=== PATIENT | male | born 1960 | race Caucasian/White ===

== ENCOUNTER 2023-06-19 09:37 | Inpatient (IN) | payer BC, SELFPAY ==
[2023-06-17 09:25] VITALS: BMI 29.8
[2023-06-17 10:08] LABS: % Basophils 0.7 % (0-2); % Immature Granulocytes 0.2 % (0-0.5); % Lymphocytes 20.4 % (20.5-51.1); % Monocytes 8.1 % (1.7-9.3); % Neutrophils 64.6 % (42.2-75.2); Absolute Basophils 0.1 10^3/uL (0-0.2); Absolute Eosinophils 0.6 10^3/uL (0-0.7); Absolute Lymphocytes 2.1 10^3/uL (1.2-3.4); Absolute Monocytes 0.8 10^3/uL (0.1-0.6); Absolute Neutrophils 6.5 10^3/uL (1.4-6.5); Hematocrit 38.6 % (39.0-52.0); Mean Corp Hgb Conc. 33.7 g/dL (33.0-37.0); Mean Corpuscular Volume 89.1 fL (80.0-94.0); Mean Platelet Volume 10.3 fL (7.4-10.4); Nucleated Red Blood Cells % 0 % (-); Platelet Count 263 10^3/uL (130-400); Red Blood Cell Count 4.33 10^6/uL (4.70-6.10); Red Cell Dist. Width 13.3 % (11.5-14.5)
[2023-06-17 10:18] LABS: INR 0.99; PT 13.3 Sec (11.4-14.6)
[2023-06-17 10:19] LABS: APTT 32.9 Sec (23.4-35.0)
[2023-06-17 10:20] LABS: Glycohemoglobin (HgbA1c) 6.5 % (4.0-5.6)
[2023-06-17 10:21] LABS: Blood Urea Nitrogen 17 mg/dl (9-20); Calcium 9.4 mg/dl (8.4-10.2); Carbon Dioxide 24 mmol/L (22-30); Chloride 104 mmol/L (98-107); Estimated Creatinine Clearance 53 ml/min; Glucose 120 mg/dl (70-99); Sodium 136 mmol/L (135-145); eGFR 51.99
[2023-06-17 10:27] LABS: Prealbumin (Transthyretin) 25.4 mg/dl (17.6-36.0)
[2023-06-19] VITALS (10 sets, daily range): BP systolic 112–165; BP diastolic 71–93; BMI 29.8
--- NOTE | 2023-06-19 10:00 | W.SUR.PREOP ---
Pre-Operative Surgical Note
-
I have examined this patient prior to the performance of the scheduled procedure.
The patient's condition is unchanged from the time of the current History and
Physical and the patient is able to undergo the scheduled procedure.
[2023-06-19 10:21] LABS: Glucose - Point of Care 92 mg/dl (70-99)
[2023-06-19] MEDS: BACTROBAN NASAL 1 GRAM NASAL (10:28)
[2023-06-19] MEDS: PERIDEX 0.12% ORAL RINSE 15 ML PO (10:28)
[2023-06-19] MEDS: NSS 500 IV (10:28)
[2023-06-19 14:12] LABS: ACT-LR - POC 247 Seconds (116-155)
[2023-06-19 14:24] LABS: Glucose - Point of Care 111 mg/dl (70-99)
[2023-06-19 15:28] LABS: ACT-LR - POC 153 Seconds (116-155)
--- NOTE | 2023-06-19 16:10 | W.SUR.POST ---
Surgical Immediate Post Op
Note
Pre Op Diagnosis: PAD
Post Op Diagnosis: PAD
Procedure Performed: Right FEA with bovine pericardial patch angioplasty, right femoral to above knee popliteal artery bypass with 8mm ringed Propaten graft, RLE angiogram, R external iliac artery stent (8mm gore VBX)
Primary Surgeon: Willie
Assist: Blair GODOY
Anesthesia: general
Estimated Blood Loss: 200cc, (1unit PRBC given)
Fluids: see anesthesia flow sheet
Drains/Shunts: none
Specimens/Cultures: R femoral plaque
Doppler/Duplex/Angio (Y/N): Y
Complications: none
Operative Findings: Palpable DP pulse upon completion
--- NOTE | 2023-06-19 16:31 | CON.INTV ---
Consultation
Consultation Request
Date/Time Consultation Requested: 06-19-23
Date/Time Consultation Performed: 06-19-23
Requesting Provider: Dr Tapia
Performing Provider: Dr Rodgers
Reason for Consultation: s/p FEA
Medical History
-
Chief Complaint: s/p SFA
History of Present Illness:
Mr Tutu Parks is a 62/M with debilitating WINSTON claudication.
Known to Dr Tapia, attempted intervention on 05-07-23 but unable to traverse occlusion at L SFA. Reevaluated at office, rec
S/p Right FEA, right femoral to above knee popliteal artery bypass, R external iliac artery stent 06-19
Seen at ICU, in no acute distress, mild postop RLE pain
Past Medical History
Past Medical History: Other (see A&P for PMH/PSH)
Social History
Tobacco: Former Smoker
Alcohol: None
Personal:
Living: With Family
Family History
Family History: Reviewed & Not Pertinent
Allergies / Home Medications
Allergies
Allergy/AdvReac Type Severity Reaction Status Date / Time
No Known Allergies Allergy Verified 06/12/23 12:49
Home Medications
Medication Instructions Recorded Confirmed Last Taken Type
aspirin 81 mg capsule 81 mg PO DAILY 04/25/23 06/19/23 06/19/23 07:00 History
cilostazol 50 mg tablet 50 mg PO BID 04/25/23 06/19/23 06/18/23 19:00 History
clopidogrel 75 mg tablet 75 mg PO DAILY 04/25/23 06/19/23 06/19/23 07:00 History
ezetimibe 10 mg tablet 10 mg PO DAILY 04/25/23 06/19/23 06/18/23 19:00 History
levothyroxine 25 mcg tablet 25 mcg PO DAILY 04/25/23 06/19/23 06/19/23 07:00 History
losartan 50 mg tablet 100 mg PO QPM 04/25/23 06/19/2306/18/24 19:00 History
metformin 500 mg tablet 500 mg PO QPM 04/25/23 06/19/23 06/17/23 19:00 History
rosuvastatin 40 mg tablet 40 mg PO QPM 04/25/23 06/19/23 06/18/23 19:00 History
isosorbide dinitrate 30 mg tablet 30 mg PO HS 05/07/23 06/19/23 06/18/23 19:00 History
metoprolol succinate 100 mg 100 mg PO HS 05/07/23 06/19/23 06/18/23 19:00 History
tablet,extended release 24 hr
pantoprazole 40 mg tablet,delayed 40 mg PO DAILY 05/07/23 06/19/23 06/18/23 07:00 History
release
amlodipine 10 mg tablet 10 mg PO QPM 06/12/23 06/19/23 06/18/23 19:00 History
coQ10 (ubiquinol) 100 mg capsule 100 mg PO DAILY 06/19/23 06/19/23 06/18/23 07:00 History
(Qunol Shaw CoQ10)
taurine 1,000 mg capsule 1,000 mg PO DAILY 06/19/23 06/19/23 06/18/23 07:00 History
Review of Systems
-
History Source: Patient
All other systems: Negative unless noted
Musculoskeletal: Other (RLE incisional pain)
Vitals / Labs / Diagnostic Testing
Vital Signs
Temp Pulse Resp BP Pulse Ox
98 F 77 10 165/93 97
06/19/23 09:48 06/19/23 09:48 06/19/23 09:48 06/19/23 09:48 06/19/23 09:48
Microbiology
06/17/23 09:44 Nose MRSA Screen - Final
No Methicillin Resistant Staphylococcus aureus isolated.
Diagnostic Testing:
Physical Exam
-
HEENT: Normocephalic and Moist Mucous Membranes
Cardiovascular: Regular Rhythm, Murmur (n) and Peripheral Edema
Respiratory: Clear and Non-Labored Respirations
GI: Soft, Non Distended and Non Tender
Neurology: Awake, AO x 3 and No Motor Deficits
Skin: Dry
General: Respiratory Distress (n)
Assessment
-
Assessment:
Mr Tutu Parks is a 62/M with debilitating WINSTON claudication. Known to Dr Tapia, attempted intervention on 05-07-23 but unable to traverse occlusion at L SFA. Reevaluated at office, rec FEA
Impression:
PAD, claudication L>R
S/p Right FEA, right femoral to above knee popliteal artery bypass, R external iliac artery stent
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
PAD: s/p aortogram, LLE runoff; R femoral angiogram 05-07-23: L DRAGNA stenosis/plaque; milder L EIA stenosis; L SFA proximal severe stenosis, mid occlusion with reconstitution distal SFA/AK pop; unable to traverse occlusion L SFA
DM
Hypothyroidism
HLD
GERD
Infrarenal Ao aneurysm 4.5 cm
Former smoker
Plan:
S/p Right FEA, right femoral to above knee popliteal artery bypass, R external iliac artery stent
EBL: 200 mL, 1U PRBC intraop
Postoperative surgical intensive care unit monitoring
Supplemental oxygen as needed
Incentive spirometry
Aspiration precautions
Neuro and vascular checks per protocol
Vascular surgery following-correspondence and operative notes reviewed
DVT prophylaxis
Early nutrition
Early mobilization
Critical care time: 35 min
Diagnostic tests:
CXR 06-17-22: PA/lat, no infiltrates
[2023-06-19 16:35] LABS: Glucose - Point of Care 134 mg/dl (70-99)
[2023-06-19 16:49] LABS: Hematocrit 32.4 % (39.0-52.0); Hemoglobin 11.5 g/dL (13.0-18.0); Mean Corp Hgb Conc. 35.5 g/dL (33.0-37.0); Mean Corpuscular Hgb 30.8 pg (27.0-31.0); Mean Corpuscular Volume 86.9 fL (80.0-94.0); Mean Platelet Volume 10.1 fL (7.4-10.4); Platelet Count 205 10^3/uL (130-400); Red Blood Cell Count 3.73 10^6/uL (4.70-6.10); Red Cell Dist. Width 13.6 % (11.5-14.5); White Blood Cell Count 13.6 10^3/uL (4.8-10.8)
[2023-06-19 17:00] LABS: INR 1.23; PT 15.6 Sec (11.4-14.6)
--- NOTE | 2023-06-19 17:02 | OR.RPT ---
Operative Report
Operative Report
PROCEDURE DATE: 06/19/2023
Preoperative diagnosis: Debilitating right lower extremity claudication.
Postoperative diagnosis: Same
Procedure:
1. Right ilio femoral endarterectomy (common femoral, origin of profunda, distal external iliac artery) with bovine pericardial patch angioplasty.
2. Right femoral to above-knee popliteal artery bypass with 8 mm ringed Donie Propaten graft.
3. Aortogram and pelvic angiogram. Right external iliac artery angioplasty/covered stent placement with Donie 8mm x 29mm VBX covered stent.
4. Supervision and interpretation.
Surgeon: Willie
Director Of Recruitment: GHISLAINE Pinto required for all aspects of procedure including traction/countertraction, assistance with the following suture line, assistance with closure.
Complications: None
Anesthesia: General
Indications for procedure:
Debilitating claudication. Flush SFA occlusion right lower extremity. Reconstituted above-knee popliteal artery. Complicating factors include presence of an abdominal aortic aneurysm but did not quite meet size criteria for repair. In addition
inflow disease from the iliacs (extensive discussion regarding management of iliac disease in the setting of an aneurysm, and what that would mean for potential aneurysm repair in the future). Discussed all these factors extensively with the
patient. Discussed procedure at length with the patient. Risk/benefits/alternatives all fully discussed. He understood all wish to proceed.
Description of procedure:
Patient was identified brought to the operating room placed on the table in supine position. After the adequate administration of anesthesia and perioperative antibiotics he was prepped and draped in the standard surgical fashion. A standard
preoperative timeout was undertaken and everybody was in agreement the plan.
Longitudinal incision was made in the right groin that was carried through skin subcutaneous tissue. Any lymphatic type structures or vessels were ligated between silk ties and then divided. I dissected down to the level of the inguinal ligament.
I could palpate the common femoral artery as it emerged from underneath inguinal ligament. I then dissected the common femoral artery on its anterior surface to the bifurcation. Of note the tissues were somewhat inflamed, making dissection
slightly more challenging as it dissected slightly like scarred tissue. I circumferentially carefully dissected the SFA just distal to a large collateral branch and passed a vessel loop around it here. More proximally at the profunda origin I
carefully dissected the profunda. There was post stenotic dilatation of the profunda as had been noted on CT scan. The wall was slightly thinned, so I carefully dissected it to the branch point. The main profunda and branch were controlled with
Vesseloops after careful circumferential dissection. The artery was noted to be fully soft here at this juncture. Now I continued dissection more proximally in the common femoral artery, and then underneath the inguinal ligament to the distal
external iliac artery. Any circumflex iliac branches were controlled except the medial 1 I had to ligate between silk ties and divided in order to facilitate more proximal exposure. The circumflex iliac vein was clipped and divided, although this
did not have the size of the normal circumflex iliac vein and I was slightly unsure whether this was the main vein. In addition, there was a percutaneous suture noted at the distal external iliac artery and the tissues here were somewhat scarred as
well, and this explained why the scarring was noted in the groin. I dissected proximal to the circumflex lateral iliac artery and circumferentially dissected here and passed a vessel loop around the distal external iliac artery here. It was
pulsatile flow here, and the artery was soft but there was some posterior plaque still.
At this point I had to gain control of the femoral vessels and branches, I turned my attention to exposing the outflow vessel. A longitudinal incision was made in the medial distal thigh that was carried through skin subcutaneous tissue. Staying
superior to the sartorius muscle, I used electrocautery to dissect through the fascial layer, and then in the loose areolar fatty tissue I was able to identify the above-knee popliteal artery and carefully dissected away from surrounding structures
take great care to avoid any injury to structures. There were a couple small crossing vein branches which had to clip were divided. In addition the artery was almost encased in inflammatory rind that was relatively soft. I gained circumferential
control proximally distally. Now I used a Danette tunneler to create a subsartorial tunnel between the 2 arterial exposure sites. Through this tunnel I then passed an 8 mm Donie ringed Propaten graft.
The patient was now given an appropriate dose of heparin. I then clamped the SFA and profunda branches that I had isolated. Any other Vesseloops on side branches of the common femoral or external iliac artery were double looped and tightened. I
then placed a Derra clamp on the distal external iliac artery. I then made an arteriotomy with an 11 blade on the proximal SFA extending retrograde with a Darling scissors onto the common femoral artery proximally. I noted mixed plaque with intimal
thickening type plaque as well as bulky coral reef like plaque. I carried this to the very proximal common femoral artery and then up to the external iliac artery. There was some degree of plaque going all the way up to the clamp and the external
iliac artery. Therefore, I did carefully/meticulously gain more proximal control. But the tissues here were all scarred making dissection more proximally somewhat challenging. However I was able to slide my clamp up a little bit. I then used a
[place] to create an endarterectomy plane. I then endarterectomized the plaque out of the common femoral artery, and just the origin of the profunda femoris artery. Beyond the origin the profunda was widely patent and the intima is nicely adherent.
I then cut the intima flush in the proximal superficial femoral artery (chronically occluded). I then inspected carefully my proximal endpoint at the clamp. I was able to tease back plaque until I was able to get nice reasonable intima that was
somewhat healthy and the endpoint of the endarterectomy. At this point, I then removed any fine debris with fine forceps through the endarterectomy bed. I then flushed heparinized saline, and then used a bovine pericardial patch to sew a patch
angioplasty with a running 5-0 Prolene suture. Prior to completing and tying to my suture I backbled the branches, and then I completed and tied down my suture line. Next I temporarily released my clamps. I then achieved hemostasis at the suture
line. Next I reclamped the branches.
Now I made a patchotomy with an 11 blade in the distal aspect of the bovine pericardial patch. This was extended with the Darling scissors. I then beveled the graft that I had tunneled, and sewed an end to side anastomosis from the graft onto the
patch using Donie CV 6 suture. Next I completed and tied on the suture line and then clamped the graft. I then released flow in the ione system. Next, I packed the site and turned my attention to the distal site. I double looped and tightened
my Vesseloops on the proximal popliteal artery, and placed a clamp on the distal popliteal artery. I then made an arteriotomy with 11 blade extended using a Darling scissor. I then trimmed, deringed, and beveled the distal aspect of the graft and
sewed an end to side anastomosis between the graft and the popliteal artery above the knee with a Donie CV 6 suture. Prior to completing and tying to my suture line I backbled and forward with the ione artery I then flushed out the graft and then
completed and tied to my suture line. Next I released flow. There is a good pulse in the artery distal to the anastomosis. There was also a good Doppler signal that was essentially graft dependent.
I was unable to palpate a pulse on the foot at this point. However, I was planning on performing arteriography given my concern based on CT scan for a more proximal distal external iliac artery stenosis (more proximal to the endarterectomy site).
Therefore, at this point I punctured the bovine pericardial patch more proximal to the anastomosis to the graft that I performed. This was done with a micropuncture kit. Through the micropuncture sheath I obtained a aortogram/pelvic angiogram and
confirmed severe external iliac artery stenosis just beyond the bifurcation of the iliac vessels. At this point I then gained wire access with a 0.035 inch wire into the aorta. I then exchanged for a 5 [place] sheath and then upsized to a 7 [place]
sheath. I had exchanged for a [employer] wire at this point. Now I used a Donie 8mm x 29mm VBX covered stent and ballooned it accurately into place having marked the iliac bifurcation on the screen so as to avoid any inadvertent coverage of the internal
iliac artery. I was very satisfied with this positioning. Completion angiogram demonstrated excellent positioning. There is now much stronger pulse in the common femoral artery. At this point I was satisfied. I then withdrew my catheters and
wires. I clamped the common femoral artery proximally and distally and remove the sheath. I then placed a 6-0 Prolene [id number]-vy-uietd type suture at the sheath entry site. I then released my clamps. Hemostasis was noted there. At this point I
had excellent pulsation of the common femoral artery and in the bypass graft and the popliteal artery above the knee. In addition now I had an easily palpable 2+ DP pulse. At this point is very satisfied.
I now meticulously achieved hemostasis. This involved interrupted [id number]-[id number] type 6-0 Prolene sutures at any bleeding points on the suture lines. And in addition, I gave protamine to reverse the heparin. Finally I was able to achieve full
hemostasis. I then irrigated the incision sites vigorously. I then confirmed hemostasis. I then closed in layers using layers of Vicryl suture followed by 4-0 Monocryl subcuticular stitch in both surgical sites. Dermabond was applied and
dressings were applied. The patient tolerated the procedure well.
[2023-06-19 17:16] LABS: Blood Urea Nitrogen 17 mg/dl (9-20); Calcium 7.9 mg/dl (8.4-10.2); Carbon Dioxide 18 mmol/L (22-30); Chloride 109 mmol/L (98-107); Estimated Creatinine Clearance 57 ml/min; Glucose 158 mg/dl (70-99); Potassium 4.2 mmol/L (3.5-5.1); Sodium 137 mmol/L (135-145); eGFR 56.48
[2023-06-19] MEDS: NSS 1000 IV (17:24)
--- NOTE | 2023-06-19 18:45 | PTCARENOTE ---
arrived in ICU from PACU via bed. settled in room, art line zero and isael, correllates with cuff BP. Notes pain manageable, maybe 2/10. family bedside. see admission assessment and documentation. skin warm dry. Ice pack to R knee, aquacell
dressings intact. instructed on ICU routine, art line, and plan of care. call verduzco in reach. taking water for now, doesn't want clear liquid dinner tray at this time. erazo draining.
--- NOTE | 2023-06-19 19:03 | SUR.PHASEI ---
vss, palpable pulse dp right foot, feet warm to touch, aquacell dressings dry x2, pinpoint areas of echymosis around right femoral dressing. Ice pack to right knee area, per Dr Tapia. Dr Tapia updated on labs and patient transferred to ICCU, hand off
at bedside.. notified and brought to room
[2023-06-19] MEDS: CRESTOR 40 MG PO (19:13)
[2023-06-19] MEDS: ROXICODONE 5 MG PO (19:13)
--- NOTE | 2023-06-19 20:07 | PTCARENOTE ---
Received patient in bed AAOx4 and able to make his needs known. Pt's joking with staff. Dual RN Rt FEA site assessed. Right groin and right lateral knee aquacell dressings are cdi. No hematoma or drainage noted. Right DP pulse is palpable and rt PT
pulse is present with doppler. Doppler pulse to Lt DP/PT present. Skin is warm and dry. Rt foot is pink and warm. The patient c/o 4/10 rt knee pain. Pain management plan and plan of care for the shift reviewed with the patient. PRN Roxicodone
administered. Pt received on 4L O2 but weaned of to room air. SpO2 at 95%. Clear breath sounds. Hypoactive BS. Thermostat erazo is draining yellow urine. Right radial A-line zeroed and line flushed. Waveform is normal. Radial [place] and cuff pressure
correlates. All needs are met at this time. Call verduzco is within reach. The patient's spouse is at the bedside.
[2023-06-19 23:22] LABS: Glucose - Point of Care 162 mg/dl (70-99)
[2023-06-20] VITALS (14 sets, daily range): BP systolic 99–162; BP diastolic 61–88; PULSE 107; O2SAT 98; BMI 30.1
[2023-06-20] MEDS: HEPARIN 5000 UNITS SC ×4 (00:05→23:18)
[2023-06-20] MEDS: ROXICODONE 5 MG PO ×5 (00:12→21:51)
--- NOTE | 2023-06-20 00:13 | PTCARENOTE ---
patient reassessed. Remains AAOx4 and able to make his needs known. PRN administered for right leg/rt knee pain. Aquacel dressings remain cdi. Neurovascular checks as documented. No further changes fro the previous assessment.
[2023-06-20 03:53] LABS: Hematocrit 29.7 % (39.0-52.0); Hemoglobin 10.6 g/dL (13.0-18.0); Mean Corp Hgb Conc. 35.7 g/dL (33.0-37.0); Mean Corpuscular Volume 86.8 fL (80.0-94.0); Mean Platelet Volume 10.4 fL (7.4-10.4); Platelet Count 198 10^3/uL (130-400); Red Blood Cell Count 3.42 10^6/uL (4.70-6.10); Red Cell Dist. Width 13.8 % (11.5-14.5); White Blood Cell Count 13.9 10^3/uL (4.8-10.8)
[2023-06-20 03:58] LABS: APTT 30.7 Sec (23.4-35.0); INR 1.16; PT 14.8 Sec (11.4-14.6)
[2023-06-20 04:02] LABS: Blood Urea Nitrogen 19 mg/dl (9-20); Carbon Dioxide 17 mmol/L (22-30); Chloride 108 mmol/L (98-107); Estimated Creatinine Clearance 66 ml/min; Glucose 144 mg/dl (70-99); Potassium 4.1 mmol/L (3.5-5.1); Sodium 136 mmol/L (135-145); eGFR > 60.00
--- NOTE | 2023-06-20 04:14 | PTCARENOTE ---
Patient reassessed. Remains AAOx4. no changes from the previous assessment. neurovascular assessment as documented. Patient cleansed with CHG wipes and linens changed. The patient repositions himself. All needs are met at this time. Safety measures
continued.
[2023-06-20 04:51] LABS: Hepatitis C Antibody Negative (Negative)
[2023-06-20] MEDS: NSS 1000 IV (04:51)
[2023-06-20] MEDS: SYNTHROID 25 MCG PO (06:11)
[2023-06-20] MEDS: PLAVIX 75 MG PO (07:32)
[2023-06-20] MEDS: ZETIA 10 MG PO (07:32)
[2023-06-20] MEDS: ASPIR LOW (ENTERIC COATED) 81 MG PO (07:32)
[2023-06-20] MEDS: PROTONIX 40 MG PO (07:32)
[2023-06-20 07:52] LABS: Glucose - Point of Care 136 mg/dl (70-99)
[2023-06-20 08:21] LABS: Glucose - Point of Care 137 mg/dl (70-99)
--- NOTE | 2023-06-20 08:24 | W.PN.VS ---
Addendum entered and electronically signed by Jovon Erazo III, MD 06/20/23 15:00:
This patient was seen and examined with WALT Angela and WALT Dumont. I agree with the history and physical exam as well as the assessment and plan.
Doing well postop day 1 lower extremity bypass.
Signed:
Jovon Erazo III, MD
[facility] Vascular Surgery
[phone] (cell)
Original Note:
Today's Communication / Plan
-
See plan below.
Assessment/Plan
-
Assessment: 62 year old male POD #1� Right ilio femoral endarterectomy,�right femoral to above-knee popliteal artery bypass with 8 mm ringed [place] Propaten graft, aortogram and pelvic angiogram, right external iliac artery angioplasty/covered stent
placement.
Plan:
Discontinue arterial line
Discontinue erazo catheter
OOB to chair with progression to ambulation as tolerated
Continue DAPT
PT eval and treat
Subjective Data
-
Date of Service: June 20, 2023
Patient seen and examined, offers no complaints. Reports mild discomfort that is well managed with current pain regimen. Denies nausea, vomiting, fever, and chills. Tolerating PO diet. Reports eagerness for discharge when medically stable.
Objective Data
-
Vital Signs
Temp Pulse Resp BP Pulse Ox
97.6 F 91 14 158/88 95
06/20/23 04:06 06/20/23 06:15 06/20/23 06:15 06/19/23 22:08 06/20/23 06:15
Intake and Output
06/19/23 06/20/23 06/21/23
06:59 06:59 06:59
Intake Total 1690 / 1690
Output Total 1405 / 1405
Balance 285 / 285
Intake:
Oral fluids 580 / 580
IV fluids (Total) 1110 / 1110
Nss 1,000 ml @ 80 mls/hr IV . 960 / 960
[id number] [facility] Rx#:[id number]
normosol 150 / 150
Output:
Urine, Erazo 1405 / 1405
Lab Results
06/20/23 03:40
06/20/23 03:40
Calcium 8.0 mg/dl (8.4-10.2) L 06/20/23 03:40
Physical Exam
-
AAOx3, NAD, resting comfortably in bed
No tachycardia
No dyspnea on room air
ABD soft, non- tender, non-distend
Right groin and right medial thigh aquacel dressing CDI, no evidence of hematoma, surrounding area soft
Right foot warm with +2 palpable DP
--- NOTE | 2023-06-20 08:38 | PTCARENOTE ---
Received patient in bed AAOx4 and able to make his needs known. Pt's joking with staff. Dual RN Rt FEA site assessed. Right groin and right lateral knee aquacell dressings are cdi. No hematoma or drainage noted. Right DP pulse is palpable. Doppler
pulse to Lt DP/PT present. Skin is warm and dry. Rt foot is pink and warm. The patient c/o 4/10 rt knee pain. Pain management plan and plan of care for the shift reviewed with the patient. PRN Roxicodone administered. SpO2 at 92%. Clear breath
sounds. Thermostat erazo is draining yellow urine. Right radial A-line zeroed and line flushed. Radial [place] and cuff pressure correlates. All needs are met at this time. Call verduzco is within reach.
--- NOTE | 2023-06-20 08:55 | W.PN.INTV ---
Today's Communication / Plan
Recommendations
DAPT
PT
Dispo
Assessment
-
Assessment:
Mr Tutu Parks is a 62/M with debilitating WINSTON claudication. Known to Dr Tapia, attempted intervention on 05-07-23 but unable to traverse occlusion at L SFA. Reevaluated at office, rec FEA
Impression:
PAD, claudication L>R
S/p Right FEA, right femoral to above knee popliteal artery bypass, R external iliac artery stent
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
PAD: s/p aortogram, LLE runoff; R femoral angiogram 05-07-23: L DRAGAN stenosis/plaque; milder L EIA stenosis; L SFA proximal severe stenosis, mid occlusion with reconstitution distal SFA/AK pop; unable to traverse occlusion L SFA
DM
Hypothyroidism
HLD
GERD
Infrarenal Ao aneurysm 4.5 cm
Former smoker
Plan:
S/p Right FEA, right femoral to above knee popliteal artery bypass, R external iliac artery stent
EBL: 200 mL, 1U PRBC intraop
Postoperative surgical intensive care unit monitoring completed
D/c A-line
Supplemental oxygen as needed, currently on RA, POx 95%
Incentive spirometry
Aspiration precautions
Neuro and vascular checks per protocol
DAPT
Vascular surgery following-correspondence and operative notes reviewed
DVT prophylaxis
Early nutrition
Early mobilization, PT
Disposition per vasc surgery, likely for d/c today
Diagnostic tests:
CXR 06-17-22: PA/lat, no infiltrates
Subjective Dataa
Subjective Data
Date of Service:
Date of Service: June 20, 2023
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
Subjective:
No major events reported overnight
Hemodynamically stable
Denies major complaints
Review of Systems
General: Fever (n), Sweats (n), Chills (n) and Satisfactory Appetite
HEENT: Epistaxis (n) and Dysphagia (n)
Cardiopulmonary: Dyspnea (n), Cough (n), Wheezing (n) and Chest Pain (n)
GI: Abdominal Pain (n), Nausea (n) and Vomiting (n)
Neuro: Weakness (n)
Objective Data
Data Reviewed
Vital Signs / I&O / Oxygen:
Vital Signs
Temp Pulse Resp BP Pulse Ox
98.1 F 95 15 139/69 92
06/20/23 08:00 06/20/23 08:30 06/20/23 08:30 06/20/23 06:22 06/20/23 08:30
Intake and Output
06/19/23 06/20/23 06/21/23
06:59 06:59 06:59
Intake Total 1690 / 1770 160 / 160
Output Total 1405 / 1405
Balance 285 / 365 160 / 160
SaO2 92
Nasal Cannula flow liters per 2
minute
Physical Exam
General: Comfortable
HEENT: Normocephalic and Moist Mucous Membranes
Cardiovascular: Regular Rhythm, Murmur (n) and Peripheral Edema (n)
Respiratory: Clear, Non-Labored Respirations and Stridor (n)
GI: Soft, Non Distended and Non Tender
Neurology: Awake, AO x 3 and No Motor Deficits
Skin: Dry
Labs/Micro/Reports
Lab Data
06/20/23 03:40
06/20/23 03:40
Laboratory Results
06/19/23 06/20/23
16:43 03:40
PT 15.6 H 14.8 H
INR 1.23 1.16
APTT 32.0 30.7
Microbiology
06/17/23 09:44 Nose MRSA Screen - Final
No Methicillin Resistant Staphylococcus aureus isolated.
--- NOTE | 2023-06-20 10:33 | PTCARENOTE ---
Addendum entered by Francheska Cornell RN 06/20/23 10:34:
A-jun and erazo removed without issue as ordered.
Original Note:
OOB to chair with PT. See note.
--- NOTE | 2023-06-20 11:50 | CM ---
Addendum entered by Isael Clifford 06/20/23 14:59:
Pt's came and she stated that pt has a walker at home. Per , she bought a walker for her mother 2 months ago and that walker is available now.
PT has been notified.
Addendum entered by Isael Clifford 06/20/23 13:22:
PT and OT evaluation noted - home PT/OT recommended. Pt agrees and he preferred [facility]. A referral to [facility] made.
PT has been notified that a script for a Rolling walker is in pt's chart. PT will issue a walker
Please fax discharge instructions to [facility] at [phone].
D/C plan: home with [facility] and family support. Family to transport at discharge.
Original Note:
CM following re: discharge planning.
Discussed in Rounds, reviewed pt's chart, met with pt.
Pt is a 62 year old male, admitted with primary dx of POD #1� s/p Right ilio femoral endarterectomy.
Pt reports he lives with spouse 2SH, 7 steps to enter, has 2 supportive children. 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 No DME, VN or SNF history.
PCP: Luisa Viramontes
Pharmacy: [facility]
D/C plan: home with anticipated no needs. Spouse to transport at discharge.
CM will follow with discharge plan updates as hospitalization progresses
[2023-06-20 12:39] LABS: Glucose - Point of Care 138 mg/dl (70-99)
--- NOTE | 2023-06-20 12:41 | W.PV.INTER ---
VPI Note
Pre Admission Note
Functional Status: Full
Ambulation: Ambulate Independently
Pre Op Medications
Pre Op ASA: Yes
Pre Op Statin: Yes
Pre Op REED Inhibitor/ARB: Yes
Pre Op P2y12 Antagonist: Clopidogrel
Pre Op Beta Blockers: Chronic > 30 Days
Pre Op Chronic Anticoagulant: None
Pre Op Cilostazol: Yes
Post Op Medications
Post Op ASA: Yes
Post Op Statin: Yes
Post Op REED Inhibitor/ARB: Yes
Post Op P2y12 Antagonist: Clopidogrel
Post Op Beta Blockers: Chronic > 30 Days
Post Op Chronic Anticoagulant: None
Post Op Cilostazol: Yes
--- NOTE | 2023-06-20 16:04 | VNURNOTE ---
Home Health Liaison met with patient and Josie at 1500 to discuss [facility] nurse/therapy, visits, schedule and homebound status. Patient is agreeable and understands that visits at home will be 2-3 x per week to assess and teach medical
management.
[facility] brochure provided with contact information. Patient is aware that [facility] will contact them for start of care in 1-2 days after discharge from .
[facility] referral completed in [facility].
[2023-06-20] MEDS: CRESTOR 40 MG PO (17:28)
[2023-06-20] MEDS: COZAAR 100 MG PO (17:28)
[2023-06-20] MEDS: NORVASC 10 MG PO (17:28)
[2023-06-20 17:42] LABS: Glucose - Point of Care 143 mg/dl (70-99)
[2023-06-20] MEDS: COLACE 100 MG PO (21:51)
[2023-06-20] MEDS: TOPROL XL 100 MG PO (21:51)
[2023-06-20] MEDS: SORBITRATE 30 MG PO (21:51)
[2023-06-21] VITALS (10 sets, daily range): BP systolic 101–120; BP diastolic 59–73; BMI 30.2
--- NOTE | 2023-06-21 04:04 | W.PN.UPDATE ---
Addendum entered and electronically signed by WALT Cervantes 06/21/23 04:10:
WRONG ENTRY
Addendum entered and electronically signed by WALT Cervantes 06/21/23 04:09:

Procedure = never done.

Original Note:
Update Note
Progress Note Update
Left Wrist Arrow 20 (07/20)�
Diagnosis:��Sepsis
IV Line Comments: Uneventful Procedure�
Bhupendra's test completed pre-procedure: Yes�
A-Line Comments: Sterile technique as per standard protocol, Ultrasound guided insertion�
Functioning A-line in situ: Yes�
A-line Insertion Start Time:��0330
A-line in at:�0335�
[2023-06-21 04:40] LABS: Hematocrit 28.5 % (39.0-52.0); Hemoglobin 9.8 g/dL (13.0-18.0); Mean Corp Hgb Conc. 34.4 g/dL (33.0-37.0); Mean Corpuscular Hgb 30.5 pg (27.0-31.0); Mean Corpuscular Volume 88.8 fL (80.0-94.0); Mean Platelet Volume 10.9 fL (7.4-10.4); Platelet Count 188 10^3/uL (130-400); Red Blood Cell Count 3.21 10^6/uL (4.70-6.10); Red Cell Dist. Width 13.8 % (11.5-14.5)
[2023-06-21 05:07] LABS: ALT (SGPT) 16 U/L (0-50); AST (SGOT) 20 U/L (17-59); Alkaline Phosphatase 54 U/L (38-126); Blood Urea Nitrogen 22 mg/dl (9-20); Calcium 8.4 mg/dl (8.4-10.2); Carbon Dioxide 21 mmol/L (22-30); Chloride 104 mmol/L (98-107); Estimated Creatinine Clearance 53 ml/min; Glucose 132 mg/dl (70-99); Potassium 3.9 mmol/L (3.5-5.1); Sodium 136 mmol/L (135-145); Total Bilirubin 0.5 mg/dl (0.2-1.3); Total Protein 5.4 g/dl (6.3-8.2); eGFR 51.99
--- NOTE | 2023-06-21 05:20 | PTCARENOTE ---
06/20/23- received pt from dayshift RN, assessments completed, vascular check are Q4hr. Right foot warm and dry, pulses b/l doppler and weak on palpation. pt offers mild complaints of pain 10/26 which is resolved with prn pain medication. pt oob ad
alexander to bathroom, only requires assistance to hook himself back up to monitor
06/21/23- pt oob walking halls using walker, i went with him for assistance if needed, no c/o shortness of breath or difficulty breathing with ambulation. pain continues to be controlled with prn medication. dressings clean dry and intact. labs
drawn and sent no new orders.
no changes in assessment since beginning of shift,
call verduzco and personal belongings within reach at all times
[2023-06-21] MEDS: SYNTHROID 25 MCG PO (06:22)
--- NOTE | 2023-06-21 06:59 | W.[place]-PDMP ---
[place]-PDMP
-
Checked the [place]- Prescription Drug Monitoring Program website, no red flags identified; safe to proceed with prescription.
--- NOTE | 2023-06-21 07:30 | W.PN.VS ---
Today's Communication / Plan
-
Discussed with Dr Muniz
Assessment/Plan
-
Assessment: 62 year old male POD #2� Right ilio femoral endarterectomy,�right femoral to above-knee popliteal artery bypass with 8 mm ringed [place] Propaten graft, aortogram and pelvic angiogram, right external iliac artery angioplasty/covered stent
placement.
Plan:
Ambulate
pain control
DC later today
Subjective Data
-
Date of Service: June 21, 2023
Pt seen at bedside this am. Pt offers no complaints at this time. No events overnight.
Objective Data
-
Vital Signs
Temp Pulse Resp BP Pulse Ox
98.5 F 94 16 120/60 93
06/21/23 07:28 06/21/23 06:15 06/21/23 06:15 06/21/23 06:00 06/21/23 06:15
Intake and Output
06/20/23 06/21/23 06/22/23
06:59 06:59 06:59
Intake Total 1690 / 1770 680 / 680
Output Total 1405 / 1405 1075 / 1075
Balance 285 / 365 -395 / -395
Intake:
Oral fluids 580 / 580 520 / 520
IV fluids (Total) 1110 / 1190 160 / 160
Nss 1,000 ml @ 80 mls/hr IV . 960 / 1040 160 / 160
[id number] [id number] Rx#:[id number]
normosol 150 / 150
Output:
Urine, Jackson 1405 / 1405 375 / 375
Urine, Voided 700 / 700
Lab Results
06/21/23 04:13
06/21/23 04:13
Calcium 8.4 mg/dl (8.4-10.2) 06/21/23 04:13
Total Bilirubin 0.5 mg/dl (0.2-1.3) 06/21/23 04:13
AST 20 U/L (17-59) 06/21/23 04:13
ALT 16 U/L (0-50) 06/21/23 04:13
Alkaline Phosphatase 54 U/L (38-126) 06/21/23 04:13
Total Protein 5.4 g/dl (6.3-8.2) L 06/21/23 04:13
Albumin 3.0 g/dl (3.5-5.0) L 06/21/23 04:13
Physical Exam
-
AAOx3, NAD, resting comfortably in bed
No tachycardia
No dyspnea on room air
ABD soft, non- tender, non-distend
Right groin and right medial thigh aquacel dressing CDI, no evidence of hematoma, surrounding area soft
Right foot warm with +2 palpable DP
Labs stable, creatinine at baseline
--- NOTE | 2023-06-21 07:34 | W.DS.TRANS ---
Addendum entered and electronically signed by Jeannette Mar MD 06/21/23 09:28:
Patient without complaints and excited to go home. Pain minimal.
NAD
+2DP pulse
Incisions c/d/i
Ok to d/c today
Original Note:
DC Summary - [facility]
-
Discharge Instructions:
Discharge Diagnosis/Procedures Right FEA with bovine pericardial patch
angioplasty, right femoral to above knee
popliteal artery bypass with 8mm ringed Propaten
graft, RLE angiogram, R external iliac artery
stent
Diet As tolerated
Activity No strenuous activity
Driving Restrictions Not until seen by your Dr
Bathing Restrictions OK to Shower
Instructions:
Stand-Alone Forms: DC Instr - Vascular OR
Changes to Home Medications: Yes
Discharge Medications:
DC Medications w/original date entered in [employer]
aspirin 81 mg capsule 81 mg PO DAILY Blood Clot Prevention/Tx 04/25/23
cilostazol 50 mg tablet 50 mg PO BID Blood Clot Prevention/Tx 04/25/23
clopidogrel 75 mg tablet 75 mg PO DAILY Blood Clot Prevention/Tx 04/25/23
ezetimibe 10 mg tablet 10 mg PO DAILY High Cholesterol 04/25/23
levothyroxine 25 mcg tablet 25 mcg PO DAILY Thyroid 04/25/23
losartan 50 mg tablet 100 mg PO QPM Blood Pressure 04/25/23
metformin 500 mg tablet 500 mg PO QPM Diabetes 04/25/23
rosuvastatin 40 mg tablet 40 mg PO QPM High Cholesterol 04/25/23
isosorbide dinitrate 30 mg tablet 30 mg PO HS Blood Pressure 05/07/23
metoprolol succinate 100 mg tablet,extended release 24 hr 100 mg PO HS Heart Disease/Condition 05/07/23
pantoprazole 40 mg tablet,delayed release 40 mg PO DAILY Gastrointestinal Issue 05/07/23
amlodipine 10 mg tablet 10 mg PO QPM Blood Pressure 06/12/23
coQ10 (ubiquinol) 100 mg capsule (Qunol Shaw CoQ10) 100 mg PO DAILY Supplement 06/19/23
taurine 1,000 mg capsule 1,000 mg PO DAILY Supplement 06/19/23
docusate sodium 100 mg capsule 100 mg PO BID #20 caps 06/21/23
oxycodone 5 mg tablet 5 mg PO Q4HPRN PRN moderate pain #7 tabs 06/21/23
Home Medication Changes
ADDED:
Colace and oxycodone
Pending Results: No
[2023-06-21 07:51] LABS: Glucose - Point of Care 130 mg/dl (70-99)
[2023-06-21] MEDS: PROTONIX 40 MG PO (07:51)
[2023-06-21] MEDS: ASPIR LOW (ENTERIC COATED) 81 MG PO (07:51)
[2023-06-21] MEDS: PLAVIX 75 MG PO (07:51)
[2023-06-21] MEDS: ZETIA 10 MG PO (07:51)
[2023-06-21] MEDS: HEPARIN 5000 UNITS SC (07:51)
[2023-06-21] MEDS: COLACE 100 MG PO (07:51)
[2023-06-21] MEDS: ROXICODONE 5 MG PO (07:53)
--- NOTE | 2023-06-21 08:55 | W.PN.INTV ---
Today's Communication / Plan
Recommendations
D/c
Assessment
-
Assessment:
Mr Tutu Parks is a 62/M with debilitating WINSTON claudication. Known to Dr Tapia, attempted intervention on 05-07-23 but unable to traverse occlusion at L SFA. Reevaluated at office, rec FEA
Impression:
PAD, claudication L>R
S/p Right FEA, right femoral to above knee popliteal artery bypass, R external iliac artery stent
Conditions TALENT CONSULTANT:
PAD: s/p aortogram, LLE runoff; R femoral angiogram 05-07-23: L DRAGAN stenosis/plaque; milder L EIA stenosis; L SFA proximal severe stenosis, mid occlusion with reconstitution distal SFA/AK pop; unable to traverse occlusion L SFA
DM
Hypothyroidism
HLD
GERD
Infrarenal Ao aneurysm 4.5 cm
Former smoker
Plan:
S/p Right FEA, right femoral to above knee popliteal artery bypass, R external iliac artery stent
EBL: 200 mL, 1U PRBC intraop
Postoperative surgical intensive care unit monitoring completed
D/c A-line
Supplemental oxygen as needed, currently on RA, POx 95%
Incentive spirometry
Aspiration precautions
Neuro and vascular checks per protocol
DAPT
Vascular surgery following-correspondence and operative notes reviewed
DVT prophylaxis
Early nutrition
Early mobilization, PT
Disposition per vasc surgery
Diagnostic tests:
CXR 06-17-22: PA/lat, no infiltrates
Subjective Dataa
Subjective Data
Date of Service:
Date of Service: June 21, 2023
Chief Complaint: Psychiatric Assistant Follow Up
Subjective:
No major events reported overnight
Doing well postoperatively
Denies major complaints
Review of Systems
General: Fever (n), Sweats, Chills and Satisfactory Appetite
Cardiopulmonary: Dyspnea (n), Cough and Edema
GI: Abdominal Pain, Nausea (n) and Vomiting (n)
Neuro: Weakness (n)
Objective Data
Data Reviewed
Vital Signs / I&O / Oxygen:
Vital Signs
Temp Pulse Resp BP Pulse Ox
98.5 F 94 16 120/60 93
06/21/23 07:28 06/21/23 06:15 06/21/23 06:15 06/21/23 06:00 06/21/23 06:15
Intake and Output
06/20/23 06/21/23 06/22/23
06:59 06:59 06:59
Intake Total 1690 / 1770 680 / 680
Output Total 1405 / 1405 1075 / 1075
Balance 285 / 365 -395 / -395
SaO2 93
Nasal Cannula flow liters per 2
minute
Physical Exam
General: Comfortable
HEENT: Normocephalic and Moist Mucous Membranes
Cardiovascular: Regular Rhythm, Murmur (n) and Peripheral Edema (n)
Respiratory: Clear, Non-Labored Respirations and Stridor (n)
GI: Soft, Non Distended and Non Tender
Neurology: Awake, AO x 3 and No Motor Deficits
Skin: Dry
Labs/Micro/Reports
Lab Data
06/21/23 04:13
06/21/23 04:13
Laboratory Results
06/21/23
04:04
pH Cancelled
pCO2 Cancelled
pO2 Cancelled
HCO3 Cancelled
O2 Delivery Level Cancelled
Microbiology
06/17/23 09:44 Nose MRSA Screen - Final
No Methicillin Resistant Staphylococcus aureus isolated.
--- NOTE | 2023-06-21 10:16 | PTCARENOTE ---
Rec'd pt at 0700. Pt AAOx3, follows commands, SAXENA. Ambulatory in room. Monitor SR. Lungs CTA. +BS, abd soft/nt. Ate 100% breakfast. Right groin dressing C/D/I, right inner knee dressing intact, small amt old drainage noted. Dressings removed by vasc
. Discharge instructions reviewed with pt and . Pt dc'd home at approx 1015.
--- NOTE | 2023-06-23 07:40 | W.DCSUMMARY ---
Discharge Summary
Discharge Data
Date of Admission: 06/19/23
Date of Discharge: 06/21/23
-
Pending Results: No
Hospital Course
Attending: Dr. Kostas Tapia
Consultants: Pulmonary medicine
Allergies: NKDA
Procedure with date: PROCEDURE DATE: 06/19/2023, Right ilio femoral endarterectomy (common femoral, origin of profunda, distal external iliac artery) with bovine pericardial patch angioplasty. Right femoral to above-knee popliteal artery bypass with 8
mm ringed [place] Propaten graft. Aortogram and pelvic angiogram. Right external iliac artery angioplasty/covered stent placement with [place] 8mm x 29mm VBX covered stent.
History of present illness: The patient is an 62 -year-old male with multiple medical conditions including: peripheral artery disease and prediabetic. Patient presented on 06/19/23 for scheduled procedure with Dr. Kostas Tapia. Patient presented at
baseline health with no reports of recent illness or trauma.
Hospital Course: Briefly, the patient underwent scheduled procedure without complications, and recovered in PACU. Following recovery phase one and two patient was transferred to intensive care unit per protocol for continued hemodynamic monitoring.
Catalyst Concentration Operator consulted to aid in medical management from a critical care perspective. POD #1 224 Right groin surgical dressing clean, dry, and intact. No evidence of hematoma. Arterial line and IV fluids discontinued. Patient able to ambulate
without difficulty or incident. PT consulted. POD #2 2 patient with no complaints, continues to tolerate diet. Stable for discharge home
Prescriptions and follow up appointment are included in the DC summary data management manager note. All instructions were given to the patient in both written and verbal form and the patient expressed understanding.
Discharge Plan
-
Patient Disposition: Home (Routine Discharge)
Discharge Diagnosis/Procedures: Right FEA with bovine pericardial patch angioplasty, right femoral to above knee popliteal artery bypass with 8mm ringed Propaten graft, RLE angiogram, R external iliac artery stent
Condition: Good
Diet: As tolerated
Activity: No strenuous activity
Driving Restrictions: Not until seen by your Dr
Bathing Restrictions: Aquacel dressings are waterproof
Wound Care: You may peel off your dressings on 06/23, you may shower like normal, no tub soaks until after follow up. There is glue covering your surgical sites that will start to peel away, this is normal. Your surgical sites are closed with
dissolvable suture under your skin so there is nothing to remove.
Stand Alone Forms: DC Instr - Vascular OR
Referrals:
Jeannette Patrick PA-C [Specified Professional Personl] - 07/03/23 10:30 am (Vascular follow up)
Luisa Viramontes DO [Family Provider] -
Prescriptions:
New
docusate sodium 100 mg Capsule
100 mg PO BID Qty: 20 0RF
oxycodone 5 mg Tablet
5 mg PO Q4HPRN PRN (Reason: moderate pain) Qty: 7 0RF
Continued
losartan 50 mg Tablet
100 mg PO QPM
cilostazol 50 mg Tablet
50 mg PO BID
Patient Comments:
pt states he takes 100mg QD. Patient instructed to clarify 100mg QD or 50mg BID with Dr Tapia. Patient verbalized understaing.
Rx Instructions:
take 30 minutes before or 2 hours after breakfast and dinner
clopidogrel 75 mg Tablet
75 mg PO DAILY
ezetimibe 10 mg Tablet
10 mg PO DAILY
rosuvastatin 40 mg Tablet
40 mg PO QPM
aspirin 81 mg Capsule
81 mg PO DAILY
levothyroxine 25 mcg Tablet
25 mcg PO DAILY
isosorbide dinitrate 30 mg Tablet
30 mg PO HS
pantoprazole 40 mg Tablet,Delayed Release (/Ec)
40 mg PO DAILY
metoprolol succinate 100 mg Tablet Extended Release 24 Hr
100 mg PO HS
amlodipine 10 mg Tablet
10 mg PO QPM
taurine 1,000 mg Capsule
1,000 mg PO DAILY
coQ10 (ubiquinol) [Qunol Shaw CoQ10] 100 mg Capsule
100 mg PO DAILY
Held
metformin 500 mg Tablet
500 mg PO QPM
Hold Instructions: Resume on 05/09/23. Do not take Metformin for 48 hours.
Rx Instructions:
take with a meal
Discharge Orders:
Discharge Patient (As Directed); Ordered 06/21/23
Ordered By: Jeannette Mar
Discharge Date and Time
Discharge Date/Time: 06/21/23 10:24
== END 2023-06-21 10:24 | disposition home or self-care (01) | DRG 272 ==
LOC: ICU 09:37
PROVIDERS: Nurse Practitioner; Nurse Practitioner Acute Care; Nurse Practitioner Primary Care; ADMITTING PHYSICIAN Surgery Vascular Surgery; CONSULT PHYSICIAN Internal Medicine Pulmonary Disease; FAMILY PHYSICIAN Family Medicine
PROC: 04CK3ZZ Extirpation of Matter from Right Femoral Artery, Percutaneous Approach (ICD-10-PCS; 2023-06-19)
PROC: 04CE3ZZ Extirpation of Matter from Right Internal Iliac Artery, Percutaneous Approach (ICD-10-PCS; 2023-06-19)
PROC: 047H34Z Dilation of Right External Iliac Artery with Drug-eluting Intraluminal Device, Percutaneous Approach (ICD-10-PCS; 2023-06-19)
PROC: 041K4JL Bypass Right Femoral Artery to Popliteal Artery with Synthetic Substitute, Percutaneous Endoscopic Approach (ICD-10-PCS; 2023-06-19)
DX: I70.211 Atherosclerosis of native arteries of extremities with intermittent claudication, right leg (principal); I71.43 Infrarenal abdominal aortic aneurysm, without rupture; E03.9 Hypothyroidism, unspecified; E78.5 Hyperlipidemia, unspecified; K21.9 Gastro-esophageal reflux disease without esophagitis; Z87.891 Personal history of nicotine dependence
CPT/HCPCS: 88305; 88311; 35656; 35681; 36415; 71046; 80048; 80053; 82962; 83036; 84134; 85025; 85027; 85610; 85730; 86803; 86850; 86900; 86901; 86920; 87070; 93005; 97116; 97163; 99406; C1768; C1769; C1874; C1894; P9016; Q9967

== ENCOUNTER → 2023-07-25 10:05 | Outpatient (REF) | payer BC, SELFPAY | LOC: RAD 10:05 | PROVIDERS: ATTENDING PHYSICIAN Physician Assistant; FAMILY PHYSICIAN Family Medicine | DX: I73.9 Peripheral vascular disease, unspecified (principal); I71.43 Infrarenal abdominal aortic aneurysm, without rupture | CPT/HCPCS: 93922; 93925; 93978 ==

== ENCOUNTER 2023-09-03 08:08 | Inpatient (IN) | payer BC, SELFPAY ==
[2023-08-29 09:24] VITALS: BMI 29.6
[2023-08-29 10:13] LABS: APTT 30.2 Sec (23.4-35.0)
[2023-08-29 10:23] LABS: % Basophils 0.6 % (0-2); % Eosinophils 8.2 % (0-6); % Immature Granulocytes 0.4 % (0-0.5); % Lymphocytes 16.1 % (20.5-51.1); % Monocytes 8.8 % (1.7-9.3); % Neutrophils 65.9 % (42.2-75.2); Absolute Basophils 0.1 10^3/uL (0-0.2); Absolute Immature Granulocytes 0.1 10^3/uL (0-0.05); Absolute Lymphocytes 1.9 10^3/uL (1.2-3.4); Absolute Neutrophils 7.8 10^3/uL (1.4-6.5); Hemoglobin 11.5 g/dL (13.0-18.0); Mean Corp Hgb Conc. 31.9 g/dL (33.0-37.0); Mean Corpuscular Hgb 28.8 pg (27.0-31.0); Mean Corpuscular Volume 90.2 fL (80.0-94.0); Mean Platelet Volume 10.8 fL (7.4-10.4); Nucleated Red Blood Cells % 0 % (-); Platelet Count 304 10^3/uL (130-400); Red Blood Cell Count 3.99 10^6/uL (4.70-6.10); Red Cell Dist. Width 14.6 % (11.5-14.5); White Blood Cell Count 11.8 10^3/uL (4.8-10.8)
[2023-08-29 12:09] LABS: Blood Urea Nitrogen 19 mg/dl (9-20); Carbon Dioxide 22 mmol/L (22-30); Chloride 101 mmol/L (98-107); Estimated Creatinine Clearance 47 ml/min; Glucose 119 mg/dl (70-99); Potassium 4.5 mmol/L (3.5-5.1); Sodium 138 mmol/L (135-145); eGFR 51.99
[2023-09-03] VITALS (18 sets, daily range): BP systolic 101–165; BP diastolic 67–94; BMI 29.8; BMI 29.5
[2023-09-03] MEDS: PERIDEX 0.12% ORAL RINSE 15 ML PO (08:46)
[2023-09-03] MEDS: BACTROBAN NASAL 1 GRAM NASAL (08:47)
[2023-09-03] MEDS: NSS 500 IV (08:47)
--- NOTE | 2023-09-03 12:53 | CON.INTV ---
Consultation
Consultation Request
Date/Time Consultation Requested: 09-03-23
Date/Time Consultation Performed: 09-03-23
Requesting Provider: Dr Tapia
Performing Provider: Dr Rodgers
Reason for Consultation: LLE bypass
Medical History
-
Chief Complaint: s/p LLE bypass surgery
History of Present Illness:
Mr Tutu Parks is a 62/M with PAD. Known to Dr Tapia, s/p Right FEA, right femoral to above knee popliteal artery bypass, R external iliac artery stent 06-19-23 with issues.
Follows with Dr Tapia, returns for scheduled LLE bypass
Received L femoral to above-knee popliteal artery bypass, L external iliac artery stenting 09-02 with no issue
Seen at ICU, mild incisional pain but otherwise doing well
Past Medical History
Past Medical History: HTN, NIDDM (pre-DM) and Other (PAD)
Past Surgical History: Other (R fem endarterectomy and fem-pop bypass Jun 2023)
Social History
Tobacco: Former Smoker
Alcohol: None
Drug: None
Personal:
Living: With Family
Family History
Family History: Reviewed & Not Pertinent, CAD (F, M) and Diabetes (M)
Allergies / Home Medications
Allergies
Allergy/AdvReac Type Severity Reaction Status Date / Time
No Known Allergies Allergy Verified 09/03/23 08:26
Home Medications
�Medication �Instructions �Recorded �Confirmed �Last Taken �Type
aspirin 81 mg capsule 81 mg PO DAILY Blood Clot 04/25/23 09/03/23 09/03/23 06:00 History
Prevention/Tx
clopidogrel 75 mg tablet 75 mg PO DAILY Blood Clot 04/25/23 09/03/23 09/03/23 06:00 History
Prevention/Tx
ezetimibe 10 mg tablet 10 mg PO DAILY High Cholesterol 04/25/23 09/03/23 09/02/23 06:00 History
levothyroxine 25 mcg tablet 25 mcg PO DAILY Thyroid 04/25/23 09/03/23 09/02/23 06:00 History
losartan 50 mg tablet 100 mg PO QPM Blood Pressure 04/25/23 09/03/23 09/02/23 22:00 History
metformin 500 mg tablet 500 mg PO QPM Diabetes 04/25/23 09/03/23 09/01/23 08:00 History
rosuvastatin 40 mg tablet 40 mg PO QPM High Cholesterol 04/25/23 09/03/23 09/02/23 22:00 History
isosorbide dinitrate 30 mg tablet 30 mg PO HS Blood Pressure 05/07/23 09/03/23 09/02/23 22:00 History
metoprolol succinate 100 mg 100 mg PO HS Heart 05/07/23 09/03/23 09/01/23 17:00 History
tablet,extended release 24 hr Disease/Condition
pantoprazole 40 mg tablet,delayed 40 mg PO DAILY Gastrointestinal 05/07/23 09/03/23 09/02/23 08:00 History
release Issue
amlodipine 10 mg tablet 10 mg PO QPM Blood Pressure 06/12/23 09/03/23 09/02/23 22:00 History
coQ10 (ubiquinol) 100 mg capsule 100 mg PO DAILY Supplement 06/19/23 09/03/23 09/02/23 06:00 History
(Qunol Sahw CoQ10)
taurine 1,000 mg capsule 1,000 mg PO DAILY Supplement 06/19/23 09/03/23 09/02/23 06:00 History
oxycodone 5 mg tablet 5 mg PO Q4HPRN PRN moderate pain 06/21/23 09/03/23 08/18/23 06:00 Rx
#7 tabs
guar gum 1 tbsp PO DAILY 08/27/23 09/03/23 09/01/23 06:00 History
spironolactone 25 mg tablet 25 mg PO QPM 08/27/23 09/03/23 09/02/23 06:00 History
Review of Systems
-
History Source: Patient
All other systems: Negative unless noted
Cardiac: Other (mild incisional pain)
Vitals / Labs / Diagnostic Testing
Vital Signs
Temp Pulse Resp BP Pulse Ox
98.1 F 71 20 165/94 97
09/03/23 08:53 09/03/23 08:53 09/03/23 08:53 09/03/23 08:53 09/03/23 08:53
Diagnostic Testing:
Physical Exam
-
HEENT: Normocephalic and Moist Mucous Membranes
Cardiovascular: Regular Rhythm, Murmur (n) and Peripheral Edema
Respiratory: Clear and Non-Labored Respirations
GI: Soft, Non Distended and Non Tender
Neurology: Awake, AO x 3 and No Motor Deficits
Skin: Warm
General: Respiratory Distress (n)
Assessment
-
Assessment:
Mr Tutu Parks is a 62/M with PAD. Known to Dr Tapia, s/p Right FEA, right femoral to above knee popliteal artery bypass, R external iliac artery stent 06-19-23 with issues[address] with Dr Tapia, returns for scheduled LLE bypass
Impression:
S/p L femoral to above-knee popliteal artery bypass, L external iliac artery stenting 09-02
Conditions WELLNESS NURSE:
PAD: s/p aortogram, LLE runoff; R femoral angiogram 05-07-23: L DRAGAN stenosis/plaque; milder L EIA stenosis; L SFA proximal severe stenosis, mid occlusion with reconstitution distal SFA/AK pop; unable to traverse occlusion L SFA
s/p Right FEA, right femoral to above knee popliteal artery bypass, R external iliac artery stent 06-19-23
DM
Hypothyroidism
HLD
GERD
Infrarenal Ao aneurysm 4.5 cm
Former smoker
Plan:
Postoperative surgical intensive care unit monitoring
Supplemental oxygen as needed
Incentive spirometry
Aspiration precautions
Neuro and vascular checks per protocol
Vascular surgery following-correspondence and operative notes reviewed
Continue ASA, plavix
TRT
Continue A-HTN regimen
DVT prophylaxis
Early nutrition
Early mobilization
Critical care time: 35 min
[2023-09-03 13:36] LABS: Glucose - Point of Care 175 mg/dl (70-99)
[2023-09-03 13:44] LABS: Hematocrit 29.5 % (39.0-52.0); Mean Corp Hgb Conc. 33.9 g/dL (33.0-37.0); Mean Corpuscular Hgb 29.7 pg (27.0-31.0); Mean Corpuscular Volume 87.5 fL (80.0-94.0); Mean Platelet Volume 10.5 fL (7.4-10.4); Platelet Count 205 10^3/uL (130-400); Red Blood Cell Count 3.37 10^6/uL (4.70-6.10); Red Cell Dist. Width 14.1 % (11.5-14.5); White Blood Cell Count 11.4 10^3/uL (4.8-10.8)
[2023-09-03 14:02] LABS: APTT 32.6 Sec (23.4-35.0); PT 15.2 Sec (11.4-14.6)
[2023-09-03] MEDS: NSS 1000 IV (14:25)
--- NOTE | 2023-09-03 14:36 | W.SUR.POST ---
Surgical Immediate Post Op
Note
Pre Op Diagnosis: Peripheral arterial disease
Post Op Diagnosis: Peripheral arterial disease
Procedure Performed: Left femoral to above-knee popliteal artery bypass, and aortogram and pelvic angiogram, left external iliac artery angioplasty and stent placement
Primary Surgeon: Kostas Tapia MD
Assist: Ida Valdes STRATEGIC ACCOUNT EXECUTIVE-C
Anesthesia: GETA
Estimated Blood Loss: 600 mL
Fluids: See anesthesia flowsheet
Drains/Shunts: N/A
Specimens/Cultures: N/A
Doppler/Duplex/Angio (Y/N): Yes
Complications: None
Operative Findings: Bilateral palpable DP pulse upon completion
[2023-09-03 14:49] LABS: Blood Urea Nitrogen 17 mg/dl (9-20); Carbon Dioxide 18 mmol/L (22-30); Chloride 105 mmol/L (98-107); Estimated Creatinine Clearance 47 ml/min; Glucose 158 mg/dl (70-99); Potassium 4.8 mmol/L (3.5-5.1); Sodium 132 mmol/L (135-145); eGFR 51.99
--- NOTE | 2023-09-03 14:52 | PTCARENOTE ---
Pt admitted to ICU bed 3369 from PACU. Pt AAOx3. Reports 4/10 pain to left thigh. Groin and left thigh dressings C/D/I. Palpable DP and Doppler PT pulses.
[2023-09-03] MEDS: TYLENOL 650 MG PO ×2 (15:43→20:01)
[2023-09-03 16:29] LABS: Glucose - Point of Care 156 mg/dl (70-99)
--- NOTE | 2023-09-03 16:40 | OR.RPT ---
Operative Report
Operative Report
PROCEDURE DATE: 09/03/2023
Preoperative diagnosis: Debilitating left lower extremity claudication
Postoperative diagnosis: Same
Procedure:
1. Left femoral to above-knee popliteal artery bypass with 8 mm ringed [place] Propaten graft.
2. Aortogram and pelvic angiogram.
3. Left common iliac artery stent placement with [place] 8 mm x 59 mm VBX covered stent.
4. Left external iliac artery stent placement with [place] 7 mm x 39 mm VBX covered stent.
5. Supervision and interpretation.
Surgeon: Willie
Last Picker: Ida Valdes NP, required for all aspects of procedure including traction/countertraction, assistance with following of suture line, assistance with closure.
Complications: None
Anesthesia: General
Fluoroscopy: 4.2 minutes, 97 mGy, DAP 24.63.
Indications for procedure:
Severe debilitating left lower extremity claudication. Status post right lower extremity revascularization. Risk/benefits/alternatives of revascularization all extensively discussed. Patient understood all wish to proceed.
Description of procedure:
Patient was identified brought to the operating room placed on the table in supine position. After the adequate administration of anesthesia he was prepped and draped in the standard surgical fashion. A standard preoperative timeout was undertaken
and everybody was in agreement the plan. A longitudinal incision was made in the left groin that was carried through skin subcutaneous tissue. Any lymphatic type structures were ligated between silk ties and divided. I dissected down to the level
of the inguinal ligament and the common femoral artery was isolated as it emerged from underneath the inguinal ligament. There was a high bifurcation as noted on prior imaging. Therefore the superficial femoral artery was carefully
circumferentially dissected a couple centimeters beyond its origin. Vessel loop was passed around it which was double looped but not yet tightened. Next I dissected the origin of the profunda femoris artery. Is noted to be soft its origin. I
carefully dissected it for a centimeter or 2 and then passed a vessel loop around it after careful circumferential dissection. Now I dissected underneath the inguinal ligament. The distal external iliac artery was isolated just proximal to the
lateral circumflex iliac artery. It was circumferentially dissected here and it was noted to be relatively soft and a vessel loop passed around it. The circumflex iliac artery was also circumferentially dissected and a vessel loop passed around
it. At this point I turned my attention distally. I then made a longitudinal incision in the medial distal thigh that was carried through skin subcutaneous tissue and then through the fascial layer. The sartorius muscle was reflected posteriorly.
In the loose areolar fatty tissue identified the popliteal artery. I carefully dissected away from surrounding structures and great care to avoid any injury to structures. Vessel loop was passed around it proximally and distally. Next I used a
Danette tunneler to create a subcutaneous/subsartorial tunnel between the 2 incision sites. I then passed a [place] Propaten 8 mm ringed graft through the tunnel. I now gave the patient appropriate dose of heparin. Once the heparin had circulated I
tightened my double looped Vesseloops on the profunda/SFA and other branches. A Derra clamp was placed on the distal external iliac artery. I then made an arteriotomy with an 11 blade on the distal common femoral artery and extended onto the SFA
using a Darling scissor. Based on prior imaging there was no significant profundus stenosis, and therefore did not feel profundoplasty was necessary.
At this point, I beveled the proximal aspect of the graft and sewed an end to side anastomosis to the common femoral (holding onto the SFA) with a running [place] CV 6 suture. Prior to completing and tying down my suture line I backbled the branches,
flushed heparinized saline. I then clamped the graft and released my flow in the quileute artery. There were a couple suture line bleeders that were repaired with interrupted [id number] [place] CV 6 suture. At this point I was not satisfied and I
packed the groin incision and turned my attention to the thigh incision. I removed any redundancy in the graft. I double up and tight my Vesseloops in the popliteal artery proximally and distally. I then made an arteriotomy with 11 blade extended
using a Darling scissor and the popliteal artery. Is noted to be a patent artery with no significant stenosis or significant plaque (mild plaque was noted). I now beveled the graft and sewed an end to side anastomosis using a [place] CV 6 suture.
Prior to completing and tying to my suture line I backbled the quileute artery and then flushed out the graft. I then instilled heparinized saline. I completed and tied to my suture line. Now I released flow in the quileute arteries and then in the
graft. There is good pulsatile flow. There is a couple small bleeders on the suture line that were repaired with [place] CV 6 [id number] interrupted suture. Next I packed this incision site as well. I then elected to perform an arteriogram.
(I planned on potential iliac inflow stenting. I now punctured the baptiste of the graft at the proximal anastomosis using a micropuncture kit. I then advanced a 0.035 inch wire. I then used the dilator from a 5 Syrian sheath to dilate the tract and
then used a 7 [place] sheath which I advanced over the wire. I performed angiogram both retrograde and then with a ordaz's the catheter in the aorta (had some difficulty getting aortic wire access due to the heavy plaque in different parts of the
iliac artery. Angiogram confirmed significant stenosis/plaque stenosis in the proximal common iliac artery. In addition there was another coral reef plaque projection in the more distal common iliac artery. The internal iliac artery was
chronically occluded. Then in the external iliac artery mid segment there was a moderate to severe stenosis. Therefore at this point I exchanged for a stable 0.035 inch wire. I now exchanged for an 8 [place] sheath. I then used a [place] VBX 8 mm x
59 mm covered stent which I deployed to the origin of the common iliac artery. Very satisfied with this position and angiographic appearance upon completion. I then placed a 7 mm x 39 mm [place] VBX stent into the external iliac artery stenosis.
Completion angiogram now demonstrated excellent result with complete resolution of the stenoses at these areas. Runoff angiography demonstrated widely patent proximal anastomosis of the bypass graft. Bypass graft filled into the distal anastomosis
freely. There is no distal anastomotic stenosis. Little bit of vasospasm in the outflow artery but otherwise appeared widely patent. There was a small point of extravasation along the suture line. This correlated to an area of bleeding on the
suture line that had noted. At this point I was satisfied with my angiography. I then remove my wires. I did briefly clamped the artery again proximally distally in the groin and then placed 2 [id number] 6-0 Prolene suture to repair the
sheath entry site. I then released my clamps. Hemostasis was noted there. I then turned my attention to the distal anastomosis and the small bleeding site on the suture line was repaired with [place] CV 6 [id number] interrupted sutures. At
this point I was satisfied. There was diffuse needle hole bleeding from the suture lines at different areas. Therefore topical hemostatic agents were utilized. I gave protamine to reverse the heparin. I meticulously achieve full hemostasis. I
then confirmed full hemostasis. I then irrigated all incision sites and closed in layers using 2-0 Vicryl followed by 3-0 Vicryl followed by 4 Monocryl subcuticular stitch. Dermabond was applied to both sites. Patient tolerated procedure well.
Upon completion he had a palpable left 2+ DP pulse.
[2023-09-03] MEDS: NOVOLOG FLEXPEN-LOW RESISTANCE 1 UNITS SC (17:00)
[2023-09-03] MEDS: CRESTOR 40 MG PO (17:59)
[2023-09-03] MEDS: NORVASC 10 MG PO (17:59)
[2023-09-03] MEDS: COZAAR 100 MG PO (17:59)
[2023-09-03 22:08] LABS: Glucose - Point of Care 190 mg/dl (70-99)
[2023-09-04] VITALS (14 sets, daily range): BP systolic 111–139; BP diastolic 64–104; BMI 29.7
--- NOTE | 2023-09-04 00:17 | PTCARENOTE ---
Patient reassessed, asleep, pulses unchanged
--- NOTE | 2023-09-04 00:29 | PTCARENOTE ---
Patient received in bed, AAOX3, pleasant, complaining of 4/10 left leg pain, medicated with prn tylenol. NSR on monitor, afebrile, blood pressure as documented. Lungs clear, pulse ox 96% on 2L. Abdomen soft with positive bowel sounds. Thermister
erazo draining yellow urine. #16 g in left arm with IVF infusing as ordered, right radial Kincaid transduced and zeroed. Bilateral DPs palpable, Bilateral PTs present by doppler, +1 edema to right leg. Aquacell dressings clean dry and intact.
Call verduzco within reach
[2023-09-04] MEDS: IMDUR (EXTENDED RELEASE) PO (01:22)
[2023-09-04] MEDS: NSS 1000 IV (01:27)
[2023-09-04] MEDS: ROXICODONE 5 MG PO ×5 (01:29→23:29)
--- NOTE | 2023-09-04 05:00 | PTCARENOTE ---
Patient reassessed, pain relieved by roxicodone, pulses unchanged, labs sent
[2023-09-04 05:12] LABS: Hematocrit 28.1 % (39.0-52.0); Hemoglobin 9.3 g/dL (13.0-18.0); Mean Corp Hgb Conc. 33.1 g/dL (33.0-37.0); Mean Corpuscular Hgb 29.5 pg (27.0-31.0); Mean Corpuscular Volume 89.2 fL (80.0-94.0); Mean Platelet Volume 11.2 fL (7.4-10.4); Platelet Count 193 10^3/uL (130-400); Red Blood Cell Count 3.15 10^6/uL (4.70-6.10); Red Cell Dist. Width 14.2 % (11.5-14.5); White Blood Cell Count 15.4 10^3/uL (4.8-10.8)
[2023-09-04 05:29] LABS: INR 1.11; PT 14.4 Sec (11.4-14.6)
[2023-09-04 05:30] LABS: APTT 30.4 Sec (23.4-35.0)
[2023-09-04 05:35] LABS: Blood Urea Nitrogen 19 mg/dl (9-20); Calcium 8.1 mg/dl (8.4-10.2); Carbon Dioxide 18 mmol/L (22-30); Chloride 107 mmol/L (98-107); Estimated Creatinine Clearance 50 ml/min; Glucose 126 mg/dl (70-99); Potassium 4.3 mmol/L (3.5-5.1); Sodium 135 mmol/L (135-145); eGFR 56.48
[2023-09-04] MEDS: SYNTHROID 25 MCG PO (06:14)
[2023-09-04] MEDS: NOVOLOG FLEXPEN-LOW RESISTANCE SC ×2 (07:36→16:32)
[2023-09-04 07:39] LABS: Glucose - Point of Care 116 mg/dl (70-99)
[2023-09-04] MEDS: PLAVIX 75 MG PO (07:48)
[2023-09-04] MEDS: PROTONIX 40 MG PO (07:49)
[2023-09-04] MEDS: HEPARIN 5000 UNITS SC ×2 (07:49→19:24)
[2023-09-04] MEDS: ASPIR LOW (ENTERIC COATED) 81 MG PO (07:49)
[2023-09-04] MEDS: ZETIA 10 MG PO (07:49)
--- NOTE | 2023-09-04 08:00 | W.PN.INTV ---
Today's Communication / Plan
Recommendations
IS
Asp precs
ASA/plavix
Telem
Reconsult prn
Assessment
-
Assessment:
Mr Tutu Parks is a 62/M with PAD. Known to Dr Tapia, s/p Right FEA, right femoral to above knee popliteal artery bypass, R external iliac artery stent 06-19-23 with issues. Follow[address] with Dr Tapia, returns for scheduled LLE bypass
Impression:
S/p L femoral to above-knee popliteal artery bypass, L external iliac artery stenting 09-02
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
PAD: s/p aortogram, LLE runoff; R femoral angiogram 05-07-23: L DRAGAN stenosis/plaque; milder L EIA stenosis; L SFA proximal severe stenosis, mid occlusion with reconstitution distal SFA/AK pop; unable to traverse occlusion L SFA
s/p Right FEA, right femoral to above knee popliteal artery bypass, R external iliac artery stent 06-19-23
DM
Hypothyroidism
HLD
GERD
Infrarenal Ao aneurysm 4.5 cm
Former smoker
Plan:
Postoperative surgical intensive care unit monitoring completed
Resp babcock stable on RA
Incentive spirometry
Aspiration precautions
Neuro and vascular checks per protocol
Vascular surgery following-correspondence and operative notes reviewed
Continue ASA, plavix
TRT
Continue A-HTN regimen
DVT prophylaxis
Early nutrition
Early mobilization
Downgraded to telemetry
Reconsult as needed
Subjective Dataa
Subjective Data
Date of Service:
Date of Service: September 04, 2023
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
Subjective:
No major events reported overnight
Denies major complaints
Respiratory babcock stable on room air
Review of Systems
General: Fever (n), Sweats (n) and Satisfactory Appetite
HEENT: Epistaxis (n)
Cardiopulmonary: Dyspnea (n), Cough (n) and Edema (n)
GI: Abdominal Pain (n), Nausea (n) and Vomiting (n)
Neuro: Weakness
Objective Data
Data Reviewed
Vital Signs / I&O / Oxygen:
Vital Signs
Temp Pulse Resp BP Pulse Ox
97.3 F 71 13 132/72 97
09/04/23 07:45 09/04/23 05:00 09/04/23 05:00 09/03/23 17:00 09/03/23 20:00
Intake and Output
09/03/23 09/04/23 09/05/23
06:59 06:59 06:59
Intake Total 1660 / 1660
Output Total 1450 / 1450
Balance 210 / 210
SaO2 97
Nasal Cannula flow liters per 2
minute
Physical Exam
General: Comfortable
HEENT: Normocephalic and Moist Mucous Membranes
Cardiovascular: Regular Rhythm, Murmur (n) and Peripheral Edema (n)
Respiratory: Clear, Non-Labored Respirations and Stridor (n)
GI: Soft, Non Distended and Non Tender
Neurology: Awake, AO x 3 and No Motor Deficits
Skin: Warm
Labs/Micro/Reports
Lab Data
09/04/23 04:45
09/04/23 04:45
Laboratory Results
09/03/23 09/04/23
13:37 04:45
PT 15.2 H 14.4
INR 1.20 1.11
APTT 32.6 30.4
--- NOTE | 2023-09-04 08:02 | W.PN.VS ---
Addendum entered and electronically signed by Kostas Tapia MD 09/04/23 09:19:
Seen and examined with ADJUNCT ENGLISH INSTRUCTOR. Agree with findings as noted below. Patient with some soreness at incision sites but otherwise no significant complaints. Left lower extremity groin and thigh dressings clean dry and intact. No hematomas noted. Thigh
and calf are both soft. Easily palpable left DP and PT pulses 2+. Right-sided DP and PT also palpable. Feet are both warm and pink and well-perfused. Labs reviewed. Plan/as discussed and noted below.
Original Note:
Today's Communication / Plan
-
Patient seen and evaluated at bedside with Dr. Kostas Tapia, below plan reviewed with attending
Assessment/Plan
-
Assessment: 62 year old male POD #1 Left femoral to above-knee popliteal artery bypass with 8 mm ringed [place] Propaten graft, Aortogram and pelvic angiogram, Left common iliac artery stent placement with [place] 8 mm x 59 mm VBX covered stent, Left
external iliac artery stent placement with [place] 7 mm x 39 mm VBX covered stent.
Plan:
Discontinue arterial line
Discontinue erazo catheter
Discontinue IV fluids
OOB to chair
PT consult
Can downgrade to tele
Continue incentive spirometry
Subjective Data
-
Date of Service: September 04, 2023
Patient seen and examined at bedside reports adequate post operative pain management. Denies nausea, vomiting, fever, and chills.
Objective Data
-
Vital Signs
Temp Pulse Resp BP Pulse Ox
97.3 F 71 13 132/72 97
09/04/23 07:45 09/04/23 05:00 09/04/23 05:00 09/03/23 17:00 09/03/23 20:00
Intake and Output
09/03/23 09/04/23 09/05/23
06:59 06:59 06:59
Intake Total 1660 / 1660
Output Total 1450 / 1450
Balance 210 / 210
Intake:
Oral fluids 360 / 360
IV fluids (Total) 1300 / 1300
NSS@ 80 ML/HR 320 / 320
Normosol 100 / 100
Nss 1,000 ml @ 80 mls/hr IV . 880 / 880
[id number] [facility] Rx#:[id number]
Output:
Urine, Erazo 1450 / 1450
Lab Results
09/04/23 04:45
09/04/23 04:45
Calcium 8.1 mg/dl (8.4-10.2) L 09/04/23 04:45
Physical Exam
-
AAOx3, NAD, resting comfortably in bed
No tachycardia
No dyspnea
ABD soft, non-tender, non-distended
Left lower extremity with scant edema, all compartments soft, no evidence of hematoma
BL feet warm, BL DP pulse palpable
Erazo draining clear yellow urine
--- NOTE | 2023-09-04 10:54 | W.PN.UPDATE ---
Update Note
Progress Note Update
Notified by RN that patient had 9 beat run of nonsustained V. tach while resting in bed, will cancel transfer out of ICU and consult cardiology. Plan reviewed with attending.
[2023-09-04 11:32] LABS: Magnesium 2.3 mg/dl (1.6-2.3)
[2023-09-04 12:03] LABS: Glucose - Point of Care 206 mg/dl (70-99)
[2023-09-04] MEDS: NOVOLOG FLEXPEN-LOW RESISTANCE 2 UNITS SC (12:04)
--- NOTE | 2023-09-04 12:38 | CM ---
Addendum entered by Cherry Herron 09/05/23 07:50:
[facility] liaison sent tt requesting patient be assessed for home health care per consult.
Original Note:
Patient seen at bedside in ICU. Patient was for transfer to [facility] but transfer put on hold pending Cardiology assessment per nursing. Patient stated that he lives with his in a 2 story home. Patient states that he was able to stay on the
first floor after prior hospitalization. Patient had [facility] at that time and was given a walker. Patient stated that if needed he would be open to having [facility] and that his PCP is Dr. Viramontes and he uses the [facility] in [place]. Patient indicated that he did
not anticipate any further needs at this time. CM will continue to follow for discharge planning needs.
Plan; home with [facility] vs home with no needs
--- NOTE | 2023-09-04 13:30 | PTCARENOTE ---
Patient received in AM with assessment as noted. A-line d/c'd at 0800 with direct pressure held to right radial site for 5 minutes and a dressing applied to the site with no bleeding since. At 1030 I was preparing to get the patient OOB to chair
when he had a 9 second run of V-tach. He was completely asymptomatic through out. Denied any feelings of palpitations, pain or lightheadedness. B/P stable. EKG done. Mag added to AM labs (Mag 2.3, K 4.3). 's staff notified and came by to see
the patient. Transfer to Telemetry cancelled. No subsequent V-tach noted. Continues in NSR with some PVC's. B/P's stable. Lungs CTA. sao2 95% on room air. Appetite good. No bowel movement today. Manuel d/c'd at 0900. into visit and updated to
patient condition. Patient currently in bed with his at bedside. Telephone and call verduzco in reach.
--- NOTE | 2023-09-04 13:43 | CON.CAR ---
Addendum entered and electronically signed by Dale Rosales MD 09/04/23 14:37:
I saw and examined the patient.
The JET INSPECTOR's note was reviewed and I agree with the note.
62 year old male with history of CAD, CTORCA, diagonal 75-80% stenosis, PCI LAD, PAD, EF 55% with inferolateral scar by mri, nsvt who is s/p left femoral to above-knee popliteal artery bypass with 8 mm ringed [place] Propaten graft, left common iliac
artery stent and left external iliac artery stent placement by Dr Tapia. nilda had 9 seconds of asymptomatic NSVT at approximately 160bpm.. Of note he did not receive his beta adele last night. This may increase liklihood of NSVT with prior
history of this rhyhtm.
- resume metoprolol
- monitor on telemetry
- echo to reassess LVF
- reassessment in AM
Original Note:
Consultation
Consultation Request
Date/Time Consultation Requested: 09/04/23 1051
Date/Time Consultation Performed: 09/04/23 1330
Requesting Provider: Ida GODOY
Performing Provider: Aliya GODOY for Dr. Rosales
Reason for Consultation: NSVT
Medical History
-
Chief Complaint: PAD s/p vascular surgery
History of Present Illness:
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
lesion, 75%-80% diag lesion, mild to moderate LAD disease- s/p complex revascularization with NITESH to mid LAD and diagonal systems), Card MRI with EF 55% and evidence of large inferolateral transmural scar and partial subendocardial scar anteriorly,
PAD, AAA (44 mm), NSVT who is here for management of his PAD and is now s/p surgery as noted below. We are consulted since NSVT was noted on the monitor. He was not symptomatic. It is 9 seconds of monomorphic VT at 160 BPM around 10:30 AM. It does
appear that he did not have his BB last night.
Past Medical History
Past Medical History: Arrhythmias, CAD, HTN, Hypercholesterolemia and Other (PAD)
Social History
Tobacco: Former Smoker
Alcohol: Other (3-4 drinks at a time, but not every day)
Personal:
Living: With Family
Family History
Family History: Reviewed & Not Pertinent
Allergies / Home Medications
Allergy/AdvReac Type Severity Reaction Status Date / Time
No Known Allergies Allergy Verified 09/03/23 08:26
�Medication �Instructions �Recorded �Confirmed �Type
aspirin 81 mg capsule 81 mg PO DAILY Blood Clot 04/25/23 09/03/23 History
Prevention/Tx
clopidogrel 75 mg tablet 75 mg PO DAILY Blood Clot 04/25/23 09/03/23 History
Prevention/Tx
ezetimibe 10 mg tablet 10 mg PO DAILY High Cholesterol 04/25/23 09/03/23 History
levothyroxine 25 mcg tablet 25 mcg PO DAILY Thyroid 04/25/23 09/03/23 History
losartan 50 mg tablet 100 mg PO QPM Blood Pressure 04/25/23 09/03/23 History
metformin 500 mg tablet 500 mg PO QPM Diabetes 04/25/23 09/03/23 History
rosuvastatin 40 mg tablet 40 mg PO QPM High Cholesterol 04/25/23 09/03/23 History
metoprolol succinate 100 mg 100 mg PO HS Heart 05/07/23 09/03/23 History
tablet,extended release 24 hr Disease/Condition
pantoprazole 40 mg tablet,delayed 40 mg PO DAILY Gastrointestinal 05/07/23 09/03/23 History
release Issue
amlodipine 10 mg tablet 10 mg PO QPM Blood Pressure 06/12/23 09/03/23 History
coQ10 (ubiquinol) 100 mg capsule 100 mg PO DAILY Supplement 06/19/23 09/03/23 History
(Qunol Shaw CoQ10)
taurine 1,000 mg capsule 1,000 mg PO DAILY Supplement 06/19/23 09/03/23 History
oxycodone 5 mg tablet 5 mg PO Q4HPRN PRN moderate pain 06/21/23 09/03/23 Rx
#7 tabs
guar gum 1 tbsp PO DAILY 08/27/23 09/03/23 History
spironolactone 25 mg tablet 25 mg PO QPM Blood Pressure 08/27/23 09/03/23 History
isosorbide mononitrate 30 mg 30 mg PO HS Blood Pressure 09/03/23 09/03/23 History
tablet,extended release 24 hr
Review of Systems
-
History Source: Patient
All other systems: Negative unless noted (denies any CP, SOB, or palpitations. Having some post-op pain to LE.)
Physical Exam
Vital Signs
Temp Pulse Resp BP Pulse Ox
98.9 F 97 16 126/70 96
09/04/23 12:03 09/04/23 13:00 09/04/23 13:00 09/04/23 13:00 09/04/23 08:00
Lab Results
09/04/23 04:45
09/04/23 04:45
Physical Exam
General: Well Developed, Well Nourished and No Apparent Distress
HEENT: Normocephalic and Anicteric
Respiratory: Clear and Non Labored Respirations
Cardiac: Regular Rhythm
Breast: Deferred by me
GI: Soft, Non Distended and Normal Bowel Sounds
Musculoskeletal: No Edema
Skin: Warm and Dry
Neuro: AO x 3
Psych: Calm
Impression / Plan
-
PAD, severe:
-s/p left femoral to above-knee popliteal artery bypass with 8 mm ringed [place] Propaten graft, left common iliac artery stent and left external iliac artery stent placement:
-on ASA, Plavix, statin
-post-op management per vascular
NSVT:
-9 seconds at 160 BPM
-asymptomatic
-OP notes suggest history of NSVT, on BB- but it does appear BB not given last night- reason unclear in my discussion with nursing/vascular. BP/HR fine, so will resume now. Follow tele. Update echo. As detailed above, patient with scarring on card
MRI.
-mag and K+ are fine
CAD (severe disease) with hx stenting, chronic RCA occlusion:
-stable without CP
-continue ASA, plavix, statin, BB, imdur
HTN:
-stable on meds
-monitor post-op
Data Reviewed
-
EKG: Tracing Personally Visualized and interpreted (NSR with t wave abnormalities similar to previous)
Medical Tests (Nuc Med, Echo etc): Report Reviewed by me (cath report as noted above, MRI report as noted above)
Labs: Labs Reviewed by me
Old Records: Reviewed (summarized as above from Dr. Irvin's OP note)
[2023-09-04] MEDS: TOPROL XL 100 MG PO (14:08)
--- NOTE | 2023-09-04 15:30 | W.[place]-PDMP ---
[place]-PDMP
-
Checked the [place]- Prescription Drug Monitoring Program website, no red flags identified; safe to proceed with prescription.
[2023-09-04 16:42] LABS: Glucose - Point of Care 136 mg/dl (70-99)
[2023-09-04] MEDS: COZAAR 100 MG PO (18:11)
[2023-09-04] MEDS: GLUCOPHAGE 500 MG PO (18:11)
[2023-09-04] MEDS: CRESTOR 40 MG PO (18:11)
[2023-09-04] MEDS: NORVASC 10 MG PO (18:13)
[2023-09-04] MEDS: ALDACTONE 25 MG PO (18:14)
--- NOTE | 2023-09-04 20:00 | PTCARENOTE ---
Patient received in bed, AAOx3, offers no complaints. NSR on monitor, afebrile, blood pressure as documented. Palpable DPs, PT positive doppler. Lungs clear, pulse ox 92% on room air. Abdomen round with positive bowel sounds. Voiding yellow
urine. Left groin and left medial aquacell dressings intact. #20 g in RAC and #18 g in left forearm flushed and patent. CAll verduzco within reach.
[2023-09-04] MEDS: IMDUR (EXTENDED RELEASE) 30 MG PO (22:07)
[2023-09-04 23:37] LABS: Glucose - Point of Care 132 mg/dl (70-99)
[2023-09-05] VITALS (19 sets, daily range): BP systolic 110–140; BP diastolic 64–104; PULSE 82; BMI 29.4
--- NOTE | 2023-09-05 04:04 | PTCARENOTE ---
Patient resting comfortably, no changes in assessment
[2023-09-05 04:33] LABS: Hematocrit 27.3 % (39.0-52.0); Hemoglobin 9.1 g/dL (13.0-18.0); Mean Corp Hgb Conc. 33.3 g/dL (33.0-37.0); Mean Corpuscular Hgb 30.2 pg (27.0-31.0); Mean Corpuscular Volume 90.7 fL (80.0-94.0); Platelet Count 212 10^3/uL (130-400); Red Blood Cell Count 3.01 10^6/uL (4.70-6.10); Red Cell Dist. Width 14.2 % (11.5-14.5)
[2023-09-05 05:27] LABS: Blood Urea Nitrogen 21 mg/dl (9-20); Calcium 8.5 mg/dl (8.4-10.2); Carbon Dioxide 22 mmol/L (22-30); Chloride 107 mmol/L (98-107); Estimated Creatinine Clearance 42 ml/min; Glucose 110 mg/dl (70-99); Potassium 4.4 mmol/L (3.5-5.1); Sodium 134 mmol/L (135-145); eGFR 44.74
[2023-09-05] MEDS: SYNTHROID 25 MCG PO (06:55)
[2023-09-05] MEDS: NOVOLOG FLEXPEN-LOW RESISTANCE SC ×3 (07:28→16:41)
[2023-09-05 07:35] LABS: Glucose - Point of Care 136 mg/dl (70-99)
[2023-09-05] MEDS: HEPARIN 5000 UNITS SC ×2 (07:42→21:06)
[2023-09-05] MEDS: PROTONIX 40 MG PO (07:42)
[2023-09-05] MEDS: ASPIR LOW (ENTERIC COATED) 81 MG PO (07:42)
[2023-09-05] MEDS: PLAVIX 75 MG PO (07:42)
[2023-09-05] MEDS: ZETIA 10 MG PO (07:42)
--- NOTE | 2023-09-05 07:42 | W.PN.VS ---
Today's Communication / Plan
-
See plan below for today 09/05/2023.
Assessment/Plan
-
Assessment: 62 year old male POD #2 Left femoral to above-knee popliteal artery bypass with 8 mm ringed [place] Propaten graft, Aortogram and pelvic angiogram, Left common iliac artery stent placement with [place] 8 mm x 59 mm VBX covered stent, Left
external iliac artery stent placement with [place] 7 mm x 39 mm VBX covered stent.
Plan:
-Appreciate cardiology evaluation and assistance. Cont B-adele. No further VT.
-Okay for transfer out of ICU to telemetry bed from my standpoint, will await cardiology input. Echocardiogram per cardiology as well.
-PT/OT. Once stable medically and otherwise, likely okay for discharge tomorrow or the day after.
-
Total Time Spent with Patient (in minutes): 10
Subjective Data
-
Date of Service: September 05, 2023
No significant changes this morning. No chest pain or pressure. Soreness at the incision sites.
Objective Data
-
Vital Signs
Temp Pulse Resp BP Pulse Ox
99.3 F 93 15 126/65 92
09/05/23 07:23 09/05/23 07:01 09/05/23 07:01 09/05/23 07:01 09/04/23 20:00
Intake and Output
09/04/23 09/05/23 09/06/23
06:59 06:59 06:59
Intake Total 1740 / 1820 940 / 940
Output Total 1450 / 1450 1200 / 1200
Balance 290 / 370 -260 / -260
Intake:
Oral fluids 360 / 360 780 / 780
IV fluids (Total) 1380 / 1460 160 / 160
NSS@ 80 ML/HR 320 / 320
Normosol 100 / 100
Nss 1,000 ml @ 80 mls/hr IV . 960 / 1040 160 / 160
[id number] Rx#:[id number]
Output:
Urine, Jackson 1450 / 1450 400 / 400
Urine, Voided 800 / 800
Lab Results
09/05/23 04:20
09/05/23 04:20
Calcium 8.5 mg/dl (8.4-10.2) 09/05/23 04:20
Magnesium 2.3 mg/dl (1.6-2.3) 09/04/23 04:45
Physical Exam
-
Afebrile.
Blood pressure 126/65, heart rate 93.
Awake and alert.
Left groin and thigh incisions clean dry and intact. No hematomas noted. Thigh and calf are soft. Feet are both warm with left-sided palpable 2+ DP and PT. Right side palpable 2+ DP as well.
[2023-09-05] MEDS: TYLENOL 650 MG PO ×2 (07:46→13:24)
--- NOTE | 2023-09-05 08:01 | W.PN.INTV ---
Documented by User: Alex Santoro MD, Resident 09/05/23 09:10
Today's Communication / Plan
Recommendations
Echo 09/04/2023, normal
Okay to continue beta-adele per cardiology, no further VT.
Leukocytosis likely reactive. Monitor.
Mild hyponatremia, follow.
Hemodynamically stable
PT/OT
Downgraded to telemetry, pulmonary will sign off.
Reconsult as needed
Assessment
-
Assessment:
Mr Tutu Parks is a 62/M with PAD. Known to Dr Tapia, s/p Right FEA, right femoral to above knee popliteal artery bypass, R external iliac artery stent 06-19-[address] with issues[address] with Dr Tapia, returns for scheduled LLE bypass
Impression:
S/p L femoral to above-knee popliteal artery bypass, L external iliac artery stenting 09-02
Conditions BOOKKEEPING ASSISTANT:
PAD: s/p aortogram, LLE runoff; R femoral angiogram 05-07-23: L DRAGAN stenosis/plaque; milder L EIA stenosis; L SFA proximal severe stenosis, mid occlusion with reconstitution distal SFA/AK pop; unable to traverse occlusion L SFA
s/p Right FEA, right femoral to above knee popliteal artery bypass, R external iliac artery stent 06-19-23
DM
Hypothyroidism
HLD
GERD
Infrarenal Ao aneurysm 4.5 cm
Former smoker
Plan:
Postoperative surgical intensive care unit monitoring completed
Echo 09/04/2023, normal
Okay to continue beta-adele per cardiology, no further VT.
Leukocytosis likely reactive. Monitor.
Mild hyponatremia, follow.
Resp babcock stable on RA
Incentive spirometry
Aspiration precautions
Neuro and vascular checks per protocol
Vascular surgery following-correspondence and operative notes reviewed
Continue ASA, plavix
TRT
Continue A-HTN regimen
DVT prophylaxis
Early nutrition
Early mobilization
Downgraded to telemetry
Reconsult as needed
Subjective Dataa
Subjective Data
Date of Service:
Date of Service: September 05, 2023
Chief Complaint: Break Out Man Follow Up
Subjective:
No major events reported overnight
Denies major complaints
From pulmonary point of view, stable on room air
Review of Systems
General: Fever (n), Sweats (n) and Satisfactory Appetite
HEENT: Epistaxis (n)
Cardiopulmonary: Dyspnea (n), Cough (n) and Edema (n)
GI: Abdominal Pain (n), Nausea (n) and Vomiting (n)
Neuro: Weakness
Objective Data
Data Reviewed
Vital Signs / I&O / Oxygen:
Vital Signs
Temp Pulse Resp BP Pulse Ox
99.3 F 93 15 126/65 92
09/05/23 07:23 09/05/23 07:01 09/05/23 07:01 09/05/23 07:01 09/04/23 20:00
Intake and Output
09/04/23 09/05/23 09/06/23
06:59 06:59 06:59
Intake Total 1740 / 1820 940 / 940
Output Total 1450 / 1450 1200 / 1200
Balance 290 / 370 -260 / -260
SaO2 92
Nasal Cannula flow liters per 2
minute
Physical Exam
General: Comfortable
HEENT: Normocephalic and Moist Mucous Membranes
Cardiovascular: Regular Rhythm, Murmur (n) and Peripheral Edema (n)
Respiratory: Clear, Non-Labored Respirations and Stridor (n)
GI: Soft, Non Distended and Non Tender
Neurology: Awake, Alert, Oriented, AO x 3, No Motor Deficits and Other
Skin: Warm
Labs/Micro/Reports
Lab Data
09/05/23 04:20
09/05/23 04:20

Documented by User: Todd Rodgers MD 09/05/23 11:04
Assessment
-
Assessment:
Mr Tutu Parks is a 62/M with PAD. Known to Dr Tapia, s/p Right FEA, right femoral to above knee popliteal artery bypass, R external iliac artery stent 06-19-[address] with issues[address] Follow[address] with Dr Tapia, returns for scheduled LLE bypass
Impression:
S/p L femoral to above-knee popliteal artery bypass, L external iliac artery stenting 09-02
Conditions BOOKKEEPING ASSISTANT:
PAD: s/p aortogram, LLE runoff; R femoral angiogram 05-07-23: L DRAGAN stenosis/plaque; milder L EIA stenosis; L SFA proximal severe stenosis, mid occlusion with reconstitution distal SFA/AK pop; unable to traverse occlusion L SFA
s/p Right FEA, right femoral to above knee popliteal artery bypass, R external iliac artery stent 06-19-23
DM
Hypothyroidism
HLD
GERD
Infrarenal Ao aneurysm 4.5 cm
Former smoker
Plan:
Postoperative surgical intensive care unit monitoring completed
Echo 09/04/2023, normal
Okay to continue beta-adele per cardiology, no further VT.
Cards following
Leukocytosis likely reactive. Monitor.
Mild hyponatremia, follow.
Resp babcock stable on RA
Incentive spirometry
Aspiration precautions
Neuro and vascular checks per protocol
Vascular surgery following-correspondence and operative notes reviewed
Continue ASA, plavix
TRT
Continue A-HTN regimen
DVT prophylaxis
Early nutrition
Early mobilization
Downgraded to telemetry
Reconsult as needed
ATTENDING PHYSICIAN ATTESTATION:
(Follow-up Visit:)
I personally saw and evaluated the patient along with the FM Resident Dr Santoro.
Discussed with Resident and discussed in rounds with MDT.
I agree with Resident�s findings and plan as documented in the resident�s note, which was edited by myself.
Subjective Dataa
Subjective Data
Subjective:
No major events reported overnight
Denies major complaints
From pulmonary point of view, stable on room air
Seen by Vas sx today
Review of Systems
HEENT: Dysphagia (n)
Cardiopulmonary: Wheezing (n)
--- NOTE | 2023-09-05 11:40 | VNURNOTE ---
Home Health Liaison met with patient at 1045 to discuss [facility] nurse/therapy, visits, schedule and homebound status. Patient is agreeable and understands that visits at home will be 2-3 x per week to assess and teach medical management.
[facility] brochure provided with contact information. Patient is aware that [facility] will contact him for start of care in 1-2 days after discharge from .
[facility] referral completed in Care Port.
[2023-09-05 12:00] LABS: Glucose - Point of Care 142 mg/dl (70-99)
--- NOTE | 2023-09-05 13:20 | W.PN.CD ---
Today's Communication / Plan
-
Increase BB
Continue tele
Impression / Plan
-
NSVT
- LVEF 50-55%
- No syncope
- Had an orthostatic dizzy spell in the past
- Let's increase BB
- If syncope or presyncope develops he may benefit from EPS
PAD, severe
- Doing well postop
CAD (severe disease) with hx stenting, chronic RCA occlusion, stable, no angina
HTN, stable
Physical Exam
Vital Signs/Labs
Vital Signs
Temp Pulse Resp BP Pulse Ox
98.4 F 82 13 128/78 95
09/05/23 12:00 09/05/23 12:00 09/05/23 12:00 09/05/23 12:00 09/05/23 12:00
09/04/23 09/05/23 09/06/23
06:59 06:59 06:59
Actual Weight 85.9 kg 85.2 kg
09/05/23 04:20
09/05/23 04:20
PT 14.4 Sec (11.4-14.6) 09/04/23 04:45
INR 1.11 09/04/23 04:45
APTT 30.4 Sec (23.4-35.0) 09/04/23 04:45
Magnesium 2.3 mg/dl (1.6-2.3) 09/04/23 04:45
Physical Exam
Constitutional: No acute distress
Cardiovascular: Rhythm & rate is regular and Pedal edema is absent
Respiratory: Respiratory effort normal and Lungs clear to auscul.
GI: Soft and Distention absent
Neuro/Psych: AO x 3
Data Reviewed
-
Date of Service: September 05, 2023
--- NOTE | 2023-09-05 14:22 | CM ---
CM following re: discharge planning.
Discussed in Rounds, reviewed pt's chart, met with pt and pt's spouse at bedside.
PT and OT evaluations are noted - home PT recommended. Pt stated he had [facility] in the past and he preferred [facility].
A referral to [facility] made yesterday and [facility] liaison following.
Please fax discharge instructions to [facility] at [phone].
D/C plan: home with [facility] and family support. Spouse to transport at discharge.
CM will follow with discharge plan updates as needed.
[2023-09-05 16:37] LABS: Glucose - Point of Care 135 mg/dl (70-99)
[2023-09-05] MEDS: TOPROL XL 150 MG PO (17:43)
[2023-09-05] MEDS: GLUCOPHAGE 500 MG PO (17:43)
[2023-09-05] MEDS: ALDACTONE 25 MG PO (17:44)
[2023-09-05] MEDS: COZAAR 100 MG PO (17:44)
[2023-09-05] MEDS: NORVASC 10 MG PO (17:44)
[2023-09-05] MEDS: CRESTOR 40 MG PO (17:44)
--- NOTE | 2023-09-05 18:18 | PTCARENOTE ---
Patient received in AM with assessment as noted. Continues awake, alert and oriented. OOB to chair through the shift and ambulated in the room and hallway using a walker. Weakly palpable bilateral PT and DP pulses. Left leg dressings dry and intact.
Left leg pain controlled with PRN Tylenol and ice bag applications. NSR with PVC's on monitor. Afebrile. B/P's stable. Appetite good. Voiding ad alexander. For transfer to 2109 and report to be called to floor. For transfer via W/C with chart, meds and
belongings.
[2023-09-05] MEDS: IMDUR (EXTENDED RELEASE) 30 MG PO (21:07)
[2023-09-06] MEDS: TYLENOL 650 MG PO ×2 (02:47→08:11)
[2023-09-06 03:05] VITALS: BP 115/64
[2023-09-06] MEDS: SYNTHROID 25 MCG PO (06:10)
[2023-09-06 07:05] LABS: Hematocrit 28.6 % (39.0-52.0); Hemoglobin 9.7 g/dL (13.0-18.0); Mean Corp Hgb Conc. 33.9 g/dL (33.0-37.0); Mean Corpuscular Hgb 30.2 pg (27.0-31.0); Mean Corpuscular Volume 89.1 fL (80.0-94.0); Mean Platelet Volume 11.4 fL (7.4-10.4); Platelet Count 239 10^3/uL (130-400); Red Blood Cell Count 3.21 10^6/uL (4.70-6.10); Red Cell Dist. Width 14.3 % (11.5-14.5); White Blood Cell Count 11.2 10^3/uL (4.8-10.8)
[2023-09-06 07:15] VITALS: BP 109/56
[2023-09-06 07:31] LABS: Blood Urea Nitrogen 20 mg/dl (9-20); Carbon Dioxide 20 mmol/L (22-30); Chloride 106 mmol/L (98-107); Estimated Creatinine Clearance 42 ml/min; Glucose 106 mg/dl (70-99); Potassium 4.1 mmol/L (3.5-5.1); Sodium 134 mmol/L (135-145); eGFR 44.74
--- NOTE | 2023-09-06 07:38 | W.PN.VS ---
Today's Communication / Plan
-
DC home
Assessment/Plan
-
Assessment: 62 year old male POD #3 Left femoral to above-knee popliteal artery bypass with 8 mm ringed [place] Propaten graft, Aortogram and pelvic angiogram, Left common iliac artery stent placement with [place] 8 mm x 59 mm VBX covered stent, Left
external iliac artery stent placement with [place] 7 mm x 39 mm VBX covered stent.
Plan:
DC Home today
Subjective Data
-
Date of Service: September 06, 2023
Patient seen and examined at bedside. Resting comfortably. Palpable pulse and dorsalis pedis of the left lower extremity. Well-healed incisions.
Objective Data
-
Vital Signs
Temp Pulse Resp BP Pulse Ox
99.0 F 85 16 115/64 94
09/06/23 03:05 09/06/23 03:05 09/06/23 03:05 09/06/23 03:05 09/06/23 03:05
Intake and Output
09/05/23 09/06/23 09/07/23
06:59 06:59 06:59
Intake Total 940 / 940 960 / 960
Output Total 1200 / 1200 1000 / 1000
Balance -260 / -260 -40 / -40
Intake:
Oral fluids 780 / 780 960 / 960
IV fluids (Total) 160 / 160
Nss 1,000 ml @ 80 mls/hr IV . 160 / 160
[id number] JAYRO Rx#:[id number]
Output:
Urine, [place] 400 / 400
Urine, Voided 800 / 800 1000 / 1000
Other:
Number of approximated MODERATE 2
amounts of urine
Lab Results
09/06/23 06:01
09/06/23 06:01
Calcium 9.0 mg/dl (8.4-10.2) 09/06/23 06:01
Magnesium 2.3 mg/dl (1.6-2.3) 09/04/23 04:45
Physical Exam
-
Gen: NAD, AOx3
Chest: CTA B/L
Cards: RRR
Abd: soft, nt, nd
Ext: LLE incision C/D/I; palpable DP
[2023-09-06] MEDS: PROTONIX 40 MG PO (08:06)
[2023-09-06] MEDS: PLAVIX 75 MG PO (08:07)
[2023-09-06] MEDS: ASPIR LOW (ENTERIC COATED) 81 MG PO (08:07)
[2023-09-06] MEDS: ZETIA 10 MG PO (08:07)
[2023-09-06] MEDS: HEPARIN 5000 UNITS SC (08:08)
[2023-09-06 08:10] LABS: Glucose - Point of Care 231 mg/dl (70-99)
[2023-09-06] MEDS: NOVOLOG FLEXPEN-LOW RESISTANCE 2 UNITS SC (08:10)
--- NOTE | 2023-09-06 10:57 | CM ---
CM following re: d/c planning.
D/c plan is for pt to return home with , with [facility] services.
providing transport home today.
Goal: home with [facility].
--- NOTE | 2023-09-08 09:44 | W.PN.UPDATE ---
Update Note
Progress Note Update
Spoke with patient by phone this am. Pt doing well, states his home health aid will be checking his incisions today. I informed him I sent his Toprol XL 150mg daily script to his pharmacy. He stated he would be picking that up today as he was due
for a refill from his lower dose. He has been taking the tab and a half as prescribed when he left the hospital this weekend.
--- NOTE | 2023-09-10 16:33 | W.PV.INTER ---
VPI Note
Pre Admission Note
Functional Status: Full
Ambulation: Ambulate Independently
Pre Op Medications
Pre Op ASA: Yes
Pre Op Statin: Yes
Pre Op REED Inhibitor/ARB: Yes
Pre Op P2y12 Antagonist: Clopidogrel
Pre Op Beta Blockers: Chronic > 30 Days
Pre Op Chronic Anticoagulant: None
Pre Op Cilostazol: No
Post Op Medications
Post Op ASA: Yes
Post Op Statin: Yes
Post Op REED Inhibitor/ARB: Yes
Post Op P2y12 Antagonist: Clopidogrel
Post Op Beta Blockers: Chronic > 30 Days
Post Op Chronic Anticoagulant: None
Post Op Cilostazol: No
--- NOTE | 2023-09-17 12:04 | W.DCSUMMARY ---
Discharge Summary
Discharge Data
Date of Admission: 09/03/23
Date of Discharge: 09/06/23
-
Pending Results: No
Hospital Course
Attending: Willie
Consultants: Pulmonary medicine, cardiology
Allergies: NKDA,
Procedure with date: 09/03/2023: Left femoral tube above-knee popliteal artery bypass with ringed propatent graft, left common iliac artery stent placement with [place] VBX covered stent, left external iliac artery stent placement with [place] VBX covered
stent
History of present illness: The patient is an 62-year-old male with multiple medical conditions including: hypertension, hypothyroid, diabetes, GERD, PAD, right femoral endarterectomy and right femoral to popliteal artery bypass. Patient presented
on 09/03/2023 for scheduled procedure with Dr. Tapia. Patient presented at baseline health with no reports of recent illness or trauma.
Hospital Course: Briefly, the patient underwent scheduled bypass with stenting without complications, and recovered in PACU. Following recovery phase one and two patient was transferred to intensive care unit per protocol for continued hemodynamic
monitoring. [employer] consulted to aid in medical management from a critical care perspective. POD #1 (09/04/2023) Patient doing well overall and tolerating PO diet. Surgical incisions clean, dry, and intact with suture line well approximated and
soft. No evidence of hematoma. Arterial line and IV fluids discontinued. Later this day we were notified patient had a 9 beat run of nonsustained V. tach. Cardiology was consulted at this time. Echo normal. POD #2 (09/05/2023) no further V. tach.
Patient doing well. PT OT. Likely discharge tomorrow. Cardiology plans to increase beta-adele. POD #3 (09/06/2023) Patient able to ambulate without difficulty or incident. Patient stable for discharge to home. Increase beta-adele dosage
electronically sent to patient's pharmacy.
Prescriptions and follow up appointment are included in the DC summary fly finisher note. All instructions were given to the patient in both written and verbal form and the patient expressed understanding.
Discharge Plan
-
Patient Disposition: Home with Home Care
Discharge Diagnosis/Procedures: Peripheral arterial disease, Left femoral to above-knee popliteal artery bypass with left common and external iliac artery stent placement
Condition: Good
Diet: As tolerated and Diabetic, Carb Controlled
Activity: As tolerated and No strenuous activity
Driving Restrictions: Not until seen by your Dr
Bathing Restrictions: OK to Shower
Stand Alone Forms: DC Instr - Vascular OR
Referrals:
Luisa Viramontes DO [Family Provider] -
Ophelia Fuller CRNP [Specified Professional Personl] - 09/17/23 9:00 am
Prescriptions:
New
oxycodone 5 mg Tablet
5 mg PO Q4HPRN PRN (Reason: moderate pain) Qty: 12 0RF
metoprolol succinate [Toprol XL] 100 mg tablet extended release 24 hr
150 mg PO DAILY Qty: 60 0RF
Continued
losartan 50 mg Tablet
100 mg PO QPM
metformin 500 mg Tablet
500 mg PO QPM
Hold Instructions: Resume on 05/09/23. Do not take Metformin for 48 hours.
Rx Instructions:
take with a meal
clopidogrel 75 mg Tablet
75 mg PO DAILY
ezetimibe 10 mg Tablet
10 mg PO DAILY
rosuvastatin 40 mg Tablet
40 mg PO QPM
aspirin 81 mg Capsule
81 mg PO DAILY
levothyroxine 25 mcg Tablet
25 mcg PO DAILY
pantoprazole 40 mg Tablet,Delayed Release (Dr/Ec)
40 mg PO DAILY
amlodipine 10 mg Tablet
10 mg PO QPM
taurine 1,000 mg Capsule
1,000 mg PO DAILY
coQ10 (ubiquinol) [Qunol [place] CoQ10] 100 mg Capsule
100 mg PO DAILY
spironolactone 25 mg Tablet
25 mg PO QPM
guar gum Packet
1 tbsp PO DAILY
isosorbide mononitrate 30 mg Tablet Extended Release 24 Hr
30 mg PO HS
Discontinued
metoprolol succinate 100 mg Tablet Extended Release 24 Hr
100 mg PO HS
oxycodone 5 mg Tablet
5 mg PO Q4HPRN PRN (Reason: moderate pain) Qty: 7 0RF
Patient Comments:
filled 06/21/23 #7 for 2 days
Discharge Orders:
Discharge Patient (As Directed); Ordered 09/06/23
Ordered By: Marcus Anderson
Discharge Date and Time
Discharge Date/Time: 09/06/23 09:25
Print Language: UPPER SORBIAN
== END 2023-09-06 09:25 | disposition home health service (06) | DRG 253 ==
LOC: 2 SOUTH 08:08
PROVIDERS: Nurse Practitioner; Nurse Practitioner Acute Care; ADMITTING PHYSICIAN Surgery Vascular Surgery; CONSULT PHYSICIAN Internal Medicine Cardiovascular Disease; FAMILY PHYSICIAN Family Medicine; OTHER PHYSICIAN Internal Medicine Pulmonary Disease
PROC: 047J34Z Dilation of Left External Iliac Artery with Drug-eluting Intraluminal Device, Percutaneous Approach (ICD-10-PCS; 2023-09-03)
PROC: 30233N1 Transfusion of Nonautologous Red Blood Cells into Peripheral Vein, Percutaneous Approach (ICD-10-PCS; 2023-09-03)
PROC: B4101ZZ Fluoroscopy of Abdominal Aorta using Low Osmolar Contrast (ICD-10-PCS; 2023-09-03)
PROC: 041L0JL Bypass Left Femoral Artery to Popliteal Artery with Synthetic Substitute, Open Approach (ICD-10-PCS; 2023-09-03)
PROC: B41C1ZZ Fluoroscopy of Pelvic Arteries using Low Osmolar Contrast (ICD-10-PCS; 2023-09-03)
PROC: 047D34Z Dilation of Left Common Iliac Artery with Drug-eluting Intraluminal Device, Percutaneous Approach (ICD-10-PCS; 2023-09-03)
DX: E11.51 Type 2 diabetes mellitus with diabetic peripheral angiopathy without gangrene (principal); I47.20 Ventricular tachycardia, unspecified; I10 Essential (primary) hypertension; I70.222 Atherosclerosis of native arteries of extremities with rest pain, left leg; I71.43 Infrarenal abdominal aortic aneurysm, without rupture; F10.10 Alcohol abuse, uncomplicated; E03.9 Hypothyroidism, unspecified; K21.9 Gastro-esophageal reflux disease without esophagitis; J45.909 Unspecified asthma, uncomplicated; E78.01 Familial hypercholesterolemia; I25.10 Atherosclerotic heart disease of native coronary artery without angina pectoris; E78.00 Pure hypercholesterolemia, unspecified; Z79.02 Long term (current) use of antithrombotics/antiplatelets; Z79.84 Long term (current) use of oral hypoglycemic drugs; Z79.890 Hormone replacement therapy; Z95.5 Presence of coronary angioplasty implant and graft; Z87.19 Personal history of other diseases of the digestive system; Z87.891 Personal history of nicotine dependence
CPT/HCPCS: 35656; 35681; 36415; 37221; 37223; 75625; 80048; 82962; 83735; 85025; 85027; 85610; 85730; 86850; 86900; 86901; 86920; 87070; 93005; 93306; 97163; 97530; C1725; C1769; C1874; C1894; P9016; Q9967

== ENCOUNTER → 2023-10-20 08:53 | Outpatient (REF) | payer BC, SELFPAY | LOC: RAD 08:53 | PROVIDERS: ATTENDING PHYSICIAN Registered Nurse; FAMILY PHYSICIAN Family Medicine | DX: I73.9 Peripheral vascular disease, unspecified (principal) | CPT/HCPCS: 93922; 93925; 93978 ==

== ENCOUNTER 2023-11-08 21:56 | Inpatient (IN) | payer BC, SELFPAY ==
[2023-11-08] VITALS (13 sets, daily range): BP systolic 118–151; BP diastolic 68–85; BMI 28.6
--- NOTE | 2023-11-08 19:53 | ED.GENMED ---
History of Present Illness
General
Chief Complaint: Dizziness
Source: patient and spouse
Exam Limitations: none
Time Seen by Provider: 11/08/23 19:35
History of Present Illness
History of Present Illness:
62-year-old male with weeks of lightheadedness disequilibrium and off balance. returned from a trip tonight and felt it was worse. No headache. Some blurry vision has been going on for months. No chest pain shortness of breath or syncope.
Worse with standing.
Past History
Past History
ED Past Medical History: CAD, HTN, Hypercholesterolemia, NIDDM, Hypothyroidism, Other (AAA) and Other (Peripheral arterial disease)
ED Past Surgical History: Cardiac and Other (Multiple vascular surgeries)
Review of Systems
Review of Systems
All Other Systems: Not applicable
Constitutional: Denies fever
Respiratory: Denies trouble breathing
Cardiac: Denies chest pain, palpitations or syncope
Phy Exam
Physical Exam
Physical Exam:
GENERAL: Alert and oriented in no apparent distress
EYE: Orbits normal.
NECK: Supple
CARDIAC: Borderline tachycardia. No murmur
LUNGS: Clear breath sounds,normal
ABDOMEN: Soft, without focal tenderness or distention
NEUROLOGICAL: Alert and oriented , cranial nerves II through XII intact. [id number] normal. Light touch intact. Good lower extremity strength.
SKIN: Warm and dry, no rash or lesion, no discoloration, skin intact.
MUSCULOSKELETAL: Mild pitting edema bilaterally. Warm and dry.
PSYCH: Normal and appropriate interaction.
Course
Orders/Labs/Results
Orders:
Orders
11/08/23 19:35
ECG [Electrocardiogram (*1)] Urgent
Reason for Study: Vertigo / Dizzy
Cardiology Consult: Tutu Vazquez
11/08/23 19:36
EKG- Treatment ONCE
11/08/23 19:38
CT Head W/o Iv Contrast Urgent
Comment:
Reason For Exam: . Lightheaded off balance
Cardiac Monitoring- Treatment ONCE
IV Insert/Care/Rem.- Treatment PRN
Pulse Ox/cont/shift [RESP] Stat
Quantity: 1
11/08/23 19:54
Basic Metabolic Panel Urgent
Complete Blood Count/With Diff Urgent
TSH Urgent
Comment: ADD ON
11/08/23 19:58
Add On- LAB Urgent
Tests Added?: tsh reflex t4
11/08/23 20:21
* Blood Bank Products Urgent
Blood Bank Products: *Packed RBC Leuko(PRBC's)
Quantity: 2
Transfuse Today: Yes
Reason: Bleeding
IV Insert/Care/Rem.- Treatment PRN
11/08/23 20:22
Pantoprazole [Protonix IV] 40 mg IV NOW STA
11/08/23 20:30
Type+Screen Urgent
11/08/23 21:47
Admit/Transfer Patient As Directed
Co-Sign Provider:
Level of Care: Inpatient admission
Assign to:: IMU- Intermediate Care
Physician / Group: htay
Diagnosis: Acute UGIB Symptomatic severe anemia due to associated ACBLA
Reason for Hospitalization: Acute UGIB
Symptomatic severe anemia due to associated ACBLA (
Expected length of stay greater than two midnights?: Yes
ELOS- Estimated Length of Stay in days: 3
I certify the patient meets the requirements for IP care: Yes
11/08/23 21:49
Code Status As Directed
Resuscitation Status: Full Code
11/08/23 22:00
Flush (0.9% Sodium Chloride) [Flush (Nss)] See Dose Instructions IV PER PROTOCOL
Abnormal Lab Results
11/08/23 11/08/23
19:54 20:30
RBC 2.01 L 10^6/uL
(4.70-6.10)
Hgb 5.5 L* g/dL
(13.0-18.0)
Hct 16.5 L* %
(39.0-52.0)
RDW 16.7 H %
(11.5-14.5)
Plt Count 425 H 10^3/uL
(130-400)
Absolute Monos (auto) 0.8 H 10^3/uL
(0.1-0.6)
Carbon Dioxide 19 L mmol/L
(22-30)
BUN 31 H mg/dl
(9-20)
Creatinine 1.8 H mg/dL
(0.7-1.3)
Glucose 134 H mg/dl
(70-99)
Crossmatch IS Only See Detail
11/08/23 19:54
11/08/23 19:54
Vital Signs
Initial and Last Documented VS:
Initial Vital Signs
Temp Pulse Resp BP Pulse Ox
98.5 F 110 20 151/80 97
11/08/23 19:29 11/08/23 19:29 11/08/23 19:29 11/08/23 19:29 11/08/23 19:29
Last Documented Vital Signs
Temp Pulse Resp BP Pulse Ox
98.5 F 94 18 136/68 97
11/08/23 19:29 11/08/23 21:45 11/08/23 21:45 11/08/23 20:02 11/08/23 21:45
MDM/Problems Addressed
Differential Diagnosis Includes:
Central neurologic concern versus orthostatic. Workup in progress
*Radiology
Radiology exam reviewed: radiology read reviewed (No acute findings. Small possible old bilateral basal ganglia lacunar infarcts)
*Pulse Oximetry
Patient hypoxic: no
*EKG
Interpreted by ED Provider?: Yes
Interpretation: abnormal
Comparison EKG: changes noted
Heart Rate: 102
Rate: tachycardiac
Rhythm: sinus and PVC's
[place]: normal axis
Interval: normal interval
Ischemia: T-wave inversion (Lateral)
*Critical Care Note
Total Time (30-74mins, 75-104mins- exclusive of procedures): 35
Data Reviewed
Review of Other/Old Records Reveals: Labs, Records, Operative Reports and Testing
Update Note
Update Note:
Patient with a hemoglobin of 5.5. Stool tested and positive. Dark in nature. Patient then added he has had dark stool for 3 to 4 days. Risk-benefit of blood explained. Consent signed. 2 units of blood ordered. Protonix ordered.
ED Attending Note
-
Portions of this chart may have been created with voice recognition software.� Occasional wrong word or��sound alike� substitutions may have occurred due to the inherent limitations of voice recognition software.
Discharge Plan
Departure
Patient Disposition: Admit
Date of Disposition: 11/08/23
Time of Disposition: 21:19
Presentation/result/management discussed w/ accepting MD/DO: Hospitalist
Discharge Problem:
Symptomatic upper GI bleed
Interventions
Interventions:
*Risk Screen - Suicide Last Done: 11/08/23 19:29
*General Assessment Last Done: 11/08/23 19:29
*Neglect/Abuse Screening Last Done: 11/08/23 19:29
ED- Fall Risk Assessment Last Done: 11/08/23 20:10
*ED COVID-19 Vaccine History Last Done: 11/08/23 19:29
ED- Neurological Assessment Last Done: 11/08/23 20:10
ED- Cardiac Assessment Last Done: 11/08/23 20:10
[2023-11-08 20:03] LABS: % Basophils 0.4 % (0-2); % Eosinophils 2.8 % (0-6); % Immature Granulocytes 0.4 % (0-0.5); % Lymphocytes 22.2 % (20.5-51.1); % Monocytes 8.9 % (1.7-9.3); % Neutrophils 65.3 % (42.2-75.2); Absolute Eosinophils 0.3 10^3/uL (0-0.7); Absolute Lymphocytes 2.1 10^3/uL (1.2-3.4); Absolute Monocytes 0.8 10^3/uL (0.1-0.6); Absolute Neutrophils 6.1 10^3/uL (1.4-6.5); Mean Corp Hgb Conc. 33.3 g/dL (33.0-37.0); Mean Corpuscular Hgb 27.4 pg (27.0-31.0); Mean Corpuscular Volume 82.1 fL (80.0-94.0); Mean Platelet Volume 9.9 fL (7.4-10.4); Nucleated Red Blood Cells % 0 % (-); Platelet Count 425 10^3/uL (130-400); Red Blood Cell Count 2.01 10^6/uL (4.70-6.10); Red Cell Dist. Width 16.7 % (11.5-14.5); White Blood Cell Count 9.3 10^3/uL (4.8-10.8)
[2023-11-08 20:05] LABS: Hematocrit 16.5 % (39.0-52.0); Hemoglobin 5.5 g/dL (13.0-18.0)
[2023-11-08 20:14] LABS: Blood Urea Nitrogen 31 mg/dl (9-20); Calcium 9.3 mg/dl (8.4-10.2); Carbon Dioxide 19 mmol/L (22-30); Chloride 103 mmol/L (98-107); Estimated Creatinine Clearance 39 ml/min; Glucose 134 mg/dl (70-99); Potassium 3.9 mmol/L (3.5-5.1); Sodium 135 mmol/L (135-145); eGFR 41.77
[2023-11-08] MEDS: PROTONIX IV 40 MG IV (20:32)
--- NOTE | 2023-11-08 21:39 | HPS.HSE ---
Family Physician
-
Family Physician:
Chief Complaint
-
lightheadedness, felt dizzy and balance dysfunction
History of Present Illness
62M HX PAD, s/p multiple Lt Misa vascular bypass graft. on ASA seen at ER :
Evaluation for 2 weeks of lightheadedness, felt dizzy and balance dysfunction and felt worse with standing tonight
- reports dark stool BMs for last 3 to 4 days. on ASA and Plavix
- Reports blurry vision has been going on for months
- No chest pain shortness of breath or syncope.
last dose of Plavix : 930 AM sat 11/08/23
Medical History
Past Medical History
Past Medical History: Reports CAD ( hx stenting chronic RCA occlusion), HTN, Hypercholesterolemia, Hyperthyroidism, Renal Failure (CKD3a/b with ACDz ) and Other (severe PAD s/p HX s/p multple Lt Misa vascular bypass fraft - Doing well)
Past Surgical History: Reports Other (Left femoral to above-knee popliteal artery bypass with 8 mm ringed Herscher Propaten graft Left common iliac artery stent placement with Herscher 8 mm x 59 mm VBX covered stent, Left external iliac artery stent
placement with Herscher 7 mm x 39 mm VBX covered stent.)
Additional Past Surgical History:
Left femoral to above-knee popliteal artery bypass with 8 mm ringed Herscher Propaten graft
Left common iliac artery stent placement with Herscher 8 mm x 59 mm VBX covered stent,
Left external iliac artery stent placement with Herscher 7 mm x 39 mm VBX covered stent.
Social History
Tobacco: Non-smoker
Alcohol: None
Drug: None
Family History
Family History: Not pertinent
Allergies / Home Medications
Allergies reflects when Allergies were last updated in [facility].
Home Medications with original date entered in [facility]
Allergy/Medication List:
Allergies
Allergy/AdvReac Type Severity Reaction Status Date / Time
No Known Allergies Allergy Verified 11/08/23 19:29
Home Medications
aspirin 81 mg capsule 81 mg PO DAILY Blood Clot Prevention/Tx 04/25/23
clopidogrel 75 mg tablet 75 mg PO DAILY Blood Clot Prevention/Tx 04/25/23
ezetimibe 10 mg tablet 10 mg PO DAILY High Cholesterol 04/25/23
levothyroxine 25 mcg tablet 25 mcg PO DAILY Thyroid 04/25/23
losartan 50 mg tablet 100 mg PO QPM Blood Pressure 04/25/23
metformin 500 mg tablet 500 mg PO QPM Diabetes 04/25/23
rosuvastatin 40 mg tablet 40 mg PO QPM High Cholesterol 04/25/23
pantoprazole 40 mg tablet,delayed release 40 mg PO DAILY Gastrointestinal Issue 05/07/23
amlodipine 10 mg tablet 10 mg PO QPM Blood Pressure 06/12/23
coQ10 (ubiquinol) 100 mg capsule (Qunol Shaw CoQ10) 100 mg PO DAILY Supplement 06/19/23
taurine 1,000 mg capsule 1,000 mg PO DAILY Supplement 06/19/23
guar gum 1 tbsp PO DAILY 08/27/23
spironolactone 25 mg tablet 25 mg PO QPM Blood Pressure 08/27/23
isosorbide mononitrate 30 mg tablet,extended release 24 hr 30 mg PO HS Blood Pressure 09/03/23
oxycodone 5 mg tablet 5 mg PO Q4HPRN PRN moderate pain #12 tabs 09/04/23
metoprolol succinate 100 mg tablet,extended release 24 hr (Toprol XL) 150 mg (1.5 x 100 mg) PO DAILY #60 tabs 09/08/23
Review of Systems
-
Constitutional: Reports No Symptoms
EENT: Reports No Symptoms
Respiratory: Reports No Symptoms
Cardiac: Reports No Symptoms
Abdomen/GI: Reports Black Stools (dark sools x 3 - 4ays )
: Reports No Symptoms
Musculoskeletal: Reports No Symptoms
Skin: Reports No Symptoms
Neurological: Reports Dizzy
Endocrine: Reports No Symptoms
Hematologic/Lymphatic: Reports No Symptoms
Psych: Reports No Symptoms
Physical Exam
Vital Signs
Vital Signs
Temp Pulse Resp BP Pulse Ox
98.5 F 107 20 136/68 99
11/08/23 19:29 11/08/23 20:02 11/08/23 20:02 11/08/23 20:02 11/08/23 20:02
Physical Exam
General: Well Developed, Well Nourished and No Apparent Distress
HEENT: NormoCephalic, Moist mucous membranes and Atraumatic
Respiratory: Clear
Cardiac: S1/S2 and Regular Rhythm; No Murmur or Rub
GI: Soft, Non Tender, Non Distended and Normal Bowel Sounds; No Organomegaly
Rectal: Brown (dark ), Hem Positive, Deferred by Provider and Other (DAVONTE per ER attd; dark borown HoB POS stool )
Musculoskeletal: No Clubbing, No Cyanosis and No Edema
Skin: No Rash
Neuro: Nonfocal/grossly intact
Laboratory Results
-
11/08/23 19:54
11/08/23 19:54
Data Reviewed
-
Lab Data: Discussed with Physician
Old Records: Reviewed
Impression/Plan
-
Reviewed VS: Mildly tachycardic low 100s BP 118/74- 135/68
Data
Hgb 5.5 - baseline range 9s
MCV 81
Plt 425 suspect reactive
CO2 19
BUN 31
Cr 1.8 - baseline range 1.4 - 1.7
eGFR 41- baseline mid 40s c/w CKD3a/b
BG 134
nl TSH
EKG report
SINUS TACHYCARDIA WITH OCCASIONAL PREMATURE VENTRICULAR COMPLEXES
INFERIOR INFARCT (CITED ON OR BEFORE 05-MAY-2023)
ST and T WAVE ABNORMALITY, CONSIDER LATERAL ISCHEMIA
ABNORMAL ECG
WHEN COMPARED WITH ECG OF 04-SEP-2023 10:47,
PREMATURE VENTRICULAR COMPLEXES ARE NOW PRESENT
ST NO LONGER ELEVATED IN ANTERIOR LEADS
HCT: pending
NO PRIOR hospitalist admission:
ASSESSMENT & PLAN
Pending Rx reconciliation
Acute UGIB
Symptomatic severe anemia due to associated ACBLA ( hgb 5.5 )
Underlying ACdz due to CKD
last dose of Plavix : 930 AM 11/08/23
- denied any abdominal pain
- held BLOCK STACKER ASA
- held BLOCK STACKER Plavix
- T C and Blood consented at ER
- agree with PRBC Tx
- f/u H & H
- NPO and IVF
- PPI gtt
- GI consult
Borderline ENEIDA due to acute blood loss
Underlying CKD 3b ( patient did not aware when drafter geological informed him and )
- Trend Cr with Blood Tx
At risk for hypotension due to acute UGIB
Essential HTN
- held metoprolol , Aldactone and losartan for short term
- Observe BP
T2DM
- held Metformin
- add ISS low
CAD (severe disease) with HX stenting
chronic RCA occlusion
- stable, no angina
- cont IMN
- To resume ASA and Plavix and BB when clear by GI
NSVT HX
LVEF 50-55%
PAD, severe
HX s/p multiple Lt Misa vascular bypass fraft
- Held DAPL for now
Hypothyroid
-stable
- cont LT4
DVT Px: SCD
Code: Full
IMU
--- NOTE | 2023-11-08 23:00 | PTCARENOTE ---
Received patient from ED at approximately 22:40. Admitted for UGIB with hemoglobin of 5.5. Pt. is awake, alert, and oriented. Afebrile. Heart rhythm sinus. Blood pressure normotensive. 1 of 2 units PRBC currently running. Pt. is on room air. Lungs
sound clear. NPO. Currently no signs/complaints of GI symptoms. Voiding in urinal without issue. Skin is intact. Discussed plan of care with patient and his spouse. Vital signs stable at this time.
[2023-11-08] MEDS: NSS 1000 IV (23:10)
[2023-11-08] MEDS: PROTONIX 100 IV (23:37)
[2023-11-08 23:59] LABS: Glucose - Point of Care 116 mg/dl (70-99)
[2023-11-09] VITALS (26 sets, daily range): BP systolic 128–158; BP diastolic 69–86; BMI 27.4
[2023-11-09 03:51] LABS: Mean Corp Hgb Conc. 33.8 g/dL (33.0-37.0); Mean Corpuscular Hgb 27.2 pg (27.0-31.0); Mean Corpuscular Volume 80.5 fL (80.0-94.0); Mean Platelet Volume 9.9 fL (7.4-10.4); Platelet Count 347 10^3/uL (130-400); Red Blood Cell Count 2.46 10^6/uL (4.70-6.10); Red Cell Dist. Width 15.9 % (11.5-14.5); White Blood Cell Count 9.2 10^3/uL (4.8-10.8)
[2023-11-09 04:05] LABS: Hematocrit 19.8 % (39.0-52.0); Hemoglobin 6.7 g/dL (13.0-18.0)
[2023-11-09 04:09] LABS: Blood Urea Nitrogen 28 mg/dl (9-20); Calcium 8.4 mg/dl (8.4-10.2); Carbon Dioxide 20 mmol/L (22-30); Chloride 107 mmol/L (98-107); Estimated Creatinine Clearance 44 ml/min; Glucose 111 mg/dl (70-99); Potassium 3.9 mmol/L (3.5-5.1); Sodium 137 mmol/L (135-145); eGFR 48.11
[2023-11-09] MEDS: SYNTHROID 25 MCG PO (04:52)
[2023-11-09 06:05] LABS: Glucose - Point of Care 140 mg/dl (70-99)
[2023-11-09] MEDS: PROTONIX 100 IV ×2 (06:20→17:05)
[2023-11-09 09:19] LABS: Glycohemoglobin (HgbA1c) 5.8 % (4.0-5.6)
--- NOTE | 2023-11-09 09:20 | CON.GI ---
Consultation
-
Date/Time Consultation Requested: 11/09/23 7:15a
Date/Time Consultation Performed: 11/09/23 9:21a
Requesting Provider: Alonzo Soriano
Performing Provider: Curtis Krishnan
Reason for Consultation: GIB
Medical History
Chief Complaint / HPI
Chief Complaint: GIB
History of Present Illness:
Patient is a 62-year-old male who presents with 1 week of dark stools. He also reported some lightheadedness. Hemoglobin was 5.5 in the ER. Hemoglobin from recently in August was 9.7. He denies any nausea vomiting abdominal pain. He had
colonoscopy maybe a couple of years ago at [facility] that found polyps reportedly. He denies NSAIDs. He drinks 2 beers per day. He has never had a prior endoscopy. He denies heartburn, dysphagia, early satiety. He is on Plavix for coronary
artery disease and peripheral arterial disease. His last dose was yesterday.
Past Medical History
Past Medical History: CAD (stent), HTN and Other (PAD s/p LLE bypass graft)
Past Surgical History: Other (LLE bypass grafts)
Social History
Alcohol: Occasional (2 beers/day)
Family History
Family History: Reviewed & Not Pertinent
Allergies / Home Medications
Allergy/AdvReac Type Severity Reaction Status Date / Time
No Known Allergies Allergy Verified 11/08/23 19:29
�Medication �Instructions �Recorded
aspirin 81 mg capsule 81 mg PO DAILY Blood Clot 04/25/23
Prevention/Tx
clopidogrel 75 mg tablet 75 mg PO DAILY Blood Clot 04/25/23
Prevention/Tx
ezetimibe 10 mg tablet 10 mg PO DAILY High Cholesterol 04/25/23
levothyroxine 25 mcg tablet 25 mcg PO DAILY Thyroid 04/25/23
losartan 50 mg tablet 100 mg PO QPM Blood Pressure 04/25/23
metformin 500 mg tablet 500 mg PO QPM Diabetes 04/25/23
rosuvastatin 40 mg tablet 40 mg PO QPM High Cholesterol 04/25/23
pantoprazole 40 mg tablet,delayed 40 mg PO DAILY Gastrointestinal 05/07/23
release Issue
amlodipine 10 mg tablet 10 mg PO QPM Blood Pressure 06/12/23
coQ10 (ubiquinol) 100 mg capsule 100 mg PO DAILY Supplement 06/19/23
(Qunol Shaw CoQ10)
taurine 1,000 mg capsule 1,000 mg PO DAILY Supplement 06/19/23
guar gum 1 tbsp PO DAILY 08/27/23
spironolactone 25 mg tablet 25 mg PO QPM Blood Pressure 08/27/23
isosorbide mononitrate 30 mg 30 mg PO HS Blood Pressure 09/03/23
tablet,extended release 24 hr
oxycodone 5 mg tablet 5 mg PO Q4HPRN PRN moderate pain 09/04/23
#12 tabs
metoprolol succinate 100 mg 150 mg (1.5 x 100 mg) PO DAILY #60 09/08/23
tablet,extended release 24 hr tabs
(Toprol XL)
Review of Systems
-
All other systems: A 12 pt ROS was Negative except as stated above in HPI
Vital Signs
Temp Pulse Resp BP Pulse Ox
98.5 F 84 18 128/79 97
11/09/23 07:33 11/09/23 08:27 11/09/23 08:27 11/09/23 08:27 11/09/23 08:27
Physical Exam
Exam
General: No Apparent Distress
HEENT: Normocephalic and Atraumatic
Respiratory: Non Labored Respirations
GI: Soft, Non Tender and Non Distended
Results
WBC 9.2 10^3/uL (4.8-10.8) 11/09/23 03:16
Hgb Cancelled 11/09/23 03:30
Hct Cancelled 11/09/23 03:30
MCV 80.5 fL (80.0-94.0) 11/09/23 03:16
Plt Count 347 10^3/uL (130-400) 11/09/23 03:16
Absolute Neuts (auto) 6.1 10^3/uL (1.4-6.5) 11/08/23 19:54
Sodium 137 mmol/L (135-145) 11/09/23 03:16
Potassium 3.9 mmol/L (3.5-5.1) 11/09/23 03:16
Chloride 107 mmol/L (98-107) 11/09/23 03:16
Carbon Dioxide 20 mmol/L (22-30) L 11/09/23 03:16
BUN 28 mg/dl (9-20) H 11/09/23 03:16
Creatinine 1.6 mg/dL (0.7-1.3) H 11/09/23 03:16
Calcium 8.4 mg/dl (8.4-10.2) 11/09/23 03:16
Diagnostic Image Results:
Prior GI Procedures:
EGD:
Colonoscopy:
Assessment / Plan
-
Summary: 62yo male presents with 1 week dark stools, Hgb 5.5. On plavix for CAD/LLE bypass graft hx last dose 11/07. Prior colonoscopy about 2 yrs ago at [facility]. No prior EGD. Denies NSAIDs
Impression:
Melena
CAD
LLE PAD s/p bypass grafts
Recommendations:
Protonix gtt
Transfuse further PRBC to bring Hgb to safer range for EGD, likely tomorrow
Hold plavix
Possible PUD, ectasia, vs LGIB
Request records for colonoscopy at [facility]
-
-
Thank you for consultation and allowing me to participate in the patient's care. Please call the adjunct physical education instructor GI physician during the after hours with any questions or concerns.
[2023-11-09 10:39] LABS: Hematocrit 25.1 % (39.0-52.0); Mean Corp Hgb Conc. 33.9 g/dL (33.0-37.0); Mean Corpuscular Hgb 27.3 pg (27.0-31.0); Mean Corpuscular Volume 80.7 fL (80.0-94.0); Mean Platelet Volume 9.8 fL (7.4-10.4); Platelet Count 380 10^3/uL (130-400); Red Blood Cell Count 3.11 10^6/uL (4.70-6.10); Red Cell Dist. Width 16.8 % (11.5-14.5); White Blood Cell Count 8.6 10^3/uL (4.8-10.8)
[2023-11-09 10:44] LABS: Hemoglobin 8.5 g/dL (13.0-18.0)
[2023-11-09 12:19] LABS: Glucose - Point of Care 129 mg/dl (70-99)
--- NOTE | 2023-11-09 12:33 | PTCARENOTE ---
Updates with GI team this am. Follow up med rec, repeat labs, and assessment trends. Updated assessment, vital signs ongoing and as documented. Repeat lab trends as ordered thru stay. Updates with Hospitalist team. Follow up plan of cares and
orders. Update with patient and at bedside. All questions answered, follow up teaching thru shift. Hourly rounds and frequent patient safety checks ongoing.
--- NOTE | 2023-11-09 13:00 | W.PN.HOSP.TC ---
Today's Communication/Plan
-
Monitor vital signs and see plan
Continue with PPI drip
Monitor hemoglobin
PRBC
Spoke with GI, okay with baby aspirin
Continue to hold Plavix
Hold BP meds at this time
Assessment / Plan
Assessment / Plan
General: Well Developed, Well Nourished and No Apparent Distress
HEENT: NormoCephalic, Moist mucous membranes and Atraumatic
Respiratory: Clear
Cardiac: S1/S2 and Regular Rhythm; No Murmur or Rub
GI: Soft, Non Tender, Non Distended and Normal Bowel Sounds
Musculoskeletal: No Clubbing, No Cyanosis and No Edema
Skin: No Rash
Neuro: Nonfocal/grossly intact
Melena suspect 2/2 acute GI bleed
Denies NSAID use
Symptomatic severe anemia due to GI bleed
Underlying ACdz due to CKD
last dose of Plavix : 930 AM 11/08/23
- denied any abdominal pain
-Spoke with Dr. Krishnan from gastroenterology, given recent stents, will continue baby aspirin
- held AIRCRAFT ENGINE MECHANIC OVERHAUL Plavix
3 units PRBC so far; monitor H/H
clears now; EGD per GI
- PPI gtt
- GI following
Renal insufficiency
Underlying CKD 3b
Continue to trend creatinine
Essential HTN
- held metoprolol , Aldactone and losartan for short term
- Observe BP
T2DM
- held Metformin
- add ISS low
A1c 5.8
CAD (severe disease) with HX stenting
chronic RCA occlusion
- stable, no angina
cw aspirin
- To resume Plavix when clear by GI
NSVT HX
LVEF 50-55%
PAD, severe
HX s/p multiple Lt Misa vascular bypass fraft
Hold Plavix for now, continue aspirin
Follows with Dr. Tapia outpatient
Hypothyroid
Continue Synthroid
DVT Px: SCD
Code: Full
I spent a total of 52 minutes with the patient or on the floor. More than 50% of this time involved counseling and coordination of care.
Anticipated Discharge: > 48 hours
Subjective/Interval History
-
Date of Service: November 09, 2023
denies pain
Objective Data
-
Labs:
Laboratory Results
11/09/23 11/09/23 11/09/23
03:16 03:30 10:28
WBC 9.2 8.6
Hgb 6.7 L* D Cancelled 8.5 L D
Hct 19.8 L* Cancelled 25.1 L
Plt Count 347 380
Sodium 137
Potassium 3.9
Chloride 107
Carbon Dioxide 20 L
BUN 28 H
Creatinine 1.6 H
Glucose 111 H
Calcium 8.4
11/09/23
16:00
WBC
Hgb Pending
Hct Pending
Plt Count
Sodium
Potassium
Chloride
Carbon Dioxide
BUN
Creatinine
Glucose
Calcium
Vital Signs:
Vital Signs
Temp Pulse Resp BP Pulse Ox
98.8 F 79 20 128/77 98
11/09/23 11:07 11/09/23 11:07 11/09/23 11:07 11/09/23 11:07 11/09/23 11:07
I&O
11/08/23 11/09/23 11/10/23
06:59 06:59 06:59
Intake Total 1310 / 1310 140 / 140
Output Total 700 / 700 1100 / 1100
Balance 610 / 610 -960 / -960
[2023-11-09] MEDS: ASPIR LOW (ENTERIC COATED) 81 MG PO (14:56)
[2023-11-09] MEDS: NSS 1000 IV (14:56)
[2023-11-09 16:32] LABS: Hematocrit 24.5 % (39.0-52.0); Hemoglobin 8.3 g/dL (13.0-18.0)
[2023-11-09 16:34] LABS: Glucose - Point of Care 119 mg/dl (70-99)
--- NOTE | 2023-11-09 20:00 | PTCARENOTE ---
Patient received in bed, AAOX3, offers no complaints. NSR with PVCs on monitor, blood pressure as documented. Weak but palpable pulses. Lungs clear, pulse ox 95% on room air> Abdomen soft, round with hypoactive bowel sounds. Voiding clear yellow
urine. #20 g in RAC with IVF and Protonix gtt infusing as ordered. #20 g in left arm flushed and patent. Call [facility] within reach, plan of care discussed
[2023-11-09 21:17] LABS: Glucose - Point of Care 126 mg/dl (70-99)
[2023-11-09 23:00] LABS: Hematocrit 22.9 % (39.0-52.0); Hemoglobin 7.9 g/dL (13.0-18.0)
[2023-11-10] VITALS (14 sets, daily range): BP systolic 96–160; BP diastolic 58–101
[2023-11-10] MEDS: PROTONIX 100 IV ×2 (02:19→16:00)
[2023-11-10 04:31] LABS: % Basophils 0.6 % (0-2); % Eosinophils 6.8 % (0-6); % Immature Granulocytes 0.5 % (0-0.5); % Lymphocytes 20.1 % (20.5-51.1); % Monocytes 11.1 % (1.7-9.3); % Neutrophils 60.9 % (42.2-75.2); Absolute Basophils 0.1 10^3/uL (0-0.2); Absolute Eosinophils 0.6 10^3/uL (0-0.7); Absolute Lymphocytes 1.6 10^3/uL (1.2-3.4); Absolute Monocytes 0.9 10^3/uL (0.1-0.6); Hematocrit 24.1 % (39.0-52.0); Hemoglobin 7.8 g/dL (13.0-18.0); Mean Corp Hgb Conc. 32.4 g/dL (33.0-37.0); Mean Corpuscular Hgb 27.3 pg (27.0-31.0); Mean Corpuscular Volume 84.3 fL (80.0-94.0); Mean Platelet Volume 9.8 fL (7.4-10.4); Nucleated Red Blood Cells % 0 % (-); Platelet Count 340 10^3/uL (130-400); Red Blood Cell Count 2.86 10^6/uL (4.70-6.10); Red Cell Dist. Width 16.7 % (11.5-14.5); White Blood Cell Count 8.1 10^3/uL (4.8-10.8)
[2023-11-10 04:51] LABS: Blood Urea Nitrogen 18 mg/dl (9-20); Carbon Dioxide 20 mmol/L (22-30); Chloride 110 mmol/L (98-107); Estimated Creatinine Clearance 50 ml/min; Glucose 100 mg/dl (70-99); Potassium 3.9 mmol/L (3.5-5.1); Sodium 138 mmol/L (135-145); eGFR 56.48
[2023-11-10] MEDS: SYNTHROID 25 MCG PO (06:01)
[2023-11-10] MEDS: NSS 1000 IV (06:03)
[2023-11-10 07:47] LABS: Glucose - Point of Care 129 mg/dl (70-99)
[2023-11-10] MEDS: ASPIR LOW (ENTERIC COATED) 81 MG PO (08:15)
--- NOTE | 2023-11-10 10:02 | W.PN.HOSP.TC ---
Today's Communication/Plan
-
Tx to tele
Assessment / Plan
Assessment / Plan
Melena suspect 2/2 acute GI bleed
Denies NSAID use
Symptomatic severe anemia due to GI bleed
Underlying ACdz due to CKD
last dose of Plavix : 930 AM 11/08/23
- denied any abdominal pain
- continue baby aspirin
- held OUTBOUND SALES PROFESSIONAL Plavix
3 units PRBC so far; monitor H/H ;aim to keep >7.0
clears now; EGD per GI
- PPI gtt
- GI following
- Check iron studies
Renal insufficiency
Underlying CKD 3b
Continue to trend creatinine-stable
Essential HTN
- held metoprolol , Aldactone and losartan for short term
- Observe BP
- Restart as needed
T2DM
- held Metformin
- cw ISS low
A1c 5.8
CAD (severe disease) with HX stenting
chronic RCA occlusion
- stable, no angina
- cw aspirin
- To resume Plavix when clear by GI
NSVT HX
LVEF 50-55%
PAD, severe
HX s/p multiple Lt Misa vascular bypass fraft
Hold Plavix for now, continue aspirin
Follows with Dr. Tapia outpatient
Hypothyroid
Continue Synthroid
DVT Px: SCD
Code: Full
Tx to tele
Anticipated Discharge: 24 - 48 hours
Subjective/Interval History
-
Date of Service: November 10, 2023
Feels a bit dizzy otherwise voices no specific complaints.
No chest pain, palpitations or shortness of breath.
Denies any nausea vomiting or abdominal pain.
Objective Data
-
Labs:
Laboratory Results
11/09/23 11/10/23 11/10/23
22:55 00:00 04:17
WBC 8.1
Hgb 7.9 L Cancelled 7.8 L
Hct 22.9 L Cancelled 24.1 L
Plt Count 340
Sodium 138
Potassium 3.9
Chloride 110 H
Carbon Dioxide 20 L
BUN 18
Creatinine 1.4 H
Glucose 100 H
Calcium 9.0
Vital Signs:
Vital Signs
Temp Pulse Resp BP Pulse Ox
98.7 F 84 18 120/62 97
11/10/23 07:00 11/10/23 04:30 11/10/23 04:30 11/10/23 04:00 11/10/23 08:38
I&O
11/09/23 11/10/23 11/11/23
06:59 06:59 06:59
Intake Total 1310 / 1310 1989 / 2059 140 / 140
Output Total 700 / 700 3825 / 3825 300 / 300
Balance 610 / 610 -1835 / -1765 -160 / -160
Review of Systems
-
Constitutional: Denies Fever
Respiratory: Denies Cough
Neuro: Denies Headache
Physical Exam
-
General: No Apparent Distress
HEENT: Moist Mucous Membranes
Respiratory: Clear to Auscultation
Cardiac: Regular Rhythm and S1/S2
GI: Soft, Nontender, Nondistended and Normal Bowel Sounds
Neuro: AO x 3
[2023-11-10 11:59] LABS: Glucose - Point of Care 129 mg/dl (70-99)
--- NOTE | 2023-11-10 12:13 | CM ---
CM following re: discharge planning.
Reviewed pt's chart, met with pt.
Pt is a 62 year old male, admitted with primary dx of Acute UGIB.
Pt reports he lives with spouse 2SH, 2 steps to enter, has 2 supportive grown children. Pt described himself as independent in all areas [employer], works, drives. No DME or VN history. Pt reports he had [facility] in the past. Pt expressed his desire to return
back home at discharge with family.
PCP: Luisa Viramontes
Pharmacy: [facility]
D/C plan: home with anticipated no needs. Spouse to transport at discharge.
CM will follow with discharge plan updates as hospitalization progresses
--- NOTE | 2023-11-10 12:23 | PTCARENOTE ---
Report called to [facility], pt taken to GI lab now for endo, transfer to tele after.
--- NOTE | 2023-11-10 13:06 | W.PN.UPDATE ---
Update Note
Progress Note Update
EGD done
Mild nodularity duodenal bulb- bx'd
Otherwise normal exam
REC:
Colonoscopy tomorrow
His last colonoscopy was 2020
[2023-11-10 13:22] LABS: Glucose - Point of Care 120 mg/dl (70-99)
[2023-11-10 14:13] LABS: Iron 47 ug/dl (49-181)
[2023-11-10 14:23] LABS: Percent Saturation 11 % (20-50); Total Iron Binding Capacity 402 ug/dl (261-462)
[2023-11-10 14:41] LABS: Ferritin 18.4 ng/ml (17.9-464.0)
[2023-11-10 15:54] LABS: Glucose - Point of Care 110 mg/dl (70-99)
[2023-11-10] MEDS: NULYTELY SOLUTION 4 LITERS PO (16:46)
[2023-11-10 21:53] LABS: Glucose - Point of Care 125 mg/dl (70-99)
[2023-11-11] MEDS: PROTONIX 100 IV (00:49)
[2023-11-11] MEDS: SYNTHROID 25 MCG PO (05:48)
[2023-11-11 05:53] LABS: Glucose - Point of Care 104 mg/dl (70-99)
[2023-11-11 06:00] VITALS: BMI 27.3
[2023-11-11 07:05] VITALS: BP 151/93
[2023-11-11] MEDS: ASPIR LOW (ENTERIC COATED) 81 MG PO (10:02)
[2023-11-11 11:15] VITALS: BP 164/91
[2023-11-11 11:56] LABS: Glucose - Point of Care 108 mg/dl (70-99)
[2023-11-11] MEDS: PROTONIX IV (13:33)
--- NOTE | 2023-11-11 15:03 | CM ---
Addendum entered by Renetta Holley 11/11/23 15:57:
Home no needs.
Original Note:
Chart reviewed and plan is to home when stable.
Plan; Home no needs when stable.
[2023-11-11 15:05] VITALS: BP 162/99
--- NOTE | 2023-11-11 15:45 | W.PN.HOSP.TC ---
Addendum entered and electronically signed by Immanuel Daugherty MD 11/14/23 15:50:
GI bleed associated with Plavix
ENEIDA on CKD3 sec to bleeding noted.Cr improved from 1.8 to 1.4
Original Note:
Today's Communication/Plan
-
DC
Assessment / Plan
Assessment / Plan
Melena suspect 2/2 acute GI bleed
Denies NSAID use
Symptomatic severe anemia due to GI bleed
Underlying ACdz due to CKD
last dose of Plavix : 930 AM 11/08/23
3 units PRBC so far; monitor H/H-stable ;aim to keep >7.0
Status post EGD and colonoscopy which showed no obvious evidence of bleeding. GI planning on [facility] as an outpatient for small intestinal bleeding causes.
Iron def noted on labs - will send him out on oral FeSO4
Underlying CKD 3b
Continue to trend creatinine-stable
Essential HTN
- cw home meds
T2DM
- cw Metformin
A1c 5.8
CAD (severe disease) with HX stenting
chronic RCA occlusion
- stable, no angina
- cw aspirin
- resume Plavix
NSVT HX
LVEF 50-55%
PAD, severe
HX s/p multiple Lt Misa vascular bypass fraft
cw Plavix , continue aspirin
Follows with Dr. Tapia outpatient
Hypothyroid
Continue Synthroid
DVT Px: SCD
Code: Full
Total time of dc 32 min
Anticipated Discharge: Today
Subjective/Interval History
-
Date of Service: November 11, 2023
Back from colonoscopy which showed no obvious bleeding.
Tolerating his diet. No nausea vomiting.
Denies shortness of breath, dizziness or chest pain.
Objective Data
-
Vital Signs:
Vital Signs
Temp Pulse Resp BP Pulse Ox
98.1 F 97 19 162/99 98
11/11/23 15:05 11/11/23 15:05 11/11/23 15:05 11/11/23 15:05 11/11/23 15:05
I&O
11/10/23 11/11/23 11/12/23
06:59 06:59 06:59
Intake Total 1989 678 / 678
Output Total 3825 / 3825 600 / 600
Balance -1835 / -1765 78 / 78
Review of Systems
-
Abdomen/GI: Denies Abdominal Pain, Nausea or Vomiting
Physical Exam
-
General: No Apparent Distress
HEENT: Moist Mucous Membranes
Respiratory: Non Labored Respirations; Negative Accessory Resp Muscle Use
Cardiac: Regular Rhythm and S1/S2
GI: Soft and Nontender
Neuro: AO x 3
Data Reviewed
-
Labs: Labs Reviewed by me
--- NOTE | 2023-11-11 15:52 | W.DS.TRANS ---
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
-
Discharge Instructions:
Discharge Diagnosis/Procedures GI bleed with neg colo/EGD ;S/P blood
transfusion
Diet 2 Gram Sodium,Diabetic, Carb Controlled
Activity As tolerated
Driving Restrictions As prior to admission
Blood Work cbc in one week -arrange it through your PCP
Instructions:
Stand-Alone Forms:
Changes to Home Medications: Yes
Discharge Medications:
DC Medications w/original date entered in [facility]
aspirin 81 mg capsule 81 mg PO DAILY Blood Clot Prevention/Tx 04/25/23
clopidogrel 75 mg tablet 75 mg PO DAILY Blood Clot Prevention/Tx 04/25/23
ezetimibe 10 mg tablet 10 mg PO DAILY High Cholesterol 04/25/23
levothyroxine 25 mcg tablet 25 mcg PO DAILY Thyroid 04/25/23
losartan 50 mg tablet 100 mg PO QPM Blood Pressure 04/25/23
metformin 500 mg tablet 500 mg PO QPM Diabetes 04/25/23
rosuvastatin 40 mg tablet 40 mg PO QPM High Cholesterol 04/25/23
pantoprazole 40 mg tablet,delayed release 40 mg PO DAILY Gastrointestinal Issue 05/07/23
amlodipine 10 mg tablet 5 mg PO QPM Blood Pressure 06/12/23
coQ10 (ubiquinol) 100 mg capsule (Qunol Shaw CoQ10) 100 mg PO DAILY Supplement 06/19/23
taurine 1,000 mg capsule 1,000 mg PO DAILY Supplement 06/19/23
guar gum 1 tbsp PO DAILY 08/27/23
spironolactone 25 mg tablet 25 mg PO QPM Blood Pressure 08/27/23
isosorbide mononitrate 30 mg tablet,extended release 24 hr 30 mg PO HS Blood Pressure 09/03/23
oxycodone 5 mg tablet 5 mg PO Q4HPRN PRN moderate pain #12 tabs 09/04/23
metoprolol succinate 100 mg tablet,extended release 24 hr (Toprol XL) 150 mg (1.5 x 100 mg) PO DAILY #60 tabs 09/08/23
ferrous sulfate 325 mg (65 mg iron) tablet 325 mg PO DAILY #30 tabs 11/11/23
Home Medication Changes
New medication-ferrous sulfate
Pending Results: No
--- NOTE | 2023-11-12 10:57 | PN.CDI ---
CDI
- -
CDI:
Physician Documentation Request
Admit Date: 11/08/23 21:56
Dear Doctor Dat,
Please review the following and provide your response in the progress notes.
Clinical Indicators:
The diagnosis of ENEIDA was documented on 11/07 H&P but is not consistently noted in subsequent documentation.
- 11/07 H&P 'Borderline ENEIDA due to acute blood loss'
- Labs as follows:
Laboratory Tests
11/08/23 11/09/23 11/10/23
19:54 03:16 04:17
Creatinine 1.8 H 1.6 H 1.4 H
Please clarify the following:
____ - ENEIDA was present on admission and is now resolved.
____ - ENEIDA was ruled out
____ - Other
Use of terms such as suspected, likely, concern for, or probable (associated with a specific diagnosis that is being evaluated, monitored, or treated as if it exists) are acceptable and can be coded in the inpatient setting, when documented at the
time of discharge.
Thank you,
Vance Valenzuela RN
CDI Specialist
Please use your independent medical judgment in providing your response.
--- NOTE | 2023-11-12 11:02 | PN.CDI ---
CDI
- -
CDI:
Physician Documentation Request
Admit Date: 11/08/23 21:56
Dear Doctor Dat,
Please review the following and provide your response in the progress notes.
Clinical Indicators:
- 11/10 PN 'Melena suspect 2/2 acute GI bleed'
- 'last dose of Plavix : 930 AM 11/08/23 '
- 3 units PRBC given
Laboratory Tests
11/08/23 11/09/23 11/10/23
19:54 16:21 04:17
Hgb 5.5 L* 8.3 L 7.8 L
Please clarify the relationship between these conditions:
Yes, _GI bleed__ is related to/associated with/exacerbated by _plavix__.
No, _GI bleed__ is not related to/associated with/due to _plavix__ but it is due to . (Please specify)
Unable to determine
Use of terms such as suspected, likely, concern for, or probable (associated with a specific diagnosis that is being evaluated, monitored, or treated as if it exists) are acceptable and can be coded in the inpatient setting, when documented at the
time of discharge.
Thank you,
Vance Valenzuela RN
CDI Specialist
Please use your independent medical judgment in providing your response.
== END 2023-11-11 16:44 | disposition home or self-care (01) | DRG 378 ==
LOC: 4 WEST ACU 21:56
PROVIDERS: Internal Medicine; Internal Medicine Gastroenterology; ADMITTING PHYSICIAN Internal Medicine; ATTENDING PHYSICIAN Internal Medicine; CONSULT PHYSICIAN Specialist; EMERGENCY PHYSICIAN Emergency Medicine; FAMILY PHYSICIAN Family Medicine
PROC: 30233N1 Transfusion of Nonautologous Red Blood Cells into Peripheral Vein, Percutaneous Approach (ICD-10-PCS; 2023-11-08)
PROC: 0DB98ZX Excision of Duodenum, Via Natural or Artificial Opening Endoscopic, Diagnostic (ICD-10-PCS; 2023-11-10)
PROC: 0DJD8ZZ Inspection of Lower Intestinal Tract, Via Natural or Artificial Opening Endoscopic (ICD-10-PCS; 2023-11-11)
DX: K92.1 Melena (principal); D62 Acute posthemorrhagic anemia; N17.9 Acute kidney failure, unspecified; D68.32 Hemorrhagic disorder due to extrinsic circulating anticoagulants; E03.9 Hypothyroidism, unspecified; K64.9 Unspecified hemorrhoids; E11.22 Type 2 diabetes mellitus with diabetic chronic kidney disease; I12.9 Hypertensive chronic kidney disease with stage 1 through stage 4 chronic kidney disease, or unspecified chronic kidney disease; T45.525A Adverse effect of antithrombotic drugs, initial encounter; N18.32 Chronic kidney disease, stage 3b; D63.1 Anemia in chronic kidney disease
CPT/HCPCS: 88305; 36430; 70450; 80048; 82728; 82962; 83036; 83540; 83550; 84443; 85014; 85018; 85025; 85027; 86850; 86900; 86901; 86920; 93005; 96374; 99291; P9016

== ENCOUNTER 2023-11-26 11:19 | Observation (INO) | payer BC, SELFPAY ==
[2023-11-26] VITALS (11 sets, daily range): BP systolic 101–130; BP diastolic 64–76; BMI 27.6; BMI 27.8
[2023-11-26 08:20] LABS: % Basophils 0.4 % (0-2); % Eosinophils 2.7 % (0-6); % Immature Granulocytes 0.6 % (0-0.5); % Lymphocytes 9.9 % (20.5-51.1); % Monocytes 10.1 % (1.7-9.3); % Neutrophils 76.3 % (42.2-75.2); Absolute Basophils 0.1 10^3/uL (0-0.2); Absolute Eosinophils 0.4 10^3/uL (0-0.7); Absolute Immature Granulocytes 0.1 10^3/uL (0-0.05); Absolute Lymphocytes 1.4 10^3/uL (1.2-3.4); Absolute Monocytes 1.4 10^3/uL (0.1-0.6); Absolute Neutrophils 10.9 10^3/uL (1.4-6.5); Hematocrit 26.3 % (39.0-52.0); Hemoglobin 8.6 g/dL (13.0-18.0); Mean Corp Hgb Conc. 32.7 g/dL (33.0-37.0); Mean Corpuscular Hgb 26.3 pg (27.0-31.0); Mean Corpuscular Volume 80.4 fL (80.0-94.0); Mean Platelet Volume 9.9 fL (7.4-10.4); Nucleated Red Blood Cells % 0 % (-); Platelet Count 622 10^3/uL (130-400); Red Blood Cell Count 3.27 10^6/uL (4.70-6.10); Red Cell Dist. Width 16.9 % (11.5-14.5); White Blood Cell Count 14.2 10^3/uL (4.8-10.8)
--- NOTE | 2023-11-26 08:22 | ED.GENMED ---
History of Present Illness
<Bakari Cesar Jr., PA-C - Last Filed: 11/26/23 11:04>
General
Chief Complaint: Weakness
Source: patient and spouse
Exam Limitations: none
Time Seen by Provider: 11/26/23 08:03
Nursing documentation reviewed up to this point in time: agreed with
History of Present Illness
History of Present Illness:
62-year-old male with past medical history of AAA CAD hypertension hyperlipidemia, previous GI bleed with recent hospitalization 2 weeks ago. Patient at previous visit on arrival had a hemoglobin of 5.5 and had significant blood in his stool though
after further assessment via GI they were unable to locate any specific bleeding site on colonoscopy or endoscopy. Patient claims that at discharge he felt better but still had some generalized weakness fatigue has noticed some darkening of the
stool over the last few days and worsening fatigue. Has had some difficulty ambulating at home secondary to diffuse weakness and fatigue. Denies specific chest pain vomiting fevers or recent illness otherwise.
Past History
<Bakari Cesar Jr., PA-C - Last Filed: 11/26/23 11:04>
Past History
ED Past Medical History: CAD, HTN, Hypercholesterolemia, NIDDM, Hypothyroidism, Other (AAA) and Other (Peripheral arterial disease)
ED Past Surgical History: Cardiac and Other (Multiple vascular surgeries)
Review of Systems
<Bakari Cesar Jr., PA-C - Last Filed: 11/26/23 11:04>
Review of Systems
Allergies reviewed?: Yes
All Other Systems: ROS reviewed and negative except as documented in HPI and ROS
Phy Exam
<Bakari Cesar Jr., PA-C - Last Filed: 11/26/23 11:04>
Physical Exam
Physical Exam:
GENERAL: Alert , in no apparent distress
EYE: pupils equal and reactive
NECK: Supple, no significant adenopathy.
ENT: o/p clr, mmm.
CARDIAC: Regular rate and rhythm .
LUNGS: Clear breath sounds bilaterally, no acute respiratory distress, no wheezes/rales/rhonchi
ABDOMEN: Rectal examination revealing dark brown stool vaguely guaiac positive, abdomen is soft, without focal tenderness, no r/g, no cvat
NEUROLOGICAL: Alert and oriented, no focal neuro deficits
SKIN: Warm and dry, skin intact.
MUSCULOSKELETAL: No edema, well perfused.
PSYCH: Normal and appropriate interaction.
Course
<Bakari Cesar Jr., PA-C - Last Filed: 11/26/23 11:04>
Orders/Labs/Results
Orders:
Orders
11/26/23 08:11
Type+Screen Urgent
Complete Blood Count/With Diff Urgent
Comprehensive Metabolic Panel Urgent
Ferritin Urgent
Comment: ADD ON
Folate Urgent
Comment: ADD ON
Iron Urgent
Comment: ADD ON
PT/INR [Prothrombin Time] Urgent
PTT Urgent
TSH Reflex To Free T4 Urgent
Comment: ADD ON
Vitamin B12 Urgent
Comment: ADD ON
11/26/23 08:20
EKG [Electrocardiogram (*1)] Urgent
Reason for Study: Fatigue / Weakness
EKG- Treatment ONCE
Urinalysis Reflex To Culture Urgent
11/26/23 08:39
Pantoprazole [Protonix IV] 80 mg IV NOW STA
11/26/23 09:05
Add On- LAB Urgent
Tests Added?: tsh free t4
11/26/23 10:13
Procalcitonin Urgent
PCT Algorithmm Indication: Respiratory
11/26/23 10:18
Pt Eval And Treat Urgent
Activity Level: Ambulate
11/26/23 10:19
GASTROINTESTINAL CONSULT Routine
Consulting Provider: Dee Morley
Was physician already notified: Yes
11/26/23 10:34
Add On- LAB Routine
Tests Added?: iron level, ferritin, B12, folate level
11/26/23 10:53
Admit/Transfer Patient As Directed
Co-Sign Provider:
Level of Care: Observation services
Assign to:: Telemetry
Physician / Group: Jeffrey/hospitalist
Diagnosis: weakness/dizziness
Reason for Telemetry: Arrhythmia
Date to Stop Telemetry: 11/29/23
Time to Stop Telemetry: 11:00
Reason for Hospitalization: weakness/dizziness
11/26/23 10:54
Code Status As Directed
Resuscitation Status: Full Code
11/26/23 10:56
Add On- LAB Routine
Tests Added?: TSH reflex FT4
11/29/23 11:00
DC Protocol for Telemetry ONCE
Abnormal Lab Results
11/26/23
08:11
WBC 14.2 H 10^3/uL
(4.8-10.8)
RBC 3.27 L 10^6/uL
(4.70-6.10)
Hgb 8.6 L g/dL
(13.0-18.0)
Hct 26.3 L %
(39.0-52.0)
MCH 26.3 L pg
(27.0-31.0)
MCHC 32.7 L g/dL
(33.0-37.0)
RDW 16.9 H %
(11.5-14.5)
Plt Count 622 H 10^3/uL
(130-400)
Abs Immat Gran (auto) 0.1 H 10^3/uL
(0-0.05)
Absolute Neuts (auto) 10.9 H 10^3/uL
(1.4-6.5)
Absolute Monos (auto) 1.4 H 10^3/uL
(0.1-0.6)
Immature Gran % 0.6 H %
(0-0.5)
Neutrophils % 76.3 H %
(42.2-75.2)
Lymphocytes % 9.9 L %
(20.5-51.1)
Monocytes % 10.1 H %
(1.7-9.3)
PT 15.5 H Sec
(11.4-14.6)
APTT 35.7 H Sec
(23.4-35.0)
Creatinine 1.5 H mg/dL
(0.7-1.3)
Glucose 131 H mg/dl
(70-99)
Iron 23 L ug/dl
(49-181)
Alkaline Phosphatase 143 H U/L
(38-126)
11/26/23 08:11
11/26/23 08:11
Vital Signs
Initial and Last Documented VS:
Initial Vital Signs
Temp Pulse Resp BP Pulse Ox
98.7 F 84 18 109/75 96
11/26/23 07:49 11/26/23 07:49 11/26/23 07:49 11/26/23 07:49 11/26/23 07:49
Last Documented Vital Signs
Temp Pulse Resp BP Pulse Ox
98.7 F 75 20 112/73 96
11/26/23 07:49 11/26/23 10:00 11/26/23 10:00 11/26/23 10:00 11/26/23 08:16
<Tutu Armstrong MD - Last Filed: 11/26/23 08:39>
Orders/Labs/Results
Orders:
Orders
11/26/23 08:11
Type+Screen Urgent
Complete Blood Count/With Diff Urgent
Comprehensive Metabolic Panel Urgent
Ferritin Urgent
Comment: ADD ON
Folate Urgent
Comment: ADD ON
Iron Urgent
Comment: ADD ON
PT/INR [Prothrombin Time] Urgent
PTT Urgent
TSH Reflex To Free T4 Urgent
Comment: ADD ON
Vitamin B12 Urgent
Comment: ADD ON
11/26/23 08:20
EKG [Electrocardiogram (*1)] Urgent
Reason for Study: Fatigue / Weakness
EKG- Treatment ONCE
Urinalysis Reflex To Culture Urgent
11/26/23 08:39
Pantoprazole [Protonix IV] 80 mg IV NOW STA
11/26/23 09:05
Add On- LAB Urgent
Tests Added?: tsh free t4
11/26/23 10:13
Procalcitonin Urgent
PCT Algorithmm Indication: Respiratory
11/26/23 10:18
Pt Eval And Treat Urgent
Activity Level: Ambulate
11/26/23 10:19
GASTROINTESTINAL CONSULT Routine
Consulting Provider: Dee Morley
Was physician already notified: Yes
11/26/23 10:34
Add On- LAB Routine
Tests Added?: iron level, ferritin, B12, folate level
11/26/23 10:53
Admit/Transfer Patient As Directed
Co-Sign Provider:
Level of Care: Observation services
Assign to:: Telemetry
Physician / Group: Jeffrey/hospitalist
Diagnosis: weakness/dizziness
Reason for Telemetry: Arrhythmia
Date to Stop Telemetry: 11/29/23
Time to Stop Telemetry: 11:00
Reason for Hospitalization: weakness/dizziness
11/26/23 10:54
Code Status As Directed
Resuscitation Status: Full Code
11/26/23 10:56
Add On- LAB Routine
Tests Added?: TSH reflex FT4
11/29/23 11:00
DC Protocol for Telemetry ONCE
Abnormal Lab Results
11/26/23
08:11
WBC 14.2 H 10^3/uL
(4.8-10.8)
RBC 3.27 L 10^6/uL
(4.70-6.10)
Hgb 8.6 L g/dL
(13.0-18.0)
Hct 26.3 L %
(39.0-52.0)
MCH 26.3 L pg
(27.0-31.0)
MCHC 32.7 L g/dL
(33.0-37.0)
RDW 16.9 H %
(11.5-14.5)
Plt Count 622 H 10^3/uL
(130-400)
Abs Immat Gran (auto) 0.1 H 10^3/uL
(0-0.05)
Absolute Neuts (auto) 10.9 H 10^3/uL
(1.4-6.5)
Absolute Monos (auto) 1.4 H 10^3/uL
(0.1-0.6)
Immature Gran % 0.6 H %
(0-0.5)
Neutrophils % 76.3 H %
(42.2-75.2)
Lymphocytes % 9.9 L %
(20.5-51.1)
Monocytes % 10.1 H %
(1.7-9.3)
PT 15.5 H Sec
(11.4-14.6)
APTT 35.7 H Sec
(23.4-35.0)
Creatinine 1.5 H mg/dL
(0.7-1.3)
Glucose 131 H mg/dl
(70-99)
Iron 23 L ug/dl
(49-181)
Alkaline Phosphatase 143 H U/L
(38-126)
11/26/23 08:11
11/26/23 08:11
Vital Signs
Initial and Last Documented VS:
Initial Vital Signs
Temp Pulse Resp BP Pulse Ox
98.7 F 84 18 109/75 96
11/26/23 07:49 11/26/23 07:49 11/26/23 07:49 11/26/23 07:49 11/26/23 07:49
Last Documented Vital Signs
Temp Pulse Resp BP Pulse Ox
98.7 F 75 20 112/73 96
11/26/23 07:49 11/26/23 10:00 11/26/23 10:00 11/26/23 10:00 11/26/23 08:16
<Bakari Cesar Jr., PA-C - Last Filed: 11/26/23 11:04>
MDM/Problems Addressed
MDM/Problems Addressed:
62-year-old male presenting to the emergency department today with concerns of worsening generalized weakness fatigue over the past 2 weeks since being discharged for GI bleed where at the time. Denies any specific symptoms other than darkening
stool denies abdominal pain. Here vital signs are normal. Patient's rectal examination revealing guaiac positive dark brown stool labs showing hemoglobin 8.6 elevated white blood cell as well as platelet count potentially hemoconcentrated
concerning the significant increase from previous. Patient with no abdominal pain so CT scan was not ordered. Concerning the patient's description of symptoms with worsening generalized weakness fatigue blood in the stool and hemoconcentrated
stool would like to bring in for monitoring and repeated labs.
<Bakari Cesar Jr., PA-C - Last Filed: 11/26/23 11:04>
*Critical Care Note
Total Time (30-74mins, 75-104mins- exclusive of procedures): Not Applicable
ED Attending Note
<Bakari Cesar Jr., PA-C - Last Filed: 11/26/23 11:04>
-
Portions of this chart may have been created with voice recognition software.� Occasional wrong word or��sound alike� substitutions may have occurred due to the inherent limitations of voice recognition software.
<Tutu Armstrong MD - Last Filed: 11/26/23 08:39>
ED Attending Note
I performed the substantive portion of visit, reviewed & personally made and approve the management plan that is documented in note by myself or MAURICE.: Yes
ED Attending Note:
HPI: 62-year-old male recent admission for upper GI bleeding without clear source currently awaiting results of pill endoscopy. Returns with dark stools and severe fatigue.
A/P: Per PA heme trace positive. Vitals are stable. Reviewed lab work and CBC appears hemoconcentrated with near doubling of WBC to 14.2, slight increase in hemoglobin to 8.6 from 7.8, doubling of platelet count to 622. Could be hemoconcentration
in the setting of acute blood loss or dehydration. Lower suspicion for infection no clear infectious symptoms, no fever. Provide some fluids. Plan to admit for trending of CBC and monitoring for additional bleeding. Will treat with PPI.
Discharge Plan
Departure
Patient Disposition: Admit
Date of Disposition: 11/26/23
Time of Disposition: 11:03
Admit to: Med/Surg
Admit to doctor: Jeffrey
Presentation/result/management discussed w/ accepting MD/DO: Hospitalist
Patient with high blood pressure during this ER visit?: No
Condition: Good
Covid-19: Not Applicable
Discharge Problem:
GI bleed
Prescriptions:
No Action
losartan 50 mg Tablet
50 mg PO DAILY
ezetimibe 10 mg Tablet
10 mg PO DAILY
rosuvastatin 40 mg Tablet
40 mg PO QPM
aspirin 81 mg Capsule
81 mg PO DAILY
levothyroxine 25 mcg Tablet
25 mcg PO DAILY
pantoprazole 40 mg Tablet,Delayed Release (Dr/Ec)
40 mg PO DAILY
Patient Comments:
coQ10 (ubiquinol) [Qunol Shaw CoQ10] 100 mg Capsule
100 mg PO DAILY
taurine 500 mg Capsule
500 mg PO DAILY
metoprolol succinate [Toprol XL] 100 mg tablet extended release 24 hr
100 mg PO QPM
ferrous sulfate 325 mg (65 mg iron) tablet
325 mg PO QPM
Referrals:
Luisa Viramontes DO [Family Provider] -
Interventions
Interventions:
*Risk Screen - Suicide Last Done: 11/26/23 07:49
*General Assessment Last Done: 11/26/23 07:49
*Neglect/Abuse Screening Last Done: 11/26/23 07:49
ED- Cardiac Assessment Last Done: 11/26/23 08:16
ED- Neurological Assessment Last Done: 11/26/23 08:16
ED- Pulmonary Assessment Last Done: 11/26/23 08:16
Discharge Date and Time
Print Language: SAMI
[2023-11-26 08:31] LABS: INR 1.23; PT 15.5 Sec (11.4-14.6)
[2023-11-26 08:32] LABS: APTT 35.7 Sec (23.4-35.0)
[2023-11-26 08:45] LABS: ALT (SGPT) 28 U/L (0-50); AST (SGOT) 36 U/L (17-59); Albumin 3.6 g/dl (3.5-5.0); Alkaline Phosphatase 143 U/L (38-126); Blood Urea Nitrogen 16 mg/dl (9-20); Calcium 9.4 mg/dl (8.4-10.2); Carbon Dioxide 22 mmol/L (22-30); Chloride 104 mmol/L (98-107); Estimated Creatinine Clearance 47 ml/min; Glucose 131 mg/dl (70-99); Potassium 4.5 mmol/L (3.5-5.1); Sodium 137 mmol/L (135-145); Total Bilirubin 0.4 mg/dl (0.2-1.3); Total Protein 6.4 g/dl (6.3-8.2); eGFR 51.99
[2023-11-26] MEDS: PROTONIX IV 80 MG IV (08:48)
--- NOTE | 2023-11-26 10:29 | HPS.HSE ---
Family Physician
-
Family Physician: Luisa Viramontes
Chief Complaint
-
weakness, dizziness
History of Present Illness
HPI: 62-year-old male with past medical history of AAA, CAD, hypertension, hyperlipidemia, recent GI bleed 2 weeks APPLIANCE TESTER with unrevealing EGD/C scope at that time and was discharged with PO iron; p/w weakness, fatigue and dizziness since recent
discharge 2 weeks prior.
He also c/o dark stool which has been stable since his recent discharge.
Medical History
Past Medical History
Past Medical History: Reports CAD ( hx stenting chronic RCA occlusion), HTN, Hypercholesterolemia, Hyperthyroidism, Renal Failure (CKD3a/b with ACD) and Other (severe PAD s/p HX s/p multple Lt Misa vascular bypass fraft - Doing well)
Past Surgical History: Reports Other (Left femoral to above-knee popliteal artery bypass with [address] [place] [address] Propaten graft Left common iliac artery stent placement with [place] 8 mm x 59 mm VBX covered stent, Left external iliac artery stent
placement with [place] 7 mm x 39 mm VBX covered stent.)
Additional Past Surgical History:
Left femoral to above-knee popliteal artery bypass with [address] [place] [address] Propaten graft
Left common iliac artery stent placement with [place] 8 mm x 59 mm VBX covered stent,
Left external iliac artery stent placement with [place] 7 mm x 39 mm VBX covered stent.
Social History
Tobacco: Former Smoker (quit 1 year ago )
Alcohol: Occasional
Drug: None
Living: With Family
Family History
Family History: Not pertinent
Allergies / Home Medications
Allergies reflects when Allergies were last updated in [facility].
Home Medications with original date entered in [facility]
Allergy/Medication List:
Allergies
Allergy/AdvReac Type Severity Reaction Status Date / Time
No Known Allergies Allergy Verified 11/26/23 07:48
Home Medications
aspirin 81 mg capsule 81 mg PO DAILY Blood Clot Prevention/Tx 04/25/23
ezetimibe 10 mg tablet 10 mg PO DAILY High Cholesterol 04/25/23
levothyroxine 25 mcg tablet 25 mcg PO DAILY Thyroid 04/25/23
losartan 50 mg tablet 50 mg PO DAILY Blood Pressure 04/25/23
rosuvastatin 40 mg tablet 40 mg PO QPM High Cholesterol 04/25/23
pantoprazole 40 mg tablet,delayed release 40 mg PO DAILY Gastrointestinal Issue 05/07/23
coQ10 (ubiquinol) 100 mg capsule (Qunol Shaw CoQ10) 100 mg PO DAILY Supplement 06/19/23
ferrous sulfate 325 mg (65 mg iron) tablet 325 mg PO QPM Supplement 11/26/23
metoprolol succinate 100 mg tablet,extended release 24 hr (Toprol XL) 100 mg PO QPM Blood Pressure 11/26/23
taurine 500 mg capsule 500 mg PO DAILY Supplement 11/26/23
Review of Systems
-
Constitutional: Reports See HPI and Fatigue
Physical Exam
Vital Signs
Vital Signs
Temp Pulse Resp BP Pulse Ox
37.1 C 75 20 112/73 96
11/26/23 07:49 11/26/23 10:00 11/26/23 10:00 11/26/23 10:00 11/26/23 08:16
Physical Exam
General: Well Developed, Well Nourished, No Apparent Distress, Comfortable and Conversant
HEENT: NormoCephalic, Moist mucous membranes and Atraumatic
Respiratory: Clear and Non Labored Respirations; No Accessory Resp Muscle Use
Cardiac: S1/S2 and Regular Rhythm; No Murmur or Rub
GI: Soft, Non Tender, Non Distended and Normal Bowel Sounds; No Organomegaly
Rectal: Deferred by Provider
Musculoskeletal: No Clubbing, No Cyanosis and No Edema
Skin: No Rash
Neuro: Awake, Alert and Nonfocal/grossly intact
Psych: Calm and Intact Judgment/Insight
Laboratory Results
-
11/26/23 08:11
11/26/23 08:11
Laboratory Results
PT 15.5 Sec (11.4-14.6) H 11/26/23 08:11
INR 1.23 11/26/23 08:11
APTT 35.7 Sec (23.4-35.0) H 11/26/23 08:11
Total Bilirubin 0.4 mg/dl (0.2-1.3) 11/26/23 08:11
AST 36 U/L (17-59) 11/26/23 08:11
ALT 28 U/L (0-50) 11/26/23 08:11
Alkaline Phosphatase 143 U/L (38-126) H 11/26/23 08:11
Data Reviewed
-
Lab Data: Labs Reviewed by me
Old Records: Reviewed
Impression/Plan
-
HPI: 62-year-old male with past medical history of AAA, CAD, hypertension, hyperlipidemia, recent GI bleed 2 weeks APPLIANCE TESTER with unrevealing EGD/C scope at that time and was discharged with PO iron; p/w weakness, fatigue and dizziness since recent
discharge 2 weeks prior.
He also c/o dark stool which has been stable since his recent discharge.
He denies to other symptoms.
A/P:
# Generalized weakness likely due to ILYA/Symptomatic anemia
# Recent GIB
# ACD
Check iron panel, B12, folate level
Check TSH reflex FT4
Cont APPLIANCE TESTER PO iron for now
Hgb this admission at 8.6 which is better than on the day of discharge from last hospitalization at 7.8
Plavix was previously stopped
Recent EGD and colonoscopy did not show obvious evidence of bleeding.
Pt pending capsule endoscopy result
GI CS for GIB
# Dizziness, multifactorial due to blurred vision, orthostatic hypotension and generalized weakness
Start compression therapy for orthostatic hypotension
PT OT eval
recc outpt ophthalmology eval for blurred vision
# CKD 3b
SCr on admission at 1.5, at baseline
# Essential HTN
cw home meds with hold parameter
# NIDDM
Metformin recently discontinued
cover with ISS
# CAD with h/o stenting
# chronic RCA occlusion
stable
c/w aspirin
# PAD s/p LLE vascular bypass graft
Cont ASA
Follows with Dr. Tapia outpatient
# Hypothyroid
Continue Synthroid
Check TSH reflex FT4
DVT Px: SCD
Code: Full
[2023-11-26 10:57] LABS: Iron 23 ug/dl (49-181)
[2023-11-26 10:59] LABS: Procalcitonin 0.66 ng/ml (0.0-0.25)
--- NOTE | 2023-11-26 11:12 | CON.GI ---
Addendum entered and electronically signed by Dee Morley DO 11/26/23 17:18:
Patient seen and examined independently of medicine resident. I agree with her note with my additions below
Tutu is a 62yoM previous smoker with significant vascular disease including coronary, peripheral status post PCI in the past and recent/August 2023 left femoral above-knee popliteal artery bypass with left common iliac stent placement placed on
Plavix and aspirin, CKD 3 who comes back to the emergency room with fatigue, dizziness and blurry vision. and patient state the symptoms started after his surgery in mid August. Also complicated by having a GI bleed with melena requiring
transfusion with no clear etiology on endoscopy or colonoscopy. Since then Plavix has been stopped. He comes back in with similar symptoms of fatigue dizziness and blurriness but no overt GI bleeding. His stools are formed and dark from oral iron
with some mild constipation. He denies any GI symptoms with no dysphagia, nausea, vomiting, GERD, abdominal pain, diarrhea. He did complete the outpatient capsule and sent it off for review.
On rectal exam he has scant amount of stool that was iron colored as well as a soft but thrombosed external hemorrhoid.
-- His hemoglobin is 8.6 and on discharge from recent admission he was 7.8, ferritin normal at 44 on oral iron. Platelets 622, white count 14. Elevated procalcitonin. INR 1.2. Creatinine at baseline at 1.5, BUN 16, alkaline phosphatase mildly
elevated at 143
-- He also has significant nocturia at night and mildly elevated alkaline phosphatase, check GGT
# Leukocytosis workup per primary team
# Iron deficiency anemia with recent melena -no overt bleeding stools are formed iron colored with a better hemoglobin than on discharge couple of weeks ago
-- Will check on his capsule endoscopy outpatient. It was just sent.
# Fatigue, dizziness with some changes in vision -reviewed CT scan, discussed with primary team possibility of imaging his brain, have carotids been done? Other causes of the symptoms other than GI bleeding because he is not overtly bleeding.
Patient's blood pressure medicines have been decreased.
--Patient states that started after his last surgery
-- No indication for GI workup inpatient with no GI symptoms and no overt bleeding. GI will sign off.
Original Note:
Consultation
-
Date/Time Consultation Performed: 11/26/23
Reason for Consultation: symptomatic anemia, recent GI bleed
Medical History
Chief Complaint / HPI
History of Present Illness:
62 year old male with past medical history of AAA, CAD, PAD s/p lower extremity vascular bypass grafts (R 06/19/23, L 09/03/23), symptomatic anemia, hypertension, hyperlipidemia, recent hospitalization for GI bleed, who presents to the ED today for
worsening fatigue. GI is consulted to evaluate given his recent GI bleed being concerning for the source of symptomatic anemia. Since the beginning of September, he has been experiencing fatigue, unsteadiness, and blurry vision. He also reports that since
his last surgery in August, his voice has been 'weak' and feels progressively weaker throughout the day. He was recently hospitalized 11/08/23-11/11/23 for symptomatic anemia and GI bleed; EGD and colonoscopy were unremarkable, and he was discharged
with PO iron which he has been taking nightly. He was seen in the GI outpatient office 11/18/23 for capsule endoscopy to evaluate melena, however the results are still pending. He reports slight improvement in symptoms after his most recent hospital
discharge, but over the past 1 week fatigue, feeling unsteady, and blurry vision have been gradually worsening. His last bowel movement was yesterday, and in the past week his bowel movements have been dark green, soft and well-formed, and difficult
to pass. He reports feeling of incomplete evacuation with bowel movements. He denies black or bloody stools in the past week. He reports his appetite has been 'okay' and he is 'afraid to eat' since his GI bleed. He notes about 20 lbs weight loss
since September (190 -> 169 lbs). He denies abdominal pain, cramping, nausea, vomiting, diarrhea, constipation, bloating, pain/difficulty/coughing with swallowing. He reports feeling 'cool' at home, waking multiple times per night to urinate, and soreness
in his hips with ambulation. He denies fevers, chest pain, shortness of breath.
Past Medical History
Past Medical History: Arrhythmias (NSVT), CAD (s/p LAD PCI; chronic RCA occlusion), HTN, Hypercholesterolemia, Hypothyroidism, NIDDM, Renal Failure and Other (PAD, AAA)
Past Surgical History: Cardiac (PCI LAD) and Other (lower extremity vascular bypass grafts)
Social History
Tobacco: Former Smoker (quit 1 year ago; previously smoked half PPD)
Alcohol: Former (last alcoholic drink was 3 weeks ago; prior to that he drank about 3 beers per day (1 case of 30 per week))
Drug: Former User (marijuana and amphetamine use in his 20s. Denies history of IV drug use.)
Personal:
Living: With Family
Employment: Employed
Family History
Family History: Reviewed & Not Pertinent
Allergies / Home Medications
Allergy/AdvReac Type Severity Reaction Status Date / Time
No Known Allergies Allergy Verified 11/26/23 07:48
�Medication �Instructions �Recorded
aspirin 81 mg capsule 81 mg PO DAILY Blood Clot 04/25/23
Prevention/Tx
ezetimibe 10 mg tablet 10 mg PO DAILY High Cholesterol 04/25/23
levothyroxine 25 mcg tablet 25 mcg PO DAILY Thyroid 04/25/23
losartan 50 mg tablet 50 mg PO DAILY Blood Pressure 04/25/23
rosuvastatin 40 mg tablet 40 mg PO QPM High Cholesterol 04/25/23
pantoprazole 40 mg tablet,delayed 40 mg PO DAILY Gastrointestinal 05/07/23
release Issue
coQ10 (ubiquinol) 100 mg capsule 100 mg PO DAILY Supplement 06/19/23
(Qunol Shaw CoQ10)
ferrous sulfate 325 mg (65 mg 325 mg PO QPM Supplement 11/26/23
iron) tablet
metoprolol succinate 100 mg 100 mg PO QPM Blood Pressure 11/26/23
tablet,extended release 24 hr
(Toprol XL)
taurine 500 mg capsule 500 mg PO DAILY Supplement 11/26/23
Review of Systems
-
All other systems: A 12 pt ROS was Negative except as stated above in HPI
Vital Signs
Temp Pulse Resp BP Pulse Ox
98.7 F 75 20 112/73 96
11/26/23 07:49 11/26/23 10:00 11/26/23 10:00 11/26/23 10:00 11/26/23 08:16
Physical Exam
Exam
General: Sitting comfortably in bed, no acute distress. Well-appearing. Conversing easily, slightly hoarse voice.
Heart: Regular rate and rhythm.
Lungs: Nonlabored breathing. Clear and equal to auscultation bilaterally.
GI: Normal bowel sounds present. Abdomen soft, nontender, nondistended. No rebound, rigidity, guarding.
Extremities: Lower extremities with well-healing surgical scars, appear well-perfused, no edema.
Rectal exam:
External hemorrhoid present with no active bleeding, likely previously thrombosed. No anal fissures. No masses palpated on internal digital exam. Solid stool present in rectum, stool color is green-brown. No red or black fecal matter identified.
Results
WBC 14.2 10^3/uL (4.8-10.8) H 11/26/23 08:11
Hgb 8.6 g/dL (13.0-18.0) L 11/26/23 08:11
Hct 26.3 % (39.0-52.0) L 11/26/23 08:11
MCV 80.4 fL (80.0-94.0) 11/26/23 08:11
Plt Count 622 10^3/uL (130-400) H 11/26/23 08:11
Absolute Neuts (auto) 10.9 10^3/uL (1.4-6.5) H 11/26/23 08:11
PT 15.5 Sec (11.4-14.6) H 11/26/23 08:11
INR 1.23 11/26/23 08:11
APTT 35.7 Sec (23.4-35.0) H 11/26/23 08:11
Sodium 137 mmol/L (135-145) 11/26/23 08:11
Potassium 4.5 mmol/L (3.5-5.1) 11/26/23 08:11
Chloride 104 mmol/L (98-107) 11/26/23 08:11
Carbon Dioxide 22 mmol/L (22-30) 11/26/23 08:11
BUN 16 mg/dl (9-20) 11/26/23 08:11
Creatinine 1.5 mg/dL (0.7-1.3) H 11/26/23 08:11
Calcium 9.4 mg/dl (8.4-10.2) 11/26/23 08:11
Total Bilirubin 0.4 mg/dl (0.2-1.3) 11/26/23 08:11
AST 36 U/L (17-59) 11/26/23 08:11
ALT 28 U/L (0-50) 11/26/23 08:11
Alkaline Phosphatase 143 U/L (38-126) H 11/26/23 08:11
Diagnostic Image Results:
Prior GI Procedures:
EGD:
11/10/23 ([facility])- normal esophagus and stomach, nodular mucosa in duodenal bulb biopsied (pathology report below)
Small bowel, duodenal bulb �nodularity�, biopsy:
- Small bowel mucosa with Lorraine gland hyperplasia and focal gastric foveolar
metaplasia.
- Villous architecture is preserved and NO increase in intraepithelial lymphocytes is noted.
Colonoscopy:
11/11/23 ([facility])- internal hemorrhoids, otherwise normal with no source of bleeding identified
04/2021 ([facility])- mild diverticula, internal hemorrhoids, polyp (pathology: serrated adenoma, no high grade dysplasia)
Assessment / Plan
-
62 year old male with past medical history of AAA, CAD, PAD s/p lower extremity vascular bypass grafts (R 06/19/23, L 09/03/23), hypertension, hyperlipidemia, recent hospitalization for GI bleed, who presents to the ED today for worsening fatigue.
Impression:
The etiology of patient's current symptoms (worsening fatigue, blurry vision, dizziness) is unknown. It may be related to symptomatic acute/chronic anemia, though his symptoms and hgb do not correlate clearly; his symptoms have worsened over the
past week, while his hgb and ferritin are improved since his last hospitalization in October. He is no longer having melena, which is reassuring from a GI perspective. In combination with recent EGD/colonoscopy which did not identify any active GI
bleed, the absence of melena provides low suspicion for ongoing GI blood loss. As such, there is no indication to repeat EGD or colonoscopy. His symptoms overall are concerning, and should be further evaluated for other etiologies.
Plan:
- Continue PO Iron nightly. Can consider taking in combination with vitamin C, which may increase absorption. With oral iron supplementation, dark brown/acuña stools are normal. However, if stools become black or red, please reconsult GI.
- Awaiting results of capsule study. Plan to follow up outpatient to review results when available.
- No indication to repeat EGD or colonoscopy now. Continue with screening colonoscopies as outpatient.
- GI will sign off and remain available for consult if needed. His symptoms overall are concerning, and should be further evaluated for other etiologies.
-
-
Thank you for consultation and allowing me to participate in the patient's care. Please call the disaster response director GI physician during the after hours with any questions or concerns.
[2023-11-26 11:41] LABS: TSH Reflex To Free T4 1.88 uIU/ml (0.47-4.68)
[2023-11-26 11:45] LABS: Ferritin 44.5 ng/ml (17.9-464.0)
[2023-11-26 12:17] LABS: Folate 8.1 ng/ml (2.76-20); Vitamin B12 376 pg/ml (239-931)
[2023-11-26 13:34] LABS: Urine Albumin Trace (Neg - Trace); Urine Bilirubin Negative (Negative); Urine Character Clear (Clear); Urine Color Yellow; Urine Glucose Negative (Negative); Urine Ketone Negative (Negative); Urine Leukocyte Negative (Negative); Urine Nitrite Negative (Negative); Urine Occult Blood Negative (Negative); Urine Specific Gravity 1.015 (<1.030); Urine Urobilinogen Negative (Neg - 1+)
--- NOTE | 2023-11-26 14:17 | CM ---
CM following re: discharge planning.
Reviewed pt's chart, met with pt.
Pt is a 62 year old male, admitted with OBS status and primary dx of weakness, dizziness. OBS status explained to the pt and his spouse, they expressed understanding, signed OBS letter placed in CM Binder, pt has a copy.
Pt reports he lives with spouse 2SH, 2 steps to enter, has 2 supportive grown children. 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 No DME or VN history. Pt reports he had [facility] in the past. Pt expressed his desire to return
back home at discharge with family.
CM consulted to assist with AD. AD explained to the pt, a copy of AD and a copy of POA provided to the pt.
PCP: Luisa Viramontes
Pharmacy: [facility]
D/C plan: home with anticipated no needs. Spouse to transport at discharge.
CM will follow with discharge plan updates as hospitalization progresses
--- NOTE | 2023-11-26 14:30 | PTCARENOTE ---
11/25- Patient transferred and oriented to unit without issue. AAOX3, fatigued but able to ambulate steadily with 1-person assist with walker from doorway to bed without issue. Skin CDI. Telemetry #25- currently NSR. Patient denies any current
complaints or requests.
--- NOTE | 2023-11-26 14:44 | W.PN.UPDATE ---
Update Note
Progress Note Update
Patient seen and examined independently of medicine resident. I agree with her note with my additions below
Tutu is a 62yoM previous smoker with significant vascular disease including coronary, peripheral status post PCI in the past and recent/August 2023 left femoral above-knee popliteal artery bypass with left common iliac stent placement placed on
Plavix and aspirin, CKD 3 who comes back to the emergency room with fatigue, dizziness and blurry vision. and patient state the symptoms started after his surgery in mid August. Also complicated by having a GI bleed with melena requiring
transfusion with no clear etiology on endoscopy or colonoscopy. Since then Plavix has been stopped. He comes back in with similar symptoms of fatigue dizziness and blurriness but no overt GI bleeding. His stools are formed and dark from oral iron
with some mild constipation. He denies any GI symptoms with no dysphagia, nausea, vomiting, GERD, abdominal pain, diarrhea. He did complete the outpatient capsule and sent it off for review.
On rectal exam he has scant amount of stool that was iron colored as well as a soft but thrombosed external hemorrhoid.
-- His hemoglobin is 8.6 and on discharge from recent admission he was 7.8, ferritin normal at 44 on oral iron. Platelets 622, white count 14. Elevated procalcitonin. INR 1.2. Creatinine at baseline at 1.5, BUN 16, alkaline phosphatase mildly
elevated at 143
-- He also has significant nocturia at night and mildly elevated alkaline phosphatase, check GGT
# Leukocytosis workup per primary team
# Iron deficiency anemia with recent melena -no overt bleeding stools are formed iron colored with a better hemoglobin than on discharge couple of weeks ago
-- Will check on his capsule endoscopy outpatient. It was just sent.
# Fatigue, dizziness with some changes in vision -reviewed CT scan, discussed with primary team possibility of imaging his brain, have carotids been done? Other causes of the symptoms other than GI bleeding because he is not overtly bleeding.
Patient's blood pressure medicines have been decreased.
--Patient states that started after his last surgery
-- No indication for GI workup inpatient with no GI symptoms and no overt bleeding. GI will sign off.
[2023-11-26] MEDS: FEOSOL 325 MG PO (17:40)
[2023-11-26] MEDS: CRESTOR 40 MG PO (17:40)
[2023-11-26] MEDS: TOPROL XL 100 MG PO (17:40)
[2023-11-26] MEDS: TYLENOL 650 MG PO (19:27)
[2023-11-26 19:59] LABS: % Basophils 0.5 % (0-2); % Eosinophils 2.1 % (0-6); % Immature Granulocytes 0.5 % (0-0.5); % Lymphocytes 11.1 % (20.5-51.1); % Monocytes 10.2 % (1.7-9.3); % Neutrophils 75.6 % (42.2-75.2); Absolute Basophils 0.1 10^3/uL (0-0.2); Absolute Eosinophils 0.3 10^3/uL (0-0.7); Absolute Immature Granulocytes 0.1 10^3/uL (0-0.05); Absolute Lymphocytes 1.4 10^3/uL (1.2-3.4); Absolute Monocytes 1.3 10^3/uL (0.1-0.6); Absolute Neutrophils 9.7 10^3/uL (1.4-6.5); Hematocrit 25.3 % (39.0-52.0); Hemoglobin 8.2 g/dL (13.0-18.0); Mean Corp Hgb Conc. 32.4 g/dL (33.0-37.0); Mean Corpuscular Hgb 25.7 pg (27.0-31.0); Mean Corpuscular Volume 79.3 fL (80.0-94.0); Mean Platelet Volume 9.7 fL (7.4-10.4); Nucleated Red Blood Cells % 0 % (-); Platelet Count 596 10^3/uL (130-400); Red Blood Cell Count 3.19 10^6/uL (4.70-6.10); White Blood Cell Count 12.8 10^3/uL (4.8-10.8)
[2023-11-26 20:13] LABS: Lactic Acid 1.6 mmol/L (0.7-2.0)
[2023-11-26 20:16] LABS: Blood Urea Nitrogen 16 mg/dl (9-20); Calcium 9.2 mg/dl (8.4-10.2); Carbon Dioxide 23 mmol/L (22-30); Chloride 102 mmol/L (98-107); Estimated Creatinine Clearance 47 ml/min; Glucose 152 mg/dl (70-99); Potassium 4.5 mmol/L (3.5-5.1); Sodium 134 mmol/L (135-145); eGFR 51.99
[2023-11-27] VITALS (10 sets, daily range): BP systolic 102–130; BP diastolic 60–76; PULSE 82–94
[2023-11-27] MEDS: SYNTHROID 25 MCG PO (05:47)
[2023-11-27 08:11] LABS: Hematocrit 26.4 % (39.0-52.0); Hemoglobin 8.6 g/dL (13.0-18.0); Mean Corp Hgb Conc. 32.6 g/dL (33.0-37.0); Mean Corpuscular Hgb 26.2 pg (27.0-31.0); Mean Corpuscular Volume 80.5 fL (80.0-94.0); Mean Platelet Volume 10.2 fL (7.4-10.4); Platelet Count 561 10^3/uL (130-400); Red Blood Cell Count 3.28 10^6/uL (4.70-6.10); Red Cell Dist. Width 17.1 % (11.5-14.5); White Blood Cell Count 12.6 10^3/uL (4.8-10.8)
[2023-11-27 08:25] LABS: Blood Urea Nitrogen 17 mg/dl (9-20); Calcium 9.1 mg/dl (8.4-10.2); Carbon Dioxide 21 mmol/L (22-30); Chloride 103 mmol/L (98-107); Estimated Creatinine Clearance 44 ml/min; Glucose 113 mg/dl (70-99); Magnesium 2.2 mg/dl (1.6-2.3); Potassium 4.4 mmol/L (3.5-5.1); Sodium 135 mmol/L (135-145); eGFR 48.11
[2023-11-27] MEDS: ASPIR LOW (ENTERIC COATED) 81 MG PO (08:31)
[2023-11-27] MEDS: ZETIA 10 MG PO (08:31)
[2023-11-27] MEDS: COZAAR 25 MG PO (08:31)
[2023-11-27] MEDS: PROTONIX 40 MG PO (08:31)
--- NOTE | 2023-11-27 09:12 | W.PN.HOSP.TC ---
Today's Communication/Plan
-
see A/P
Assessment / Plan
Assessment / Plan
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
discharge 2 weeks prior.
He also c/o dark stool which has been stable since his recent discharge.
He denies to other symptoms.
A/P:
# Generalized weakness likely due to ILYA/Symptomatic anemia
# Recent GIB
# ACD
Hgb today at 8.6 which is better than the day of recent discharge at 7.8
Plavix was previously stopped
Recent EGD and colonoscopy did not show obvious evidence of bleeding.
s/p outpt capsule endoscopy, pending result
Appreciate GI input
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
B12 also low normal at 300, start supplement
TSH at 1.88
# Dizziness, multifactorial due to blurred vision, orthostatic hypotension and generalized weakness
MRI unrevealing, ruled out acute abnormality
Started compression therapy for orthostatic hypotension
PT OT eval
recc outpt ophthalmology eval for blurred vision
# Possible CAP?
Noted Procal at 0.66 (but this could be due to CKD)
CXR Unremarkable
Follow blood culture
Check COVID
Would err on the side of caution and start empiric Antibiotics Ceftriaxone/doxycycline for total 5 days , OK with this
# CKD 3b
SCr on admission at 1.5, today at 1.6, at baseline
# Essential HTN
cw home meds with hold parameter
# NIDDM, now prediabetes
Metformin recently discontinued
cover with ISS
A1C 5.8% from 10/2023
# CAD with h/o stenting
# chronic RCA occlusion
stable
c/w aspirin
# PAD s/p LLE vascular bypass graft
Cont ASA
Follows with Dr. Tapia outpatient
# Hypothyroid
Continue Synthroid
TSH at 1.88
DVT Px: SCD
Code: Full
DW at bedside
Anticipated Discharge: 24 - 48 hours
Subjective/Interval History
-
Date of Service: November 27, 2023
Objective Data
-
Labs:
Laboratory Results
11/27/23
07:32
WBC 12.6 H
Hgb 8.6 L
Hct 26.4 L
Plt Count 561 H
Sodium 135
Potassium 4.4
Chloride 103
Carbon Dioxide 21 L
BUN 17
Creatinine 1.6 H
Glucose 113 H
Calcium 9.1
Vital Signs:
Vital Signs
Temp Pulse Resp BP Pulse Ox
37.2 C 85 16 110/67 97
11/27/23 07:30 11/27/23 08:31 11/27/23 07:30 11/27/23 08:31 11/27/23 07:30
I&O
11/26/23 11/27/23 11/28/23
06:59 06:59 06:59
Intake Total 960 / 960
Balance 960 / 960
Review of Systems
-
Respiratory: Reports Trouble Breathing (REYNA)
Abdomen/GI: Denies Abdominal Pain, Nausea or Vomiting
Neuro: Reports Dizzy
Physical Exam
-
General: Well Developed, Well Nourished, No Apparent Distress, Comfortable and Conversant
HEENT: Normocephalic and Moist Mucous Membranes
Respiratory: Clear to Auscultation and Non Labored Respirations; Negative Accessory Resp Muscle Use
Cardiac: Regular Rhythm and S1/S2
GI: Soft and Nontender
Neuro: Awake and AO x 3
Psych: Calm and Intact Judgement/Insight
Data Reviewed
-
MRI: Report Reviewed by me, Discussed with Patient and Discussed with Family
Labs: Labs Reviewed by me
--- NOTE | 2023-11-27 10:04 | W.PN.GI.CBS2 ---
Addendum entered and electronically signed by Dee Morley DO 11/27/23 12:52:
Patient seen and examined independently of resident. I agree with her note with my additions below
Tutu denies any rectal bleeding and has not had any bowel movements. He has no abdominal pain. He is still dizzy with some blurry vision. He has no appetite and admits to being depressed with all of the medical issues going on. I did offer
him to start a small dose of mirtazapine at night to help with sleep and appetite but he would like to hold off.
I reviewed his capsule endoscopy which shows a questionable inflammatory duodenal polyp. The picture to me looks like a questionable ampulla versus polyp. There is a small erosion but no bleeding. Potentially a previous cause of bleeding,
possible.
Will undergo EGD tomorrow
I discussed with hospitalist that I do not think his dizziness and blurry vision are related to his iron deficiency anemia.
I reviewed his brain MRI which was unrevealing. I suggested carotid ultrasound
NPO after midnight
Original Note:
Today's Communication / Plan
-
Reviewed capsule results: inflammatory duodenal polyp. Plan for EGD, possibly inpatient vs outpatient
Assessment / Plan
-
62 year old male with past medical history of AAA, CAD, PAD s/p lower extremity vascular bypass grafts (R 06/19/23, L 09/03/23), hypertension, hyperlipidemia, recent hospitalization for GI bleed, who presents to the ED yesterday for worsening fatigue
over the past week. Fatigue, dizziness, and blurry vision have been ongoing problems since . He was admitted to the hospital in October for GI bleed with melena requiring transfusion, but no clear etiology on endoscopy or colonoscopy. He was
started on PO iron and is no longer on plavix. He had an outpatient capsule, which reported an inflammatory duodenal polyp. He has no overt GI bleeding at this time, and no GI symptoms. No nausea, vomiting, dysphasia, GERD, abdominal pain, diarrhea.
- Outpatient capsule showed inflammatory duodenal polyp. Reviewed report with patient and , and gave printed copy. Recommend repeating an EGD, which we could do inpatient tomorrow or as a scheduled outpatient. Patient is hesitant to have more
inpatient testing given his desire to go home. Discussed that while we do not suspect this polyp is causing significant enough blood loss to solely account for his symptomatic anemia, we do recommend EGD to further evaluate and possibly biopsy. He
and his are very understanding of this, and the patient will give the timing some more thought. Dr. Morley will be by today to discuss further as well.
- Hgb stable, 8.6 today. No overt bleeding, no melena. Inpatient vs outpatient EGD, pending clinical course and patient preference.
- Fatigue/dizziness/blurry vision being worked up for non-GI eitiologies per primary team.
- Possible CAP treatment per primary team. Blood cultures pending.
Subjective
Subjective
Date of Service: November 27, 2023
Reports feeling unchanged from yesterday. Continues to complain of fatigue, dizziness, blurry vision, decreased appetite. He tolerates PO diet with no nausea or vomiting. No abdominal pain, bloating, dysphagia, diarrhea, constipation. Last bowel
movement was Friday, and denies bloody or black stools.
Objective
Data Reviewed
Laboratory Data:
Laboratory Results
11/27/23 07:32
11/27/23 07:32
Laboratory Results
PT 15.5 Sec (11.4-14.6) H 11/26/23 08:11
INR 1.23 11/26/23 08:11
APTT 35.7 Sec (23.4-35.0) H 11/26/23 08:11
Magnesium 2.2 mg/dl (1.6-2.3) 11/27/23 07:32
Total Bilirubin 0.4 mg/dl (0.2-1.3) 11/26/23 08:11
AST 36 U/L (17-59) 11/26/23 08:11
ALT 28 U/L (0-50) 11/26/23 08:11
Alkaline Phosphatase 143 U/L (38-126) H 11/26/23 08:11
Vital Signs and I&O:
Vital Signs
Temp Pulse Resp BP Pulse Ox
98.9 F 85 16 110/67 97
11/27/23 07:30 11/27/23 08:31 11/27/23 07:30 11/27/23 08:31 11/27/23 07:30
I&O
11/26/23 11/27/23 11/28/23
06:59 06:59 06:59
Intake Total 960 / 960
Balance 960 / 960
Physical Exam
Physical Exam
General: Resting comfortably in bed, no acute distress.
Heart: Regular rate and rhythm.
Lungs: Nonlabored breathing. Clear and equal to auscultation bilaterally.
GI: Normal bowel sounds present. Abdomen soft, nontender, nondistended. No rebound, rigidity, guarding.
[2023-11-27 10:06] LABS: COVID-19 Antigen Negative (Negative)
[2023-11-27] MEDS: VITAMIN B-12 1000 MCG PO (12:23)
[2023-11-27] MEDS: ROCEPHIN 1000 MG IV (12:23)
[2023-11-27] MEDS: VIBRAMYCIN 100 MG PO ×2 (12:23→20:22)
[2023-11-27] MEDS: STERILE WATER FOR INJECTION 10 ML IV (12:24)
[2023-11-27] MEDS: NSS (PRESERVATIVE FREE) 8 ML IV ×2 (14:15→20:22)
[2023-11-27] MEDS: PEPCID 20 MG IV ×2 (14:15→20:22)
[2023-11-27] MEDS: DELTASONE 40 MG PO (14:15)
[2023-11-27] MEDS: TOPROL XL 100 MG PO (17:01)
[2023-11-27] MEDS: FEOSOL 325 MG PO (17:01)
[2023-11-27] MEDS: CRESTOR 40 MG PO (17:01)
[2023-11-27] MEDS: SENOKOT-S 1 TABLET PO (17:02)
[2023-11-28 03:00] VITALS: BP 123/69
[2023-11-28] MEDS: SYNTHROID 25 MCG PO (05:33)
[2023-11-28 07:00] VITALS: BP 128/70
[2023-11-28 07:01] LABS: Hematocrit 25.5 % (39.0-52.0); Hemoglobin 8.4 g/dL (13.0-18.0); Mean Corp Hgb Conc. 32.9 g/dL (33.0-37.0); Mean Corpuscular Hgb 26.4 pg (27.0-31.0); Mean Corpuscular Volume 80.2 fL (80.0-94.0); Platelet Count 575 10^3/uL (130-400); Red Blood Cell Count 3.18 10^6/uL (4.70-6.10); Red Cell Dist. Width 16.7 % (11.5-14.5); White Blood Cell Count 9.5 10^3/uL (4.8-10.8)
[2023-11-28 08:13] LABS: Blood Urea Nitrogen 22 mg/dl (9-20); Calcium 9.3 mg/dl (8.4-10.2); Carbon Dioxide 21 mmol/L (22-30); Chloride 104 mmol/L (98-107); Estimated Creatinine Clearance 44 ml/min; Glucose 182 mg/dl (70-99); Magnesium 2.4 mg/dl (1.6-2.3); Potassium 4.8 mmol/L (3.5-5.1); Sodium 135 mmol/L (135-145); eGFR 48.11
--- NOTE | 2023-11-28 08:46 | W.PN.UPDATE ---
Update Note
Progress Note Update
Seen and examined with GHISLAINE Valdes. Full consultation to follow. 62-year-old male well-known to me status post bilateral lower extremity revascularizations with bypasses. Has known AAA that I have been following as well. Now admitted with GI bleed.
Is being worked up for that. Notes dizziness/blurriness in his eyes bilaterally. Not unilateral. No double vision. Seems to be more occurring when he gets up from sitting. Denies any episodes of amaurosis, unilateral numbness or weakness,
speech dysarthria. Asked to evaluate regarding carotid stenosis.
On exam he is awake and alert. Head is normocephalic and atraumatic. Eyes are anicteric. Neck is soft no jugular venous distention. Breathing is unlabored. Abdomen is soft, nondistended, nontender. Lower extremity with 1+/2+ femoral pulses
palpable bilaterally. 1+/2+ DP pulses palpable bilaterally. Feet are warm. Neurologically no focal deficits.
Carotid duplex reviewed. Severe left carotid stenosis with peak systolic velocity in the 800 cm/s range and end-diastolic velocity in the 300 cm/s range!
Plan/this is an asymptomatic left carotid artery stenosis. However the velocities are severe. Likely would favor revascularization. However, does not need to be done emergently given he is asymptomatic. Therefore will obtain CT angiogram of the
head and neck so we can better identify the anatomy, and then likely plan outpatient revascularization once his other medical issues have stabilized as well.
--- NOTE | 2023-11-28 09:00 | PTCARENOTE ---
12- All AM meds to be held for EGD as per GI. Will administer as ordered upon return from EGD procedure.
--- NOTE | 2023-11-28 09:00 | CON.VAS ---
Consultation
Consultation Request
Date/Time Consultation Performed: 11/28/2023 0840
Requesting Provider: Hospitalist
Performing Provider: Ida Valdes, GHISLAINE-C for Kostas Tapia MD
Reason for Consultation: Carotid stenosis
Medical History
-
Chief Complaint: Weakness, dizziness
History of Present Illness:
This is a 62-year-old male significant past medical history for CAD, AAA, hypothyroidism, hypertension, hypercholesterolemia, chronic kidney disease, peripheral arterial disease, and currently with GI bleed who was admitted for dizziness and
weakness. Vascular surgery has been consulted as they obtained carotid duplex which indicated carotid stenosis. Patient is known well to our service for continued monitoring of AAA and surgical interventions for peripheral arterial disease, past
surgical history listed below. Currently patient offers no complaints. He does endorse dizziness/blurriness in bilateral eyes. Denies double vision, vision loss, unilateral vision changes, dysarthria/aphasia, unilateral weakness, and or
unilateral paresthesia. Denies amaurosis.
Past vascular surgical history:
05/07/2023- Aortogram and pelvic angiogram. Left lower extremity arteriogram with third order vessel catheterization of left superficial femoral artery via right common femoral artery puncture. Attempted traversal of occluded superficial femoral
artery left lower extremity. Right femoral angiogram. Dr. Kostas Tapia
06/19/2023- Right ilio femoral endarterectomy (common femoral, origin of profunda, distal external iliac artery) with bovine pericardial patch angioplasty. Right femoral to above-knee popliteal artery bypass with 8 mm ringed [place] Propaten graft.
Aortogram and pelvic angiogram. Right external iliac artery angioplasty/covered stent placement with [place] 8mm x 29mm VBX covered stent. Dr. Kostas Tapia
09/03/2023- Left femoral to above-knee popliteal artery bypass with 8 mm ringed [place] Propaten graft. Aortogram and pelvic angiogram. Left common iliac artery stent placement with [place] 8 mm x 59 mm VBX covered stent. Left external iliac artery stent
placement with [place] 7 mm x [address] Kostas Tapia
Past Medical History
Past Medical History: CAD (stenting chronic RCA occlusion), HTN, Hypercholesterolemia, Hyperthyroidism, Renal Failure (CKD3a/b with ACD) and Other (severe PAD )
Past Surgical History: Other (See HPI for vascular surgical history)
Social History
Tobacco: Former Smoker
Alcohol: Occasional
Drug: None
Living: With Family
Allergies / Home Medications
Allergy/AdvReac Type Severity Reaction Status Date / Time
No Known Allergies Allergy Verified 11/26/23 07:48
�Medication �Instructions �Recorded �Confirmed �Type
aspirin 81 mg capsule 81 mg PO DAILY Blood Clot 04/25/23 11/26/23 History
Prevention/Tx
ezetimibe 10 mg tablet 10 mg PO DAILY High Cholesterol 04/25/23 11/26/23 History
levothyroxine 25 mcg tablet 25 mcg PO DAILY Thyroid 04/25/23 11/26/23 History
losartan 50 mg tablet 50 mg PO DAILY Blood Pressure 04/25/23 11/26/23 History
rosuvastatin 40 mg tablet 40 mg PO QPM High Cholesterol 04/25/23 11/26/23 History
pantoprazole 40 mg tablet,delayed 40 mg PO DAILY Gastrointestinal 05/07/23 11/26/23 History
release Issue
coQ10 (ubiquinol) 100 mg capsule 100 mg PO DAILY Supplement 06/19/23 11/26/23 History
(Qunol Shaw CoQ10)
ferrous sulfate 325 mg (65 mg 325 mg PO QPM Supplement 11/26/23 11/26/23 History
iron) tablet
metoprolol succinate 100 mg 100 mg PO QPM Blood Pressure 11/26/23 11/26/23 History
tablet,extended release 24 hr
(Toprol XL)
taurine 500 mg capsule 500 mg PO DAILY Supplement 11/26/23 11/26/23 History
Review of Systems
-
History Source: Patient
Constitutional: Reports Fatigue
EENT: Reports No Symptoms
Respiratory: Reports No Symptoms
Cardiac: Reports No Symptoms
Abdomen/GI: Reports No Symptoms
: Reports No Symptoms
Musculoskeletal: Reports No Symptoms
Skin: Reports No Symptoms
Neurological: Reports Weakness (Generalized malaise)
Physical Exam
Vital Signs
Temp Pulse Resp BP Pulse Ox
97.6 F 60 16 128/70 99
11/28/23 07:00 11/28/23 07:00 11/28/23 07:00 11/28/23 07:00 11/28/23 07:00
Lab Results
11/28/23 06:30
11/28/23 06:30
Physical Exam
General: No Apparent Distress and Comfortable
HEENT: Normocephalic, Anicteric and Atraumatic
Respiratory: Non Labored Respirations
Cardiac: Negative JVD
GI: Soft, Non Tender and Non Distended
Musculoskeletal: No Edema
Skin: Warm, Dry and Other (Feet warm)
Neuro: AO x 3
Pulses: Bilateral Femoral: +1 and Bilateral Dorsalis Pedis: +1
Assessment / Plan
-
Assessment: 62-year-old male admitted for continued workup of GI bleed with reports of dizziness and malaise, carotid duplex demonstrating severe left carotid stenosis suspected to be asymptomatic
Plan:
Asymptomatic left carotid artery stenosis. However the velocities are severe. Likely would favor revascularization. However, does not need to be done emergently given he is asymptomatic. Therefore will obtain CT angiogram of the head and neck
so we can better identify the anatomy, and then likely plan outpatient revascularization once his other medical issues have stabilized as well.
I performed this shared service with the attending. I evaluated the patient [id number] and have entered clinical documentation as shown in the encounter note. I performed the following component(s): history and physical exam. Note that medical
decision making is not final until attested by vascular attending.
Data Reviewed
-
Ultrasound: Report Reviewed by me, Discussed with Physician and Discussed with Patient
--- NOTE | 2023-11-28 10:08 | W.PN.HOSP.TC ---
Addendum entered and electronically signed by Eileen Murphy MD 11/29/23 12:10:
total DC time 40 min
Original Note:
Today's Communication/Plan
-
see A/P
Assessment / Plan
Assessment / Plan
HPI: 62-year-old male with past medical history of AAA, CAD, hypertension, hyperlipidemia, recent GI bleed 2 weeks [employer] with unrevealing EGD/C scope at that time and was discharged with PO iron; p/w weakness, fatigue and dizziness since recent
discharge 2 weeks prior.
He also c/o dark stool which has been stable since his recent discharge.
He denies to other symptoms.
A/P:
# Generalized weakness likely due to ILYA/Symptomatic anemia
# Recent GIB
# ACD
Hgb today at 8.6 which is better than the day of recent discharge at 7.8
Plavix was previously stopped
Recent EGD and colonoscopy did not show obvious evidence of bleeding.
s/p outpt capsule endoscopy, pending result
Pt underwent repeat EGD this admission 11/27, which was unrevealing (same finding as last EGD on 11/09, no bleeding source).
Appreciate GI input
Of note, iron panel confirmed ILYA, cont [employer] PO iron
B12 also low normal at 300, started supplement
TSH at 1.88
# Dizziness, multifactorial due to blurred vision, orthostatic hypotension, generalized weakness, and now likely severe L carotid stenosis
MRI unrevealing, ruled out acute abnormality
Carotid US noted severe L carotid stenosis, greater than 70% stenosis, likely near occlusion.
CT angiogram reviewed. Left carotid bifurcation with moderate to significant plaque. About a centimeter to distal to the origin there is mixed heavy plaque with significant stenosis, but does not appear to be string-like.
Vascular will plan outpt endarterectomy versus stenting
As for his orthostatic hypotension, cont compression therapy
PT OT recc outpt therapy
recc outpt ophthalmology eval for blurred vision
# Possible CAP?
Noted Procal at 0.66 (but this could be due to CKD)
CXR Unremarkable
blood culture negative
COVID negative
Pt was started with empiric Ceftriaxone and developed rash, holding ceftriaxone and started Pepcid/prednisone for allergy reaction
Can cont doxycycline for total 5 days
# CKD 3b
SCr on admission at 1.5, today at 1.6, at baseline
# Essential HTN
cw home meds with hold parameter
# NIDDM, now prediabetes
Metformin recently discontinued
cover with ISS
A1C 5.8% from 10/2023
# CAD with h/o stenting
# chronic RCA occlusion
stable
c/w aspirin
# PAD s/p LLE vascular bypass graft
Cont ASA
Follows with Dr. Tapia outpatient
# Hypothyroid
Continue Synthroid
TSH at 1.88
DVT Px: SCD
Code: Full
DW RN
DW Vascular
DW at bedside
Anticipated Discharge: Today
Subjective/Interval History
-
Date of Service: November 28, 2023
Objective Data
-
Labs:
Laboratory Results
11/28/23
06:30
WBC 9.5
Hgb 8.4 L
Hct 25.5 L
Plt Count 575 H
Sodium 135
Potassium 4.8
Chloride 104
Carbon Dioxide 21 L
BUN 22 H
Creatinine 1.6 H
Glucose 182 H
Calcium 9.3
Vital Signs:
Vital Signs
Temp Pulse Resp BP Pulse Ox
36.4 C 60 16 128/70 99
11/28/23 07:00 11/28/23 07:00 11/28/23 07:00 11/28/23 07:00 11/28/23 07:00
I&O
11/27/23 11/28/23 11/29/23
06:59 06:59 06:59
Intake Total 960 / 960 660 / 660
Balance 960 / 960 660 / 660
Review of Systems
-
Respiratory: Reports Trouble Breathing (REYNA)
Abdomen/GI: Denies Abdominal Pain, Nausea or Vomiting
Neuro: Reports Dizzy
Physical Exam
-
General: Well Developed, Well Nourished, No Apparent Distress, Comfortable and Conversant
HEENT: Normocephalic and Moist Mucous Membranes
Respiratory: Clear to Auscultation and Non Labored Respirations; Negative Accessory Resp Muscle Use
Cardiac: Regular Rhythm and S1/S2
GI: Soft and Nontender
Neuro: Awake and AO x 3
Psych: Calm and Intact Judgement/Insight
Data Reviewed
-
Ultrasound: Report Reviewed by me, Discussed with Patient and Discussed with Family
MRI: Report Reviewed by me, Discussed with Patient and Discussed with Family
Labs: Labs Reviewed by me
[2023-11-28 10:26] VITALS: BP 101/64; BP_SYST 22
[2023-11-28 10:41] VITALS: BP 112/74; BP_SYST 20
--- NOTE | 2023-11-28 10:52 | W.PN.UPDATE ---
Update Note
Progress Note Update
EGD shows essentially the same thing as last egd on 11/09. No bleeding source.
will sign off call with questions
--- NOTE | 2023-11-28 11:41 | W.PN.UPDATE ---
Update Note
Progress Note Update
CT angiogram reviewed. Left carotid bifurcation with moderate to significant plaque. About a centimeter to distal to the origin there is mixed heavy plaque with significant stenosis, but does not appear to be string-like. Therefore given
asymptomatic status and other medical issues currently being worked up, would favor outpatient follow-up and evaluation with me for possible surgical discussion/endarterectomy versus stenting. No indication currently for immediate
revascularization. Okay for discharge whenever otherwise medically stable and I will see him in close follow-up in the office.
[2023-11-28 11:43] VITALS: BP 134/73
--- NOTE | 2023-11-28 13:53 | CM ---
Chart reviewed and plan is to home with outpatient therapy.
Plan; Home with outpatient therapy.
[2023-11-28] MEDS: VITAMIN B-12 1000 MCG PO (14:03)
[2023-11-28] MEDS: PROTONIX 40 MG PO (14:03)
[2023-11-28] MEDS: COZAAR 25 MG PO (14:03)
[2023-11-28] MEDS: ASPIR LOW (ENTERIC COATED) 81 MG PO (14:03)
[2023-11-28] MEDS: ZETIA 10 MG PO (14:04)
[2023-11-28] MEDS: DELTASONE 40 MG PO (14:04)
[2023-11-28] MEDS: VIBRAMYCIN 100 MG PO (14:04)
[2023-11-28] MEDS: PEPCID 20 MG IV (14:05)
[2023-11-28] MEDS: NSS (PRESERVATIVE FREE) 8 ML IV (14:05)
--- NOTE | 2023-11-28 14:38 | W.DCSUMMARY ---
Discharge Summary
Discharge Data
Date of Admission: 11/26/23
Date of Discharge: 11/28/23
-
Pending Results: No
Hospital Course
Principal Diagnosis:
Generalized weakness likely due to iron deficiency anemia (ILYA)/ symptomatic anemia with recent gastrointestinal (GI) bleed.
Dizziness, multifactorial due to blurred vision, orthostatic hypotension, generalized weakness, and now likely severe Left carotid stenosis
New diagnosis of severe Left carotid stenosis
Chronic Diagnoses:�
Chronic kidney disease stage IIIb, serum creatinine at 1.5 which is at baseline
Essential hypertension
Mey-[id number] diabetes
Coronary artery disease status post stent
Peripheral artery disease status post bypass graft
Hypothyroidism on Synthroid
Consultations:�
Gastroenterology
Vascular surgery
Procedures:�
Upper endoscopy 11/28/2023, showed no change from recent EGD
Clinical course:�
This is a 62-year-old male with past medical history as stated above, who presented with generalized weakness and dizziness.
Of note, he was discharged 2 weeks prior to this admission due to symptomatic anemia/iron deficiency anemia from likely GI bleed (although he is EGD and colonoscopy recently were unrevealing).
Problem 1:
Generalized weakness likely due to ILYA/Symptomatic anemia.
His hemoglobin this admission was around 8 which is better than the day of his recent discharge at 7.8.
He underwent repeat EGD again this admission on 11/28/2023, which showed no change from recent EGD, no bleeding source noted. Biopsies were taken which he can follow-up the results outpatient with the GI doctor.
He can continue with his prior to admission iron supplement.
He was also started with B12 supplement for low normal B12 level at 300.
Problem 2:
Dizziness, multifactorial due to blurred vision, orthostatic hypotension, generalized weakness, and now likely severe L carotid stenosis.
His MRI was unrevealing hence ruled out acute stroke or acute abnormality.
His Carotid US noted severe L carotid stenosis, greater than 70% stenosis, likely near occlusion.
He underwent CT angiogram for this, which confirmed the Left carotid moderate to significant plaque.
The patient was seen by vascular for this and will follow-up with vascular outpatient for endarterectomy versus stenting eval.
He was also noted to have orthostatic hypotension, and he has been informed to continue compression therapy going forward.
He has been informed to follow-up with ophthalmology for his blurred vision.
He can also follow-up with neurology outpatient for dizziness workup.
He was cleared to return home with outpatient therapy per PT OT eval.
Problem 3:
His procalcitonin was noted to be at 0.66, but this could be related to his CKD stage III.
His chest x-ray was unremarkable, and blood culture was negative. His COVID was also negative.
He was started with empiric Ceftriaxone and developed rash, hence further ceftriaxone was discontinued.
He can continue with doxycycline for total 5 days.
As for the rest of his medical problems, they were stable during his hospital stay.
Discharge Plan
-
Patient Disposition: Home with Home Care
Discharge Diagnosis/Procedures: Generalized weakness likely due to iron deficiency/symptomatic anemia; Dizziness- multifactorial due to blurred vision, orthostatic hypotension, generalized weakness, and now likely severe Left carotid stenosis
Condition: Fair
Diet: As tolerated, Low Fat, Low Cholesterol and 2 Gram Sodium
Activity: As tolerated
Driving Restrictions: Not until seen by your Dr
Activity Restrictions/Additional Instructions:
Follow up with Neuro and ophthalmology for your dizziness
Referrals:
Juve Josue MD [Active] - (Call office to arrange EGD and outpatient follow up.)
Luisa Viramontes DO [Family Provider] - in less than 1 week
Kostas Tapia MD [Active] - 12/16/23 1:30 pm
Additional Discharge Medication Instructions: You can continue doxycycline for 4 more days for possible pneumonia (avoid dairy product such as milk/cheese and sun exposure while on doxycycline)
Prescriptions:
New
doxycycline hyclate 100 mg Capsule
100 mg PO Q12 4 Days Qty: 8 0RF
cyanocobalamin (vitamin B-12) 1,000 mcg Tablet
1,000 mcg PO DAILY Qty: 30 0RF
Continued
losartan 50 mg Tablet
50 mg PO DAILY
ezetimibe 10 mg Tablet
10 mg PO DAILY
rosuvastatin 40 mg Tablet
40 mg PO QPM
aspirin 81 mg Capsule
81 mg PO DAILY
levothyroxine 25 mcg Tablet
25 mcg PO DAILY
pantoprazole 40 mg Tablet,Delayed Release (Dr/Ec)
40 mg PO DAILY
Patient Comments:
coQ10 (ubiquinol) [Qunol Shaw CoQ10] 100 mg Capsule
100 mg PO DAILY
taurine 500 mg Capsule
500 mg PO DAILY
metoprolol succinate [Toprol XL] 100 mg tablet extended release 24 hr
100 mg PO QPM
ferrous sulfate 325 mg (65 mg iron) tablet
325 mg PO QPM
Discharge Orders:
Discharge Patient (As Directed); Ordered 11/28/23
Ordered By: Eileen Murphy
Discharge Date and Time
Discharge Date/Time: 11/28/23 14:48
Print Language: GREEK
== END 2023-11-28 14:48 | disposition home or self-care (01) ==
LOC: 4 WEST ACU 11:19
PROVIDERS: Emergency Medicine; Nurse Practitioner Gerontology; Physician Assistant; ADMITTING PHYSICIAN Internal Medicine; CONSULT PHYSICIAN Internal Medicine; CONSULT PHYSICIAN Surgery Vascular Surgery; EMERGENCY PHYSICIAN Emergency Medicine; FAMILY PHYSICIAN Family Medicine
DX: R53.1 Weakness (principal); D50.0 Iron deficiency anemia secondary to blood loss (chronic); K92.2 Gastrointestinal hemorrhage, unspecified; R53.83 Other fatigue; R26.2 Difficulty in walking, not elsewhere classified; I65.22 Occlusion and stenosis of left carotid artery; I73.9 Peripheral vascular disease, unspecified; R19.5 Other fecal abnormalities; H53.8 Other visual disturbances; I25.10 Atherosclerotic heart disease of native coronary artery without angina pectoris; E78.5 Hyperlipidemia, unspecified; E78.00 Pure hypercholesterolemia, unspecified; E03.9 Hypothyroidism, unspecified; R42 Dizziness and giddiness; N18.32 Chronic kidney disease, stage 3b; K31.89 Other diseases of stomach and duodenum; I71.40 Abdominal aortic aneurysm, without rupture, unspecified; E11.51 Type 2 diabetes mellitus with diabetic peripheral angiopathy without gangrene; E11.22 Type 2 diabetes mellitus with diabetic chronic kidney disease; I12.9 Hypertensive chronic kidney disease with stage 1 through stage 4 chronic kidney disease, or unspecified chronic kidney disease; I95.1 Orthostatic hypotension; D72.829 Elevated white blood cell count, unspecified; Z79.82 Long term (current) use of aspirin; Z79.890 Hormone replacement therapy; Z86.79 Personal history of other diseases of the circulatory system; Z87.19 Personal history of other diseases of the digestive system; Z95.5 Presence of coronary angioplasty implant and graft; Z87.891 Personal history of nicotine dependence; Z11.52 Encounter for screening for COVID-19
CPT/HCPCS: 43239; 88305; 70496; 70498; 70551; 71045; 80048; 80053; 81003; 82607; 82728; 82746; 83540; 83605; 83735; 84145; 84443; 85025; 85027; 85610; 85730; 86850; 86900; 86901; 87040; 87811; 93005; 93880; 96374; 97163; 97166; 99285; G0378; Q9967

== ENCOUNTER 2023-12-08 15:47 | Inpatient (IN) | payer BC, SELFPAY ==
[2023-12-08] VITALS (9 sets, daily range): BP systolic 97–125; BP diastolic 53–73; BMI 26.0
--- NOTE | 2023-12-08 11:28 | ED.GENMED ---
History of Present Illness
<Orestes Pena MD, Resident - Last Filed: 12/08/23 14:03>
General
Chief Complaint: Dizziness
Time Seen by Provider: 12/08/23 10:44
History of Present Illness
History of Present Illness:
62-year-old male with known diagnosis of 70% left carotid artery stenosis presented to the ED with acute on chronic vision changes and ataxia. The patient reports that his symptoms have worsened within the past 2 to 3 days. He was seen by
administrative job titles last week for his blurry vision and was informed that it is due to his left carotid artery stenosis. The patient had extensive workup during his previous visit at on 11/26/[address] angiogram, MRI of the brain, endoscopy
for a GI bleed. During his prior visit his hemoglobin was 5, and he received 3 blood transfusion, after which his hemoglobin increased to 8 and he was discharged in stable condition. He was followed by vascular surgeon, Dr. Tapia and and is
medically managed with 81 mg aspirin and 40 rosuvastatin. Patient takes the medication daily and has not missed any doses. Patient also complains of mild neck pain, but no headaches. He does reports of unsteadiness in his feet, tremor. He denies
seizure, chest pain, shortness of breath,lower extremity pain or swelling. Today patient's blood pressure 97/62 and his oxygen saturations 100% on room air. Last MRI did not show any acute changes.
Past History
<Orestes Pena MD, Resident - Last Filed: 12/08/23 14:03>
Past History
ED Past Medical History: CAD, HTN, Hypercholesterolemia, NIDDM, Hypothyroidism, Other (AAA) and Other (Peripheral arterial disease)
ED Past Surgical History: Cardiac and Other (Multiple vascular surgeries)
Review of Systems
<Orestes Pena MD, Resident - Last Filed: 12/08/23 14:03>
Review of Systems
Musculoskeletal: Reports neck pain
Neurological: Reports dizzy, weakness and other (Unsteadiness on feet)
Phy Exam
<Orestes Pena MD, Resident - Last Filed: 12/08/23 14:03>
General Physical Exam
General Presentation: well appearing and no apparent distress
Eye Exam
Eye Exam: PERRL and EOMI
Cardiovascular Exam
Cardiovascular Exam: regular rate/rhythm and systolic murmur
Pulmonary Exam
Pulmonary Exam: lungs clear and no respiratory distress
Gastrointestinal Exam
Gastrointestinal Exam: normal bowel sounds, soft, non distended, guarding and tender (right upper and lower quadrant )
Neurological Exam
Neurological Exam: alert, oriented x3, no motor deficits and no sensory deficits
Course
<Orestes Pena MD, Resident - Last Filed: 12/08/23 14:03>
Orders/Labs/Results
Orders:
Orders
12/08/23 11:20
Electrocardiogram (*1) Urgent
Reason for Study: Fatigue / Weakness
EKG- Treatment ONCE
12/08/23 11:25
Complete Blood Count/With Diff Urgent
Comprehensive Metabolic Panel Urgent
12/08/23 13:09
US Carotid [US Cerebrovascular] Urgent
Comment:
Reason For Exam: symptomatic carotid stenosis
Abnormal Lab Results
12/08/23
11:25
WBC 11.2 H 10^3/uL
(4.8-10.8)
RBC 3.10 L 10^6/uL
(4.70-6.10)
Hgb 7.7 L g/dL
(13.0-18.0)
Hct 23.8 L %
(39.0-52.0)
MCV 76.8 L fL
(80.0-94.0)
MCH 24.8 L pg
(27.0-31.0)
MCHC 32.4 L g/dL
(33.0-37.0)
RDW 17.9 H %
(11.5-14.5)
Plt Count 530 H 10^3/uL
(130-400)
Abs Immat Gran (auto) 0.1 H 10^3/uL
(0-0.05)
Absolute Neuts (auto) 8.6 H 10^3/uL
(1.4-6.5)
Absolute Monos (auto) 0.9 H 10^3/uL
(0.1-0.6)
Neutrophils % 77.1 H %
(42.2-75.2)
Lymphocytes % 12.4 L %
(20.5-51.1)
Creatinine 1.5 H mg/dL
(0.7-1.3)
Glucose 118 H mg/dl
(70-99)
Alkaline Phosphatase 149 H U/L
(38-126)
Total Protein 6.0 L g/dl
(6.3-8.2)
Albumin 3.3 L g/dl
(3.5-5.0)
12/08/23 11:25
12/08/23 11:25
Vital Signs
Initial and Last Documented VS:
Initial Vital Signs
Temp Pulse Resp BP Pulse Ox
98.9 F 75 18 97/62 100
12/08/23 10:38 12/08/23 10:38 12/08/23 10:38 12/08/23 10:38 12/08/23 10:38
Last Documented Vital Signs
Temp Pulse Resp BP Pulse Ox
98.9 F 69 22 100/62 97
12/08/23 10:38 12/08/23 12:00 12/08/23 12:00 12/08/23 12:00 12/08/23 12:00
<Jenanine Quigley MD - Last Filed: 12/08/23 14:12>
Orders/Labs/Results
Orders:
Orders
12/08/23 11:20
Electrocardiogram (*1) Urgent
Reason for Study: Fatigue / Weakness
EKG- Treatment ONCE
12/08/23 11:25
Complete Blood Count/With Diff Urgent
Comprehensive Metabolic Panel Urgent
12/08/23 13:09
US Carotid [US Cerebrovascular] Urgent
Comment:
Reason For Exam: symptomatic carotid stenosis
Abnormal Lab Results
12/08/23
11:25
WBC 11.2 H 10^3/uL
(4.8-10.8)
RBC 3.10 L 10^6/uL
(4.70-6.10)
Hgb 7.7 L g/dL
(13.0-18.0)
Hct 23.8 L %
(39.0-52.0)
MCV 76.8 L fL
(80.0-94.0)
MCH 24.8 L pg
(27.0-31.0)
MCHC 32.4 L g/dL
(33.0-37.0)
RDW 17.9 H %
(11.5-14.5)
Plt Count 530 H 10^3/uL
(130-400)
Abs Immat Gran (auto) 0.1 H 10^3/uL
(0-0.05)
Absolute Neuts (auto) 8.6 H 10^3/uL
(1.4-6.5)
Absolute Monos (auto) 0.9 H 10^3/uL
(0.1-0.6)
Neutrophils % 77.1 H %
(42.2-75.2)
Lymphocytes % 12.4 L %
(20.5-51.1)
Creatinine 1.5 H mg/dL
(0.7-1.3)
Glucose 118 H mg/dl
(70-99)
Alkaline Phosphatase 149 H U/L
(38-126)
Total Protein 6.0 L g/dl
(6.3-8.2)
Albumin 3.3 L g/dl
(3.5-5.0)
12/08/23 11:25
12/08/23 11:25
Vital Signs
Initial and Last Documented VS:
Initial Vital Signs
Temp Pulse Resp BP Pulse Ox
98.9 F 75 18 97/62 100
12/08/23 10:38 12/08/23 10:38 12/08/23 10:38 12/08/23 10:38 12/08/23 10:38
Last Documented Vital Signs
Temp Pulse Resp BP Pulse Ox
98.9 F 69 22 100/62 97
12/08/23 10:38 12/08/23 12:00 12/08/23 12:00 12/08/23 12:00 12/08/23 12:00
<Orestes Pena MD, Resident - Last Filed: 12/08/23 14:03>
*Critical Care Note
Total Time (30-74mins, 75-104mins- exclusive of procedures): Not Applicable
<Orestes Pena MD, Resident - Last Filed: 12/08/23 14:03>
Update Note
Update Note:
62-year-old male presented with a known diagnosis of 70 % left carotid artery stenosis managed medically with ASA and statin, presented to the ED with acute on chronic vision changes and ataxia. The patient reports that his symptoms have worsened
over the last 2 to 3 days. He was seen by administrative job titles last week for his blurry vision and was informed that it is due to his left carotid artery stenosis. The patient had extensive workup during his previous admission at on 11/26/2023,
including a CT angiogram, brain MRI, endoscopy(for GI bleed). The brain MRI revealed no acute changes. He is currently taking aspirin and rosuvastatin daily and has not missed any doses. He is also on PO ferrous sulfate for a GI bleed that occurred
during his last visit. Patient's vitals are stable . On physical examination he had a decreased peripheral vision on the left, ataxia, no sensory or motor weakness or deficits, normal reflexes. Given the patient's worsening symptoms, the plan is
to admit for further evaluation and management. TT hospitalist, neurologist, nurse practitioner in vascular surgery.
ED Attending Note
<Orestes Pena MD, Resident - Last Filed: 12/08/23 14:03>
-
Portions of this chart may have been created with voice recognition software.� Occasional wrong word or��sound alike� substitutions may have occurred due to the inherent limitations of voice recognition software.
<Jeannine Quigley MD - Last Filed: 12/08/23 14:12>
ED Attending Note
Patient seen and examined by attending physician: Yes
I performed a history and physical exam of patient and discussed management with resident, I reviewed resident's note and agree with documented findings and plan of care.: Yes
ED Attending Note:
Patient evaluated by me. Patient complaining of acute on chronic visual changes and dizziness. On exam, patient is ataxic. He appears nontoxic. Heart sounds regular.
Discharge Plan
Departure
Patient Disposition: Admit
Date of Disposition: 12/08/23
Time of Disposition: 14:02
Presentation/result/management discussed w/ accepting MD/DO: Hospitalist
Patient with high blood pressure during this ER visit?: No
Discharge Problem:
Left carotid stenosis
Prescriptions:
No Action
losartan 50 mg Tablet
25 mg PO DAILY
ezetimibe 10 mg Tablet
10 mg PO DAILY
rosuvastatin 40 mg Tablet
40 mg PO QPM
aspirin 81 mg Capsule
81 mg PO DAILY
levothyroxine 25 mcg Tablet
25 mcg PO DAILY
pantoprazole 40 mg Tablet,Delayed Release (Dr/Ec)
40 mg PO DAILY
Patient Comments:
coQ10 (ubiquinol) [Qunol Shaw CoQ10] 100 mg Capsule
100 mg PO DAILY
taurine 500 mg Capsule
500 mg PO DAILY
metoprolol succinate [Toprol XL] 100 mg tablet extended release 24 hr
100 mg PO QPM
ferrous sulfate 325 mg (65 mg iron) tablet
325 mg PO QPM
cyanocobalamin (vitamin B-12) 1,000 mcg Tablet
1,000 mcg PO DAILY Qty: 30 0RF
Referrals:
Luisa Viramontes DO [Family Provider] -
Interventions
Interventions:
*Risk Screen - Suicide Last Done: 12/08/23 10:38
*General Assessment Last Done: 12/08/23 10:38
*Neglect/Abuse Screening Last Done: 12/08/23 10:38
ED- Fall Risk Assessment Last Done: 12/08/23 11:27
*ED COVID-19 Vaccine History Last Done: 12/08/23 10:56
ED- Neurological Assessment Last Done: 12/08/23 11:27
ED- Cardiac Assessment Last Done: 12/08/23 11:27
Discharge Date and Time
Print Language: CHINESE
[2023-12-08 11:31] LABS: % Basophils 0.4 % (0-2); % Immature Granulocytes 0.4 % (0-0.5); % Lymphocytes 12.4 % (20.5-51.1); % Monocytes 7.7 % (1.7-9.3); % Neutrophils 77.1 % (42.2-75.2); Absolute Eosinophils 0.2 10^3/uL (0-0.7); Absolute Immature Granulocytes 0.1 10^3/uL (0-0.05); Absolute Lymphocytes 1.4 10^3/uL (1.2-3.4); Absolute Monocytes 0.9 10^3/uL (0.1-0.6); Absolute Neutrophils 8.6 10^3/uL (1.4-6.5); Hematocrit 23.8 % (39.0-52.0); Hemoglobin 7.7 g/dL (13.0-18.0); Mean Corp Hgb Conc. 32.4 g/dL (33.0-37.0); Mean Corpuscular Hgb 24.8 pg (27.0-31.0); Mean Corpuscular Volume 76.8 fL (80.0-94.0); Nucleated Red Blood Cells % 0 % (-); Platelet Count 530 10^3/uL (130-400); Red Cell Dist. Width 17.9 % (11.5-14.5); White Blood Cell Count 11.2 10^3/uL (4.8-10.8)
[2023-12-08 12:01] LABS: ALT (SGPT) 28 U/L (0-50); AST (SGOT) 35 U/L (17-59); Albumin 3.3 g/dl (3.5-5.0); Alkaline Phosphatase 149 U/L (38-126); Blood Urea Nitrogen 18 mg/dl (9-20); Calcium 9.1 mg/dl (8.4-10.2); Carbon Dioxide 23 mmol/L (22-30); Chloride 103 mmol/L (98-107); Glucose 118 mg/dl (70-99); Potassium 4.8 mmol/L (3.5-5.1); Sodium 136 mmol/L (135-145); Total Bilirubin 0.4 mg/dl (0.2-1.3); eGFR 51.99
--- NOTE | 2023-12-08 13:52 | CON.VAS ---
Consultation
Consultation Request
Performing Provider: Willie
Reason for Consultation: Visual changes, carotid stenosis
Medical History
-
Chief Complaint: Visual changes
History of Present Illness:
Seen and evaluated in the emergency room. He is well-known to me status post bilateral lower extremity bypasses and iliac stenting. I follow him also for an abdominal aortic aneurysm. Recently seen in the hospital when he complained of
orthostatic type symptoms with dizziness and bilateral blurred vision when he would get up. Incidentally found to have left high-grade carotid stenosis. We had done CT angiogram to assess it and I had planned on seeing him in short order follow-up
in the office for this likely asymptomatic carotid stenosis. However, he now presents back to the hospital with specific left eye blurred vision. He is able to clarify that his blurriness is only in the left eye. He has no visual loss in the left
eye. No amaurosis type symptoms. Denies any episodes of unilateral numbness or weakness, speech dysarthria. He had seen diesel fleet mechanic as an outpatient who did a retinal exam and suspected that findings and symptoms are carotid atheroembolic
related.
On exam/she is awake and alert. Head is normocephalic and atraumatic. Eyes are anicteric. Neck is soft without jugular venous distention. Breathing is unlabored. Neurologically no focal deficits. Feet are warm with palpable DP pulses
bilaterally.
I again reviewed prior carotid duplex as well as current carotid duplex which we recommended to confirm patency of the carotid. I also reviewed CT angiogram he had completed prior.
Past vascular surgical history:
05/07/2023- Aortogram and pelvic angiogram. Left lower extremity arteriogram with third order vessel catheterization of left superficial femoral artery via right common femoral artery puncture. Attempted traversal of occluded superficial femoral
artery left lower extremity. Right femoral angiogram. Dr. Kostas Tapia
06/19/2023- Right ilio femoral endarterectomy (common femoral, origin of profunda, distal external iliac artery) with bovine pericardial patch angioplasty. Right femoral to above-knee popliteal artery bypass with 8 mm ringed Buffalo Propaten graft.
Aortogram and pelvic angiogram. Right external iliac artery angioplasty/covered stent placement with [place] 8mm x 29mm VBX covered stent. Dr. Kostas Tapia
09/03/2023- Left femoral to above-knee popliteal artery bypass with 8 mm ringed [place] Propaten graft. Aortogram and pelvic angiogram. Left common iliac artery stent placement with [place] 8 mm x 59 mm VBX covered stent. Left external iliac artery stent
placement with [place] 7 mm x [address] Kostas Tapia
Past Medical History
Past Medical History: CAD (stenting chronic RCA occlusion), HTN, Hypercholesterolemia, Hyperthyroidism, Renal Failure (CKD 3) and Other (Severe PAD)
Past Surgical History: Other (See HPI for vascular history)
Social History
Tobacco: Former Smoker
Alcohol: Occasional
Drug: None
Living: With Family
Allergies / Home Medications
Allergy/AdvReac Type Severity Reaction Status Date / Time
No Known Allergies Allergy Verified 12/08/23 10:38
�Medication �Instructions �Recorded �Confirmed �Type
aspirin 81 mg capsule 81 mg PO DAILY Blood Clot 04/25/23 12/08/23 History
Prevention/Tx
ezetimibe 10 mg tablet 10 mg PO DAILY High Cholesterol 04/25/23 12/08/23 History
levothyroxine 25 mcg tablet 25 mcg PO DAILY Thyroid 04/25/23 12/08/23 History
losartan 50 mg tablet 25 mg PO DAILY Blood Pressure 04/25/23 12/08/23 History
rosuvastatin 40 mg tablet 40 mg PO QPM High Cholesterol 04/25/23 12/08/23 History
pantoprazole 40 mg tablet,delayed 40 mg PO DAILY Gastrointestinal 05/07/23 12/08/23 History
release Issue
coQ10 (ubiquinol) 100 mg capsule 100 mg PO DAILY Supplement 06/19/23 12/08/23 History
(Qunol Shaw CoQ10)
ferrous sulfate 325 mg (65 mg 325 mg PO QPM Supplement 11/26/23 12/08/23 History
iron) tablet
metoprolol succinate 100 mg 100 mg PO QPM Blood Pressure 11/26/23 12/08/23 History
tablet,extended release 24 hr
(Toprol XL)
taurine 500 mg capsule 500 mg PO DAILY Supplement 11/26/23 12/08/23 History
cyanocobalamin (vitamin B-12) 1,000 mcg PO DAILY #30 tabs 11/28/23 12/08/23 Rx
1,000 mcg tablet
Review of Systems
-
History Source: Patient
All other systems: Negative unless noted
Constitutional: Reports No Symptoms
EENT: Reports No Symptoms
Respiratory: Reports No Symptoms
Cardiac: Reports No Symptoms
Vascular: Denies Leg Pain / Claudication
Abdomen/GI: Reports No Symptoms
Musculoskeletal: Reports No Symptoms
Skin: Reports No Symptoms
Neurological: Reports Dizzy
Physical Exam
Vital Signs
Temp Pulse Resp BP Pulse Ox
98.9 F 69 22 100/62 97
12/08/23 10:38 12/08/23 12:00 12/08/23 12:00 12/08/23 12:00 12/08/23 12:00
Lab Results
12/08/23 11:25
12/08/23 11:25
Physical Exam
General: No Apparent Distress
HEENT: Normocephalic and Atraumatic
Respiratory: Non Labored Respirations
Cardiac: Negative JVD
GI: Soft
Musculoskeletal: No Clubbing and No Cyanosis
Skin: Warm
Psych: Calm
Pulses: Bilateral Dorsalis Pedis: +1
Assessment / Plan
-
Plan/ Likely symptomatic left carotid artery stenosis. Discussed with patient recommendation for revascularization based on this. Discussed modalities of revascularization including carotid endarterectomy and HERMAN/TCAR at length. Discussed my
recommendation for left carotid endarterectomy. Discussed procedure at length. Discussed technical aspects of procedure. Discussed expected/anticipated outcomes and recovery. Discussed risks including but not limited to bleeding, infection,
cardiac complications/IN, cranial nerve injury, stroke (in the symptomatic setting approximately 2 to 3%). Patient understands all wishes to proceed with LEFT carotid endarterectomy. I discussed with hospitalist Dr. Daugherty as well. Patient needs
to be overall optimized prior. History of recent GI bleeds and hemoglobin 7.7. Blood transfusion initiated. Recommend GI evaluation as I will have to give heparin transiently in the operating room during the procedure. In addition consideration
for cardiology evaluation given extensive atherosclerotic history, and he has seen group counselor Dr. Vazquez as an outpatient. May be best to have them evaluated again as an inpatient for cardiac risk assessment. Likely will plan surgery 12/10/2023 or
12/11/2023 (this upcoming Friday or ).
--- NOTE | 2023-12-08 15:12 | W.PN.UPDATE ---
Update Note
Progress Note Update
Seen and evaluated in the emergency room. He is well-known to me status post bilateral lower extremity bypasses and iliac stenting. I follow him also for an abdominal aortic aneurysm. Recently seen in the hospital when he complained of
orthostatic type symptoms with dizziness and bilateral blurred vision when he would get up. Incidentally found to have left high-grade carotid stenosis. We had done CT angiogram to assess it and I had planned on seeing him in short order follow-up
in the office for this likely asymptomatic carotid stenosis. However, he now presents back to the hospital with specific left eye blurred vision. He is able to clarify that his blurriness is only in the left eye. He has no visual loss in the left
eye. No amaurosis type symptoms. Denies any episodes of unilateral numbness or weakness, speech dysarthria. He had seen mid level practitioner as an outpatient who did a retinal exam and suspected that findings and symptoms are carotid atheroembolic
related.
On exam/she is awake and alert. Head is normocephalic and atraumatic. Eyes are anicteric. Neck is soft without jugular venous distention. Breathing is unlabored. Neurologically no focal deficits. Feet are warm with palpable DP pulses
bilaterally.
I again reviewed prior carotid duplex as well as current carotid duplex which we recommended to confirm patency of the carotid. I also reviewed CT angiogram he had completed prior.
Plan/ Likely symptomatic left carotid artery stenosis. Discussed with patient recommendation for revascularization based on this. Discussed modalities of revascularization including carotid endarterectomy and HERMAN/TCAR at length. Discussed my
recommendation for left carotid endarterectomy. Discussed procedure at length. Discussed technical aspects of procedure. Discussed expected/anticipated outcomes and recovery. Discussed risks including but not limited to bleeding, infection,
cardiac complications/MA, cranial nerve injury, stroke (in the symptomatic setting approximately 2 to 3%). Patient understands all wishes to proceed with LEFT carotid endarterectomy. I discussed with hospitalist Dr. Daugherty as well. Patient needs
to be overall optimized prior. History of recent GI bleeds and hemoglobin 7.7. Blood transfusion initiated. Recommend GI evaluation as I will have to give heparin transiently in the operating room during the procedure. In addition consideration
for cardiology evaluation given extensive atherosclerotic history, and he has seen nurses' registry director Dr. Vazquez as an outpatient. May be best to have them evaluated again as an inpatient for cardiac risk assessment. Likely will plan surgery 12/10/2023 or
12/11/2023 (this upcoming Friday or ).
--- NOTE | 2023-12-08 15:35 | CON.CAR ---
Addendum entered and electronically signed by Martín Guthrie MD 12/08/23 16:51:
I saw and examined the patient.
The HEAD TRACK COACH's note was reviewed and I agree with the note.
Comment: 62 year old male with MVCAD, severe PAD, former smoker, CKD, HTN, HLD, NSVT, abdominal aortic aneurysm, hypothyroidism, and anemia who presented to the ER with dizziness. He has no new symptoms of ischemia, HF, or arrhythmia. He tells me
he can easily walk a flight of stairs. NSQIP risk calculator is below. He is likely elevated risk for surgery, however, given no new CV symptoms he needs no further testing or meds prior to surgery.
Original Note:
Consultation
Consultation Request
Date/Time Consultation Requested: 12/08/2023 15:00
Date/Time Consultation Performed: 12/08/2023 15:30
Medical History
-
Chief Complaint: Acute on chronic visual changes
History of Present Illness:
Tutu Parks is a 62 year old male with MVCAD, severe PAD, former smoker, CKD, HTN, HLD, NSVT, abdominal aortic aneurysm, hypothyroidism, and anemia who presented to the ER with dizziness. This started several weeks ago. He is now dizzy. He was
evaluated by Vascular Surgery and the plan is CEA. Cardiology has been ask to comment on risk. He is not having any angina. He has known coronary occlusions.
Past Medical History
Past Medical History: Arrhythmias (NSVT), CAD (MVCAD), HTN, Hypercholesterolemia, Hypothyroidism, Renal Failure (CKDSt3) and Other (Anemia)
Past Surgical History: Orthopedic
Social History
Tobacco: Former Smoker
Alcohol: Occasional
Personal:
Living: With Family
Family History
Family History: Reviewed & Not Pertinent
Allergies / Home Medications
Allergy/AdvReac Type Severity Reaction Status Date / Time
No Known Allergies Allergy Verified 12/08/23 10:38
�Medication �Instructions �Recorded �Confirmed �Type
aspirin 81 mg capsule 81 mg PO DAILY Blood Clot 04/25/23 12/08/23 History
Prevention/Tx
ezetimibe 10 mg tablet 10 mg PO DAILY High Cholesterol 04/25/23 12/08/23 History
levothyroxine 25 mcg tablet 25 mcg PO DAILY Thyroid 04/25/23 12/08/23 History
losartan 50 mg tablet 25 mg PO DAILY Blood Pressure 04/25/23 12/08/23 History
rosuvastatin 40 mg tablet 40 mg PO QPM High Cholesterol 04/25/23 12/08/23 History
pantoprazole 40 mg tablet,delayed 40 mg PO DAILY Gastrointestinal 05/07/23 12/08/23 History
release Issue
coQ10 (ubiquinol) 100 mg capsule 100 mg PO DAILY Supplement 06/19/23 12/08/23 History
(Qunol Shaw CoQ10)
ferrous sulfate 325 mg (65 mg 325 mg PO QPM Supplement 11/26/23 12/08/23 History
iron) tablet
metoprolol succinate 100 mg 100 mg PO QPM Blood Pressure 11/26/23 12/08/23 History
tablet,extended release 24 hr
(Toprol XL)
taurine 500 mg capsule 500 mg PO DAILY Supplement 11/26/23 12/08/23 History
cyanocobalamin (vitamin B-12) 1,000 mcg PO DAILY #30 tabs 11/28/23 12/08/23 Rx
1,000 mcg tablet
Review of Systems
-
History Source: Patient
All other systems: Negative unless noted
Constitutional: Fatigue
EENT: Other (blurry vision)
Respiratory: No Symptoms
Cardiac: No Symptoms
Abdomen/GI: No Symptoms
: No Symptoms
Musculoskeletal: No Symptoms
Neurological: Dizzy
Endocrine: No Symptoms
Hematologic/Lymphatic: No Symptoms
Physical Exam
Vital Signs
Temp Pulse Resp BP Pulse Ox
98.9 F 69 22 100/62 97
12/08/23 10:38 12/08/23 12:00 12/08/23 12:00 12/08/23 12:00 12/08/23 12:00
Lab Results
12/08/23 11:25
12/08/23 11:25
Physical Exam
General: Well Developed, Well Nourished, No Apparent Distress and Comfortable
HEENT: Normocephalic, Anicteric and Moist Mucous Membranes
Respiratory: Clear and Non Labored Respirations
Cardiac: S1/S2 and Regular Rhythm
Breast: Deferred by me
GI: Soft, Non Tender, Non Distended and Normal Bowel Sounds
Rectal: Deferred by Provider
Genito-urinary: No Costovertebral Tender
Musculoskeletal: No Clubbing, No Cyanosis and No Edema
Skin: Warm and Dry
Neuro: AO x 3
Hematologic/Lymphatic: No Lymphadenopathy
Psych: Calm
Impression / Plan
-
BACKGROUND: 62M with MVCAD, PAD, HTN, HLD, CKD, and prediabetes with known carotid disease presented with dizziness.
Plane Tender: Dr. Vazquez
Cardiac risk assessment - Left CEA
-Denies angina
-EKG stable
CAD
-[facility] 10/16/2022: NITESH to LAD x 3 & D1; mCirc & ostial-mid RCA 100% occluded
-Stable without chest pain
Anemia, acute on chronic - consider GI consult
CKD Stage III
PAD, severe
Pre-diabetes, Hgba1c 5.8%
NSVT, MRI with large inferolateral transmural scar and partial subendocardial scar anteriorly, continue beta adele
HLD, LDL well below goal on rosuvastatin & ezetimibe
Former smoker, quit last year, continued cessation recommended
Data Reviewed
-
EKG: Report Reviewed by me (Sinus rhythm, T wave abnormality, rate 66)
Medical Tests (Nuc Med, Echo etc): Report Reviewed by me
Labs: Labs Reviewed by me
Old Records: Reviewed
--- NOTE | 2023-12-08 16:58 | CON.GI ---
Addendum entered and electronically signed by Curtis Krishnan MD 12/08/23 18:52:
I saw and examined the patient.
The DIRECTOR OF PATIENT CARE or PA's note was reviewed and I agree with the note.
Comment: 62yo male admitted for dizziness. He has extensive hx vascular dz, CAD, LE vascular bypass this year, and planned to have CEA. GI is consulted since he has anemia and hx GI bleeding. Hgb 7.7. He had EGD, colonoscopy and capsule
endoscopy in October and November this year for evaluation which did not find a bleeding source. EGD- duodenal nodule bx benign, Colon hemorrhoids, capsule- inflammatory polyp in duodenum that led to repeat EGD in November similar findings to first. Pt c/o
RLQ/groin tenderness
REC:
OK for antiplatelet and anticoagulation for planned CEA
He has undergone mojica-GI evaluation for his anemia without high risk lesions found
Consider Heme evaluation
Consider eval R groin ?pseudoaneurysm with hx arterial puncture, though many months ago
Original Note:
Consultation
-
Date/Time Consultation Requested: 12/08/23 1637
Date/Time Consultation Performed: 12/08/23 1640
Requesting Provider: Dr. Byrnes
Performing Provider: Dr. Krishnan/WALT Ruiz
Reason for Consultation: anemia, hx of GI bleed, need for vascular surgery
Medical History
Chief Complaint / HPI
Chief Complaint: dizziness
History of Present Illness:
62 year old male with past medical history of AAA, CAD, PAD s/p lower extremity vascular bypass grafts (R 06/19/23, L 09/03/23), symptomatic anemia, hypertension, hyperlipidemia, recent hospitalization for GI bleed, who presents to the ED today for
continued dizziness. The patient is to have CEA. GI is consulted to evaluate given his recent GI bleed and evaluation if since patient will require heparin during surgery for left CEA. Since the beginning of September, he has been experiencing fatigue,
unsteadiness, and blurry vision. He was recently hospitalized 11/08/23-11/11/23 for symptomatic anemia and GI bleed; EGD and colonoscopy were unremarkable, and he was discharged with PO iron which he has been taking nightly. He was seen in the GI
outpatient office 11/18/23 for capsule endoscopy to evaluate melena, this showed normal stomach, inflammatory polyp in the duodenum with some erosion, colon visualized and this was normal. The patient had EGD performed on 11/28/23 that showed normal
esophagus, stomach normal, patchy nodular mucosa in the first portion of the duodenum (same as prior endoscopy and seen on capsule) this was bx which showed polypoid duodenal mucosa with mild hyperplastic change and foveolar metaplasia suggestive of
peptic duodenitis. The patient continued on oral iron and pantoprazole 40 mg daily. He did state that for the past 2 days he had had a right pelvic discomfort that would come and go. Nothing would make better or worse. No change in BM. Denies any F,
C, N, V, melena, hematochezia, dysphagia or odynophagia. Tolerating diet without any issues. Main concern is dizziness. Patient presents with WBC 11.2, Hgb 7.7 (down from 8.4), PLT 530, MCV 76.8, MCH 24.8, BUN 18, Creat 1.5, T Bili 0.4, AST 35, ALT
28, Alk Phos 149
Past Medical History
Past Medical History: Arrhythmias (NSVT), CAD (s/p LAD PCI; chronic RCA occlusion), HTN, Hypercholesterolemia, Hypothyroidism, NIDDM, Renal Failure and Other (PAD, AAA)
Past Surgical History: Cardiac (PCI LAD) and Other (lower extremity vascular bypass grafts)
Social History
Tobacco: Former Smoker (quit 1 year ago; previously smoked half PPD)
Alcohol: Former (last alcoholic drink was 3 weeks ago; prior to that he drank about 3 beers per day (1 case of 30 per week))
Drug: Former User (marijuana and amphetamine use in his 20s. Denies history of IV drug use.)
Personal:
Living: With Family
Employment: Employed
Family History
Family History: Reviewed & Not Pertinent
Allergies / Home Medications
Allergy/AdvReac Type Severity Reaction Status Date / Time
No Known Allergies Allergy Verified 12/08/23 10:38
�Medication �Instructions �Recorded
aspirin 81 mg capsule 81 mg PO DAILY Blood Clot 04/25/23
Prevention/Tx
ezetimibe 10 mg tablet 10 mg PO DAILY High Cholesterol 04/25/23
levothyroxine 25 mcg tablet 25 mcg PO DAILY Thyroid 04/25/23
losartan 50 mg tablet 25 mg PO DAILY Blood Pressure 04/25/23
rosuvastatin 40 mg tablet 40 mg PO QPM High Cholesterol 04/25/23
pantoprazole 40 mg tablet,delayed 40 mg PO DAILY Gastrointestinal 05/07/23
release Issue
coQ10 (ubiquinol) 100 mg capsule 100 mg PO DAILY Supplement 06/19/23
(Qunol Shaw CoQ10)
ferrous sulfate 325 mg (65 mg 325 mg PO QPM Supplement 11/26/23
iron) tablet
metoprolol succinate 100 mg 100 mg PO QPM Blood Pressure 11/26/23
tablet,extended release 24 hr
(Toprol XL)
taurine 500 mg capsule 500 mg PO DAILY Supplement 11/26/23
cyanocobalamin (vitamin B-12) 1,000 mcg PO DAILY #30 tabs 11/28/23
1,000 mcg tablet
Review of Systems
-
All other systems: A 12 pt ROS was Negative except as stated above in HPI
Vital Signs
Temp Pulse Resp BP Pulse Ox
98.9 F 78 17 122/70 93
12/08/23 10:38 12/08/23 16:30 12/08/23 16:30 12/08/23 16:00 12/08/23 16:00
Physical Exam
Exam
General: No Apparent Distress
HEENT: Anicteric
Respiratory: Clear
Cardiac: Regular Rhythm
GI: Soft, Non Tender, Non Distended, Normal Bowel Sounds and Other (no signs of ecchymosis or rashes in right groin or pelvis)
Rectal: Hem Negative (green solid stool)
Skin: Warm and Dry
Neuro: AO x 3
Psych: Calm
Results
WBC 11.2 10^3/uL (4.8-10.8) H 12/08/23 11:25
Hgb 7.7 g/dL (13.0-18.0) L 12/08/23 11:25
Hct 23.8 % (39.0-52.0) L 12/08/23 11:25
MCV 76.8 fL (80.0-94.0) L 12/08/23 11:25
Plt Count 530 10^3/uL (130-400) H 12/08/23 11:25
Absolute Neuts (auto) 8.6 10^3/uL (1.4-6.5) H 12/08/23 11:25
Sodium 136 mmol/L (135-145) 12/08/23 11:25
Potassium 4.8 mmol/L (3.5-5.1) 12/08/23 11:25
Chloride 103 mmol/L (98-107) 12/08/23 11:25
Carbon Dioxide 23 mmol/L (22-30) 12/08/23 11:25
BUN 18 mg/dl (9-20) 12/08/23 11:25
Creatinine 1.5 mg/dL (0.7-1.3) H 12/08/23 11:25
Calcium 9.1 mg/dl (8.4-10.2) 12/08/23 11:25
Total Bilirubin 0.4 mg/dl (0.2-1.3) 12/08/23 11:25
AST 35 U/L (17-59) 12/08/23 11:25
ALT 28 U/L (0-50) 12/08/23 11:25
Alkaline Phosphatase 149 U/L (38-126) H 12/08/23 11:25
Diagnostic Image Results:
US Cerebrovascular 12/08/23:
IMPRESSION:
Right carotid: Calcified and noncalcified plaque within the bulb and proximal ICA. Any stenosis is less than 50% based upon velocity criteria.
Left carotid: Redemonstration of extensive calcified and noncalcified plaque within the bulb and proximal ICA with severely elevated systolic and diastolic velocities measuring 838 and 362 cm/s, respectively. Elevated ICA/CCA ratio of 12.83.
Findings again consistent with a greater than 70% stenosis.
Antegrade flow within both vertebral arteries.
HAM SAWYER: Wendy Haynes RVT
Prior GI Procedures:
[facility]
- Normal esophagus.
- Normal stomach.
- Erythematous duodenopathy (unchanged from previous
endoscopy). Biopsied.
11/10/23 ([facility])- normal esophagus and stomach, nodular mucosa in duodenal bulb biopsied (pathology report below)
Small bowel, duodenal bulb �nodularity�, biopsy:
- Small bowel mucosa with Lorraine gland hyperplasia and focal gastric foveolar
metaplasia.
- Villous architecture is preserved and NO increase in intraepithelial lymphocytes is noted.
Colonoscopy:
11/11/23 ([facility])- internal hemorrhoids, otherwise normal with no source of bleeding identified
04/2021 ([facility] mild diverticula, internal hemorrhoids, polyp (pathology: serrated adenoma, no high grade dysplasia)
Assessment / Plan
-
62 year old male with past medical history of AAA, CAD, PAD s/p lower extremity vascular bypass grafts (R 06/19/23, L 09/03/23), symptomatic anemia, hypertension, hyperlipidemia, recent hospitalization for GI bleed, who presents to the ED today for
continued dizziness. The patient is to have CEA. GI is consulted to evaluate given his recent GI bleed and evaluation if since patient will require heparin during surgery for left CEA. Since the beginning of September, he has been experiencing fatigue,
unsteadiness, and blurry vision. He was recently hospitalized 11/08/23-11/11/23 for symptomatic anemia and GI bleed; EGD and colonoscopy were unremarkable, and he was discharged with PO iron which he has been taking nightly. He was seen in the GI
outpatient office 11/18/23 for capsule endoscopy to evaluate melena, this showed normal stomach, inflammatory polyp in the duodenum with some erosion, colon visualized and this was normal. The patient had EGD performed on 11/28/23 that showed normal
esophagus, stomach normal, patchy nodular mucosa in the first portion of the duodenum (same as prior endoscopy and seen on capsule) this was bx which showed polypoid duodenal mucosa with mild hyperplastic change and foveolar metaplasia suggestive of
peptic duodenitis. The patient continued on oral iron and pantoprazole 40 mg daily. He did state that for the past 2 days he had had a right pelvic discomfort that would come and go. Nothing would make better or worse. No change in BM. Denies any F,
C, N, V, melena, hematochezia, dysphagia or odynophagia. Tolerating diet without any issues. Main concern is dizziness. Patient presents with WBC 11.2, Hgb 7.7 (down from 8.4), PLT 530, MCV 76.8, MCH 24.8, BUN 18, Creat 1.5, T Bili 0.4, AST 35, ALT
28, Alk Phos 149.
Rectal exam performed by myself with solid green stool that was negative for occult blood.
Impression:
Iron deficiency anemia-> stool negative for occult blood at this time, with negative EGD x 2/VCE/Colonoscopy
Mild leukocytosis
Dizziness
Elevated alk Phos (mild)
Mild RLQ/Pelvic tenderness
Abdominal aortic aneurysm
Plan:
-Continue Pantoprazole 40 mg daily
-Continue iron
-To consider imaging in the right abdomen/pelvis region? patient with 2 day hx of dull discomfort. ? Non contrast CT vs US, will discussed with Dr. Krishnan. Patient also with hx of prior intervention in right groin Jun 2023. Right ilio femoral
endarterectomy,�right femoral to above-knee popliteal artery bypass with 8 mm ringed [place] Propaten graft, aortogram and pelvic angiogram, right external iliac artery angioplasty/covered stent placement.
-To consider Hematology consultation
-Ok per GI to start/use anticoagulation needed for procedures.
Data Reviewed
-
Old Records: Reviewed
-
-
Thank you for consultation and allowing me to participate in the patient's care. Please call the production inspector GI physician during the after hours with any questions or concerns.
--- NOTE | 2023-12-08 16:59 | W.PN.UPDATE ---
Update Note
Progress Note Update
seen and examined by me independently in collaboration with family practice resident.
Past medical history/social history/medications/allergies reviewed
Lab data and imaging data reviewed.
Patient presents with the left eye blurry vision which has been a recent onset. He saw his data coder operator who told him it may be manifestation of his carotid dz. he also dizziness which is sometimes noted with standing, and sometimes not.
Nonfocal neurologically. Hemodynamically stable.
Carotid imaging noted. Consulted vascular who plans to take him to the OR on this admission for correction. Consulted neurology and cardiology presurgery.
Patient with GI bleeds and has severe anemia requiring transfusion. His hemoglobin is 7.7. He has dark stools because of taking iron pills. He is hemodynamically stable. He complains of weight loss and right-sided abdominal discomfort and he
has a palpable and liver. Will transfuse 1 unit. Surgery. Because of need of surgery on IV heparin will consult GI with the history of GI bleed.
Obtain ultrasound of the liver first, depending will obtain a CT of the abdomen pelvis with IV contrast. Patient is chronic kidney disease and may need JASON prophylaxis.
[2023-12-08] MEDS: FEOSOL 325 MG PO (17:12)
[2023-12-08] MEDS: CRESTOR 40 MG PO (17:13)
[2023-12-08] MEDS: TOPROL XL 100 MG PO (17:13)
[2023-12-08 17:27] LABS: Hematocrit 24.2 % (39.0-52.0); Hemoglobin 7.8 g/dL (13.0-18.0)
--- NOTE | 2023-12-08 17:52 | PTCARENOTE ---
Patient received to floor awake alert oriented , accompanied by . Ambulates with steady gait, denies dizzyness. C/o mild ache only with palp in right lower abd quad. Reports having a bm daily, is on iron. Hemetest -x1. Telemonitor intact,
denies chest pain, no shortness of breath.
--- NOTE | 2023-12-08 18:29 | HPS.HSE ---
Addendum entered and electronically signed by Immanuel Daugherty MD 12/09/23 08:37:
I personally performed a history and physical exam of the patient and discussed management with the resident. I reviewed the resident's note and agree with the documented findings and plan of care [facility].
See my update note from yesterday for details
Original Note:
Family Physician
-
Family Physician: Luisa Viramontes
Chief Complaint
-
Left-sided blurry vision with dizziness
History of Present Illness
Patient is a 62-year-old male with a known diagnosis of 70% left carotid artery stenosis who presented to the emergency department with vision changes and ataxia. The patient reported that his symptoms worsened within the last 2 to 3 days prior to
his presentation. He was seen by an inspector plating the week before his presentation for blurry vision and was informed that this is due to his left carotid artery stenosis. Patient had an extensive workup during his previous visit at [facility] on 11/26/[address] angiogram, MRI of the brain, and an endoscopy for GI bleed. Vascular ultrasound conducted in the emergency department on the day of the patient's admission showed a calcified and noncalcified plaque within the bulb
and proximal right internal carotid artery, and on the left carotid artery there was extensive calcified and noncalcified plaques within the bulb and proximal left internal carotid artery showing signs consistent with greater than 70% stenosis.
Also anterograde flow within both vertebral arteries was detected. The patient was further assessed by Dr. Tapia who had been following the patient throughout his time at [facility]. Initially, the patient was found to have the carotid
stenosis on incidental findings and was to be followed up in the outpatient setting but unfortunately with his representation to the emergency department with symptoms vascular surgery has opted to treat the patient inpatient for symptomatic
findings. The patient was admitted to [facility] for symptomatic left carotid artery stenosis resulting in blurred vision.
Medical History
Past Medical History
Past Medical History: Reports CAD, HTN, Hypercholesterolemia, Hypothyroidism, NIDDM and Other (AAA, peripheral artery disease)
Past Surgical History: Reports Brain and Other (Multiple vascular surgeries)
Social History
Tobacco: Former Smoker (Quit 1 year ago)
Alcohol: Occasional
Personal:
Family History
Family History: Not pertinent
Allergies / Home Medications
Allergies reflects when Allergies were last updated in [facility].
Home Medications with original date entered in [facility]
Allergy/Medication List:
Allergies
Allergy/AdvReac Type Severity Reaction Status Date / Time
No Known Allergies Allergy Verified 12/08/23 10:38
Home Medications
aspirin 81 mg capsule 81 mg PO DAILY Blood Clot Prevention/Tx 04/25/23
ezetimibe 10 mg tablet 10 mg PO DAILY High Cholesterol 04/25/23
levothyroxine 25 mcg tablet 25 mcg PO DAILY Thyroid 04/25/23
losartan 50 mg tablet 25 mg PO DAILY Blood Pressure 04/25/23
rosuvastatin 40 mg tablet 40 mg PO QPM High Cholesterol 04/25/23
pantoprazole 40 mg tablet,delayed release 40 mg PO DAILY Gastrointestinal Issue 05/07/23
coQ10 (ubiquinol) 100 mg capsule (Qunol Shaw CoQ10) 100 mg PO DAILY Supplement 06/19/23
ferrous sulfate 325 mg (65 mg iron) tablet 325 mg PO QPM Supplement 11/26/23
metoprolol succinate 100 mg tablet,extended release 24 hr (Toprol XL) 100 mg PO QPM Blood Pressure 11/26/23
taurine 500 mg capsule 500 mg PO DAILY Supplement 11/26/23
cyanocobalamin (vitamin B-12) 1,000 mcg tablet 1,000 mcg PO DAILY #30 tabs 11/28/23
Review of Systems
-
History Source: Patient
Respiratory: Reports No Symptoms
Cardiac: Reports No Symptoms
Abdomen/GI: Reports Abdominal Pain (Mid to lower right quadrant tenderness)
: Reports No Symptoms
Musculoskeletal: Reports No Symptoms
Skin: Reports No Symptoms
Neurological: Reports No Symptoms
Endocrine: Reports No Symptoms
Hematologic/Lymphatic: Reports No Symptoms
Physical Exam
Vital Signs
Vital Signs
Temp Pulse Resp BP Pulse Ox
98 F 85 18 125/57 92
12/08/23 17:03 12/08/23 17:03 12/08/23 17:03 12/08/23 17:03 12/08/23 17:03
Physical Exam
General: Well Developed, Well Nourished, No Apparent Distress, Comfortable and Conversant
HEENT: NormoCephalic
Respiratory: Clear and Wheezes
Cardiac: Regular Rhythm and Carotid Bruits
Breast: Deferred by me
GI: Soft, Non Distended, Normal Bowel Sounds and Tender
Rectal: Deferred by Provider
Genito-urinary: Deferred by me
Musculoskeletal: No Clubbing, No Cyanosis and No Edema
Skin: Warm and Dry
Neuro: Nonfocal/grossly intact
Laboratory Results
-
12/08/23 17:18
12/08/23 11:25
Laboratory Results
Total Bilirubin 0.4 mg/dl (0.2-1.3) 12/08/23 11:25
AST 35 U/L (17-59) 12/08/23 11:25
ALT 28 U/L (0-50) 12/08/23 11:25
Alkaline Phosphatase 149 U/L (38-126) H 12/08/23 11:25
Impression/Plan
-
- Symptomatic left carotid artery stenosis:
Presenting with left-sided blurry vision and difficulty seeing
Vascular surgery consulted -Dr. Tapia discussed risks and benefits of carotid endarterectomy and plans to move forward with surgery if medically cleared -cardiology and GI consults ordered
Cardiology consult ordered
GI consult ordered -assess recurrent GI bleeds
Monitoring H&H
- Hx of GI bleeds and severe anemia requiring transfusion:
Monitor H&H and transfuse PRBCs as required
GI consult
Patient has dark stools because he takes iron pills
Heme occult test ordered
Plan to transfuse 1 unit of PRBCs prior to surgery
-Right-sided abdominal discomfort with weight loss and palpable liver:
Abdominal ultrasound ordered to assess the liver, depending on results we will obtain a CT of the abdomen with IV contrast. -Patient has chronic kidney disease and may need JASON prophylaxis.
[2023-12-08] MEDS: TYLENOL 650 MG PO (23:07)
[2023-12-09] VITALS (9 sets, daily range): BP systolic 87–121; BP diastolic 53–71
[2023-12-09] MEDS: SYNTHROID 25 MCG PO (05:53)
[2023-12-09] MEDS: LOW STRENGTH ASPIRIN 81 MG PO (08:04)
[2023-12-09] MEDS: ZETIA 10 MG PO (08:04)
[2023-12-09] MEDS: PROTONIX 40 MG PO (08:04)
[2023-12-09 08:57] LABS: Glycohemoglobin (HgbA1c) 6.8 % (4.0-5.6)
--- NOTE | 2023-12-09 09:02 | CON.NEURO4 ---
Consultation - Neurology 4
-
CONSULTING PHYSICIAN: Jose Roberto Bradshaw MD neurology
REFERRING PHYSICIAN: Hospitalist
DICTATED BY: Jose Roberto Bradshaw MD
DATE/TIME OF REQUEST: December 08, 2023
DATE/TIME OF CONSULTATION: December 08, 2023 1200
Reason for Consultation: Ataxia
History of Present Illness:
This is a 62year old right handed female who has presented to the hospital with difficulty standing and walking. He gives a history of hypertension coronary disease hypothyroidism dec-uaiylfg-[id number] diabetes peripheral vascular disease carotid
stenosis who has had multiple hospitalizations over the last 2 to 3 months.
Past Medical History: As above
Surgical History: Left femoral above-knee popliteal artery bypass with left common iliac stent placement
Family History: Coronary artery disease in both parents
Social History: Quit smoking
Allergies: None
Home Medications: Addendum
Review of Symptoms:
Patient denies any fever, headache, chest pain, shortness of breath, GI or symptoms.
�Per the HPI.�All systems are reviewed negative except above.
�- Remove any of these problems that patient may have complained about in the HPI.
�- If patient is unresponsive, intubated or demented, say 'Per the HPI. I am unable to obtain a complete review of systems�because of patient's inability to provide history.'
Vital Signs:
The patient has a
Temp Pulse Resp BP Pulse Ox
98 F 85 18 125/57 92
12/08/23 17:03 12/08/23 17:03 12/08/23 17:03 12/08/23 17:03 12/08/23 17:03
Physical Exam:
The patient is afebrile, heart sounds S1 and S2 are regular , and chest is clear to auscultation bilaterally.
- If not clear, describe.
Neurologic Examination:
The patient is awake, alert and oriented x 3. (He/She) is able to follow commands and answer questions appropriately. There is no aphasia or dysarthria. On cranial nerve assessment, pupils are 3 mm bilateral, round and reactive to light and
accommodation. Visual levi are full. Extraocular movements are intact. Facial sensations are intact and bilaterally symmetrical, there is no facial asymmetry. Hearing is intact bilaterally to normal conversation volume. Tongue palate and uvula
are midline. Sternocleidomastoid strengths are full bilaterally. Motor strengths are 5/5 bilateral upper and lower extremities on medical research Shunk scale. There is no drift or involuntary movement noted. Deep tendon reflexes are 2+ bilateral
upper and lower extremities and Babinski is absent bilaterally. Sensations of pain, touch, temperature and vibration are intact and bilaterally symmetrical. There was no extinction noted on double simultaneous stimulation. Coordination is intact by
finger to nose bilaterally.
Lab Results: Addendum
Neuro Imaging: MRI of the brain revealed mild age-related parenchymal atrophy. Small chronic lacunar infarcts in the bilateral basal ganglia and byrd radiata. Small chronic infarcts of the bilateral cerebellar hemispheres, right greater than left.
T2/FLAIR hyperintense signal in the white matter of the bilateral cerebral hemispheres, most compatible with the changes of mild chronic microangiopathic ischemia. No mass effect, midline shift, or extra axial collection. No abnormal signal
intensity on diffusion-weighted images. Small focus of T2 shine through in the subcortical left parietal lobe.
Impression:
Mr. TESSY KENDALL is a 62 year old M who has presented to the hospital with blurred vision OS secondary to carotid artery stenosis(left)
Recommendations:
1. Continue aspirin
2. Consult vascular surgery for carotid endarterectomy
3. High-dose statins
Discussed patient care with: Hospitalist and vascular surgery
Total Time Spent with Patient (in minutes): 30
Medications
-
Active Medications
Generic Name Dose Route Start Last Admin
Trade Name Freq PRN Reason Stop Dose Admin
Acetaminophen 650 mg 12/08/23 16:37 12/08/23 23:07
Acetaminophen 325 Mg Tablet PO 01/05/24 16:36 650 mg
Q6HPRN PRN Administration
mild pain/ fever>100.5F
Aspirin 81 mg 12/09/23 08:00 12/09/23 08:04
Aspirin 81 Mg Chewable Tablet PO 01/06/24 07:59 81 mg
DAILY JAYRO Administration
Ezetimibe 10 mg 12/09/23 08:00 12/09/23 08:04
Ezetimibe (Zetia) 10 Mg Tablet PO 01/06/24 07:59 10 mg
DAILY JAYRO Administration
Ferrous Sulfate 325 mg 12/08/23 18:00 12/08/23 17:12
Ferrous Sulfate 325 Mg Tablet PO 01/05/24 17:59 325 mg
QPM JAYRO Administration
Levothyroxine Sodium 25 mcg 12/09/23 06:00 12/09/23 05:53
Levothyroxine 25 Mcg Tablet PO 01/06/24 05:59 25 mcg
DAILY@0600 JAYRO Administration
Losartan Potassium 25 mg 12/09/23 08:00
Losartan 25 Mg Tablet PO 01/06/24 07:59
DAILY JAYRO
Metoprolol Succinate 100 mg 12/08/23 18:00 12/08/23 17:13
Metoprolol 100 Mg Extended Release Tablet PO 01/05/24 17:59 100 mg
QPM JAYRO Administration
Pantoprazole Sodium 40 mg 12/09/23 08:00 12/09/23 08:04
Pantoprazole 40 Mg Delayed Release Tablet PO 01/06/24 07:59 40 mg
DAILY JAYRO Administration
Rosuvastatin Calcium 40 mg 12/08/23 18:00 12/08/23 17:13
Rosuvastatin (Crestor) 40 Mg Tablet PO 01/05/24 17:59 40 mg
QPM JAYRO Administration
Sodium Chloride 0 flush 12/08/23 17:00
Sodium Chloride 0.9% (Flush) Syringe IV 01/05/24 16:59
PER PROTOCOL JAYRO
Home Medications
�Medication �Instructions �Recorded
aspirin 81 mg capsule 81 mg PO DAILY Blood Clot 04/25/23
Prevention/Tx
ezetimibe 10 mg tablet 10 mg PO DAILY High Cholesterol 04/25/23
levothyroxine 25 mcg tablet 25 mcg PO DAILY Thyroid 04/25/23
losartan 50 mg tablet 25 mg PO DAILY Blood Pressure 04/25/23
rosuvastatin 40 mg tablet 40 mg PO QPM High Cholesterol 04/25/23
pantoprazole 40 mg tablet,delayed 40 mg PO DAILY Gastrointestinal 05/07/23
release Issue
coQ10 (ubiquinol) 100 mg capsule 100 mg PO DAILY Supplement 06/19/23
(Qunol Shaw CoQ10)
ferrous sulfate 325 mg (65 mg 325 mg PO QPM Supplement 11/26/23
iron) tablet
metoprolol succinate 100 mg 100 mg PO QPM Blood Pressure 11/26/23
tablet,extended release 24 hr
(Toprol XL)
taurine 500 mg capsule 500 mg PO DAILY Supplement 11/26/23
cyanocobalamin (vitamin B-12) 1,000 mcg PO DAILY #30 tabs 11/28/23
1,000 mcg tablet
Vital Signs and Labs
-
Vital Signs and Labs:
Vital Signs
Temp Pulse Resp BP Pulse Ox
36.8 C 80 19 87/53 97
12/09/23 07:30 12/09/23 07:30 12/09/23 07:30 12/09/23 07:30 12/09/23 07:30
Sodium 136 mmol/L (135-145) 12/08/23 11:25
Potassium 4.8 mmol/L (3.5-5.1) 12/08/23 11:25
BUN 18 mg/dl (9-20) 12/08/23 11:25
Glucose 118 mg/dl (70-99) H 12/08/23 11:25
Calcium 9.1 mg/dl (8.4-10.2) 12/08/23 11:25
--- NOTE | 2023-12-09 09:18 | W.PN.HOSP.TC ---
Addendum entered and electronically signed by Immanuel Daugherty MD 12/09/23 15:35:
I saw and evaluated the patient. I reviewed the resident�s note and agree with findings and plan as documented in the resident�s note.
Patient has not had a fever and there is a mild leukocytosis. 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 Ultrasound shows gallstone in the neck of the gallbladder and positive Escoto sign. No ultrasound findings of gallbladder wall
thickening or pericholecystic fluid. Obtain general surgery consultation to rule out acute cholecystitis.
CEA planned for Friday/ which might be on hold depending on general surgery evaluation. Appt all subspecialists input.
Original Note:
Today's Communication/Plan
-
Patient was transfused 1 unit of PRBCs due to having low hemoglobin at a level of 7 on 12/08. Awaiting hematology consult. Patient cleared by GI for antiplatelet/anticoagulation plan for carotid endarterectomy and they recommended hematology
evaluation. Neurology consulted recommending continuing aspirin, consulting vascular surgery for carotid endarterectomy, and giving high-dose statins. Hematology consult is under the impression that the patient remains iron deficient so they began
IV iron today. They will also check methylmalonic acid due to worries of borderline low B12 level.
Patient had a raised temperature of 102.9 overnight raising suspicion for infection. Patient has an elevated white blood cell count at 11.4 and we we will check for possible source of infection using urine analysis and blood culture.
Assessment / Plan
Assessment / Plan
- Symptomatic left carotid artery stenosis:
Presenting with left-sided blurry vision and difficulty seeing
Carotid ultrasound conducted on 12/07 showed extensive calcified and noncalcified plaque within the bulb and proximal internal carotid artery with severely elevated systolic and diastolic velocities measuring 838 and 362 cm/s respectively. Elevated
ICA/CCA ratio of 12.83. Findings consistent with 70% stenosis
Vascular surgery consulted -Dr. Tapia discussed risks and benefits of carotid endarterectomy and plans to move forward with surgery if medically cleared -cardiology and GI consults ordered
Cardiology consult ordered
Neurology consult -recommended continuing aspirin, consulting vascular surgery for carotid endarterectomy, and high-dose statins.
GI consult ordered -they believe the patient is okay for antiplatelet and anticoagulation for planned upcoming carotid endarterectomy.
Monitoring H&H
- Hx of GI bleeds and severe anemia requiring transfusion:
Monitor H&H and transfuse PRBCs as required
GI consult - they believe the patient is okay for antiplatelet and anticoagulation for planned upcoming carotid endarterectomy.
Patient has dark stools because he takes iron pills
Heme occult test ordered
Plan to transfuse 1 unit of PRBCs prior to surgery - hemoglobin was 7 on 12/08, 1 unit of PRBCs administered
Hematology consult pending
-Right-sided abdominal discomfort with weight loss and palpable liver:
Abdominal ultrasound ordered to assess the liver, depending on results we will obtain a CT of the abdomen with IV contrast. -Patient has chronic kidney disease and may need JASON prophylaxis. -Awaiting pending ultrasound results
Anticipated Discharge: 24 - 48 hours
Subjective/Interval History
-
Date of Service: December 09, 2023
Met with patient at the bedside. He states that he is doing the same as he was yesterday and is hoping that his upcoming procedure goes well. He continues to have blurry vision and is unsteady on his feet at times. He is polite in conversation
and states that his will come to visit him later on today.
Objective Data
-
Labs:
Laboratory Results
12/09/23 12/09/23 12/09/23
01:28 06:00 08:37
WBC Pending
Hgb 7.0 L Pending Pending
Hct 21.0 L Pending Pending
Plt Count Pending
Sodium Pending
Potassium Pending
Chloride Pending
Carbon Dioxide Pending
BUN Pending
Creatinine Pending
Glucose Pending
Calcium Pending
Vital Signs:
Vital Signs
Temp Pulse Resp BP Pulse Ox
98.3 F 80 19 87/53 97
12/09/23 07:30 12/09/23 07:30 12/09/23 07:30 12/09/23 07:30 12/09/23 07:30
I&O
12/08/23 12/09/23 12/10/23
06:59 06:59 06:59
Output Total 575 / 575
Balance -575 / -575
Review of Systems
-
History Source: Patient
Constitutional: Reports No Symptoms
EENT: Reports Blurry Vision (Left-sided blurry vision)
Respiratory: Reports No Symptoms
Cardiac: Reports No Symptoms
Abdomen/GI: Reports Abdominal Pain (Mild abdominal pain in the mid to lower right quadrant) and Other (Dullness to percussion on the lower and mid right abdominal quadrant)
Breast: Reports No Symptoms
Genitourinary: Reports No Symptoms
Musculoskeletal: Reports No Symptoms
Skin: Reports No Symptoms
Neuro: Reports No Symptoms
Endocrine: Reports No Symptoms
Hematologic / Lymphatic: Reports No Symptoms
Allergy / Immunology: Reports No Symptoms
Physical Exam
-
General: Well Developed, Well Nourished, No Apparent Distress and Comfortable
HEENT: Normocephalic, Atraumatic and Moist Mucous Membranes
Respiratory: Clear to Auscultation
Cardiac: Regular Rhythm, S1/S2 and Carotid Bruits
Breast: Deferred by me
GI: Soft, Nondistended, Normal Bowel Sounds and Tender (Tender on the right lower and mid quadrants)
Rectal: Deferred by Provider
Genito-urinary: Deferred by me
Musculoskeletal: No Clubbing, No Cyanosis and No Edema
Skin: Warm and Dry
Neuro: Nonfocal/Grossly Intact
Psych: Calm
[2023-12-09 10:46] LABS: Hematocrit 24.4 % (39.0-52.0); Hemoglobin 7.8 g/dL (13.0-18.0); Mean Corpuscular Hgb 25.2 pg (27.0-31.0); Mean Corpuscular Volume 78.7 fL (80.0-94.0); Mean Platelet Volume 10.2 fL (7.4-10.4); Platelet Count 534 10^3/uL (130-400); White Blood Cell Count 11.4 10^3/uL (4.8-10.8)
[2023-12-09 10:47] LABS: Hematocrit 24.3 % (39.0-52.0); Hemoglobin 7.7 g/dL (13.0-18.0)
[2023-12-09 10:51] LABS: COVID-19 Antigen Negative (Negative)
[2023-12-09 10:54] LABS: Blood Urea Nitrogen 19 mg/dl (9-20); Calcium 9.1 mg/dl (8.4-10.2); Carbon Dioxide 24 mmol/L (22-30); Chloride 104 mmol/L (98-107); Estimated Creatinine Clearance 47 ml/min; Glucose 108 mg/dl (70-99); Potassium 4.5 mmol/L (3.5-5.1); Sodium 135 mmol/L (135-145); eGFR 51.99
[2023-12-09] MEDS: COZAAR 25 MG PO (11:56)
--- NOTE | 2023-12-09 13:34 | CON.ONC ---
Impression
Impression
Iron deficiency anemia, bleeding site not identified; thrombocytosis reactive to iron deficiency
Carotid artery stenosis, requiring endarterectomy
Peripheral vascular disease
Diabetes
Coronary artery disease
Plan
Plan
He remains iron deficient after a trial of oral iron. Will begin IV iron today. Will check methylmalonic acid in light of borderline low B12 level.
Patient History
History of Present Illness
Consult from Dr. Daugherty regarding anemia
This 62-year-old man was admitted with carotid artery stenosis. This was recently discovered and plans were being made for endarterectomy. However he developed some visual problems and his [facility] specialists told him that it was due to his stenosis,
accordingly he has been hospitalized and the surgery date moved up. He has a history dating back earlier this year of GI bleeding, when he presented with a hemoglobin of 5 g. He underwent a thorough GI evaluation without any apparent bleeding site
being found. He was taking aspirin due to peripheral arterial disease. He was started on oral iron. He has been transfused with a total of 5 units of packed cells in the last 6 months. His recent history has also been characterized by several
procedures for peripheral arterial disease in June. He denies any prior hematologic problems or transfusions. He has lost about 30 pounds, but says he is afraid to eat as he is worried it will aggravate his bleeding. His stools have been
black, but he has been taking oral iron. Evaluation here shows persistent anemia of about 8 g, and a mild thrombocytosis.
Past-Medical/Surgical History
As per problem list below.
Social history: He stopped smoking 1 year ago.
Family history is noncontributory.
Patient Medication
�Medication �Instructions �Recorded �Confirmed �Last Taken �Type
aspirin 81 mg capsule 81 mg PO DAILY Blood Clot 04/25/23 12/08/23 12/08/23 History
Prevention/Tx
ezetimibe 10 mg tablet 10 mg PO DAILY High Cholesterol 04/25/23 12/08/23 12/08/23 History
levothyroxine 25 mcg tablet 25 mcg PO DAILY Thyroid 04/25/23 12/08/23 12/08/23 History
losartan 50 mg tablet 25 mg PO DAILY Blood Pressure 04/25/23 12/08/23 12/08/23 History
rosuvastatin 40 mg tablet 40 mg PO QPM High Cholesterol 04/25/23 12/08/23 12/07/23 History
pantoprazole 40 mg tablet,delayed 40 mg PO DAILY Gastrointestinal 05/07/23 12/08/23 12/08/23 History
release Issue
coQ10 (ubiquinol) 100 mg capsule 100 mg PO DAILY Supplement 06/19/23 12/08/23 12/08/23 History
(Qunol Shaw CoQ10)
ferrous sulfate 325 mg (65 mg 325 mg PO QPM Supplement 11/26/23 12/08/23 12/07/23 History
iron) tablet
metoprolol succinate 100 mg 100 mg PO QPM Blood Pressure 11/26/23 12/08/23 12/07/23 History
tablet,extended release 24 hr
(Toprol XL)
taurine 500 mg capsule 500 mg PO DAILY Supplement 11/26/23 12/08/23 12/08/23 History
cyanocobalamin (vitamin B-12) 1,000 mcg PO DAILY #30 tabs 11/28/23 12/08/23 12/08/23 Rx
1,000 mcg tablet
Active Medications
Generic Name Dose Route Start Last Admin
Trade Name Freq PRN Reason Stop Dose Admin
Acetaminophen 650 mg 12/08/23 16:37 12/08/23 23:07
Acetaminophen 325 Mg Tablet PO 01/05/24 16:36 650 mg
Q6HPRN PRN Administration
mild pain/ fever>100.5F
Aspirin 81 mg 12/09/23 08:00 12/09/23 08:04
Aspirin 81 Mg Chewable Tablet PO 01/06/24 07:59 81 mg
DAILY JAYRO Administration
Ezetimibe 10 mg 12/09/23 08:00 12/09/23 08:04
Ezetimibe (Zetia) 10 Mg Tablet PO 01/06/24 07:59 10 mg
DAILY JAYRO Administration
Ferrous Sulfate 325 mg 12/08/23 18:00 12/08/23 17:12
Ferrous Sulfate 325 Mg Tablet PO 01/05/24 17:59 325 mg
QPM JAYRO Administration
Ferric Sodium Gluconate 110 mls @ 110 mls/hr 12/09/23 14:00
Complex 125 mg/ Sodium IV 12/13/23 14:59
Chloride DAILY@1400 JAYRO
Levothyroxine Sodium 25 mcg 12/09/23 06:00 12/09/23 05:53
Levothyroxine 25 Mcg Tablet PO 01/06/24 05:59 25 mcg
DAILY@0600 JAYRO Administration
Losartan Potassium 25 mg 12/09/23 08:00 12/09/23 11:56
Losartan 25 Mg Tablet PO 01/06/24 07:59 25 mg
DAILY JAYRO Administration
Metoprolol Succinate 100 mg 12/08/23 18:00 12/08/23 17:13
Metoprolol 100 Mg Extended Release Tablet PO 01/05/24 17:59 100 mg
QPM JAYRO Administration
Pantoprazole Sodium 40 mg 12/09/23 08:00 12/09/23 08:04
Pantoprazole 40 Mg Delayed Release Tablet PO 01/06/24 07:59 40 mg
DAILY JAYRO Administration
Rosuvastatin Calcium 40 mg 12/08/23 18:00 12/08/23 17:13
Rosuvastatin (Crestor) 40 Mg Tablet PO 01/05/24 17:59 40 mg
QPM JAYRO Administration
Sodium Chloride 0 flush 12/08/23 17:00
Sodium Chloride 0.9% (Flush) Syringe IV 01/05/24 16:59
PER PROTOCOL JAYRO
Review of Systems
-
All Other Systems: Reviewed and Negative
Physical Exam
-
Physical examination shows the patient to be in no acute distress.
HEENT exam is unremarkable.
There are no palpable nodes.
Chest is clear.
The heart is regular with no murmur or gallop, but heart tones are very distant.
The abdomen is soft and nontender with no organomegaly or masses.
Extremities are unremarkable.
Neurologic is grossly intact.
Labs
Lab Results
WBC 11.4 10^3/uL (4.8-10.8) H 12/09/23 10:20
RBC 3.10 10^6/uL (4.70-6.10) L 12/09/23 10:20
Hgb 7.7 g/dL (13.0-18.0) L 12/09/23 10:20
Hgb 7.8 g/dL (13.0-18.0) L 12/09/23 10:20
Hct 24.3 % (39.0-52.0) L 12/09/23 10:20
Hct 24.4 % (39.0-52.0) L 12/09/23 10:20
MCV 78.7 fL (80.0-94.0) L 12/09/23 10:20
MCH 25.2 pg (27.0-31.0) L 12/09/23 10:20
MCHC 32.0 g/dL (33.0-37.0) L 12/09/23 10:20
RDW 18.0 % (11.5-14.5) H 12/09/23 10:20
Plt Count 534 10^3/uL (130-400) H 12/09/23 10:20
MPV 10.2 fL (7.4-10.4) 12/09/23 10:20
Abs Immat Gran (auto) 0.1 10^3/uL (0-0.05) H 12/08/23 11:25
Absolute Neuts (auto) 8.6 10^3/uL (1.4-6.5) H 12/08/23 11:25
Absolute Lymphs (auto) 1.4 10^3/uL (1.2-3.4) 12/08/23 11:25
Absolute Monos (auto) 0.9 10^3/uL (0.1-0.6) H 12/08/23 11:25
Absolute Eos (auto) 0.2 10^3/uL (0-0.7) 12/08/23 11:25
Absolute Basos (auto) 0.0 10^3/uL (0-0.2) 12/08/23 11:25
Immature Gran % 0.4 % (0-0.5) 12/08/23 11:25
Neutrophils % 77.1 % (42.2-75.2) H 12/08/23 11:25
Lymphocytes % 12.4 % (20.5-51.1) L 12/08/23 11:25
Monocytes % 7.7 % (1.7-9.3) 12/08/23 11:25
Eosinophils % 2.0 % (0-6) 12/08/23 11:25
Basophils % 0.4 % (0-2) 12/08/23 11:25
Creatinine 1.5 mg/dL (0.7-1.3) H 12/09/23 10:20
Vital Signs
Vital Signs
Temp Pulse Resp BP Pulse Ox
98.6 F 78 19 121/65 94
12/09/23 11:15 12/09/23 11:56 12/09/23 11:15 12/09/23 11:56 12/09/23 11:15
[2023-12-09] MEDS: FERRLECIT 110 MG IV (14:37)
--- NOTE | 2023-12-09 15:12 | W.PN.GI.CBS2 ---
Today's Communication / Plan
-
as per plan
Assessment / Plan
-
62 year old male with past medical history of AAA, CAD, PAD s/p lower extremity vascular bypass grafts (R 06/19/23, L 09/03/23), symptomatic anemia, hypertension, hyperlipidemia, recent hospitalization for GI bleed, who presents to the ED today for
continued dizziness. The patient is to have CEA. GI is consulted to evaluate given his recent GI bleed and evaluation if since patient will require heparin during surgery for left CEA. Since the beginning of September, he has been experiencing fatigue,
unsteadiness, and blurry vision. He was recently hospitalized 11/08/23-11/11/23 for symptomatic anemia and GI bleed; EGD and colonoscopy were unremarkable, and he was discharged with PO iron which he has been taking nightly. He was seen in the GI
outpatient office 11/18/23 for capsule endoscopy to evaluate melena, this showed normal stomach, inflammatory polyp in the duodenum with some erosion, colon visualized and this was normal. The patient had EGD performed on 11/28/23 that showed normal
esophagus, stomach normal, patchy nodular mucosa in the first portion of the duodenum (same as prior endoscopy and seen on capsule) this was bx which showed polypoid duodenal mucosa with mild hyperplastic change and foveolar metaplasia suggestive of
peptic duodenitis. The patient continued on oral iron and pantoprazole 40 mg daily. He did state that for the past 2 days he had had a right pelvic discomfort that would come and go. Nothing would make better or worse. No change in BM. Denies any F,
C, N, V, melena, hematochezia, dysphagia or odynophagia. Tolerating diet without any issues. Main concern is dizziness. Patient presents with WBC 11.2, Hgb 7.7 (down from 8.4), PLT 530, MCV 76.8, MCH 24.8, BUN 18, Creat 1.5, T Bili 0.4, AST 35, ALT
28, Alk Phos 149.
Rectal exam performed by myself with solid green stool that was negative for occult blood.
Impression:
Iron deficiency anemia-> stool negative for occult blood at this time, with negative EGD x 2/VCE/Colonoscopy
Mild leukocytosis
Fever-> T max 102.9
RUQ pain-> Gallstone in neck of GB
Dizziness
Elevated alk Phos (mild)
Mild RLQ/Pelvic tenderness-> pain now in RUQ
Abdominal aortic aneurysm
Plan:
-Continue Pantoprazole 40 mg daily
-Appreciate Heme and Surgery consultations
-HIDA scan pending
-Would still consider non contrast CT Abd/Pelvis, will defer to IM.
-Ok per GI to start/use anticoagulation needed for procedures.
Subjective
Subjective
Date of Service: December 09, 2023
Patient became febrile last evening to 102.9, currently 99.0. Pain changed locations from RLQ to RUQ this am. WBC count increased to 11.4 from 11.2, blood cultures pending. US Abd shows Large gallbladder filled with sludge and stones with at least
one stone seen in the vicinity of the gallbladder neck. No gallbladder wall thickening or findings to confirm pericholecystic fluid. Positive sonographic Escoto's sign. No findings to suggest biliary tract dilatation. Overall findings could
represent acute cholecystitis. Hgb dropped to 7.0 this am, seen by Hematology. Started on IV iron. Seen by General Surgery and going for HIDA scan.
Objective
Data Reviewed
Laboratory Data:
Laboratory Results
12/09/23 10:20
12/09/23 10:20
Laboratory Results
Total Bilirubin 0.4 mg/dl (0.2-1.3) 12/08/23 11:25
AST 35 U/L (17-59) 12/08/23 11:25
ALT 28 U/L (0-50) 12/08/23 11:25
Alkaline Phosphatase 149 U/L (38-126) H 12/08/23 11:25
Vital Signs and I&O:
Vital Signs
Temp Pulse Resp BP Pulse Ox
99.0 F 79 19 106/65 98
12/09/23 14:56 12/09/23 14:56 12/09/23 14:56 12/09/23 14:56 12/09/23 14:56
I&O
12/08/23 12/09/23 12/10/23
06:59 06:59 06:59
Output Total 575 / 575
Balance -575 / -575
Physical Exam
Physical Exam
HEENT: Anicteric
Cardiology: Normal Sinus Rhythm
Pulmonary: Clear (anterior)
GI: Soft, Non Distended, Tender (RUQ) and Normal Bowel Sounds
Extremities: No Edema
--- NOTE | 2023-12-09 15:33 | CM ---
CM met with pt and spouse
They resides in a 2[address] with 2STE, full flight to 2nd floor
Pt notes independence with his ADLs, no ADs, drives+, works
Pt discharged earlier this month with outpatient therapy recommendations
Pt noted he did not start outpt as script was not provided during last dc
He requesting script to be provided on this dc
PCP- Luisa Viramontes
Rx- [facility]
Discharge Disposition- home with outpt therapy ( will need script)
--- NOTE | 2023-12-09 15:36 | CON.GS ---
Medical History
-
Chief Complaint: RUQ pain and blurred vision
History of Present Illness:
Patient is a 62 yo M with a PMH notable for HTN, HLD, CAD s/p PCI, AAA, NIDDM, PAD s/p bilateral lower extremity bypass in 06/2023 and 08/2023, symptomatic anemia due to presumed GI bleed in 10/2023, and high-grade carotid stenosis. 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 He continues to have visual disturbances. He reports RUQ abdominal discomfort which began a few days previously. He has had prior attacks of
RUQ abdominal pain associated with fatty food intake. His notes an attack last year as well as approximately 2 months ago which lasted several days. He denies any jaundice, pale stools, or tea colored urine. He has been febrile up to 102 as
recently as yesterday evening. He is not currently on any antibiotics. Tentative plans for a carotid endarterectomy tomorrow.
Past Medical History
Past Medical History: CAD, CVA, HTN, Hypercholesterolemia, NIDDM and Other (PAD, AAA, GI bleed)
Past Surgical History: Cardiac (PCI with stent) and Other (Bl LE bypass and iliac stenting)
Social History
Tobacco: Former Smoker
Alcohol: None
Drug: None
Personal:
Living: With Family
Family History
Family History: Reviewed & Not Pertinent
Allergies / Home Medications
Allergy/AdvReac Type Severity Reaction Status Date / Time
ceftriaxone Allergy Severe Hives Uncoded 12/09/23 10:13
�Medication �Instructions �Recorded �Confirmed �Type
aspirin 81 mg capsule 81 mg PO DAILY Blood Clot 04/25/23 12/08/23 History
Prevention/Tx
ezetimibe 10 mg tablet 10 mg PO DAILY High Cholesterol 04/25/23 12/08/23 History
levothyroxine 25 mcg tablet 25 mcg PO DAILY Thyroid 04/25/23 12/08/23 History
losartan 50 mg tablet 25 mg PO DAILY Blood Pressure 04/25/23 12/08/23 History
rosuvastatin 40 mg tablet 40 mg PO QPM High Cholesterol 04/25/23 12/08/23 History
pantoprazole 40 mg tablet,delayed 40 mg PO DAILY Gastrointestinal 05/07/23 12/08/23 History
release Issue
coQ10 (ubiquinol) 100 mg capsule 100 mg PO DAILY Supplement 06/19/23 12/08/23 History
(Qunol Shaw CoQ10)
ferrous sulfate 325 mg (65 mg 325 mg PO QPM Supplement 11/26/23 12/08/23 History
iron) tablet
metoprolol succinate 100 mg 100 mg PO QPM Blood Pressure 11/26/23 12/08/23 History
tablet,extended release 24 hr
(Toprol XL)
taurine 500 mg capsule 500 mg PO DAILY Supplement 11/26/23 12/08/23 History
cyanocobalamin (vitamin B-12) 1,000 mcg PO DAILY #30 tabs 11/28/23 12/08/23 Rx
1,000 mcg tablet
Review of Systems
-
A 10 point review of systems was completed, and was negative except as per HPI.
Physical Exam
Vital Signs
Temp Pulse Resp BP Pulse Ox
99.0 F 79 19 106/65 98
12/09/23 14:56 12/09/23 14:56 12/09/23 14:56 12/09/23 14:56 12/09/23 14:56
12/08/23 12/09/23 12/10/23
06:59 06:59 06:59
Actual Weight 75.296 kg
Body Mass Index (BMI) 26.0
Lab Results
12/09/23 10:20
12/09/23 10:20
WBC 11.4 10^3/uL (4.8-10.8) H 12/09/23 10:20
Hgb 7.7 g/dL (13.0-18.0) L 12/09/23 10:20
Hgb 7.8 g/dL (13.0-18.0) L 12/09/23 10:20
Hct 24.3 % (39.0-52.0) L 12/09/23 10:20
Hct 24.4 % (39.0-52.0) L 12/09/23 10:20
Plt Count 534 10^3/uL (130-400) H 12/09/23 10:20
Abs Immat Gran (auto) 0.1 10^3/uL (0-0.05) H 12/08/23 11:25
Neutrophils % 77.1 % (42.2-75.2) H 12/08/23 11:25
Physical Exam
General: Well Developed, Well Nourished and No Apparent Distress
HEENT: Normocephalic and Anicteric
Respiratory: Non Labored Respirations
Cardiac: Regular Rhythm
GI: Soft, Non Distended, Tender (RUQ, positive Escoto's sign) and Other (Non-peritoneal)
Musculoskeletal: No Edema
Neuro: Nonfocal/Grossly Intact
Data Reviewed
-
Ultrasound: Image Personally Visualized and interpreted and Report Reviewed by me
Labs: Labs Reviewed by me
Old Records: Reviewed
Assessment / Plan
-
Patient is a 62 yo M p/w symptomatic carotid stenosis? with tentative plans for a CEA
During the course of his workup he has been found to have RUQ abdominal pain, fevers, and a persistent leukocytosis. Ultrasound demonstrates cholelithiasis and a positive sonographic Escoto sign without other evidence of acute cholecystitis.
Clinically patient has acute on chronic cholecystitis. The natural history and pathophysiology of biliary and stone disease was reviewed. Cholecystitis is unlikely to be sufficiently managed with antibiotics alone. Recommend a HIDA scan to
confirm cystic duct obstruction. Pending the results of the studies would recommend IR guided cholecystostomy tube placement given his to increased risk for general anesthetic complications with severe carotid stenosis. Above was discussed with
the patient and his . Hospitalist and Vascular Surgery updated.
-- HIDA
-- NPO, IVF
-- Abx: Zosyn
-- If HIDA positive would consult IR for cholecystostomy tube placement
--- NOTE | 2023-12-09 16:18 | W.PN.UPDATE ---
Update Note
Progress Note Update
Discussed with Dr. Gooden general surgery. He feels that likely the fever is resultant from cholecystitis (acute cholecystitis). Ultrasound was concerning for that. Discussed that he would favor management of the carotid issue definitively prior
to his proceeding with cholecystectomy. Therefore he favors percutaneous drainage of the cholecystitis/gallbladder for now. Accordingly if he is showing no signs of clinical sepsis or bacteremia then we could proceed with carotid intervention at
that point. Therefore we will hold off on any intervention for tomorrow. Potentially depending on stability versus next week if we should need to give him a few more days to cool the gallbladder down.
--- NOTE | 2023-12-09 17:01 | PTCARENOTE ---
Called to Nuc med at 1645 to give Morphine to this patient. Patient awake and alert. States allergy to ceftriaxone. Patient identified, VS @1650 BP 124/71-82-16 Pox 94%. MSO4 2mg IV @1654. Denies complaints. VS@ 1700 115/62 78-16 95%.
Patient in care of nuclear med staff
[2023-12-09] MEDS: FEOSOL PO (17:48)
[2023-12-09] MEDS: TOPROL XL 100 MG PO (18:32)
[2023-12-09] MEDS: CRESTOR 40 MG PO (18:33)
[2023-12-09 20:20] LABS: Urine Albumin Trace (Neg - Trace); Urine Bilirubin 1+ (Negative); Urine Character Clear (Clear); Urine Color Yellow; Urine Glucose Negative (Negative); Urine Ketone Trace (Negative); Urine Leukocyte Negative (Negative); Urine Nitrite Negative (Negative); Urine Occult Blood Negative (Negative); Urine Specific Gravity 1.025 (<1.030); Urine Urobilinogen Negative (Neg - 1+)
[2023-12-09] MEDS: ZOSYN 50 IV (20:56)
[2023-12-09] MEDS: TYLENOL 650 MG PO (20:56)
--- NOTE | 2023-12-09 23:00 | PTCARENOTE ---
blood transfusion completed. VSS. no reaction noted.
[2023-12-10] VITALS (10 sets, daily range): BP systolic 70–123; BP diastolic 53–78
[2023-12-10] MEDS: ZOSYN 50 IV ×4 (02:42→19:22)
[2023-12-10] MEDS: SYNTHROID 25 MCG PO (06:24)
--- NOTE | 2023-12-10 07:05 | W.PN.ONC2 ---
Today's Communication / Plan
-
IV iron.
CEA once cholecystitis is stabilized percutaneous drainage of the gallbladder + Abx.
Impression
Impression
Iron deficiency anemia, bleeding site not identified; thrombocytosis reactive to iron deficiency
Carotid artery stenosis, requiring endarterectomy
Peripheral vascular disease
Acute cholecystitis
Diabetes
Coronary artery disease
Plan
Plan
Receiving IV iron to rapidly improve iron stores.
Await vascular surgery plans for CEA as now with acute cholecystis, CEA is being delayed a bit: Surgery favors percutaneous drainage of the cholecystitis/gallbladder with slight delay in CEA
Subjective/Objective
Chief Complaint
ACS Heme Onc
Subjective
No new c/o. Awaiting clearance to get CEA.
Vital Signs:
Vital Signs
Temp Pulse Resp BP Pulse Ox
99.4 F 79 18 123/65 95
12/10/23 03:03 12/10/23 03:03 12/10/23 03:03 12/10/23 03:03 12/10/23 03:03
Lab Results:
Laboratory Data
WBC 11.4 10^3/uL (4.8-10.8) H 12/09/23 10:20
Hgb 7.7 g/dL (13.0-18.0) L 12/09/23 10:20
Hgb 7.8 g/dL (13.0-18.0) L 12/09/23 10:20
Plt Count 534 10^3/uL (130-400) H 12/09/23 10:20
eGFR 51.99 12/09/23 10:20
Physical Exam
HEENT: No Jaundice
Cardiology: S1 and S2
Pulmonary: Clear
GI: Soft
--- NOTE | 2023-12-10 08:24 | W.PN.UPDATE ---
Update Note
Progress Note Update
Seen and evaluated this morning. Stable neurologically. Discussed with him plan based on finding of acute cholecystitis. Await percutaneous drainage. Then will decide timing of carotid intervention (possibly tomorrow if no concern from general
surgery or medical standpoint in terms of infectious risk, otherwise would delay a few days).
[2023-12-10 08:47] LABS: Hematocrit 26.4 % (39.0-52.0); Hemoglobin 8.7 g/dL (13.0-18.0); Mean Corpuscular Hgb 25.5 pg (27.0-31.0); Mean Corpuscular Volume 77.4 fL (80.0-94.0); Platelet Count 520 10^3/uL (130-400); Red Blood Cell Count 3.41 10^6/uL (4.70-6.10); Red Cell Dist. Width 17.9 % (11.5-14.5); White Blood Cell Count 10.8 10^3/uL (4.8-10.8)
[2023-12-10 09:13] LABS: ALT (SGPT) 38 U/L (0-50); AST (SGOT) 65 U/L (17-59); Alkaline Phosphatase 165 U/L (38-126); Blood Urea Nitrogen 20 mg/dl (9-20); Carbon Dioxide 20 mmol/L (22-30); Chloride 104 mmol/L (98-107); Estimated Creatinine Clearance 44 ml/min; Glucose 93 mg/dl (70-99); Potassium 4.4 mmol/L (3.5-5.1); Sodium 136 mmol/L (135-145); Total Bilirubin 0.5 mg/dl (0.2-1.3); Total Protein 5.8 g/dl (6.3-8.2); eGFR 48.11
[2023-12-10] MEDS: LOW STRENGTH ASPIRIN 81 MG PO (09:27)
[2023-12-10] MEDS: PROTONIX 40 MG PO (09:27)
[2023-12-10] MEDS: COZAAR 25 MG PO (09:27)
[2023-12-10] MEDS: ZETIA 10 MG PO (09:27)
--- NOTE | 2023-12-10 10:40 | W.PN.GS2 ---
Today's Communication / Plan
-
Percutaneous cholecystostomy tube today.
Assessment / Plan
-
This is a 62-year-old male with a history of hypertension, hyperlipidemia, CAD status post PCI, AAA, diabetes, PAD status post bilateral lower extremity bypass, recent GI bleed though negative workup who presents with right upper quadrant pain that
began a few days ago in the setting of TIAs and visual disturbances found to have high-grade carotid stenosis. His workup is concerning for acute cholecystitis. Given his anemia (though he did respond well to the blood transfusion yesterday) and
HERMAN, agree with Dr. Gooden that he is at a high risk for perioperative stroke and would not recommend surgical cholecystectomy at this time.
IR consult for percutaneous cholecystostomy tube.
Continue IV antibiotics anticipate a 1 to 2-week course. Blood cultures thankfully negative.
Will plan for carotid endarterectomy this admission per vascular surgery, timing to be determined.
Patient will then follow-up in 3 to [address] Gooden with plans for an interval cholecystectomy in 6 to 8 weeks.
All questions answered, patient and agreeable to plan of care above.
Time Spent
Total Time Spent with Patient (in minutes): 30
Subjective Data
-
Date of Service: December 10, 2023
Interval Events:
No acute events overnight. HIDA was positive. Still has right upper quadrant pain. Pain Controlled. Denies Nausea/Vomiting, +bowel function. Hungry.
Objective Data
-
Intake and Output
12/09/23 12/10/23 12/11/23
06:59 06:59 06:59
Intake Total 400 / 400
Output Total 575 / 575 300 / 300
Balance -575 / -575 100 / 100
Intake:
IV fluids (Total) 100 / 100
IV piggybacks 50 / 50
Blood Product Amount Infused ( 250 / 250
mL)
Packed Rbc Leukoreduced Unit 250 / 250
[id number]
Output:
Urine, Voided 575 / 575 300 / 300
Other:
Number of approximated MODERATE 2
amounts of urine
Vital Signs
Temp Pulse Resp BP Pulse Ox
99.8 F 86 20 101/67 94
12/10/23 07:36 12/10/23 09:27 12/10/23 07:36 12/10/23 09:27 12/10/23 07:36
Lab Results
12/10/23 08:30
12/10/23 08:30
Calcium 9.0 mg/dl (8.4-10.2) 12/10/23 08:30
Total Bilirubin 0.5 mg/dl (0.2-1.3) 12/10/23 08:30
AST 65 U/L (17-59) H 12/10/23 08:30
ALT 38 U/L (0-50) 12/10/23 08:30
Alkaline Phosphatase 165 U/L (38-126) H 12/10/23 08:30
Total Protein 5.8 g/dl (6.3-8.2) L 12/10/23 08:30
Albumin 3.0 g/dl (3.5-5.0) L 12/10/23 08:30
Physical Exam
-
GENERAL/NEURO: Awake, Alert, no distress
CHEST: Unlabored breathing on RA
ABDOMEN: Soft, mild right upper quadrant tenderness, nondistended.
--- NOTE | 2023-12-10 12:10 | W.PN.UPDATE ---
Update Note
Progress Note Update
Percutaneous cholecystostomy placed, yielding 150 cc grossly purulent fluid. Sent for C+S.
--- NOTE | 2023-12-10 13:13 | PTCARENOTE ---
pt returned from IR with zeb tube to [facility]. dressing in intact with small amount of drainage noted. pt walked from stretcher to bed with no complications. no complaints offered at this time
[2023-12-10] MEDS: TYLENOL 650 MG PO ×2 (13:39→19:22)
--- NOTE | 2023-12-10 14:24 | W.PN.HOSP.TC ---
Today's Communication/Plan
-
Patient underwent a percutaneous cholecystostomy yielding 150 cc of grossly purulent fluid which was sent for C+S. Carotid endarterectomy has been rescheduled for later date following the resolution of his cholecystitis. Will continue to follow
labs including H&H.
Assessment / Plan
Assessment / Plan
- Symptomatic left carotid artery stenosis:
Presenting with left-sided blurry vision and difficulty seeing
Carotid ultrasound conducted on 12/07 showed extensive calcified and noncalcified plaque within the bulb and proximal internal carotid artery with severely elevated systolic and diastolic velocities measuring 838 and 362 cm/s respectively. Elevated
ICA/CCA ratio of 12.83. Findings consistent with 70% stenosis
Vascular surgery consulted -Dr. Tapia discussed risks and benefits of carotid endarterectomy and plans to move forward with surgery if medically cleared -cardiology and GI consults ordered
Cardiology consult ordered - Cleared for procedure
Neurology consult -recommended continuing aspirin, consulting vascular surgery for carotid endarterectomy, and high-dose statins.
GI consult ordered -they believe the patient is okay for antiplatelet and anticoagulation for planned upcoming carotid endarterectomy.
Monitoring H&H
Will wait for the resolution of cholecystitis before moving forward with left carotid endarterectomy
- Acute Cholecystitis: Monitoring + Treating
Abdominal ultrasound showed evidence of acute cholecystitis. They saw a large gallbladder filled with sludge and stones with at least 1 stone seen in the vicinity gallbladder. There was no gallbladder wall thickening or findings to confirm
pericholecystic fluid. Positive sonographic Escoto sign. No findings to suggest biliary tract dilatation. Overall findings were suspicious for acute cholecystitis.
Hepatobiliary scan was conducted showing no scintigraphic evidence for gallbladder uptake, suggesting cystic duct obstruction and acute cholecystitis.
A percutaneous cholecystostomy was conducted with successful tube placement. A total of 150 mL of grossly purulent fluid were aspirated from the gallbladder and sent for laboratory analysis.
Will wait for the resolution of cholecystitis before moving forward with left carotid endarterectomy
- Hx of GI bleeds and severe anemia requiring transfusion:
Monitor H&H and transfuse PRBCs as required
GI consult - they believe the patient is okay for antiplatelet and anticoagulation for planned upcoming carotid endarterectomy.
Patient has dark stools because he takes iron pills
Heme occult test ordered
Plan to transfuse 1 unit of PRBCs prior to surgery - hemoglobin was 7 on 12/08, 1 unit of PRBCs administered - hemoglobin currently at 8.7
Hematology consult -recommended giving IV iron for iron deficiency anemia. They believed that the patient could undergo coronary endarterectomy once cholecystitis is stabilized.
-Right-sided abdominal discomfort with weight loss and palpable liver:
Abdominal ultrasound ordered to assess the liver, depending on results we will obtain a CT of the abdomen with IV contrast. -Patient has chronic kidney disease and may need JASON prophylaxis. -Overall findings are suspicious for acute cholecystitis
Full code
DVT prophylaxis: Sequential compression devices
Anticipated Discharge: > 48 hours
Subjective/Interval History
-
Date of Service: December 10, 2023
Met with patient at the bedside. His condition remains unchanged from yesterday and he awaits his percutaneous cholecystostomy procedure. He hopes that after his procedure is completed he may move forward with his carotid endarterectomy.
Objective Data
-
Labs:
Laboratory Results
12/10/23
08:30
WBC 10.8
Hgb 8.7 L
Hct 26.4 L
Plt Count 520 H
Sodium 136
Potassium 4.4
Chloride 104
Carbon Dioxide 20 L
BUN 20
Creatinine 1.6 H
Glucose 93
Calcium 9.0
Total Bilirubin 0.5
AST 65 H
ALT 38
Alkaline Phosphatase 165 H
Vital Signs:
Vital Signs
Temp Pulse Resp BP Pulse Ox
98.6 F 71 17 107/59 96
12/10/23 12:21 12/10/23 12:25 12/10/23 12:25 12/10/23 12:25 12/10/23 12:25
I&O
12/09/23 12/10/23 12/11/23
06:59 06:59 06:59
Intake Total 400 / 400
Output Total 575 / 575 300 / 300
Balance -575 / -575 100 / 100
Review of Systems
-
History Source: Patient
EENT: Reports No Symptoms Reported
Respiratory: Reports No Symptoms
Cardiac: Reports No Symptoms
Abdomen/GI: Reports Abdominal Pain
Breast: Reports No Symptoms
Genitourinary: Reports No Symptoms
Musculoskeletal: Reports No Symptoms
Skin: Reports No Symptoms
Neuro: Reports No Symptoms
Endocrine: Reports No Symptoms
Hematologic / Lymphatic: Reports No Symptoms
Allergy / Immunology: Reports No Symptoms
Physical Exam
-
General: Well Developed and Well Nourished
HEENT: Normocephalic, Atraumatic and Moist Mucous Membranes
Respiratory: Clear to Auscultation
Cardiac: Regular Rhythm, S1/S2 and Carotid Bruits
GI: Soft and Normal Bowel Sounds
Rectal: Deferred by Provider
Genito-urinary: Deferred by me
Musculoskeletal: No Clubbing, No Cyanosis and No Edema
Skin: Warm
Neuro: Nonfocal/Grossly Intact
Psych: Calm
--- NOTE | 2023-12-10 15:55 | W.PN.GI.CBS2 ---
Addendum entered and electronically signed by Brittany Le MD 12/10/23 20:54:
I saw and examined the patient.
The ADOPTION AGENT's note was reviewed and I agree with the note.
acute zeb -s/p cholecystostomy tube today.
anemia -no overt GI bleeding.prior GI work up neg
plan
continue follow up surgical recommendations
monitor Hb
no furtherGI recommendations , will s/o
Original Note:
Today's Communication / Plan
-
GI signing off
Assessment / Plan
-
62 year old male with past medical history of AAA, CAD, PAD s/p lower extremity vascular bypass grafts (R 06/19/23, L 09/03/23), symptomatic anemia, hypertension, hyperlipidemia, recent hospitalization for GI bleed, who presents to the ED today for
continued dizziness. The patient is to have CEA. GI is consulted to evaluate given his recent GI bleed and evaluation if since patient will require heparin during surgery for left CEA. Since the beginning of September, he has been experiencing fatigue,
unsteadiness, and blurry vision. He was recently hospitalized 11/08/23-11/11/23 for symptomatic anemia and GI bleed; EGD and colonoscopy were unremarkable, and he was discharged with PO iron which he has been taking nightly. He was seen in the GI
outpatient office 11/18/23 for capsule endoscopy to evaluate melena, this showed normal stomach, inflammatory polyp in the duodenum with some erosion, colon visualized and this was normal. The patient had EGD performed on 11/28/23 that showed normal
esophagus, stomach normal, patchy nodular mucosa in the first portion of the duodenum (same as prior endoscopy and seen on capsule) this was bx which showed polypoid duodenal mucosa with mild hyperplastic change and foveolar metaplasia suggestive of
peptic duodenitis. The patient continued on oral iron and pantoprazole 40 mg daily. He did state that for the past 2 days he had had a right pelvic discomfort that would come and go. Nothing would make better or worse. No change in BM. Denies any F,
C, N, V, melena, hematochezia, dysphagia or odynophagia. Tolerating diet without any issues. Main concern is dizziness. Patient presents with WBC 11.2, Hgb 7.7 (down from 8.4), PLT 530, MCV 76.8, MCH 24.8, BUN 18, Creat 1.5, T Bili 0.4, AST 35, ALT
28, Alk Phos 149.
Rectal exam performed by myself with solid green stool that was negative for occult blood.
Impression:
Acute cholecystitis-> s/p perc cholecystostomy tube today
Iron deficiency anemia-> stool negative for occult blood at this time, with negative EGD x 2/VCE/Colonoscopy-> imprved Hgb after trf
Dizziness
Left Carotid Artery Stenosis-> for Left CEA
Elevated AST/Alk Phos
Abdominal aortic aneurysm
Plan:
-Continue Pantoprazole 40 mg daily
-Ok per GI to start/use anticoagulation needed for procedures.
-Nothing further to add from GI perspective, we will be available as needed or by request.
Subjective
Subjective
Date of Service: December 10, 2023
Patient s/p cholecystostomy tube today. There is > 150 cc of brown/purulent fluid out so far. Patient afebrile, WBC WNL. No signs of bleeding. Hgb 8.7 up from 7.7 after 1 unit PRBC.
Objective
Data Reviewed
Laboratory Data:
Laboratory Results
12/10/23 08:30
12/10/23 08:30
Laboratory Results
Total Bilirubin 0.5 mg/dl (0.2-1.3) 12/10/23 08:30
AST 65 U/L (17-59) H 12/10/23 08:30
ALT 38 U/L (0-50) 12/10/23 08:30
Alkaline Phosphatase 165 U/L (38-126) H 12/10/23 08:30
Vital Signs and I&O:
Vital Signs
Temp Pulse Resp BP Pulse Ox
98 F 101 19 109/78 96
12/10/23 15:32 12/10/23 15:32 12/10/23 15:32 12/10/23 15:32 12/10/23 15:32
I&O
12/09/23 12/10/23 12/11/23
06:59 06:59 06:59
Intake Total 400 / 400
Output Total 575 / 575 300 / 300
Balance -575 / -575 100 / 100
Physical Exam
Physical Exam
HEENT: Anicteric
Cardiology: Normal Sinus Rhythm
Pulmonary: Clear (anterior)
GI: Soft, Non Distended, Tender (mild RUQ tenderness), Normal Bowel Sounds and Other (perc cholecystostomy tube in RUQ with approx 30 cc of brown purulent drainage)
Neuro: Non Focal
--- NOTE | 2023-12-10 15:57 | W.PN.UPDATE ---
Update Note
Progress Note Update
I saw and evaluated the patient. I reviewed the resident�s note and agree with findings and plan as documented in the resident�s note.
Today not much symptoms from right upper quadrant of the abdomen. No nausea or vomiting. On palpation not much tenderness in right upper quadrant. HIDA scan which shows nonopacification of gallbladder suggestive of cystic duct obstruction and
acute cholecystitis. Discussed with general surgery today-for cholecystostomy tube placement and continuation of antibiotics. Once things are settled down from left ICA standpoint for definitive surgery of gallbladder.
Remains with the left eye blurriness. Discussed with vascular-could go ahead with surgery tomorrow as he is getting his cholecystostomy tube placed. Await for blood cultures which are negative so far and if negative tomorrow could proceed with her
surgery. He is afebrile for >24 hours now and wbc normal.BP stable.
DW at bedside.
Total time spent on today's encounter was 52 minutes which included time spent in counseling the patient/family regarding diagnosis and treatment plan as listed above, goals of care, and symptom management. Case was discussed with nursing staff,
specialists . All labs and imaging personally reviewed by me. Remainder the time spent in detailed review of previous records, lab data, imaging, and other medical provider documentation.
--- NOTE | 2023-12-10 16:08 | CM ---
Chart reviewed home with spouse when stable, no needs.
Plan; Home with spouse when stable.
[2023-12-10] MEDS: FERRLECIT 110 MG IV (16:09)
[2023-12-10] MEDS: CRESTOR 40 MG PO (17:20)
[2023-12-10] MEDS: FEOSOL PO (17:20)
[2023-12-10] MEDS: TOPROL XL 100 MG PO (17:22)
--- NOTE | 2023-12-10 20:00 | PTCARENOTE ---
at 1922 shcz=955.1- pt a little confused, tired. applied cool compress and administered Tylenol w/+eff. pt temp broke was sweaty and temp=98.9
[2023-12-10] MEDS: NSS 250 IV (23:13)
[2023-12-11] VITALS (9 sets, daily range): BP systolic 95–117; BP diastolic 53–74
[2023-12-11] MEDS: ZOSYN 50 IV ×4 (01:20→20:34)
--- NOTE | 2023-12-11 01:45 | PTCARENOTE ---
at 2300 bp=86/54 p=76 manually. pt denied feeling lightheaded or dizzy. informed ENGRAVER BLOCK Martínez. Ordered 250ml bolus over 1hr. when bolus ended rechecked BP=95/53 P=70. Informed ENGRAVER BLOCK Martínez. rechecked bp 1hr later =107/62 P=68. Pt still states he
feels fine.
[2023-12-11] MEDS: SYNTHROID 25 MCG PO (05:02)
[2023-12-11 07:17] LABS: Hematocrit 27.5 % (39.0-52.0); Hemoglobin 8.8 g/dL (13.0-18.0); Mean Corpuscular Hgb 24.9 pg (27.0-31.0); Mean Corpuscular Volume 77.9 fL (80.0-94.0); Platelet Count 528 10^3/uL (130-400); Red Blood Cell Count 3.53 10^6/uL (4.70-6.10); White Blood Cell Count 14.7 10^3/uL (4.8-10.8)
[2023-12-11 07:48] LABS: INR 1.35; PT 16.7 Sec (11.4-14.6)
[2023-12-11 07:49] LABS: APTT 44.5 Sec (23.4-35.0)
[2023-12-11] MEDS: BACTROBAN 2% OINTMENT 1 APPLIC NASAL (08:21)
[2023-12-11] MEDS: LOW STRENGTH ASPIRIN 81 MG PO (08:22)
[2023-12-11] MEDS: ZETIA 10 MG PO (08:22)
[2023-12-11] MEDS: PERIDEX 0.12% ORAL RINSE 15 ML PO (08:22)
[2023-12-11] MEDS: PROTONIX 40 MG PO (08:22)
[2023-12-11] MEDS: COZAAR 25 MG PO (08:22)
[2023-12-11] MEDS: TYLENOL 650 MG PO ×3 (08:22→23:51)
[2023-12-11 08:59] LABS: ALT (SGPT) 35 U/L (0-50); AST (SGOT) 51 U/L (17-59); Albumin 3.2 g/dl (3.5-5.0); Alkaline Phosphatase 166 U/L (38-126); Blood Urea Nitrogen 27 mg/dl (9-20); Calcium 9.1 mg/dl (8.4-10.2); Carbon Dioxide 22 mmol/L (22-30); Chloride 103 mmol/L (98-107); Estimated Creatinine Clearance 35 ml/min; Glucose 132 mg/dl (70-99); Potassium 4.6 mmol/L (3.5-5.1); Sodium 136 mmol/L (135-145); Total Bilirubin 0.4 mg/dl (0.2-1.3); Total Protein 5.8 g/dl (6.3-8.2); eGFR 36.81
--- NOTE | 2023-12-11 09:54 | W.PN.UPDATE ---
Update Note
Progress Note Update
Chart reviewed, patient with Tmax of 103.1 overnight, with accompanying hypotension that required fluid resuscitation. Given concern for continued infection from source of gallbladder will cancel carotid enterectomy procedure for today. Patient
updated at bedside, and hospitalist Dr. Dat Montoya texted.
--- NOTE | 2023-12-11 10:15 | W.PN.ONC2 ---
Today's Communication / Plan
-
follow fever cure and infectious evaluation
trend CBC, monitor for bleeding
Impression
Impression
Iron deficiency anemia, bleeding site not identified; thrombocytosis reactive to iron deficiency
Carotid artery stenosis, requiring eventual endarterectomy
Peripheral vascular disease
Acute cholecystitis -s/p perc zeb tube 12/09
DM2
Coronary artery disease
Fever
Plan
Plan
Receiving IV iron to rapidly improve iron stores.
vascular surgery plans for eventual CEA
Acute cholecystis s/p percutaneous drainage 12/09
fever and hypotension 12/09->12/10 - management per primary service
Subjective/Objective
Chief Complaint
s/p cholecystostomy tube 12/09
Hgb stable 8.8g/dL s/p 1unit prbc 12/08
rising creatinine
normal Tbili/AST/ALT
Subjective
no new complaints
denies overt bleeding
Vital Signs:
Vital Signs
Temp Pulse Resp BP Pulse Ox
97.7 F 69 21 102/63 97
12/11/23 07:40 12/11/23 07:40 12/11/23 07:40 12/11/23 07:40 12/11/23 07:40
Lab Results:
Laboratory Data
WBC 14.7 10^3/uL (4.8-10.8) H 12/11/23 07:05
Hgb 8.8 g/dL (13.0-18.0) L 12/11/23 07:05
Plt Count 528 10^3/uL (130-400) H 12/11/23 07:05
PT 16.7 Sec (11.4-14.6) H 12/11/23 07:05
INR 1.35 12/11/23 07:05
APTT 44.5 Sec (23.4-35.0) H 12/11/23 07:05
eGFR 36.81 12/11/23 07:05
Physical Exam
Physical examination shows the patient to be in no acute distress.
HEENT anicteric,no oral lesions
Chest is clear.
CV RRR
The abdomen is soft and nontender, perc zeb tube
Extremities are unremarkable.
Neurologic is grossly intact.
Review of Systems
Review of Systems
Review of systems is notable for subjective otherwise negative
--- NOTE | 2023-12-11 10:49 | W.PN.GS2 ---
Today's Communication / Plan
-
`
Assessment / Plan
-
Assessment: 62-year-old male with ACC now PPD#1 s/p perc zeb in the setting of TIAs and visual disturbances found to have high-grade carotid stenosis.
Tm 103 in evening after perc zeb placement
AFVSS since
IR drain with pus
elevated WBC like related to yesterdays procedure
Plan: continue with low fat diet
IR drain to gravity drainage with probable plans for follow-up in [address] to [address] Gooden and eventual interval cholecystectomy in 6 to 8 weeks/TBD.
Continue IV antibiotics
carotid endarterectomy this admission per vascular surgery, timing to be determined.
Subjective Data
-
Date of Service: December 11, 2023
pt seen and examined
his is at bedside
fever last evening, none since
had a small breakfast
mild pain localized to IR drain area and RUQ
no nausea
Objective Data
-
Intake and Output
12/10/23 12/11/23 12/12/23
06:59 06:59 06:59
Intake Total 400 / 400 1380 / 1380
Output Total 300 / 300 315 / 315
Balance 100 / 100 1065 / 1065
Intake:
Oral fluids 960 / 960
IV fluids (Total) 100 / 100 300 / 300
IV piggybacks 50 / 50 100 / 100
Amount instilled into Drain ( 20
Total)
Right Upper Abdomen Placed in 20 / 20
IR
Blood Product Amount Infused ( 250 / 250
mL)
Packed Rbc Leukoreduced Unit 250 / 250
[id number]
Output:
Drain Output (Total) 215 / 215
Right Upper Abdomen Placed in 215 / 215
IR
Urine, Voided 300 / 300 100 / 100
Other:
Number of approximated MODERATE 2 3
amounts of urine
Vital Signs
Temp Pulse Resp BP Pulse Ox
97.7 F 69 21 102/63 97
12/11/23 07:40 12/11/23 07:40 12/11/23 07:40 12/11/23 07:40 12/11/23 07:40
Lab Results
12/11/23 07:05
12/11/23 07:05
Calcium 9.1 mg/dl (8.4-10.2) 12/11/23 07:05
Total Bilirubin 0.4 mg/dl (0.2-1.3) 12/11/23 07:05
AST 51 U/L (17-59) 12/11/23 07:05
ALT 35 U/L (0-50) 12/11/23 07:05
Alkaline Phosphatase 166 U/L (38-126) H 12/11/23 07:05
Total Protein 5.8 g/dl (6.3-8.2) L 12/11/23 07:05
Albumin 3.2 g/dl (3.5-5.0) L 12/11/23 07:05
Physical Exam
-
NAD AAOx3
ABD: soft, ND, mild TTP in RUQ
IR drain to gravity bag - shantell pus
[2023-12-11] MEDS: FERRLECIT 110 MG IV (13:50)
--- NOTE | 2023-12-11 14:47 | W.PN.HOSP.TC ---
Today's Communication/Plan
-
CW ABX
Follow CX data
Hold on CEA till improved from cholecytitis standpoint
Assessment / Plan
Assessment / Plan
- Symptomatic left carotid artery stenosis:
Presenting with left-sided blurry vision and difficulty seeing
Carotid ultrasound conducted on 12/07 showed extensive calcified and noncalcified plaque within the bulb and proximal internal carotid artery with severely elevated systolic and diastolic velocities measuring 838 and 362 cm/s respectively. Elevated
ICA/CCA ratio of 12.83. Findings consistent with 70% stenosis
Vascular surgery consulted -Dr. Tapia discussed risks and benefits of carotid endarterectomy and plans to move forward with surgery if medically cleared
Cardiology consult ordered - Cleared for procedure
Neurology consult -recommended continuing aspirin, consulting vascular surgery for carotid endarterectomy, and high-dose statins.
GI consult ordered -they believe the patient is okay for antiplatelet and anticoagulation for planned upcoming carotid endarterectomy.
Monitoring H&H
Will wait for the resolution of cholecystitis before moving forward with left carotid endarterectomy
- Acute Cholecystitis: Monitoring + Treating
Abdominal ultrasound showed evidence of acute cholecystitis. They saw a large gallbladder filled with sludge and stones with at least 1 stone seen in the vicinity gallbladder. There was no gallbladder wall thickening or findings to confirm
pericholecystic fluid. Positive sonographic Escoto sign. No findings to suggest biliary tract dilatation. Overall findings were suspicious for acute cholecystitis.
Hepatobiliary scan was conducted showing no scintigraphic evidence for gallbladder uptake, suggesting cystic duct obstruction and acute cholecystitis.
A percutaneous cholecystostomy was conducted with successful tube placement. A total of 150 mL of grossly purulent fluid were aspirated from the gallbladder and sent for laboratory analysis.
Will wait for the resolution of cholecystitis before moving forward with left carotid endarterectomy
- Hx of GI bleeds and severe anemia requiring transfusion:
Monitor H&H and transfuse PRBCs as required
GI consult - they believe the patient is okay for antiplatelet and anticoagulation for planned upcoming carotid endarterectomy.
Patient has dark stools because he takes iron pills
Heme occult test ordered
Plan to transfuse 1 unit of PRBCs prior to surgery - hemoglobin was 7 on 12/08, 1 unit of PRBCs administered - hemoglobin currently at 8.8
Hematology consult -recommended giving IV iron for iron deficiency anemia. They believed that the patient could undergo coronary endarterectomy once cholecystitis is stabilized.
Full code
DVT prophylaxis: Sequential compression devices
Anticipated Discharge: > 48 hours
Subjective/Interval History
-
Date of Service: December 11, 2023
patient did spike a fever last night with chills and confusion. This morning no confusion or delirium. at bedside.
no nausea vomiting. Improved right-sided abdominal ;pain still has some twinges of it.
Left eye blurriness is present - may bit worse in morning but now back to his usual blurriness.
No LAUREANO.
Objective Data
-
Labs:
Laboratory Results
12/11/23
07:05
WBC 14.7 H
Hgb 8.8 L
Hct 27.5 L
Plt Count 528 H
PT 16.7 H
INR 1.35
APTT 44.5 H
Sodium 136
Potassium 4.6
Chloride 103
Carbon Dioxide 22
BUN 27 H
Creatinine 2.0 H
Glucose 132 H
Calcium 9.1
Total Bilirubin 0.4
AST 51
ALT 35
Alkaline Phosphatase 166 H
Vital Signs:
Vital Signs
Temp Pulse Resp BP Pulse Ox
98 F 78 20 101/74 96
12/11/23 11:38 12/11/23 11:38 12/11/23 11:38 12/11/23 11:38 12/11/23 11:38
I&O
12/10/23 12/11/23 12/12/23
06:59 06:59 06:59
Intake Total 400 / 400 1380 / 1380
Output Total 300 / 300 315 / 315
Balance 100 / 100 1065 / 1065
Review of Systems
-
EENT: Denies Sore Throat
Respiratory: Denies Cough or Trouble Breathing
Cardiac: Denies Chest Pain
Neuro: Denies Dizzy
Physical Exam
-
General: No Apparent Distress
HEENT: Moist Mucous Membranes
Respiratory: Clear to Auscultation
Cardiac: Regular Rhythm and S1/S2
GI: Soft, Nondistended, Normal Bowel Sounds and Tender ( Mild tenderness in the right lower quadrant area with no Escoto sign.)
Neuro: AO x 3
Psych: Calm
Data Reviewed
-
Labs: Labs Reviewed by me
--- NOTE | 2023-12-11 14:52 | CM ---
Chart reviewed and plan is to home when stable, no needs.
Plan; Home when stable no needs.
--- NOTE | 2023-12-11 15:30 | PN.CDI ---
CDI
- -
CDI:
Physician Documentation Request
Admit Date: 12/08/23 15:47
Dear Doctor Dat,
Please review the following and provide your response in the progress notes.
Clinical Indicators:
Lucio PN, 12/10
#...patient with Tmax of 103.1 overnight,
#...with accompanying hypotension that required fluid resuscitation.
#Given concern for continued infection from source of gallbladder
#...will cancel carotid enterectomy procedure for today.
PN, 12/10
#patient did spike a fever last night with chills and confusion.
#...This morning no confusion or delirium.
12/10/23 20:00 (created 12/11/23 01:41) - Patient Care Note
at 1922 gkny=954.1- pt a little confused, tired.
#...applied cool compress and administered Tylenol w/+eff.
#...pt temp broke was sweaty and temp=98.9
12/11/23 01:45 - Patient Care Note
at 2300 bp=86/54 p=76 manually.
#...pt denied feeling lightheaded or dizzy.
#Ordered 250ml bolus over 1hr.
#...when bolus ended rechecked BP=95/53 P=70.
#rechecked bp 1hr later =107/62 P=68.
Laboratory Tests
12/08/23 12/09/23 12/10/23
11:25 10:20 08:30
WBC 11.2 H 11.4 H 10.8
12/11/23
07:05
WBC 14.7 H
Selected Entries
12/09/23
20:54 12/10/23
19:22
Temp 100.5 F H 103.1 F H
Pulse 88 108
Please clarify which of the following most accurately describes the status of the patient's infection:
Sepsis evolved during admission
Localized Infection Only, Without Systemic Illness
- indicate the site/source, such as UTI, pneumonia etc.
Other (please specify)
Sepsis
- Systemic manifestations of infection, with 2 or more SIRS criteria which include:
- Fever >100.4 degrees F or hypothermia < 96.8 degrees F
- Leukocytosis - WBC > 12,000 or leukopenia - WBC < 4,000 or > 10% bands
- Tachycardia > 90 beats per minute
- Tachypnea - RR > 20 breaths per minute or PaCO2 , 32mmHg
Source: Merck Manual 2013
- Indicate the known or suspected organism
- Indicate the known or suspected underlying infection, such as UTI, pneumonia or cellulitis
Use of terms such as suspected, likely, concern for, or probable (associated with a specific diagnosis that is being evaluated, monitored, or treated as if it exists) are acceptable and can be coded in the inpatient setting, when documented at the
time of discharge.
Thank you,
Jaclyn Blanc RN BSN CCDS
CDI Specialist
please contact via tiger text
Please use your independent medical judgment in providing your response.
--- NOTE | 2023-12-11 16:47 | W.PN.UPDATE ---
Update Note
Progress Note Update
Tentative plan for CEA Friday with Dr Tapia. Pt and team aware.
[2023-12-11] MEDS: TOPROL XL PO (18:02)
[2023-12-11] MEDS: CRESTOR 40 MG PO (18:02)
[2023-12-12] MEDS: ZOSYN 50 IV ×3 (02:20→16:10)
[2023-12-12 03:37] VITALS: BP 119/69
[2023-12-12] MEDS: SYNTHROID 25 MCG PO (06:15)
[2023-12-12 07:23] LABS: Hematocrit 24.4 % (39.0-52.0); Hemoglobin 8.1 g/dL (13.0-18.0); Mean Corp Hgb Conc. 33.2 g/dL (33.0-37.0); Mean Corpuscular Hgb 24.5 pg (27.0-31.0); Mean Corpuscular Volume 73.9 fL (80.0-94.0); Mean Platelet Volume 10.3 fL (7.4-10.4); Platelet Count 527 10^3/uL (130-400); Red Cell Dist. Width 17.8 % (11.5-14.5); White Blood Cell Count 8.6 10^3/uL (4.8-10.8)
[2023-12-12 07:38] VITALS: BP 135/71
[2023-12-12 07:58] LABS: ALT (SGPT) 32 U/L (0-50); AST (SGOT) 54 U/L (17-59); Alkaline Phosphatase 143 U/L (38-126); Blood Urea Nitrogen 26 mg/dl (9-20); Calcium 9.1 mg/dl (8.4-10.2); Carbon Dioxide 21 mmol/L (22-30); Chloride 106 mmol/L (98-107); Estimated Creatinine Clearance 39 ml/min; Glucose 101 mg/dl (70-99); Potassium 4.7 mmol/L (3.5-5.1); Sodium 135 mmol/L (135-145); Total Bilirubin 0.4 mg/dl (0.2-1.3); Total Protein 5.7 g/dl (6.3-8.2); eGFR 41.77
[2023-12-12] MEDS: COZAAR 25 MG PO (08:44)
[2023-12-12] MEDS: LOW STRENGTH ASPIRIN 81 MG PO (08:44)
[2023-12-12] MEDS: PROTONIX 40 MG PO (08:44)
[2023-12-12] MEDS: ZETIA 10 MG PO (08:52)
--- NOTE | 2023-12-12 09:31 | W.PN.GS2 ---
Today's Communication / Plan
-
`
Assessment / Plan
-
Assessment: 62-year-old male with ACC now PPD#2 s/p perc zeb in the setting of TIAs and visual disturbances found to have high-grade carotid stenosis.
AFVSS over last 24hrs
IR drain with pus
WBC now normal
Plan: continue with low fat diet
IR drain to gravity drainage with probable plans for follow-up in 3 to [address] Gooden and eventual interval cholecystectomy in 6 to 8 weeks/TBD.
Continue IV antibiotics with subsequent transition to oral Augmentin for total 10 day course
carotid endarterectomy this admission per vascular surgery, timing to be determined.
will follow peripherally, thanks
Subjective Data
-
Date of Service: December 12, 2023
pt seen and examined
mild persistent pain/discomfort at perc zeb site
no significant abdominal pain
no nausea
terrie PO intake well
Objective Data
-
Intake and Output
12/11/23 12/12/23 12/13/23
06:59 06:59 06:59
Intake Total 1380 / 1380 1615 / 1615
Output Total 315 / 315 300 / 300 100 / 100
Balance 1065 / 1065 1315 / 1315 -100 / -100
Intake:
Oral fluids 960 / 960 1080 / 1080
IV fluids (Total) 300 / 300 225 / 225
IV piggybacks 100 / 100 300 / 300
Amount instilled into Drain ( 10
Total)
Right Upper Abdomen Placed in 20
IR
Output:
Drain Output (Total) 215 / 215 100 / 100
Right Upper Abdomen Placed in 215 / 215 100 / 100
IR
Urine, Voided 100 / 100 300 / 300
Other:
Number of approximated MODERATE 3 4
amounts of urine
Vital Signs
Temp Pulse Resp BP Pulse Ox
98.1 F 78 20 110/57 97
12/12/23 07:38 12/12/23 07:38 12/12/23 07:38 12/12/23 08:44 12/12/23 07:38
Lab Results
12/12/23 06:50
12/12/23 06:50
Calcium 9.1 mg/dl (8.4-10.2) 12/12/23 06:50
Total Bilirubin 0.4 mg/dl (0.2-1.3) 12/12/23 06:50
AST 54 U/L (17-59) 12/12/23 06:50
ALT 32 U/L (0-50) 12/12/23 06:50
Alkaline Phosphatase 143 U/L (38-126) H 12/12/23 06:50
Total Protein 5.7 g/dl (6.3-8.2) L 12/12/23 06:50
Albumin 3.0 g/dl (3.5-5.0) L 12/12/23 06:50
Physical Exam
-
NAD AAOx3
ABD: soft, ND, NTTP
IR drain purulent
--- NOTE | 2023-12-12 09:46 | W.PN.ONC2 ---
Today's Communication / Plan
-
monitor CBC, monitor for bleeding
CEA planning underway
on IVabx
IV iron course complete
would avoid ora iron with constipation
bowel regimen
Impression
Impression
Iron deficiency anemia, bleeding site not identified; thrombocytosis reactive to iron deficiency
Carotid artery stenosis, requiring eventual endarterectomy
Peripheral vascular disease
Acute cholecystitis -s/p perc zeb tube 12/09. E.coli from culture
DM2
Coronary artery disease
Plan
Plan
ILYA s/p 1unit prbc 12/08 and 3 doses of ferrlecit
vascular surgery plans for eventual CEA
Acute cholecystis s/p percutaneous drainage 12/09, Ecoli on IV abx
Subjective/Objective
Chief Complaint
constipation
Subjective
denies bleeding
Vital Signs:
Vital Signs
Temp Pulse Resp BP Pulse Ox
98.1 F 78 20 110/57 97
12/12/23 07:38 12/12/23 07:38 12/12/23 07:38 12/12/23 08:44 12/12/23 07:38
Lab Results:
Laboratory Data
WBC 8.6 10^3/uL (4.8-10.8) 12/12/23 06:50
Hgb 8.1 g/dL (13.0-18.0) L 12/12/23 06:50
Plt Count 527 10^3/uL (130-400) H 12/12/23 06:50
PT 16.7 Sec (11.4-14.6) H 12/11/23 07:05
INR 1.35 12/11/23 07:05
APTT 44.5 Sec (23.4-35.0) H 12/11/23 07:05
eGFR 41.77 12/12/23 06:50
Physical Exam
HEENT: Moist Mucous Membranes; No Jaundice
Pulmonary: Clear
GI: Soft and Other (perc tube with milky brown drainage)
Review of Systems
Review of Systems
ROS notable for subjective otherwise negative
[2023-12-12] MEDS: SENOKOT 8.6 MG PO (10:49)
[2023-12-12] MEDS: COLACE 100 MG PO ×2 (10:49→20:43)
[2023-12-12 11:14] VITALS: BP 108/72
[2023-12-12] MEDS: MIRALAX 17 GRAMS PO (11:50)
[2023-12-12] MEDS: TYLENOL 650 MG PO ×2 (11:50→20:44)
--- NOTE | 2023-12-12 13:06 | W.PN.HOSP.TC ---
Documented by User: Nayla Byrnes MD, Resident 12/12/23 15:09
Today's Communication/Plan
-
IV iron course complete. Patient given Colace and senna due to ongoing constipation. Hemoglobin and hematocrit are stable at the present time. Culture sample taken from bile drainage showed significant E. coli growth. Currently being treated
with antibiotics with steady improvement. Tentative carotid endarterectomy scheduled for Friday if patient continues trend of steady improvement.
Assessment / Plan
Assessment / Plan
- Symptomatic left carotid artery stenosis:
Presenting with left-sided blurry vision and difficulty seeing
Carotid ultrasound conducted on 12/07 showed extensive calcified and noncalcified plaque within the bulb and proximal internal carotid artery with severely elevated systolic and diastolic velocities measuring 838 and 362 cm/s respectively. Elevated
ICA/CCA ratio of 12.83. Findings consistent with 70% stenosis
Vascular surgery consulted -Dr. Tapia discussed risks and benefits of carotid endarterectomy and plans to move forward with surgery if medically cleared
Cardiology consult ordered - Cleared for procedure
Neurology consult -recommended continuing aspirin, consulting vascular surgery for carotid endarterectomy, and high-dose statins.
GI consult ordered -they believe the patient is okay for antiplatelet and anticoagulation for planned upcoming carotid endarterectomy.
Monitoring H&H
Will wait for the resolution of cholecystitis before moving forward with left carotid endarterectomy
- Acute Cholecystitis: Monitoring + Treating
Abdominal ultrasound showed evidence of acute cholecystitis. They saw a large gallbladder filled with sludge and stones with at least 1 stone seen in the vicinity gallbladder. There was no gallbladder wall thickening or findings to confirm
pericholecystic fluid. Positive sonographic Escoto sign. No findings to suggest biliary tract dilatation. Overall findings were suspicious for acute cholecystitis.
Hepatobiliary scan was conducted showing no scintigraphic evidence for gallbladder uptake, suggesting cystic duct obstruction and acute cholecystitis.
A percutaneous cholecystostomy was conducted with successful tube placement. IR drain to gravity drainage with probable plans for follow-up within 3 to [address] Gooden and eventual cholecystectomy after full workup. Continuing IV
antibiotics with subsequent transition to oral Augmentin for total 10-day course.
Will wait for the resolution of cholecystitis before moving forward with left carotid endarterectomy
Culture from bile sample showed significant E. coli growth with sensitivity to Augmentin -will transition to oral Augmentin
- Hx of GI bleeds and severe anemia requiring transfusion:
Monitor H&H and transfuse PRBCs as required
GI consult - they believe the patient is okay for antiplatelet and anticoagulation for planned upcoming carotid endarterectomy.
Patient has dark stools because he takes iron pills
Heme occult test ordered
Plan to transfuse 1 unit of PRBCs prior to surgery - hemoglobin was 7 on 12/08, 1 unit of PRBCs administered - hemoglobin currently at 8.8
Hematology consult -recommended giving IV iron for iron deficiency anemia. They believed that the patient could undergo coronary endarterectomy once cholecystitis is stabilized.
IV iron course complete
- Constipation:
Colace and senna given
Full code
DVT prophylaxis: Sequential compression devices
Anticipated Discharge: > 48 hours
Subjective/Interval History
-
Date of Service: December 12, 2023
Met with patient at the bedside. Overall he states that his condition remains unchanged from yesterday. He had multiple episodes of increased blurriness in his left eye but that went away after a short duration of time. The exacerbation of
blurriness is not correlated to activity or movement. Patient vocalized disappointment with the fact that he will not be undergoing his carotid endarterectomy this week. He hopes to have his procedure soon and be discharged.
Objective Data
-
Labs:
Laboratory Results
12/12/23
06:50
WBC 8.6
Hgb 8.1 L
Hct 24.4 L
Plt Count 527 H
Sodium 135
Potassium 4.7
Chloride 106
Carbon Dioxide 21 L
BUN 26 H
Creatinine 1.8 H
Glucose 101 H
Calcium 9.1
Total Bilirubin 0.4
AST 54
ALT 32
Alkaline Phosphatase 143 H
Vital Signs:
Vital Signs
Temp Pulse Resp BP Pulse Ox
97.9 F 90 18 108/72 97
12/12/23 11:14 12/12/23 11:14 12/12/23 11:14 12/12/23 11:14 12/12/23 11:14
I&O
12/11/23 12/12/23 12/13/23
06:59 06:59 06:59
Intake Total 1380 / 1380 1615 / 1615
Output Total 315 / 315 300 / 300 100 / 100
Balance 1065 / 1065 1315 / 1315 -100 / -100
Review of Systems
-
History Source: Patient
Constitutional: Reports No Symptoms
EENT: Reports Blurry Vision (Left Eye)
Respiratory: Reports No Symptoms
Cardiac: Reports No Symptoms
Breast: Reports No Symptoms
Genitourinary: Reports No Symptoms
Musculoskeletal: Reports No Symptoms
Skin: Reports No Symptoms
Neuro: Reports No Symptoms
Endocrine: Reports No Symptoms
Hematologic / Lymphatic: Reports No Symptoms
Allergy / Immunology: Reports No Symptoms
Physical Exam
-
General: Well Developed and Well Nourished
HEENT: Normocephalic and Atraumatic
Respiratory: Clear to Auscultation
Cardiac: Regular Rhythm, S1/S2 and Carotid Bruits
Breast: Deferred by me
GI: Other (IR Drain - Cholecystostomy)
Rectal: Deferred by Provider
Genito-urinary: Deferred by me
Musculoskeletal: No Clubbing, No Cyanosis and No Edema
Skin: Warm and Dry
Neuro: Nonfocal/Grossly Intact

Documented by User: Immanuel Daugherty MD 12/12/23 16:39
Assessment / Plan
Assessment / Plan
- Symptomatic left carotid artery stenosis:
Presenting with left-sided blurry vision and difficulty seeing
Carotid ultrasound conducted on 12/07 showed extensive calcified and noncalcified plaque within the bulb and proximal internal carotid artery with severely elevated systolic and diastolic velocities measuring 838 and 362 cm/s respectively. Elevated
ICA/CCA ratio of 12.83. Findings consistent with 70% stenosis
Vascular surgery consulted -Dr. Tapia discussed risks and benefits of carotid endarterectomy and plans to move forward with surgery if medically cleared
Cardiology consult ordered - Cleared for procedure
Neurology consult -recommended continuing aspirin, consulting vascular surgery for carotid endarterectomy, and high-dose statins.
GI consult ordered -they believe the patient is okay for antiplatelet and anticoagulation for planned upcoming carotid endarterectomy.
Monitoring H&H
Will wait for the resolution of cholecystitis before moving forward with left carotid endarterectomy
- Acute Cholecystitis: Monitoring + Treating
Abdominal ultrasound showed evidence of acute cholecystitis. They saw a large gallbladder filled with sludge and stones with at least 1 stone seen in the vicinity gallbladder. There was no gallbladder wall thickening or findings to confirm
pericholecystic fluid. Positive sonographic Escoto sign. No findings to suggest biliary tract dilatation. Overall findings were suspicious for acute cholecystitis.
Hepatobiliary scan was conducted showing no scintigraphic evidence for gallbladder uptake, suggesting cystic duct obstruction and acute cholecystitis.
A percutaneous cholecystostomy was conducted with successful tube placement. IR drain to gravity drainage with probable plans for follow-up within 3 to [address] Gooden and eventual cholecystectomy after full workup. Continuing IV
antibiotics with subsequent transition to oral Augmentin for total 10-day course.
Will wait for the resolution of cholecystitis before moving forward with left carotid endarterectomy
Culture from bile sample showed significant E. coli growth with sensitivity to Augmentin -will transition to IV ancef
- Hx of GI bleeds and severe anemia requiring transfusion:
Monitor H&H and transfuse PRBCs as required
GI consult - they believe the patient is okay for antiplatelet and anticoagulation for planned upcoming carotid endarterectomy.
Patient has dark stools because he takes iron pills
Heme occult test ordered
Plan to transfuse 1 unit of PRBCs prior to surgery - hemoglobin was 7 on 12/08, 1 unit of PRBCs administered - hemoglobin currently at 8.8
Hematology consult -recommended giving IV iron for iron deficiency anemia. They believed that the patient could undergo coronary endarterectomy once cholecystitis is stabilized.
- Constipation:
Colace and senna given
Full code
DVT prophylaxis: Sequential compression devices
--- NOTE | 2023-12-12 15:03 | CM ---
Home when stable, no needs.
Plan; Home when stable, no needs.
[2023-12-12 15:43] VITALS: BP 110/68
--- NOTE | 2023-12-12 16:40 | W.PN.UPDATE ---
Update Note
Progress Note Update
I saw and evaluated the patient. I reviewed the resident�s note and agree with findings and plan as documented in the resident�s note.
Resolved fever without recurrence. Feeling better. Tolerating diet. Abdomen benign. Decreasing drainage from the cholecystostomy tube. Bile culture positive for E. coli sensitivities noted. Switch to Unasyn IV till the purulence is gone and
then switch to oral Augmentin. DC Zosyn.
Plan for left CEA for next Friday noted.
[2023-12-12 17:29] LABS: Methylmalonic Acid 0.48 umol/L (0.00-0.40)
[2023-12-12] MEDS: TOPROL XL PO (17:43)
[2023-12-12] MEDS: CRESTOR 40 MG PO (18:03)
[2023-12-12 19:40] VITALS: BP 119/72
[2023-12-12] MEDS: UNASYN IV (22:03)
[2023-12-12 23:00] VITALS: BP 128/73
[2023-12-13 03:08] VITALS: BP 141/83
[2023-12-13] MEDS: UNASYN IV ×4 (04:43→21:38)
[2023-12-13] MEDS: SYNTHROID 25 MCG PO (04:43)
[2023-12-13] MEDS: PROTONIX 40 MG PO (06:20)
[2023-12-13] MEDS: TYLENOL 650 MG PO ×3 (06:20→21:38)
[2023-12-13 08:33] VITALS: BP 139/77
[2023-12-13] MEDS: ZETIA 10 MG PO (08:34)
[2023-12-13] MEDS: MIRALAX 17 GRAMS PO (08:34)
[2023-12-13] MEDS: COZAAR 25 MG PO (08:34)
[2023-12-13] MEDS: COLACE PO ×3 (08:34→19:42)
[2023-12-13] MEDS: LOW STRENGTH ASPIRIN 81 MG PO (08:34)
[2023-12-13 09:03] LABS: Hematocrit 26.3 % (39.0-52.0); Hemoglobin 8.5 g/dL (13.0-18.0); Mean Corp Hgb Conc. 32.3 g/dL (33.0-37.0); Mean Corpuscular Hgb 24.8 pg (27.0-31.0); Mean Corpuscular Volume 76.7 fL (80.0-94.0); Mean Platelet Volume 10.2 fL (7.4-10.4); Platelet Count 582 10^3/uL (130-400); Red Blood Cell Count 3.43 10^6/uL (4.70-6.10); Red Cell Dist. Width 18.3 % (11.5-14.5); White Blood Cell Count 8.7 10^3/uL (4.8-10.8)
[2023-12-13 09:31] LABS: ALT (SGPT) 33 U/L (0-50); AST (SGOT) 53 U/L (17-59); Alkaline Phosphatase 136 U/L (38-126); Blood Urea Nitrogen 19 mg/dl (9-20); Carbon Dioxide 23 mmol/L (22-30); Chloride 108 mmol/L (98-107); Estimated Creatinine Clearance 44 ml/min; Glucose 104 mg/dl (70-99); Potassium 4.2 mmol/L (3.5-5.1); Sodium 139 mmol/L (135-145); Total Bilirubin 0.3 mg/dl (0.2-1.3); Total Protein 5.7 g/dl (6.3-8.2); eGFR 48.11
--- NOTE | 2023-12-13 10:13 | W.PN.HOSP.TC ---
Today's Communication/Plan
-
Fevers resolving and there is decreased drainage from the cholecystostomy tube. IV Unasyn continued and will switch to oral Augmentin after completion. Will continue to monitor and follow labs in preparation of upcoming procedure.
Assessment / Plan
Assessment / Plan
- Symptomatic left carotid artery stenosis:
Presenting with left-sided blurry vision and difficulty seeing
Carotid ultrasound conducted on 12/07 showed extensive calcified and noncalcified plaque within the bulb and proximal internal carotid artery with severely elevated systolic and diastolic velocities measuring 838 and 362 cm/s respectively. Elevated
ICA/CCA ratio of 12.83. Findings consistent with 70% stenosis
Vascular surgery consulted -Dr. Tapia discussed risks and benefits of carotid endarterectomy and plans to move forward with surgery if medically cleared
Cardiology consult ordered - Cleared for procedure
Neurology consult -recommended continuing aspirin, consulting vascular surgery for carotid endarterectomy, and high-dose statins.
GI consult ordered -they believe the patient is okay for antiplatelet and anticoagulation for planned upcoming carotid endarterectomy.
Monitoring H&H
Will wait for the resolution of cholecystitis before moving forward with left carotid endarterectomy
- Acute Cholecystitis: Monitoring + Treating
Abdominal ultrasound showed evidence of acute cholecystitis. They saw a large gallbladder filled with sludge and stones with at least 1 stone seen in the vicinity gallbladder. There was no gallbladder wall thickening or findings to confirm
pericholecystic fluid. Positive sonographic Escoto sign. No findings to suggest biliary tract dilatation. Overall findings were suspicious for acute cholecystitis.
Hepatobiliary scan was conducted showing no scintigraphic evidence for gallbladder uptake, suggesting cystic duct obstruction and acute cholecystitis.
A percutaneous cholecystostomy was conducted with successful tube placement. IR drain to gravity drainage with probable plans for follow-up within 3 to [address] Gooden and eventual cholecystectomy after full workup. Continuing IV
antibiotics with subsequent transition to oral Augmentin for total 10-day course.
Will wait for the resolution of cholecystitis before moving forward with left carotid endarterectomy
Culture from bile sample showed significant E. coli growth -will transition to IV Unasyn until the purulence gone and then switch to oral Augmentin
- Hx of GI bleeds and severe anemia requiring transfusion:
Monitor H&H and transfuse PRBCs as required
GI consult - they believe the patient is okay for antiplatelet and anticoagulation for planned upcoming carotid endarterectomy.
Patient has dark stools because he takes iron pills
Heme occult test ordered
Plan to transfuse 1 unit of PRBCs prior to surgery - hemoglobin was 7 on 12/08, 1 unit of PRBCs administered - hemoglobin currently at 8.8
Hematology consult -recommended giving IV iron for iron deficiency anemia. They believed that the patient could undergo coronary endarterectomy once cholecystitis is stabilized.
- Constipation:
Colace and senna given
Full code
DVT prophylaxis: Sequential compression devices
Anticipated Discharge: > 48 hours
Subjective/Interval History
-
Date of Service: December 13, 2023
Met with patient at the bedside. He is in a better mood today and noticed that his cholecystostomy tube was draining last and it was yesterday. He noted that he was having some GERD symptoms and asked for some medication to alleviate that.
Objective Data
-
Labs:
Laboratory Results
12/13/23
08:21
WBC 8.7
Hgb 8.5 L
Hct 26.3 L
Plt Count 582 H
Sodium 139
Potassium 4.2
Chloride 108 H
Carbon Dioxide 23
BUN 19
Creatinine 1.6 H
Glucose 104 H
Calcium 9.0
Total Bilirubin 0.3
AST 53
ALT 33
Alkaline Phosphatase 136 H
Vital Signs:
Vital Signs
Temp Pulse Resp BP Pulse Ox
98.3 F 84 16 139/77 97
12/13/23 08:33 12/13/23 08:33 12/13/23 08:33 12/13/23 08:33 12/13/23 08:33
I&O
12/12/23 12/13/23 12/14/23
06:59 06:59 06:59
Intake Total 1615 / 1615 1380 / 1380
Output Total 300 / 300 420 / 420
Balance 1315 / 1315 960 / 960
Review of Systems
-
History Source: Patient
Constitutional: Reports No Symptoms
EENT: Reports No Symptoms Reported
Respiratory: Reports No Symptoms
Cardiac: Reports No Symptoms
Abdomen/GI: Reports Other (Cholecystostomy tube)
Breast: Reports No Symptoms
Genitourinary: Reports No Symptoms
Musculoskeletal: Reports No Symptoms
Skin: Reports No Symptoms
Neuro: Reports No Symptoms
Endocrine: Reports No Symptoms
Hematologic / Lymphatic: Reports No Symptoms
Allergy / Immunology: Reports No Symptoms
Physical Exam
-
General: Well Developed, Well Nourished, No Apparent Distress and Comfortable
HEENT: Normocephalic, Atraumatic and Moist Mucous Membranes
Respiratory: Clear to Auscultation
Cardiac: Regular Rhythm and S1/S2
Breast: Deferred by me
GI: Soft, Nontender, Nondistended and Other (Cholecystostomy tube)
Rectal: Deferred by Provider
Genito-urinary: Deferred by me
Musculoskeletal: No Clubbing, No Cyanosis and No Edema
Skin: Warm and Dry
Neuro: Nonfocal/Grossly Intact
--- NOTE | 2023-12-13 11:52 | W.PN.UPDATE ---
Update Note
Progress Note Update
I saw and evaluated the patient. I reviewed the resident�s note and agree with findings and plan as documented in the resident�s note.
Patient without specific complaints. He sees improvement in the cholecystostomy tube drainage.
No fevers.
No nausea vomiting or abdominal pain. Abdomen soft.
No chest pains or palpitations. Chest clear. Hemodynamically stable and not hypoxic.
Continue with current antibiotics per acute cholecystitis. Continue with cholecystostomy tube. Eventual cholecystectomy.
For left CEA next Friday.
[2023-12-13 11:57] VITALS: BP 125/81
[2023-12-13 15:14] VITALS: BP 134/79
[2023-12-13] MEDS: TOPROL XL 100 MG PO (17:16)
[2023-12-13] MEDS: CRESTOR 40 MG PO (17:16)
[2023-12-13 19:20] VITALS: BP 126/70
[2023-12-13 23:43] VITALS: BP 151/82
[2023-12-14 03:48] VITALS: BP 154/87
[2023-12-14] MEDS: SYNTHROID 25 MCG PO (05:05)
[2023-12-14] MEDS: UNASYN IV ×4 (05:05→20:59)
[2023-12-14 06:43] LABS: Hematocrit 30.2 % (39.0-52.0); Hemoglobin 9.4 g/dL (13.0-18.0); Mean Corp Hgb Conc. 31.1 g/dL (33.0-37.0); Mean Corpuscular Hgb 24.9 pg (27.0-31.0); Mean Corpuscular Volume 80.1 fL (80.0-94.0); Mean Platelet Volume 9.8 fL (7.4-10.4); Platelet Count 630 10^3/uL (130-400); Red Blood Cell Count 3.77 10^6/uL (4.70-6.10); Red Cell Dist. Width 18.6 % (11.5-14.5); White Blood Cell Count 7.6 10^3/uL (4.8-10.8)
[2023-12-14 06:56] LABS: ALT (SGPT) 33 U/L (0-50); AST (SGOT) 51 U/L (17-59); Albumin 3.2 g/dl (3.5-5.0); Alkaline Phosphatase 140 U/L (38-126); Blood Urea Nitrogen 14 mg/dl (9-20); Calcium 9.5 mg/dl (8.4-10.2); Carbon Dioxide 24 mmol/L (22-30); Chloride 106 mmol/L (98-107); Estimated Creatinine Clearance 44 ml/min; Glucose 85 mg/dl (70-99); Potassium 4.8 mmol/L (3.5-5.1); Sodium 139 mmol/L (135-145); Total Bilirubin 0.3 mg/dl (0.2-1.3); Total Protein 6.1 g/dl (6.3-8.2); eGFR 48.11
[2023-12-14 07:00] VITALS: BP 146/84
[2023-12-14] MEDS: COLACE PO ×2 (08:15→19:11)
[2023-12-14] MEDS: PROTONIX 40 MG PO (08:16)
[2023-12-14] MEDS: COZAAR 25 MG PO (08:16)
[2023-12-14] MEDS: MIRALAX PO (08:16)
[2023-12-14] MEDS: ZETIA 10 MG PO (08:16)
[2023-12-14] MEDS: TYLENOL 650 MG PO ×2 (08:16→19:10)
[2023-12-14] MEDS: LOW STRENGTH ASPIRIN 81 MG PO (08:16)
--- NOTE | 2023-12-14 09:35 | W.PN.HOSP.TC ---
Today's Communication/Plan
-
Continue to monitor H&H. Continue antibiotics for treatment of cholecystitis. Continue to monitor drain and skin for irritation. Tentative date for upcoming procedure is set for Friday.
Assessment / Plan
Assessment / Plan
- Symptomatic left carotid artery stenosis:
Presenting with left-sided blurry vision and difficulty seeing
Carotid ultrasound conducted on 12/07 showed extensive calcified and noncalcified plaque within the bulb and proximal internal carotid artery with severely elevated systolic and diastolic velocities measuring 838 and 362 cm/s respectively. Elevated
ICA/CCA ratio of 12.83. Findings consistent with 70% stenosis
Vascular surgery consulted -Dr. Tapia discussed risks and benefits of carotid endarterectomy and plans to move forward with surgery if medically cleared
Cardiology consult ordered - Cleared for procedure
Neurology consult -recommended continuing aspirin, consulting vascular surgery for carotid endarterectomy, and high-dose statins.
GI consult ordered -they believe the patient is okay for antiplatelet and anticoagulation for planned upcoming carotid endarterectomy.
Monitoring H&H
Will wait for the resolution of cholecystitis before moving forward with left carotid endarterectomy
- Acute Cholecystitis from E-Coli resulting in Sepsis: Monitoring + Treating
Abdominal ultrasound showed evidence of acute cholecystitis. They saw a large gallbladder filled with sludge and stones with at least 1 stone seen in the vicinity gallbladder. There was no gallbladder wall thickening or findings to confirm
pericholecystic fluid. Positive sonographic Escoto sign. No findings to suggest biliary tract dilatation. Overall findings were suspicious for acute cholecystitis.
Hepatobiliary scan was conducted showing no scintigraphic evidence for gallbladder uptake, suggesting cystic duct obstruction and acute cholecystitis.
A percutaneous cholecystostomy was conducted with successful tube placement. IR drain to gravity drainage with probable plans for follow-up within 3 to [address] Gooden and eventual cholecystectomy after full workup. Continuing IV
antibiotics with subsequent transition to oral Augmentin for total 10-day course.
Will wait for the resolution of cholecystitis before moving forward with left carotid endarterectomy
Culture from bile sample showed significant E. coli growth -will transition to IV Unasyn until the purulence gone and then switch to oral Augmentin
- Hx of GI bleeds and severe anemia requiring transfusion:
Monitor H&H and transfuse PRBCs as required
GI consult - they believe the patient is okay for antiplatelet and anticoagulation for planned upcoming carotid endarterectomy.
Patient has dark stools because he takes iron pills
Heme occult test ordered
Plan to transfuse 1 unit of PRBCs prior to surgery - hemoglobin was 7 on 12/08, 1 unit of PRBCs administered - hemoglobin currently at 9.4
Hematology consult -recommended giving IV iron for iron deficiency anemia. They believed that the patient could undergo coronary endarterectomy once cholecystitis is stabilized.
- Constipation:
Colace and senna given
Full code
DVT prophylaxis: Sequential compression devices
Anticipated Discharge: > 48 hours
Subjective/Interval History
-
Date of Service: December 14, 2023
Met with patient at the bedside. He offers no complaints and says that he feels better and has been having regular bowel movements. He is happy that he received his Protonix and has less symptoms of GERD lately. He looks forward to further
progress being made in regards to his upcoming carotid endarterectomy. He also notes that there is less drainage coming from his cholecystostomy drain. He continues to have persistent vision on his left eye.
Objective Data
-
Labs:
Laboratory Results
12/14/23
05:58
WBC 7.6
Hgb 9.4 L
Hct 30.2 L
Plt Count 630 H
Sodium 139
Potassium 4.8
Chloride 106
Carbon Dioxide 24
BUN 14
Creatinine 1.6 H
Glucose 85
Calcium 9.5
Total Bilirubin 0.3
AST 51
ALT 33
Alkaline Phosphatase 140 H
Vital Signs:
Vital Signs
Temp Pulse Resp BP Pulse Ox
98.0 F 65 16 146/84 98
12/14/23 07:00 12/14/23 07:00 12/14/23 07:00 12/14/23 07:00 12/14/23 07:00
I&O
12/13/23 12/14/23 12/15/23
06:59 06:59 06:59
Intake Total 1380 / 1380 850 / 850
Output Total 420 / 420 80 / 80
Balance 960 / 960 770 / 770
Review of Systems
-
History Source: Patient
Constitutional: Reports No Symptoms
EENT: Reports Blurry Vision (Left eye)
Respiratory: Reports No Symptoms
Cardiac: Reports No Symptoms
Abdomen/GI: Reports Other (Cholecystostomy drain)
Breast: Reports No Symptoms
Genitourinary: Reports No Symptoms
Musculoskeletal: Reports No Symptoms
Skin: Reports No Symptoms
Neuro: Reports No Symptoms
Endocrine: Reports No Symptoms
Hematologic / Lymphatic: Reports No Symptoms
Allergy / Immunology: Reports No Symptoms
[2023-12-14 11:00] VITALS: BP 122/78
--- NOTE | 2023-12-14 12:54 | CM ---
Patient seen ambulating halls with . CM reviewed chart, patient for tentative procedure Friday. CM will continue to follow for all discharge planning needs.
Plan; home no needs anticipated.
--- NOTE | 2023-12-14 13:29 | W.PN.UPDATE ---
Addendum entered and electronically signed by Immanuel Daugherty MD 12/17/23 10:28:
Pt at presentation had abdo pain and tenderness and diagnosed to have Sepsis sec to acute cholecytitis which was present on admission.
Original Note:
Update Note
Progress Note Update
I saw and evaluated the patient. I reviewed the resident�s note and agree with findings and plan as documented in the resident�s note.
No overnight events.
No fever or chills.
Abdomen benign.
Decrease the cholecystostomy drain noted.
Continue with current antibiotics for now.
Await left CEA on Friday.
[2023-12-14 15:00] VITALS: BP 151/90
[2023-12-14] MEDS: CRESTOR 40 MG PO (17:22)
[2023-12-14] MEDS: TOPROL XL 100 MG PO (17:22)
[2023-12-14 19:33] VITALS: BP 152/79
[2023-12-14 22:38] VITALS: BP 123/60
[2023-12-15 03:16] VITALS: BP 155/87
[2023-12-15] MEDS: UNASYN IV ×4 (04:26→22:12)
[2023-12-15] MEDS: SYNTHROID 25 MCG PO (04:26)
[2023-12-15] MEDS: TYLENOL 650 MG PO ×2 (05:16→22:12)
[2023-12-15 07:00] VITALS: BP 154/76
[2023-12-15 08:00] LABS: Hemoglobin 9.2 g/dL (13.0-18.0); Mean Corp Hgb Conc. 31.7 g/dL (33.0-37.0); Mean Corpuscular Hgb 24.8 pg (27.0-31.0); Mean Corpuscular Volume 78.2 fL (80.0-94.0); Mean Platelet Volume 9.6 fL (7.4-10.4); Platelet Count 606 10^3/uL (130-400); Red Blood Cell Count 3.71 10^6/uL (4.70-6.10); Red Cell Dist. Width 18.9 % (11.5-14.5); White Blood Cell Count 8.1 10^3/uL (4.8-10.8)
[2023-12-15 08:20] LABS: ALT (SGPT) 28 U/L (0-50); AST (SGOT) 39 U/L (17-59); Albumin 3.2 g/dl (3.5-5.0); Alkaline Phosphatase 135 U/L (38-126); Blood Urea Nitrogen 14 mg/dl (9-20); Calcium 9.5 mg/dl (8.4-10.2); Carbon Dioxide 22 mmol/L (22-30); Chloride 108 mmol/L (98-107); Estimated Creatinine Clearance 47 ml/min; Glucose 98 mg/dl (70-99); Potassium 4.5 mmol/L (3.5-5.1); Sodium 138 mmol/L (135-145); Total Bilirubin 0.2 mg/dl (0.2-1.3); Total Protein 5.9 g/dl (6.3-8.2); eGFR 51.99
[2023-12-15] MEDS: COLACE PO ×2 (08:46→22:12)
[2023-12-15] MEDS: MIRALAX PO (08:47)
[2023-12-15] MEDS: PROTONIX 40 MG PO (08:47)
[2023-12-15] MEDS: LOW STRENGTH ASPIRIN 81 MG PO (08:47)
[2023-12-15] MEDS: COZAAR 25 MG PO (08:47)
[2023-12-15] MEDS: ZETIA 10 MG PO (08:47)
[2023-12-15 11:00] VITALS: BP 147/82
[2023-12-15 15:00] VITALS: BP 140/76
--- NOTE | 2023-12-15 16:17 | CM ---
Patient seen at bedside with physicians and patient . Patient awaiting surgery on fri. Patient eager to get the procedure finished. CM will continue to follow for discharge planning needs.
Plan; home with VN vs home with no needs
--- NOTE | 2023-12-15 17:11 | W.PN.HOSP.TC ---
Addendum entered and electronically signed by Jaclyn Alvarez MD 12/15/23 18:51:
I saw and evaluated the patient independently. I reviewed the resident�s note and agree with findings and plan as documented by Dr. Hopkins.
GENERAL: well developed, well nourished, male in no apparent distress
HEENT: NC/AT
HEART: regular rate and rhythm, +S1, +S2
LUNGS : clear to auscultation bilaterally
ABDOM: soft, nontender, nondistended, + bowel sounds--perc zeb tube draining brown (chocolate-milk like) liquid
EXT: no cyanosis, clubbing, or edema
NEUROLOGIC: grossly intact
Symptomatic left carotid artery stenosis--Presenting with left-sided blurry vision and difficulty seeing--apprec neuro/vascular input--for CEA Saturday 12/16--cont asa, high dose statins--Carotid ultrasound conducted on 12/07 showed extensive
calcified and noncalcified plaque within the bulb and proximal internal carotid artery with severely elevated systolic and diastolic velocities measuring 838 and 362 cm/s respectively. Elevated ICA/CCA ratio of 12.83. Findings consistent with 70%
stenosis
Acute Cholecystitis from E-Coli resulting in Sepsis-- perc zeb tube placed--await surgical intervention for definitive cholecystectomy--percutaneous cholecystostomy was conducted with successful tube placement. IR drain to gravity drainage with
probable plans for follow-up within [address] Gooden and eventual cholecystectomy after full workup--Culture from bile sample is significant for E. coli growth - continue IV Unasyn until the purulence gone and then switch to oral
Augmentin
Hx of GI bleeds and severe anemia requiring transfusion--Monitor H&H and transfuse PRBCs as required--GI consult believe the patient is okay for antiplatelet and anticoagulation for planned upcoming carotid endarterectomy--transfuse 1 unit of PRBCs
prior to surgery - hemoglobin was 7 on 12/08, 1 unit of PRBCs administered - hemoglobin currently at 9.4--Hematology consult -recommended giving IV iron for iron deficiency anemia. They believed that the patient could undergo coronary endarterectomy
once cholecystitis is stabilized
Constipation--Colace and senna given
Full code
DVT prophylaxis: Sequential compression devices
Original Note:
Today's Communication/Plan
-
Patient continues to have purulent drainage from percutaneous tube of the gallbladder. Continue patient on IV unasyn and re-evaluate in the morning.
Assessment / Plan
Assessment / Plan
- Symptomatic left carotid artery stenosis:
Presenting with left-sided blurry vision and difficulty seeing
Carotid ultrasound conducted on 12/07 showed extensive calcified and noncalcified plaque within the bulb and proximal internal carotid artery with severely elevated systolic and diastolic velocities measuring 838 and 362 cm/s respectively. Elevated
ICA/CCA ratio of 12.83. Findings consistent with 70% stenosis
Vascular surgery consulted -Dr. Tapia discussed risks and benefits of carotid endarterectomy and plans to move forward with surgery if medically cleared
Cardiology consult ordered - Cleared for procedure
Neurology consult -recommended continuing aspirin, consulting vascular surgery for carotid endarterectomy, and high-dose statins.
GI consult ordered -they believe the patient is okay for antiplatelet and anticoagulation for planned upcoming carotid endarterectomy.
Monitoring H&H
Will wait for the resolution of cholecystitis before moving forward with left carotid endarterectomy. Endartectomy is tentatively scheduled for friday.
- Acute Cholecystitis from E-Coli resulting in Sepsis: Monitoring + Treating
Abdominal ultrasound showed evidence of acute cholecystitis. They saw a large gallbladder filled with sludge and stones with at least 1 stone seen in the vicinity gallbladder. There was no gallbladder wall thickening or findings to confirm
pericholecystic fluid. Positive sonographic Escoto sign. No findings to suggest biliary tract dilatation. Overall findings were suspicious for acute cholecystitis.
Hepatobiliary scan was conducted showing no scintigraphic evidence for gallbladder uptake, suggesting cystic duct obstruction and acute cholecystitis.
A percutaneous cholecystostomy was conducted with successful tube placement. IR drain to gravity drainage with probable plans for follow-up within 3 to [address] Gooden and eventual cholecystectomy after full workup.
Culture from bile sample is significant for E. coli growth - continue IV Unasyn until the purulence gone and then switch to oral Augmentin
- Hx of GI bleeds and severe anemia requiring transfusion:
Monitor H&H and transfuse PRBCs as required
GI consult - they believe the patient is okay for antiplatelet and anticoagulation for planned upcoming carotid endarterectomy.
Patient has dark stools because he takes iron pills
Heme occult test ordered
Plan to transfuse 1 unit of PRBCs prior to surgery - hemoglobin was 7 on 12/08, 1 unit of PRBCs administered - hemoglobin currently at 9.4
Hematology consult -recommended giving IV iron for iron deficiency anemia. They believed that the patient could undergo coronary endarterectomy once cholecystitis is stabilized.
- Constipation:
Colace and senna given
Full code
DVT prophylaxis: Sequential compression devices
Anticipated Discharge: > 48 hours
Subjective/Interval History
-
Date of Service: December 15, 2023
Patient feels well and is walking around. He is looking forward to his endarterectomy.
Objective Data
-
Labs:
Laboratory Results
12/15/23
07:32
WBC 8.1
Hgb 9.2 L
Hct 29.0 L
Plt Count 606 H
Sodium 138
Potassium 4.5
Chloride 108 H
Carbon Dioxide 22
BUN 14
Creatinine 1.5 H
Glucose 98
Calcium 9.5
Total Bilirubin 0.2
AST 39
ALT 28
Alkaline Phosphatase 135 H
Vital Signs:
Vital Signs
Temp Pulse Resp BP Pulse Ox
98.4 F 65 20 140/76 97
12/15/23 15:00 12/15/23 15:00 12/15/23 15:00 12/15/23 15:00 12/15/23 15:00
I&O
12/14/23 12/15/23 12/16/23
06:59 06:59 06:59
Intake Total 850 / 850 2219 / 2219
Output Total 80 / 80 75 / 75
Balance 770 / 770 2144 / 2144
Review of Systems
-
History Source: Patient
Constitutional: Denies Fever
EENT: Reports Other (blurry vision)
Respiratory: Reports No Symptoms
Cardiac: Reports No Symptoms
Abdomen/GI: Reports No Symptoms
Genitourinary: Reports No Symptoms
Musculoskeletal: Reports No Symptoms
Skin: Reports No Symptoms
Neuro: Reports No Symptoms
Physical Exam
-
General: Well Developed and No Apparent Distress; Negative Fever or Chills
Respiratory: Clear to Auscultation
Cardiac: Regular Rhythm and S1/S2
GI: Soft, Nontender and Other (Percutaneous cholecystostomy with sucessful tube placement)
Skin: Negative Warm or Rash
Neuro: AO x 3
Psych: Calm
Data Reviewed
-
Labs: Labs Reviewed by me, Discussed with Physician, Discussed with Patient and Discussed with Family
[2023-12-15] MEDS: CRESTOR 40 MG PO (17:30)
[2023-12-15] MEDS: TOPROL XL 100 MG PO (17:30)
[2023-12-15 19:00] VITALS: BP 150/77
[2023-12-15 23:21] VITALS: BP 150/82
[2023-12-16 03:00] VITALS: BP 139/73
[2023-12-16] MEDS: UNASYN IV ×4 (04:16→21:06)
[2023-12-16] MEDS: SYNTHROID 25 MCG PO (05:39)
[2023-12-16] MEDS: TYLENOL 650 MG PO (06:28)
[2023-12-16 07:00] VITALS: BP 131/74
[2023-12-16 07:31] LABS: % Basophils 0.7 % (0-2); % Immature Granulocytes 1.6 % (0-0.5); % Lymphocytes 22.3 % (20.5-51.1); % Neutrophils 60.4 % (42.2-75.2); Absolute Basophils 0.1 10^3/uL (0-0.2); Absolute Eosinophils 0.6 10^3/uL (0-0.7); Absolute Immature Granulocytes 0.1 10^3/uL (0-0.05); Absolute Lymphocytes 1.9 10^3/uL (1.2-3.4); Absolute Monocytes 0.7 10^3/uL (0.1-0.6); Absolute Neutrophils 5.3 10^3/uL (1.4-6.5); Hematocrit 27.8 % (39.0-52.0); Hemoglobin 8.9 g/dL (13.0-18.0); Mean Corpuscular Hgb 25.1 pg (27.0-31.0); Mean Corpuscular Volume 78.5 fL (80.0-94.0); Mean Platelet Volume 9.7 fL (7.4-10.4); Nucleated Red Blood Cells % 0 % (-); Platelet Count 572 10^3/uL (130-400); Red Blood Cell Count 3.54 10^6/uL (4.70-6.10); Red Cell Dist. Width 19.2 % (11.5-14.5); White Blood Cell Count 8.7 10^3/uL (4.8-10.8)
[2023-12-16 07:50] LABS: ALT (SGPT) 22 U/L (0-50); AST (SGOT) 28 U/L (17-59); Albumin 3.1 g/dl (3.5-5.0); Alkaline Phosphatase 109 U/L (38-126); Blood Urea Nitrogen 17 mg/dl (9-20); Calcium 9.1 mg/dl (8.4-10.2); Carbon Dioxide 24 mmol/L (22-30); Chloride 108 mmol/L (98-107); Estimated Creatinine Clearance 44 ml/min; Glucose 131 mg/dl (70-99); Potassium 4.5 mmol/L (3.5-5.1); Sodium 138 mmol/L (135-145); Total Bilirubin 0.2 mg/dl (0.2-1.3); Total Protein 5.6 g/dl (6.3-8.2); eGFR 48.11
[2023-12-16] MEDS: MIRALAX PO (09:16)
[2023-12-16] MEDS: COLACE PO ×2 (09:16→21:06)
[2023-12-16] MEDS: PROTONIX 40 MG PO (09:17)
[2023-12-16] MEDS: ZETIA 10 MG PO (09:17)
[2023-12-16] MEDS: LOW STRENGTH ASPIRIN 81 MG PO (09:17)
[2023-12-16] MEDS: COZAAR 25 MG PO (09:17)
--- NOTE | 2023-12-16 09:45 | W.PN.HOSP.TC ---
Addendum entered and electronically signed by Jaclyn Alvarez MD 12/16/23 20:26:
I saw and evaluated the patient independently. I reviewed the resident�s note and agree with findings and plan as documented by Dr. Hopkins.
GENERAL: well developed, well nourished, male in no apparent distress
HEENT: NC/AT--left carotid bruit
HEART: regular rate and rhythm, +S1, +S2
LUNGS : clear to auscultation bilaterally
ABDOM: soft, nontender, nondistended, + bowel sounds--perc zeb tube draining light brown liquid--improved from 12/15/23
EXT: no cyanosis, clubbing, or edema
NEUROLOGIC: grossly intact
Symptomatic left carotid artery stenosis--Presenting with left-sided blurry vision and difficulty seeing--apprec neuro/vascular input--for CEA Saturday 12/16--cont asa, high dose statins--Carotid ultrasound conducted on 12/07 showed extensive
calcified and noncalcified plaque within the bulb and proximal internal carotid artery with severely elevated systolic and diastolic velocities measuring 838 and 362 cm/s respectively. Elevated ICA/CCA ratio of 12.83. Findings consistent with 70%
stenosis
Acute Cholecystitis from E-Coli resulting in Sepsis-- perc zeb tube placed--await surgical intervention for definitive cholecystectomy--percutaneous cholecystostomy was conducted with successful tube placement. IR drain to gravity drainage with
probable plans for follow-up within [address] Gooden and eventual cholecystectomy after full workup--Culture from bile sample is significant for E. coli growth - continue IV Unasyn until the purulence gone and then switch to oral
Augmentin
Hx of GI bleeds and severe anemia requiring transfusion--Monitor H&H and transfuse PRBCs as required--GI consult believe the patient is okay for antiplatelet and anticoagulation for planned upcoming carotid endarterectomy--transfuse 1 unit of PRBCs
prior to surgery - hemoglobin was 7 on 12/08, 1 unit of PRBCs administered - hemoglobin currently at 9.4--apprec Hematology-recommended giving IV iron for iron deficiency anemia. They believed that the patient could undergo coronary endarterectomy
once cholecystitis is stabilized--cont B12 supplementation
Constipation--Colace and senna given
Full code
DVT prophylaxis: Sequential compression devices
Original Note:
Today's Communication/Plan
-
Patient is scheduled for endarterectomy tomorrow. Continue to keep patient on Unasyn as he continues to have purulent discharge from percutaneous cholecystostomy tube.
Assessment / Plan
Assessment / Plan
- Symptomatic left carotid artery stenosis:
Presenting with left-sided blurry vision and difficulty seeing
Carotid ultrasound conducted on 12/07 showed extensive calcified and noncalcified plaque within the bulb and proximal internal carotid artery with severely elevated systolic and diastolic velocities measuring 838 and 362 cm/s respectively. Elevated
ICA/CCA ratio of 12.83. Findings consistent with 70% stenosis
Vascular surgery consulted -Dr. Tapia discussed risks and benefits of carotid endarterectomy and plans to move forward with surgery if medically cleared
Cardiology consult ordered - Cleared for procedure
Neurology consult -recommended continuing aspirin, consulting vascular surgery for carotid endarterectomy, and high-dose statins.
GI consult ordered -they believe the patient is okay for antiplatelet and anticoagulation for planned upcoming carotid endarterectomy.
Monitoring H&H
Will wait for the resolution of cholecystitis before moving forward with left carotid endarterectomy. Endartectomy is scheduled for friday.
- Acute Cholecystitis from E-Coli resulting in Sepsis: Monitoring + Treating
Abdominal ultrasound showed evidence of acute cholecystitis. They saw a large gallbladder filled with sludge and stones with at least 1 stone seen in the vicinity gallbladder. There was no gallbladder wall thickening or findings to confirm
pericholecystic fluid. Positive sonographic Escoto sign. No findings to suggest biliary tract dilatation. Overall findings were suspicious for acute cholecystitis.
Hepatobiliary scan was conducted showing no scintigraphic evidence for gallbladder uptake, suggesting cystic duct obstruction and acute cholecystitis.
A percutaneous cholecystostomy was conducted with successful tube placement. IR drain to gravity drainage with probable plans for follow-up within 3 to [address] Gooden and eventual cholecystectomy after full workup.
Culture from bile sample is significant for E. coli growth - continue IV Unasyn until the purulence gone and then switch to oral Augmentin.
Purulent drainage continues. 200 cc overnight. Continue on Unasyn.
No signs of infx at tube site.
- Hx of GI bleeds and severe anemia requiring transfusion:
Monitor H&H and transfuse PRBCs as required
GI consult - they believe the patient is okay for antiplatelet and anticoagulation for planned upcoming carotid endarterectomy.
Patient has dark stools because he takes iron pills
Heme occult test ordered
Plan to transfuse 1 unit of PRBCs prior to surgery - hemoglobin was 7 on 12/08, 1 unit of PRBCs administered - hemoglobin currently at 9.4
Hematology consult -recommended giving IV iron for iron deficiency anemia. They believed that the patient could undergo coronary endarterectomy once cholecystitis is stabilized.
- Constipation:
Colace and senna given
Full code
DVT prophylaxis: Sequential compression devices
Anticipated Discharge: > 48 hours
Subjective/Interval History
-
Date of Service: December 16, 2023
Patient feels well and is tired of being in the hospital. Looking forward to his endarterectomy.
Objective Data
-
Labs:
Laboratory Results
12/16/23
06:38
WBC 8.7
Hgb 8.9 L
Hct 27.8 L
Plt Count 572 H
Sodium 138
Potassium 4.5
Chloride 108 H
Carbon Dioxide 24
BUN 17
Creatinine 1.6 H
Glucose 131 H
Calcium 9.1
Total Bilirubin 0.2
AST 28
ALT 22
Alkaline Phosphatase 109
Vital Signs:
Vital Signs
Temp Pulse Resp BP Pulse Ox
97.9 F 60 16 131/74 97
12/16/23 07:00 12/16/23 07:00 12/16/23 07:00 12/16/23 07:00 12/16/23 07:00
I&O
12/15/23 12/16/23 12/17/23
06:59 06:59 06:59
Intake Total 2219
Output Total 85 / 85 120 / 120
Balance 2134 / 2134
Review of Systems
-
History Source: Patient
Constitutional: Reports No Symptoms
EENT: Reports Blurry Vision
Respiratory: Reports No Symptoms
Cardiac: Reports No Symptoms
Abdomen/GI: Reports No Symptoms
Genitourinary: Reports No Symptoms
Neuro: Reports No Symptoms
Physical Exam
-
General: Well Developed, Well Nourished, No Apparent Distress and Comfortable
Respiratory: Clear to Auscultation
Cardiac: Regular Rhythm and S1/S2
GI: Soft and Nontender
Neuro: AO x 3
Psych: Calm
[2023-12-16 11:00] VITALS: BP 162/75
--- NOTE | 2023-12-16 12:35 | W.PN.ONC ---
Today's Communication / Plan
-
I have recommended that he take B12 2 mg sublingually indefinitely. It is an [id number] drug.
Impression
Impression
Iron deficiency anemia, bleeding site not identified; thrombocytosis reactive to iron deficiency
Borderline B12 level, methylmalonic acid slightly elevated
Carotid artery stenosis, requiring eventual endarterectomy
Peripheral vascular disease
Acute cholecystitis -s/p perc zeb tube 12/09. E.coli from culture
DM2
Coronary artery disease
Plan
Plan
ILYA s/p 1unit prbc 12/08 and 3 doses of ferrlecit
vascular surgery plans for eventual CEA
Acute cholecystis s/p percutaneous drainage 12/09, Ecoli on IV abx
Subjective/Objective
Subjective/Objective
He is feeling reasonably well. He has no new symptoms. Surgery is scheduled for tomorrow.
Vital Signs:
Vital Signs
Temp Pulse Resp BP Pulse Ox
97.5 F 65 16 162/75 100
12/16/23 11:00 12/16/23 11:00 12/16/23 11:00 12/16/23 11:00 12/16/23 11:00
Lab Results:
Laboratory Data
WBC 8.7 10^3/uL (4.8-10.8) 12/16/23 06:38
Hgb 8.9 g/dL (13.0-18.0) L 12/16/23 06:38
Plt Count 572 10^3/uL (130-400) H 12/16/23 06:38
PT 16.7 Sec (11.4-14.6) H 12/11/23 07:05
INR 1.35 12/11/23 07:05
APTT 44.5 Sec (23.4-35.0) H 12/11/23 07:05
eGFR 48.11 12/16/23 06:38
Orders
Orders
Orders From Last 24 Hours
12/17/23 08:00
Cyanocobalamin [Vitamin B-12] 2,000 mcg PO DAILY
--- NOTE | 2023-12-16 14:13 | CM ---
Patient seen at bedside with patient . Patient for surgery tomorrow and eager to get it done. CM will continue to follow for discharge planning needs.
Plan; home with VN vs SNF pending functional status after surgery
[2023-12-16 15:00] VITALS: BP 146/82
[2023-12-16] MEDS: TOPROL XL 100 MG PO (17:10)
[2023-12-16] MEDS: CRESTOR 40 MG PO (17:10)
[2023-12-16 19:00] VITALS: BP 143/78
[2023-12-16 23:00] VITALS: BP 137/74
[2023-12-17] VITALS (40 sets, daily range): BP systolic 85–154; BP diastolic 51–90; BMI 26.0; BMI 25.9
[2023-12-17] MEDS: UNASYN IV ×4 (03:16→22:06)
[2023-12-17 04:20] LABS: Hematocrit 26.7 % (39.0-52.0); Hemoglobin 8.5 g/dL (13.0-18.0); Mean Corp Hgb Conc. 31.8 g/dL (33.0-37.0); Mean Corpuscular Hgb 24.7 pg (27.0-31.0); Mean Corpuscular Volume 77.6 fL (80.0-94.0); Mean Platelet Volume 9.5 fL (7.4-10.4); Platelet Count 516 10^3/uL (130-400); Red Blood Cell Count 3.44 10^6/uL (4.70-6.10); Red Cell Dist. Width 19.6 % (11.5-14.5); White Blood Cell Count 8.3 10^3/uL (4.8-10.8)
[2023-12-17] MEDS: SYNTHROID PO (04:32)
[2023-12-17 04:42] LABS: Blood Urea Nitrogen 19 mg/dl (9-20); Calcium 9.1 mg/dl (8.4-10.2); Carbon Dioxide 24 mmol/L (22-30); Chloride 110 mmol/L (98-107); Estimated Creatinine Clearance 47 ml/min; Glucose 92 mg/dl (70-99); Potassium 4.3 mmol/L (3.5-5.1); Sodium 139 mmol/L (135-145); eGFR 51.99
--- NOTE | 2023-12-17 06:08 | PTCARENOTE ---
pt npo, washed, shaved, and chg wipes. labs sent.
[2023-12-17] MEDS: PERIDEX 0.12% ORAL RINSE 15 ML PO (06:42)
[2023-12-17] MEDS: BACTROBAN 2% OINTMENT 1 APPLIC NASAL (06:46)
[2023-12-17 07:23] LABS: Glucose - Point of Care 90 mg/dl (70-99)
--- NOTE | 2023-12-17 08:47 | W.PN.HOSP.TC ---
Addendum entered and electronically signed by Jaclyn Alvarez MD 12/17/23 14:41:
I saw and evaluated the patient independently. I reviewed the resident�s note and agree with findings and plan as documented by Dr. Hopkins.
GENERAL: well developed, well nourished, male in no apparent distress
HEENT: NC/AT--left carotid bruit
HEART: regular rate and rhythm, +S1, +S2
LUNGS : clear to auscultation bilaterally
ABDOM: soft, nontender, nondistended, + bowel sounds--perc zeb tube draining light brown liquid--improved from 12/15/23
EXT: no cyanosis, clubbing, or edema
NEUROLOGIC: grossly intact
Symptomatic left carotid artery stenosis--Presenting with left-sided blurry vision and difficulty seeing--[facility]--s/p CEA Saturday 12/16, now in ICU--cont asa, high dose statins--Carotid ultrasound conducted on 12/07 showed
extensive calcified and noncalcified plaque within the bulb and proximal internal carotid artery with severely elevated systolic and diastolic velocities measuring 838 and 362 cm/s respectively. Elevated ICA/CCA ratio of 12.83. Findings consistent
with 70% stenosis
Acute Cholecystitis from E-Coli resulting in Sepsis-- perc zeb tube placed--[facility] surgical intervention for definitive cholecystectomy in 6 weeks--percutaneous cholecystostomy was conducted with successful tube placement. IR drain to gravity
drainage with probable plans for follow-up within 3 to [address] Gooden and eventual cholecystectomy after full workup--Culture from bile sample is significant for E. coli growth - continue IV Unasyn until the purulence gone and then switch
to oral Augmentin
Hx of GI bleeds and severe anemia requiring transfusion--Monitor H&H and transfuse PRBCs as required--GI consult believe the patient is okay for antiplatelet and anticoagulation for planned upcoming carotid endarterectomy--transfuse 1 unit of PRBCs
prior to surgery - hemoglobin was 7 on 12/08, 1 unit of PRBCs administered - hemoglobin currently at 9.4--[facility] Hematology-recommended giving IV iron for iron deficiency anemia. They believed that the patient could undergo coronary endarterectomy
once cholecystitis is stabilized--cont B12 supplementation
thrombocytosis -- likely due to iron deficiency--check levels with hx of GI bleeds--moving towards normal
Constipation--Colace and senna given
Full code
DVT prophylaxis: Sequential compression devices
Original Note:
Today's Communication/Plan
-
Patient underwent endarterectomy. Monitor patient post-op in ICU. Continuing Unasyn.
Assessment / Plan
Assessment / Plan
- Symptomatic left carotid artery stenosis:
Presenting with left-sided blurry vision and difficulty seeing
Carotid ultrasound conducted on 12/07 showed extensive calcified and noncalcified plaque within the bulb and proximal internal carotid artery with severely elevated systolic and diastolic velocities measuring 838 and 362 cm/s respectively. Elevated
ICA/CCA ratio of 12.83. Findings consistent with 70% stenosis
Vascular surgery consulted -Dr. Tapia discussed risks and benefits of carotid endarterectomy and plans to move forward with surgery if medically cleared
Cardiology consult ordered - Cleared for procedure
Neurology consult -recommended continuing aspirin, consulting vascular surgery for carotid endarterectomy, and high-dose statins.
GI consult ordered -they believe the patient is okay for antiplatelet and anticoagulation for planned upcoming carotid endarterectomy.
Monitoring H&H
Surgery deemed patient clinically stable for Endartectomy. Procedure done today. Patient awake, verbal and stable in the ICU post op.
Monitor post surgery
- Acute Cholecystitis from E-Coli resulting in Sepsis: Monitoring + Treating
Abdominal ultrasound showed evidence of acute cholecystitis. They saw a large gallbladder filled with sludge and stones with at least 1 stone seen in the vicinity gallbladder. There was no gallbladder wall thickening or findings to confirm
pericholecystic fluid. Positive sonographic Escoto sign. No findings to suggest biliary tract dilatation. Overall findings were suspicious for acute cholecystitis.
Hepatobiliary scan was conducted showing no scintigraphic evidence for gallbladder uptake, suggesting cystic duct obstruction and acute cholecystitis.
A percutaneous cholecystostomy was conducted with successful tube placement. IR drain to gravity drainage with probable plans for follow-up within 3 to [address] Gooden and eventual cholecystectomy after full workup.
Culture from bile sample is significant for E. coli growth - continue IV Unasyn until the purulence gone and then switch to oral Augmentin.
Purulent drainage continues. 70cc overnight. Continue on Unasyn.
No signs of infx at tube site.
- Hx of GI bleeds and severe anemia requiring transfusion:
Monitor H&H and transfuse PRBCs as required
GI consult - they believe the patient is okay for antiplatelet and anticoagulation for planned upcoming carotid endarterectomy.
Patient has dark stools because he takes iron pills
Heme occult test ordered
Plan to transfuse 1 unit of PRBCs prior to surgery - hemoglobin was 7 on 12/08, 1 unit of PRBCs administered - hemoglobin currently at 8.3
Hematology consult -recommended giving IV iron for iron deficiency anemia. They believed that the patient could undergo coronary endarterectomy.
- Constipation:
Colace and senna given
Full code
DVT prophylaxis: Sequential compression devices
Anticipated Discharge: > 48 hours
Subjective/Interval History
-
Date of Service: December 17, 2023
Objective Data
-
Labs:
Laboratory Results
12/17/23
03:59
WBC 8.3
Hgb 8.5 L
Hct 26.7 L
Plt Count 516 H
Sodium 139
Potassium 4.3
Chloride 110 H
Carbon Dioxide 24
BUN 19
Creatinine 1.5 H
Glucose 92
Calcium 9.1
Vital Signs:
Vital Signs
Temp Pulse Resp BP Pulse Ox
97.2 F 65 18 143/87 99
12/17/23 06:34 12/17/23 06:34 12/17/23 06:34 12/17/23 06:34 12/17/23 06:34
I&O
12/16/23 12/17/23 12/18/23
06:59 06:59 06:59
Intake Total 2039 1140 / 1140
Output Total 120 / 120 90 / 90
Balance 1919 1050 / 1050
Review of Systems
-
History Source: Patient
EENT: Reports Blurry Vision
Respiratory: Reports No Symptoms
Cardiac: Reports No Symptoms
Abdomen/GI: Reports No Symptoms
Genitourinary: Reports No Symptoms
Physical Exam
-
General: Well Developed, Well Nourished, No Apparent Distress and Comfortable
HEENT: Negative Other (left sided post endarterectomy surgical wound)
Respiratory: Clear to Auscultation
Cardiac: Regular Rhythm and S1/S2
GI: Soft, Nontender, Nondistended and Other (Cholecystostomy tube )
Musculoskeletal: Negative Edema, Right Lower Extrem or Edema, Left Lower Extrem
Neuro: AO x 3
Psych: Calm
--- NOTE | 2023-12-17 09:33 | W.SUR.POST ---
Surgical Immediate Post Op
Note
Pre Op Diagnosis: Carotid stenosis
Post Op Diagnosis: Same
Procedure Performed: Left carotid endarterectomy with bovine pericardial patch angioplasty and EEG monitoring
Primary Surgeon: Willie
Assist: Lucio GODOY
Anesthesia: General
Estimated Blood Loss: 15 cc
Fluids: See anesthesia flowsheet
Drains/Shunts: None
Specimens/Cultures: Carotid plaque
Doppler/Duplex/Angio (Y/N): Y
Complications: None
Operative Findings: Woke from anesthesia moving all extremities
[2023-12-17 10:06] LABS: Glucose - Point of Care 141 mg/dl (70-99)
[2023-12-17] MEDS: NEO-SYNEPHRINE 250 IV (10:24)
[2023-12-17 10:36] LABS: Hematocrit 25.9 % (39.0-52.0); Hemoglobin 8.3 g/dL (13.0-18.0); Mean Corpuscular Hgb 25.7 pg (27.0-31.0); Mean Corpuscular Volume 80.2 fL (80.0-94.0); Mean Platelet Volume 9.9 fL (7.4-10.4); Platelet Count 452 10^3/uL (130-400); Red Blood Cell Count 3.23 10^6/uL (4.70-6.10); Red Cell Dist. Width 19.3 % (11.5-14.5); White Blood Cell Count 17.8 10^3/uL (4.8-10.8)
--- NOTE | 2023-12-17 10:40 | CON.INTV ---
Consultation
Consultation Request
Date/Time Consultation Requested: 12/17/2023 - 935
Date/Time Consultation Performed: 12/17/2023 - 1021
Requesting Provider: WALT Dumont
Performing Provider: Franki Sheth MD
Reason for Consultation: post-op left CEA
Medical History
-
Chief Complaint: Left eye blurry vision & dizziness
History of Present Illness:
62-year-old male former tobacco smoker with extensive PAD and multiple lower extremity bypasses + iliac stents, CAD s/p coronary stenting with RCA [employer]OR OF [employer]ICE, hypertension, CKD and hypothyroidism who presented with left eye blurry vision with dizziness and
known left-sided hemodynamically significant carotid artery stenosis (70-75% via CTA head/neck from 11/28/2023). Vascular surgery saw the patient in the ER and deemed his symptoms was likely due to symptomatic left-sided carotid artery stenosis.
Initial labs showed anemia to 7.7, leukocytosis to 11.2, creatinine 1.5, A1c 6.8, and cerebrovascular ultrasound was done showing extensive calcified/noncalcified plaque within the bulb and proximal ICA with >70% stenosis of the left carotid artery.
Due to his anemia GI was consulted. 1 unit PRBC was transfused on the evening of 12/08, raising his Hb appropriately from 7.7 to 8.7. Given the patient's difficulty with standing and walking, neurology was consulted. Aspirin was recommended to
continue with high intensity statin, and evaluation for carotid endarterectomy. During his hospitalization he developed RUQ abdominal pain and general surgery was consulted. He apparently has a history of this happening last year as well and again
2 months ago with symptoms lasting a few days. Abdominal ultrasound showed large gallbladder filled with sludge and stones, without gallbladder wall thickening and positive sonographic Escoto sign suggestive of cholecystitis. HIDA scan obtained
showing no skin to graphic evidence for gallbladder uptake suggesting cystic duct obstruction and acute cholecystitis. The CBD was patent. Antibiotics with Zosyn was started on the evening of 12/08, and this was changed to Unasyn on the evening of
12/11. Patient underwent percutaneous cholecystostomy placement on 12/09 by IR, and 150 cc of grossly purulent fluid was sent for cultures, and this later grew E. coli. Patient's carotid endarterectomy was postponed due to fever with hypotension
requiring fluids. Today he underwent left carotid endarterectomy with bovine pericardial patch angioplasty. EBL was 50 cc, there were no complications and he was transferred to the ICU for further care with critical care services consulted for
additional management/recommendations.
When I saw the patient he was in bed, at bedside, patient was in no acute distress. Heart rate 51, SpO2 95% on room air, BP 129/55 (via A-line), and BP via NIBP 132/78. He is on Max-Synephrine at 20mcg/min and IVF with NS 0.9% at 80 cc/h. He
has some tenderness at the left neck site otherwise denies chest pain, shortness of breath, abdominal pain, fevers or chills.
PMHx: PAD s/p lower extremity bypasses + iliac stenting, CAD s/p coronary stenting with RCA [employer], hypertension, hypercholesterolemia, hypothyroidism, CKD, former tobacco use disorder, and AAA
PSHx: Right iliofemoral endarterectomy with bovine pericardial patch angioplasty, right femoral to above�knee popliteal artery bypass with right external iliac artery angioplasty/covered stent placement (June 2023); left femoral to above�knee
popliteal artery bypass with left common iliac artery stent placement and left external iliac artery stent placement (August 2023)
Past Medical History
Past Medical History: Other (Above as per HPI)
Past Surgical History: Other (Above as per HPI)
Social History
Tobacco: Former Smoker
Alcohol: None
Drug: None
Personal:
Living: With Family
Family History
Family History: Reviewed & Not Pertinent
Allergies / Home Medications
Allergies
Allergy/AdvReac Type Severity Reaction Status Date / Time
ceftriaxone Allergy HIVES-with Verified 12/10/23 16:02
one dose
of
ceftriaxone
on 11/27/23
Home Medications
�Medication �Instructions �Recorded �Confirmed �Last Taken �Type
aspirin 81 mg capsule 81 mg PO DAILY Blood Clot 04/25/23 12/08/23 12/08/23 History
Prevention/Tx
ezetimibe 10 mg tablet 10 mg PO DAILY High Cholesterol 04/25/23 12/08/23 12/08/23 History
levothyroxine 25 mcg tablet 25 mcg PO DAILY Thyroid 04/25/23 12/08/23 12/08/23 History
losartan 50 mg tablet 25 mg PO DAILY Blood Pressure 04/25/23 12/08/23 12/08/23 History
rosuvastatin 40 mg tablet 40 mg PO QPM High Cholesterol 04/25/23 12/08/23 12/07/23 History
pantoprazole 40 mg tablet,delayed 40 mg PO DAILY Gastrointestinal 05/07/23 12/08/23 12/08/23 History
release Issue
coQ10 (ubiquinol) 100 mg capsule 100 mg PO DAILY Supplement 06/19/23 12/08/23 12/08/23 History
(Qunol Shaw CoQ10)
ferrous sulfate 325 mg (65 mg 325 mg PO QPM Supplement 11/26/23 12/08/23 12/07/23 History
iron) tablet
metoprolol succinate 100 mg 100 mg PO QPM Blood Pressure 11/26/23 12/08/23 12/07/23 History
tablet,extended release 24 hr
(Toprol XL)
taurine 500 mg capsule 500 mg PO DAILY Supplement 11/26/23 12/08/23 12/08/23 History
cyanocobalamin (vitamin B-12) 1,000 mcg PO DAILY #30 tabs 11/28/23 12/08/23 12/08/23 Rx
1,000 mcg tablet
Review of Systems
-
History Source: Patient
All other systems: Negative unless noted (12 point ROS performed and is negative unless mentioned above.)
Vitals / Labs / Diagnostic Testing
Vital Signs
Temp Pulse Resp BP Pulse Ox
98.3 F 49 18 142/70 97
12/17/23 15:02 12/17/23 15:00 12/17/23 15:00 12/17/23 15:00 12/17/23 15:00
Lab Data
12/17/23 10:12
12/17/23 10:12
Laboratory Results
12/17/23
10:12
PT 15.5 H
INR 1.22
APTT 37.8 H
Diagnostic Testing:
Physical Exam
-
HEENT: Anicteric and Other (Left neck ice pack in place)
Cardiovascular: S1/S2 and Peripheral Edema (Negative)
Respiratory: Clear, Wheeze (Negative), Rales (Negative), Rhonchi (Negative) and Non-Labored Respirations
GI: Soft, Non Distended, Non Tender, Normal Bowel Sounds and Other (Right-sided percutaneous cholecystostomy drain in place attached to drainage bag)
Neurology: Awake, Alert and Tremors (Negative)
Skin: Warm and Dry
General: Respiratory Distress (Negative), Comfortable, Chills (Negative) and Sweats (Negative)
Assessment
-
Assessment: 62-year-old male former tobacco smoker with extensive PAD and multiple lower extremity bypasses + iliac stents, CAD s/p coronary stenting with RCA [employer], hypertension, CKD and hypothyroidism who presented with left eye blurry vision with
dizziness and known left-sided hemodynamically significant carotid artery stenosis (70-75% via CTA head/neck from 11/28/2023). Vascular surgery saw the patient in the ER and deemed his symptoms was likely due to symptomatic left-sided carotid artery
stenosis. Initial labs showed anemia to 7.7, leukocytosis to 11.2, creatinine 1.5, A1c 6.8, and cerebrovascular ultrasound was done showing extensive calcified/noncalcified plaque within the bulb and proximal ICA with >70% stenosis of the left
carotid artery. Due to his anemia GI was consulted. 1 unit PRBC was transfused on the evening of 12/08, raising his Hb appropriately from 7.7 to 8.7. Given the patient's difficulty with standing and walking, neurology was consulted. Aspirin was
recommended to continue with high intensity statin, and evaluation for carotid endarterectomy. During his hospitalization he developed RUQ abdominal pain and general surgery was consulted. He apparently has a history of this happening last year as
well and again 2 months ago with symptoms lasting a few days. Abdominal ultrasound showed large gallbladder filled with sludge and stones, without gallbladder wall thickening and positive sonographic Escoto sign suggestive of cholecystitis. HIDA
scan obtained showing no skin to graphic evidence for gallbladder uptake suggesting cystic duct obstruction and acute cholecystitis. The CBD was patent. Antibiotics with Zosyn was started on the evening of 12/08, and this was changed to Unasyn on
the evening of 12/11. Patient underwent percutaneous cholecystostomy placement on 12/09 by IR, and 150 cc of grossly purulent fluid was sent for cultures, and this later grew E. coli. Patient's carotid endarterectomy was postponed due to fever with
hypotension requiring fluids. On 12/17/2023, he underwent left carotid endarterectomy with bovine pericardial patch angioplasty. EBL was 50 cc, there were no complications and he was transferred to the ICU for further care with critical care
services consulted for additional management/recommendations.
Chronic conditions [employer]: PAD s/p lower extremity bypasses + iliac stenting, CAD s/p coronary stenting with RCA [employer]ICE, hypertension, hypercholesterolemia, hypothyroidism, CKD, former tobacco use disorder, and AAA
Impression:
#Symptomatic left-sided carotid artery stenosis s/p carotid endarterectomy (POD #0)
#Left eye blurry vision with ataxia due to above
#Acute cholecystitis with cystic duct obstruction s/p percutaneous cholecystostomy tube drainage with fluid culture growing E. coli
#Leukocytosis
#Chronic anemia
#CKD stage 3
#Former tobacco use disorder
Plan:
Postoperative surgical intensive care unit monitoring
Pain control
Supplemental oxygen as needed to keep SpO2 >90-94%
Incentive spirometry encouraged 10x per hour for at least 4 hrs a day
Aspiration precautions
prn nebulized bronchodilators
Neuro and vascular checks per protocol
Maintain MAP>65
Replete electrolytes with K>4, Mg>2
Continue ABx with Unasyn and plan for at least 10-14 days total of Abx
Follow up with general surgery as outpatient to discuss cholecystectomy which will occur in about 6-8 weeks
Trend Hb and transfuse if needed to keep Hb>7g/dL, plt>50k (given his post-operative status)
Vascular surgery following-correspondence and operative notes reviewed
Maintain euglycemia with goal BG 140-180
DVT prophylaxis
Early nutrition
Early mobilization
Critical care statement: A total of 44 minutes of critical care time was provided for this patient today. This includes management of unstable vital signs, evaluation of the patient at bedside, reviewing the patient's pertinent medical records
including radiographs, microbiology, laboratory evaluations, and discussion with primary team, consultants, pharmacy, nutrition, physical therapy, case management, charge nurse, critical care nursing, and respiratory therapy.
[2023-12-17 10:46] LABS: INR 1.22; PT 15.5 Sec (11.4-14.6)
[2023-12-17 10:47] LABS: APTT 37.8 Sec (23.4-35.0)
[2023-12-17 10:54] LABS: Blood Urea Nitrogen 16 mg/dl (9-20); Calcium 8.5 mg/dl (8.4-10.2); Carbon Dioxide 22 mmol/L (22-30); Chloride 109 mmol/L (98-107); Estimated Creatinine Clearance 50 ml/min; Glucose 128 mg/dl (70-99); Potassium 4.7 mmol/L (3.5-5.1); Sodium 138 mmol/L (135-145); eGFR 56.48
[2023-12-17] MEDS: COZAAR PO (11:00)
[2023-12-17] MEDS: ZETIA PO (11:00)
[2023-12-17] MEDS: MIRALAX PO (11:00)
[2023-12-17] MEDS: COLACE PO ×2 (11:00→19:58)
[2023-12-17] MEDS: NSS 1000 IV ×2 (11:20→20:54)
--- NOTE | 2023-12-17 12:42 | OR.RPT ---
Operative Report
Operative Report
PROCEDURE DATE: 12/17/2023
Preoperative diagnosis: Symptomatic critical left carotid artery stenosis.
Postoperative diagnosis: Same
Procedure: Left carotid endarterectomy with bovine pericardial patch angioplasty and intraoperative EEG/SSEP monitoring.
Surgeon: Willie
[employer] Research Ecologist: GHISLAINE Valdes, required for all aspects of procedure including assistance with traction/countertraction, following of suture line, assistance with closure.
Complications: None
Anesthesia: General
Indications for procedure:
Symptomatic left carotid stenosis with recurrent episodes of amaurosis type symptoms. [place] by bow maker and neurologist to be symptomatic to left carotid severe stenosis. Risk/benefits/alternatives of revascularization were all fully
discussed. Patient understood all wish to proceed. Of note patient had concomitant acute cholecystitis for which percutaneous cholecystostomy tube had been placed and patient had been afebrile for over 48 hours.
Description of procedure:
Patient was identified brought to the operating room placed on the table in supine position. After the adequate administration of anesthesia and perioperative antibiotics he was prepped and draped in the standard surgical fashion. A standard
preoperative timeout was undertaken and everybody was in agreement the plan. A standard longitudinal incision was made in the left neck that was carried through the skin subcutaneous tissue. Using the electrocautery dissection was carried through
the platysma muscle layer and then alongside the anterior medial border of the sternocleidomastoid muscle. Then using a combination of sharp dissection with the Metzenbaum scissors and electrocautery I dissected along the anterior medial border of
the internal jugular vein. The common facial vein branch was ligated between silk ties and then divided. I then deepened my retraction. The common carotid artery was identified and carefully dissected away from the surrounding structures take
great care to avoid any injury to the structures. A vessel loop was passed around it which was double looped, but not yet tightened. Note the vagus nerve was protected from harm's way. Note also that likely secondary to the plaque, there is
almost an inflammatory rind around the common carotid and carotid bulb.
I then continued my dissection up the common carotid artery to the bulb staying only on the anterior surface of the carotid artery. Again, dissection proved slightly challenging due to the inflammatory nature of the carotid. However, again, great
care was taken to avoid any injury to the vagus nerve which was clearly visualized and preserved from harm's way. Then I carried the dissection up to the internal carotid artery and then to the distal internal carotid artery. I identified where it
was soft and carefully circumferentially dissected the internal carotid artery with minimal mobilization and passed a vessel loop around it. Note the hypoglossal nerve was visualized clearly, and preserved from harm's way. The patient was given an
appropriate dose of heparin 7500 units. Next I dissected the anterior surface of the external carotid artery and superior thyroid branches. These were then carefully circumferentially dissected with minimal mobilization and vessel loops passed
around these which were double looped but not yet tightened. After 3 minutes of heparin circulation time and confirmation of optimization of the blood pressure with my anesthesiology colleagues, I clamped the distal internal carotid artery where it
was soft. There was no immediate EEG or SSEP changes. After 1 minute of test clamp time there was no changes noted. Therefore at this point, the vessel loops on the external carotid artery and superior thyroid branches were tightened and the
common carotid artery was clamped where it was soft proximally. An arteriotomy was made on the common carotid artery with an 11 blade and extended using a Darling scissor. I extended the arteriotomy onto the mid to distal internal carotid artery.
There was a mixed plaque with some hemorrhagic components in the wall, but mostly heavy calcified, resulting at the origin of the internal carotid artery and a severe stenosis. A [place] was then used to endarterectomized the plaque. Achieving the
endarterectomy plane was a little bit challenging due to the inflammatory nature of the plaque. An endarterectomy plane was created, and the plaque was then endarterectomized. Distally I feathered the plaque out to a reasonable endpoint. There
was some posterior plaque still present, and therefore I used a [place] to carefully endarterectomized this until I was able to achieve a nice clean endpoint in the distal internal carotid artery. Next I endarterectomized the intima back to normal
intima in the common carotid artery, and the intima was cut flush there. I then grasped the plaque and everted plaque out of the origin of the external carotid artery. The plaque was then sent off for specimen. The origin of the external carotid
artery was carefully visualized and any fine debris were removed with fine forceps. Proximal and distal endpoints were then carefully inspected. Any fine debris was removed with fine forceps, and the intima was noted to be nicely adherent
proximally distally. Next any fine debris were removed throughout the endarterectomy bed with fine forceps. I then flushed heparinized saline. I was very satisfied. Then, I used a bovine pericardial patch to sew a patch angioplasty with a
running 6-0 Prolene suture. Prior to completing and tying down my suture line, I backbled sequentially each branch and reclamped each branch prior to unclamping the next branch. I then irrigated with heparinized saline. Then I completed and tied
down my suture line. We then restored flow in the common carotid and external carotid arteries. Finally, we released flow in the internal carotid artery. There was excellent pulsatile flow in all 3 vessels. There was an excellent Doppler signal
in the internal carotid artery distal to the patch with a good normal low resistance Doppler signal. There was a good Doppler signal in the external carotid artery as well. Protamine was given to reverse the heparin. Hemostasis was completely
achieved. We then irrigated and confirmed full hemostasis. We then closed in layers with 2-0 Vicryl layer to reapproximate the sternocleidomastoid muscle, followed by 3-0 Vicryl platysma muscle running layer, followed by 4 Monocryl subcuticular
stitch. Dermabond was applied. The patient tolerated procedure well. He awoke moving all extremities to command with tongue in the midline.
[2023-12-17] MEDS: TYLENOL 650 MG PO ×3 (13:06→22:06)
[2023-12-17] MEDS: PROTONIX 40 MG PO (13:06)
[2023-12-17] MEDS: VITAMIN B-12 2000 MCG PO (13:06)
--- NOTE | 2023-12-17 13:15 | PTCARENOTE ---
Rec'd pt at at 1235 via bed from PACU. Rec'd pt awake alert and oriented. States he feels good. Speech is clear. Tongue protrudes midline. Smile is even. SAXENA equally. Denies numbness or tingling. Pt does admit to sl L eye blurred vision which he has
had for days/weeks that he states is somewhat better. L neck incison is approximated with surgical adhesive present. No drainage. No c/o a headache. ASHTYN at 3mm. Respirs are unlabored on RA with sats of 95%. BS are sl decreased at the bases
otherwise clear. Denies shortness of breath. Monitor SBrady mostly in the 40-50's. VS as documented. Pt with R radial A line-zered and recalibrated. Waveform as documented. Congurent with cuff BP. Rec'd pt on IV SCOTT via R arm IV site at 40 mcg-
decreased to 20 mcg at 1245 for syst of 169 (goal 100-165) . + pulses. PT and DP pulses with the doppler. Denies chest pain. No edema noted. Abd is soft with hypoactive BS. R abd is sl tender and R Melanie Drain present with purulent drainage. Denies
nausea. Taking clear liquids without difficulty. Pt was st cathed just prior to coming over to ICU for 625 ml urine. IV NSS infusing via R arm arm IV site along with the Scott. Capped int intact L upper arm. Pt able to assist with turning.
Repositioned. Call verduzco in reach. Plan of care reviewed with pt and pts .
[2023-12-17] MEDS: LOW STRENGTH ASPIRIN 81 MG PO (13:45)
--- NOTE | 2023-12-17 14:30 | PTCARENOTE ---
Remains resting. No complaints offered. States Tylenol helped the soreness. Discomfort is a 1/10
--- NOTE | 2023-12-17 15:20 | PTCARENOTE ---
Will try IV Max off as BP are running in the 130-140's syst. Was a 20 mcg. No changes in assessment
--- NOTE | 2023-12-17 17:00 | PTCARENOTE ---
Remains resting. No changes in assessment. Overall states his vision is better. Admits to 3/10 L neck soreness-will get Tylenol order changed. Incision with no swelling or drainage. VS as documented. IV Max restarted at 20 mcg as BP is running
more 98-104 range syst. Back on the Max at 20 mcg Bp's are 120's syst. Will continue to monitor
[2023-12-17] MEDS: TOPROL XL PO (17:58)
[2023-12-17] MEDS: CRESTOR 40 MG PO (17:59)
--- NOTE | 2023-12-17 18:00 | PTCARENOTE ---
Tylenol 650 mg po given for c/o 3/10 L neck discomfort- mostly with swallowing. No c/o headache or dizziness. Call verduzco in reach. Pt ordering some dinner.
[2023-12-17 19:25] LABS: Iron 44 ug/dl (49-181)
[2023-12-17 19:34] LABS: Percent Saturation 15 % (20-50); Total Iron Binding Capacity 286 ug/dl (261-462)
--- NOTE | 2023-12-17 20:00 | PTCARENOTE ---
on assessment pt AAOx3, c/o some discomfort to L neck site, PRN tylenol given see MAR, neuro checks WNL, SB on the monitor, R radial [place], scottie gtt infusing to maintain SBP 100-160, RA 95%, R ABD paula burgos drain intact, flush daily per orders,
voids in urinal, call verduzco in reach.
[2023-12-17 20:59] LABS: Folate 6.1 ng/ml (2.76-20); Vitamin B12 423 pg/ml (239-931)
[2023-12-18] VITALS (10 sets, daily range): BP systolic 116–130; BP diastolic 57–70; BMI 27.2
--- NOTE | 2023-12-18 | PTCARENOTE ---
no changes from prior assessment, neuro checks WNL, denies pain and SOB, call verduzco in reach.
[2023-12-18] MEDS: UNASYN IV ×2 (03:23→09:28)
[2023-12-18 04:35] LABS: Hematocrit 24.3 % (39.0-52.0); Hemoglobin 7.8 g/dL (13.0-18.0); Mean Corp Hgb Conc. 32.1 g/dL (33.0-37.0); Mean Corpuscular Hgb 25.6 pg (27.0-31.0); Mean Corpuscular Volume 79.7 fL (80.0-94.0); Platelet Count 443 10^3/uL (130-400); Red Blood Cell Count 3.05 10^6/uL (4.70-6.10); Red Cell Dist. Width 19.5 % (11.5-14.5); White Blood Cell Count 10.6 10^3/uL (4.8-10.8)
[2023-12-18 04:45] LABS: INR 1.24; PT 15.7 Sec (11.4-14.6)
[2023-12-18 04:46] LABS: APTT 33.4 Sec (23.4-35.0)
[2023-12-18] MEDS: SYNTHROID 25 MCG PO (05:00)
--- NOTE | 2023-12-18 05:40 | PTCARENOTE ---
Hgb went from 8.3 on 12/16 to 7.8 on 12/17, INDUSTRY CONSULTANT made aware, no new orders at this time.
[2023-12-18 06:03] LABS: Blood Urea Nitrogen 19 mg/dl (9-20); Calcium 8.7 mg/dl (8.4-10.2); Carbon Dioxide 19 mmol/L (22-30); Chloride 110 mmol/L (98-107); Estimated Creatinine Clearance 50 ml/min; Glucose 150 mg/dl (70-99); Potassium 4.5 mmol/L (3.5-5.1); Sodium 137 mmol/L (135-145); eGFR 56.48
--- NOTE | 2023-12-18 07:30 | W.PN.HOSP.TC ---
Addendum entered and electronically signed by Jaclyn Alvarez MD 12/18/23 19:47:
I saw and evaluated the patient independently. I reviewed the resident�s note and agree with findings and plan as documented by Dr. Hopkins.
GENERAL: well developed, well nourished, male in no apparent distress
HEENT: NC/AT--left carotid bruit resolved-c/d/i post op scar left neck
HEART: regular rate and rhythm, +S1, +S2
LUNGS : clear to auscultation bilaterally
ABDOM: soft, nontender, nondistended, + bowel sounds--perc zeb tube draining light brown liquid--improved from 12/15/23
EXT: no cyanosis, clubbing, or edema
NEUROLOGIC: grossly intact
Symptomatic left carotid artery stenosis--Presenting with left-sided blurry vision and difficulty seeing--apprec neuro/vascular input--s/p CEA Saturday 12/16--cont asa, high dose statins--Carotid ultrasound conducted on 12/07 showed extensive
calcified and noncalcified plaque within the bulb and proximal internal carotid artery with severely elevated systolic and diastolic velocities measuring 838 and 362 cm/s respectively. Elevated ICA/CCA ratio of 12.83. Findings consistent with 70%
stenosis--cleared for d/c by vascular
Acute Cholecystitis from E-Coli resulting in Sepsis-- perc zeb tube placed--apprec surgical intervention for definitive cholecystectomy in 6 weeks--percutaneous cholecystostomy was conducted with successful tube placement. IR drain to gravity
drainage with probable plans for follow-up within 3 to [address] Gooden and eventual cholecystectomy after full workup--Culture from bile sample is significant for E. coli growth - continue IV Unasyn until the purulence gone and then switch
to oral Augmentin for 10 days
Hx of GI bleeds and severe anemia requiring transfusion--Monitor H&H and transfuse PRBCs as required--GI consult believe the patient is okay for antiplatelet and anticoagulation for planned upcoming carotid endarterectomy--transfuse 1 unit of PRBCs
prior to surgery - hemoglobin was 7 on 12/08, 1 unit of PRBCs administered - hemoglobin currently at 9.4--apprec Hematology-recommended giving IV iron for iron deficiency anemia. They believed that the patient could undergo coronary endarterectomy
once cholecystitis is stabilized--cont B12 supplementation--transfuse 1 unit pRBC prior to d/c
thrombocytosis -- likely due to iron deficiency--check levels with hx of GI bleeds--moving towards normal
Constipation--Colace and senna given
Full code
DVT prophylaxis: Sequential compression devices
Original Note:
Today's Communication/Plan
-
Discharging patient today with VN. Clinically stable. Gave 1 unit PRBC before discharge and prescribed Augmentin. Follow up with IR and general surgery scheduled in outpatient.
Assessment / Plan
Assessment / Plan
- Symptomatic left carotid artery stenosis:
Presenting with left-sided blurry vision and difficulty seeing
Carotid ultrasound conducted on 12/07 showed extensive calcified and noncalcified plaque within the bulb and proximal internal carotid artery with severely elevated systolic and diastolic velocities measuring 838 and 362 cm/s respectively. Elevated
ICA/CCA ratio of 12.83. Findings consistent with 70% stenosis
Vascular surgery consulted -Dr. Tapia discussed risks and benefits of carotid endarterectomy and plans to move forward with surgery if medically cleared
Cardiology consult ordered - Cleared for procedure
Neurology consult -recommended continuing aspirin, consulting vascular surgery for carotid endarterectomy, and high-dose statins.
GI consult ordered -they believe the patient is okay for antiplatelet and anticoagulation for planned upcoming carotid endarterectomy.
Monitoring H&H
Surgery deemed patient clinically stable for Endartectomy. Procedure done 12/16. Patient awake, verbal and stable in the ICU post op.
Vascular cleared to go home. Patient being discharged.
- Acute Cholecystitis from E-Coli resulting in Sepsis: Monitoring + Treating
Abdominal ultrasound showed evidence of acute cholecystitis. They saw a large gallbladder filled with sludge and stones with at least 1 stone seen in the vicinity gallbladder. There was no gallbladder wall thickening or findings to confirm
pericholecystic fluid. Positive sonographic Escoto sign. No findings to suggest biliary tract dilatation. Overall findings were suspicious for acute cholecystitis.
Hepatobiliary scan was conducted showing no scintigraphic evidence for gallbladder uptake, suggesting cystic duct obstruction and acute cholecystitis.
A percutaneous cholecystostomy was conducted with successful tube placement. IR drain to gravity drainage with probable plans for follow-up within 3 to [address] Gooden and eventual cholecystectomy after full workup.
Culture from bile sample is significant for E. coli growth.
Drainage appears to be mixed. Some purulent some clear. Patient is being switched to oral Augmentin for 10 day course per surgery and discharged with VN. Follow up with IR and general surgery.
No signs of infx at tube site.
- Hx of GI bleeds and severe anemia requiring transfusion:
Monitor H&H and transfuse PRBCs as required
GI consult - they believe the patient is okay for antiplatelet and anticoagulation for planned upcoming carotid endarterectomy.
Patient has dark stools because he takes iron pills
Heme occult test ordered
Plan to transfuse 1 unit of PRBCs prior to surgery - hemoglobin was 7 on 12/08, 1 unit of PRBCs administered - hemoglobin dropped from 8.3 to 7.8 today.
Transfused one PRBC and discharged.
Hematology consult -recommended giving IV iron for iron deficiency anemia.
- Constipation:
Colace and senna given
Full code
DVT prophylaxis: Sequential compression devices
Anticipated Discharge: Today
Subjective/Interval History
-
Date of Service: December 18, 2023
Objective Data
-
Labs:
Laboratory Results
12/18/23
04:22
WBC 10.6
Hgb 7.8 L
Hct 24.3 L
Plt Count 443 H
PT 15.7 H
INR 1.24
APTT 33.4
Sodium 137
Potassium 4.5
Chloride 110 H
Carbon Dioxide 19 L
BUN 19
Creatinine 1.4 H
Glucose 150 H
Calcium 8.7
Vital Signs:
Vital Signs
Temp Pulse Resp BP Pulse Ox
98.0 F 51 11 110/54 98
12/18/23 03:43 12/18/23 06:30 12/18/23 06:30 12/17/23 19:00 12/18/23 06:30
I&O
12/17/23 12/18/23 12/19/23
06:59 06:59 06:59
Intake Total 1140 / 1140 2226 / 2226
Output Total 90 / 90 2210 / 2210
Balance 1050 / 1050
Review of Systems
-
History Source: Patient
EENT: Reports No Symptoms Reported
Respiratory: Reports No Symptoms
Cardiac: Reports No Symptoms
Abdomen/GI: Reports No Symptoms
Genitourinary: Reports No Symptoms
Neuro: Reports No Symptoms
Physical Exam
-
General: Well Developed, Well Nourished and No Apparent Distress
Respiratory: Clear to Auscultation
Cardiac: Regular Rhythm and S1/S2
GI: Soft, Nontender, Nondistended, Normal Bowel Sounds and Other (Cholecystotomy tube)
Neuro: AO x 3
Psych: Calm
--- NOTE | 2023-12-18 07:34 | W.PN.VS ---
Addendum entered and electronically signed by Kostas Tapia MD 12/18/23 09:41:
Seen and examined with GHISLAINE Pinto. Agree with findings as noted below. Left neck incision is clean dry and intact. No hematoma. Neurologically no focal deficits, moves all extremities well. Tongue midline. Plan/as discussed and noted below.
Hemoglobin slight drop. No signs of bleeding. No significant blood loss in the operating room. Likely due to chronic anemia.
Original Note:
Today's Communication / Plan
-
Seen and assessed with Dr Tapia
Assessment/Plan
-
POD 1 Left CEA
Plan:
-DC shaniqua
-DC IVF
-OOB/ambulate
-Diet
-Ok for downgrade later today, could consider dc from vasc standpoint later this afternoon will leave to discretion of primary team
Subjective Data
-
Date of Service: December 18, 2023
Pt seen at bedside this am with Dr Tapia. Pt offers no complaints at this time. No events overnight, off Max.
Objective Data
-
Vital Signs
Temp Pulse Resp BP Pulse Ox
98.0 F 51 11 110/54 98
12/18/23 03:43 12/18/23 06:30 12/18/23 06:30 12/17/23 19:00 12/18/23 06:30
Intake and Output
12/17/23 12/18/23 12/19/23
06:59 06:59 06:59
Intake Total 1140 / 1140 2226 / 2226
Output Total 90 / 90 2210 / 2210
Balance 1050 / 1050 16 16
Intake:
Oral fluids 960 / 960 430 / 430
IV fluids (Total) 50 / 50 1736 / 1736
MAX 96 / 96
NSS 200 / 200
Nss 1,000 ml @ 80 mls/hr IV . 1440 / 1440
[id number] [facility] Rx#:[id number]
IV piggybacks 120 / 120 60 / 60
Amount instilled into Drain (
Total)
Right Upper Abdomen Placed in
IR
Output:
Drain Output (Total) 85 / 85
Right Upper Abdomen Placed in
IR
Urine, Voided 1500 / 1500
Straight cath output 625 / 625
Other:
Number of approximated MODERATE 2
amounts of urine
Lab Results
12/18/23 04:22
12/18/23 04:22
Calcium 8.7 mg/dl (8.4-10.2) 12/18/23 04:22
Total Bilirubin 0.2 mg/dl (0.2-1.3) 12/16/23 06:38
AST 28 U/L (17-59) 12/16/23 06:38
ALT 22 U/L (0-50) 12/16/23 06:38
Alkaline Phosphatase 109 U/L (38-126) 12/16/23 06:38
Total Protein 5.6 g/dl (6.3-8.2) L 12/16/23 06:38
Albumin 3.1 g/dl (3.5-5.0) L 12/16/23 06:38
Physical Exam
-
aaox3
no tachypnea
no tachycardia
abd soft
neck site soft, flat, no ecchymosis or drainage
moves all extremities equally
tongue midline
follows all commands
[2023-12-18] MEDS: MIRALAX 17 GRAMS PO (07:50)
[2023-12-18] MEDS: TYLENOL 650 MG PO (07:50)
[2023-12-18] MEDS: VITAMIN B-12 2000 MCG PO (07:51)
[2023-12-18] MEDS: ZETIA 10 MG PO (07:51)
[2023-12-18] MEDS: COLACE 100 MG PO (07:51)
[2023-12-18] MEDS: COZAAR 25 MG PO (07:51)
[2023-12-18] MEDS: LOW STRENGTH ASPIRIN 81 MG PO (07:51)
[2023-12-18] MEDS: PROTONIX 40 MG PO (07:51)
--- NOTE | 2023-12-18 08:11 | PTCARENOTE ---
Assumed care of patient from evening or night nurse supervisor RN. AAO x 3 , Neuro check wnl see flow sheet. C/o tenderness in LT neck incision. incision well approximated, no overt swelling noted at site. SB on monitor Rt radial A line transducing. Line , leveled,
recalibrated and flushed. Room air 96%. Denies cough or SOB . Lt biliary drain patent. Dressing c,d,i. Abdomen wnl, denies nausea, passing flatus. Voiding independently in urinal. DP and radial pulses palpable. Plan for day discussed during
rounds with vascular.
--- NOTE | 2023-12-18 08:44 | W.PN.INTV ---
Today's Communication / Plan
Recommendations
Continue ABx
Outpatient follow up with general surgery to discuss cholecystectomy
Up OOB as tolerated
Encourage incentive spirometer use
Being transfused 1 unit PRBC this AM; re-check H&H to assure Hb is stable
Outpatient follow-up with vascular surgery
Patient doing well, is hemodynamically stable and breathing comfortably on room air. He is being prepared for discharge home. Distribution District Supervisor/Pulmonary service will now sign off. Please reconsult if there are any additional questions/concerns, or if
patient's respiratory status deteriorates.
Assessment
-
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
dizziness and known left-sided hemodynamically significant carotid artery stenosis (70-75% via CTA head/neck from 11/28/2023). Vascular surgery saw the patient in the ER and deemed his symptoms was likely due to symptomatic left-sided carotid artery
stenosis. Initial labs showed anemia to 7.7, leukocytosis to 11.2, creatinine 1.5, A1c 6.8, and cerebrovascular ultrasound was done showing extensive calcified/noncalcified plaque within the bulb and proximal ICA with >70% stenosis of the left
carotid artery. Due to his anemia GI was consulted. 1 unit PRBC was transfused on the evening of 12/08, raising his Hb appropriately from 7.7 to 8.7. Given the patient's difficulty with standing and walking, neurology was consulted. Aspirin was
recommended to continue with high intensity statin, and evaluation for carotid endarterectomy. During his hospitalization he developed RUQ abdominal pain and general surgery was consulted. He apparently has a history of this happening last year as
well and again 2 months ago with symptoms lasting a few days. Abdominal ultrasound showed large gallbladder filled with sludge and stones, without gallbladder wall thickening and positive sonographic Escoto sign suggestive of cholecystitis. HIDA
scan obtained showing no skin to graphic evidence for gallbladder uptake suggesting cystic duct obstruction and acute cholecystitis. The CBD was patent. Antibiotics with Zosyn was started on the evening of 12/08, and this was changed to Unasyn on
the evening of 12/11. Patient underwent percutaneous cholecystostomy placement on 12/09 by IR, and 150 cc of grossly purulent fluid was sent for cultures, and this later grew E. coli. Patient's carotid endarterectomy was postponed due to fever with
hypotension requiring fluids. On 12/17/2023, he underwent left carotid endarterectomy with bovine pericardial patch angioplasty. EBL was 50 cc, there were no complications and he was transferred to the ICU for further care with critical care
services consulted for additional management/recommendations.
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
Impression:
#Symptomatic left-sided carotid artery stenosis s/p carotid endarterectomy (POD #1)
#Left eye blurry vision with ataxia due to above
#Acute cholecystitis with cystic duct obstruction s/p percutaneous cholecystostomy tube drainage with fluid culture growing E. coli
#Leukocytosis - resolved
#Acute on chronic anemia
#CKD stage 3
#Former tobacco use disorder
Plan:
Postoperative surgical intensive care unit monitoring
Pain control
Supplemental oxygen as needed to keep SpO2 >90-94%
Incentive spirometry encouraged 10x per hour for at least 4 hrs total a day
Aspiration precautions
prn nebulized bronchodilators
Neuro and vascular checks per protocol
Maintain MAP>65
Replete electrolytes with K>4, Mg>2
Continue ABx with Unasyn and plan for at least 10-14 days total of Abx (can send home on Augmentin)
Follow up with general surgery as outpatient to discuss cholecystectomy which will occur in about 6-8 weeks
Trend Hb and transfuse if needed to keep Hb>7g/dL, plt>50k (given his post-operative status)
- Patient being transfused 1 unit PRBC this morning; recommend to re-check s/p transfusion to assure appropriate rise in H/H
Vascular surgery following-correspondence and operative notes reviewed
Maintain euglycemia with goal BG 140-180
DVT prophylaxis
Early nutrition
Early mobilization
Patient doing well, is hemodynamically stable and breathing comfortably on room air. He is being prepared for discharge home. Distribution District Supervisor/Pulmonary service will now sign off. Thank you for allowing us to be involved in the care of this patient.
Please reconsult if there are any additional questions/concerns, or if patient's respiratory status deteriorates.
Total time spent today was 55 minutes for this encounter. Time includes reviewing laboratory test/imaging results, reviewing pertinent medical records, obtaining and reviewing medical history, performing an appropriate exam, ordering medications,
tests and procedures. Time also includes documentation of this encounter, coordinating patient care and communicating with other healthcare professionals. Total time does not include separately billed tests performed on this date of service.
Subjective Dataa
Subjective Data
Date of Service:
Date of Service: December 18, 2023
Chief Complaint: Distribution District Supervisor Follow Up and Pulmonary Follow Up
Subjective:
Patient seen and evaluated this morning. Heart rate 51, BP 129/63 and saturating 98% on room air. Receiving 1 unit PRBC for Hb of 7.8. Has mild pain at the left-sided neck post-operative site. Otherwise he feels well, eager to go home. Denies
headache, chest pain, shortness of breath, fevers or chills.
Review of Systems
General: Other (Negative unless mentioned above)
Objective Data
Data Reviewed
Vital Signs / I&O / Oxygen:
Vital Signs
Temp Pulse Resp BP Pulse Ox
98.0 F 88 18 127/63 97
12/18/23 09:25 12/18/23 09:25 12/18/23 09:25 12/18/23 09:25 12/18/23 09:07
Intake and Output
12/17/23 12/18/23 12/19/23
06:59 06:59 06:59
Intake Total 1140 / 1140 2226 / 2306 440 / 440
Output Total 90 / 90 2210 / 2210
Balance 1050 / 1050 16 / 96 440 / 440
SaO2 97
Nasal Cannula flow liters per 2
minute
Physical Exam
General: Respiratory Distress (Negative) and Comfortable
HEENT: Normocephalic and Anicteric
Cardiovascular: S1-S2 and Peripheral Edema (Negative)
Respiratory: Clear, Wheeze (Negative), Crackles (Negative) and Rhonchi (Negative)
GI: Soft, Non Distended, Non Tender, Normal Bowel Sounds and Other (Right-sided percutaneous cholecystostomy drain in place attached to drainage bag)
Neurology: AO x 3 and Tremors (Negative)
Skin: Warm, Dry and Jaundice (Negative)
Labs/Micro/Reports
Lab Data
12/18/23 04:22
12/18/23 04:22
Laboratory Results
12/17/23 12/18/23
10:12 04:22
PT 15.5 H 15.7 H
INR 1.22 1.24
APTT 37.8 H 33.4
--- NOTE | 2023-12-18 08:45 | PTCARENOTE ---
RT radial A line removed per MD order, manual pressure applied, hemostasis achieved. Assist x 1 oob to chair. Awaiting transfusion.
--- NOTE | 2023-12-18 10:56 | CM ---
Patient seen at bedside with physicians, Patient eager for discharge home. Patient does not have [facility]. Patient states that he would like to have [facility] for drain care and CM sent tt to liaison for review. Patient to transport home and CM will
continue to follow for discharge planning needs.
Plan; home with [facility] pending acceptance
--- NOTE | 2023-12-18 11:00 | PTCARENOTE ---
1 unit PRBC's transfused per MD order. Pt tolerated w/o issue. Eager to go home. Will tiger text MD and update.
--- NOTE | 2023-12-18 12:11 | VNURNOTE ---
Home Health Liaison met with patient and at bedside to discuss [facility] nurse visits, schedule and homebound status. Patient is agreeable and understands that visits at home will be 1-3 x per week to assess and teach medical management, zeb drain
care.
Patient declined [facility] brochure, stating he has had us in the past. Patient is aware that [facility] will contact them for start of care in 1-2 days after discharge from . [facility] referral completed in Care Port.
--- NOTE | 2023-12-18 13:13 | PTCARENOTE ---
Discharge instructions reviewed with patient and , questions answered. Lt abdominal drain dressing changed and and patient taught how to empty drain and given supplies to do so at home, until VN out to see them. States understanding and
able to preform return instructions. INT x 2 removed, off telemetry.. PT dressed w/o issues. Transport called for discharge.
--- NOTE | 2023-12-18 19:25 | W.DCSUMMARY ---
Addendum entered and electronically signed by Jaclyn Alvarez MD 12/18/23 20:11:
Read, reviewed, and agree. See same day progress note for additional details. Time spent coordinating care, DC planning, review of DC plan of care with resident, transition of care, review of records in EMR, med rec, consults, notes, d/w
consultants, nursing, family, and CM = 36 minutes
Original Note:
Discharge Summary
Discharge Data
Date of Admission: 12/08/23
Date of Discharge: 12/18/23
-
Pending Results: No
Hospital Course
Primary diagnosis:
-Symptomatic left carotid artery stenosis
-Acute cholecystitis from E. coli resulting in sepsis
Secondary diagnosis:
-History of GI bleed and severe anemia requiring transfusions
-Constipation
Hospital course:
Tutu Parks is a 62-year-old male with a known diagnosis of 70% left carotid artery stenosis who presented to the ED with vision changes and ataxia. The patient reported that his symptoms worsened in the prior 2 to 3 days before coming to the ED.
Patient was aware of left carotid artery stenosis due to prior workup at [facility] on 11/26/2023 and was planning to follow-up in the outpatient setting, however due to his presentation in the ED vascular surgery opted to treat him inpatient
for symptomatic findings. While in the hospital, patient's temperature raised to 102 overnight raising suspicion for infection. He also had an elevated white blood cell count at 11.4 and abdominal pain. To note patient has history of GI bleed and
severe anemia requiring transfusions. Hemoglobin level 7.8 on admission. Workup revealed acute cholecystitis with ultrasound revealing a large gallbladder filled with sludge and stones with at least 1 within the vicinity of the bladder. Positive
sonographic Escoto sign. No findings to suggest biliary tract dilation. Hepatobiliary scan also showed no scintigraphic evidence for gallbladder uptake, suggesting cystic duct obstruction with acute cholecystitis. A percutaneous cholecystostomy
tube placement was done. Culture from bile sample showed significant E. coli growth with sensitivity to Augmentin. IV Unasyn was started. Patient significantly improved with fevers stopping and white blood cell count dropping to normal levels.
Patient remained on IV Unasyn until drainage fluid was mostly clear. In the meantime patient was seen by oncology to evaluate anemia. IV iron course was completed. On 12/16 patient was cleared for endarterectomy surgery and surgery was performed
while continuing IV Unasyn. After surgery patient felt well and remained in ICU for observation.
Today, vascular cleared patient for discharge from ICU on oral Augmentin per recommendations of surgery. The hospitalist team agrees. Today his hemoglobin was 7.8 so he was given 1 unit PRBC before discharge. Percutaneous cholecystomy tube
placement remained for continued drainage. Patient sent home with visiting nurse. Patient will follow-up with IR and surgery to evaluate percutaneous cholecystomy tube removal and cholecystectomy. Patient is clinically stable and happy to go home.
Discharge Plan
-
Patient Disposition: Home with Home Care
Discharge Diagnosis/Procedures: Symptomatic left carotid artery stenosis, endarterectomy, acute cholecystitis from E. coli resulting in sepsis, history of GI bleed and severe anemia requiring transfusions, constipation
Condition: Fair
Diet: As tolerated
Activity: As tolerated
Driving Restrictions: Not until seen by your Dr
Bathing Restrictions: Okay to shower, but keep drainage site covered.
Other Services: VN
Activity Restrictions/Additional Instructions:
If you experience severe constant headache, weakness to an arm or leg, change in vision, trouble speaking or any stroke-like symptom, call 911 immediately
If you experience swelling, increased bruising, drainage from neck site, or fever, please call the office
Stand Alone Forms: DC Instr - Vascular OR
Referrals:
Luisa Viramontes DO [Family Provider] - in less than 1 week
Franki Gooden MD [Active] - in three to four weeks
Ophelia Fuller CRNP [Specified Professional Personl] - 01/01/24 10:15 am (Vascular surgery follow-up)
Prescriptions:
New
docusate sodium 100 mg Capsule
100 mg PO BID Qty: 28 0RF
amoxicillin-pot clavulanate [Augmentin] 500-125 mg tablet
1 tab PO Q12H Qty: 20 0RF
Continued
losartan 50 mg Tablet
25 mg PO DAILY
ezetimibe 10 mg Tablet
10 mg PO DAILY
rosuvastatin 40 mg Tablet
40 mg PO QPM
aspirin 81 mg Capsule
81 mg PO DAILY
levothyroxine 25 mcg Tablet
25 mcg PO DAILY
pantoprazole 40 mg Tablet,Delayed Release (Dr/Ec)
40 mg PO DAILY
Patient Comments:
coQ10 (ubiquinol) [Qunol Shaw CoQ10] 100 mg Capsule
100 mg PO DAILY
taurine 500 mg Capsule
500 mg PO DAILY
metoprolol succinate [Toprol XL] 100 mg tablet extended release 24 hr
100 mg PO QPM
ferrous sulfate 325 mg (65 mg iron) tablet
325 mg PO QPM
cyanocobalamin (vitamin B-12) 1,000 mcg Tablet
1,000 mcg PO DAILY Qty: 30 0RF
Discharge Orders:
Discharge Patient (As Directed); Ordered 12/18/23
Ordered By: Yuly Hopkins
Discharge Date and Time
Discharge Date/Time: 12/18/23 13:15
Print Language: MICRONESIAN
== END 2023-12-18 13:15 | disposition home health service (06) | DRG 37 ==
LOC: ICU 15:47
PROVIDERS: Nurse Practitioner; Nurse Practitioner Acute Care; Radiology Vascular & Interventional Radiology; Student in an Organized Health Care Education/Training Program; ADMITTING PHYSICIAN Internal Medicine; ATTENDING PHYSICIAN Internal Medicine; CONSULT PHYSICIAN Internal Medicine Cardiovascular Disease; CONSULT PHYSICIAN Internal Medicine Critical Care Medicine; CONSULT PHYSICIAN Internal Medicine Hematology & Oncology; CONSULT PHYSICIAN Psychiatry & Neurology Neurology; CONSULT PHYSICIAN Specialist; CONSULT PHYSICIAN Surgery; CONSULT PHYSICIAN Surgery Vascular Surgery; EMERGENCY PHYSICIAN Emergency Medicine; FAMILY PHYSICIAN Family Medicine
PROC: 0F9430Z Drainage of Gallbladder with Drainage Device, Percutaneous Approach (ICD-10-PCS; 2023-12-10)
PROC: 03CJ0ZZ Extirpation of Matter from Left Common Carotid Artery, Open Approach (ICD-10-PCS; 2023-12-17)
PROC: 03UL0KZ Supplement Left Internal Carotid Artery with Nonautologous Tissue Substitute, Open Approach (ICD-10-PCS; 2023-12-17)
PROC: 03CN0ZZ Extirpation of Matter from Left External Carotid Artery, Open Approach (ICD-10-PCS; 2023-12-17)
PROC: 03CL0ZZ Extirpation of Matter from Left Internal Carotid Artery, Open Approach (ICD-10-PCS; 2023-12-17)
DX: I65.22 Occlusion and stenosis of left carotid artery (principal); A41.9 Sepsis, unspecified organism; I47.20 Ventricular tachycardia, unspecified; K81.0 Acute cholecystitis; K82.0 Obstruction of gallbladder; K92.2 Gastrointestinal hemorrhage, unspecified; D50.9 Iron deficiency anemia, unspecified; D75.838 Other thrombocytosis; E11.22 Type 2 diabetes mellitus with diabetic chronic kidney disease; E11.51 Type 2 diabetes mellitus with diabetic peripheral angiopathy without gangrene; E78.00 Pure hypercholesterolemia, unspecified; I12.9 Hypertensive chronic kidney disease with stage 1 through stage 4 chronic kidney disease, or unspecified chronic kidney disease; I25.10 Atherosclerotic heart disease of native coronary artery without angina pectoris; I25.82 Chronic total occlusion of coronary artery; K31.7 Polyp of stomach and duodenum; K31.89 Other diseases of stomach and duodenum; K59.00 Constipation, unspecified; K64.8 Other hemorrhoids; N18.30 Chronic kidney disease, stage 3 unspecified; Z87.891 Personal history of nicotine dependence; I70.209 Unspecified atherosclerosis of native arteries of extremities, unspecified extremity; I71.40 Abdominal aortic aneurysm, without rupture, unspecified; Z95.5 Presence of coronary angioplasty implant and graft; E03.9 Hypothyroidism, unspecified; E05.90 Thyrotoxicosis, unspecified without thyrotoxic crisis or storm; Z79.82 Long term (current) use of aspirin; B96.20 Unspecified Escherichia coli [E. coli] as the cause of diseases classified elsewhere
CPT/HCPCS: 88304; 88311; 35301; 47490; 71046; 76700; 78226; 80048; 80053; 81003; 82607; 82728; 82746; 82962; 83036; 83540; 83550; 83921; 85014; 85018; 85025; 85027; 85610; 85730; 86850; 86900; 86901; 86920; 87040; 87070; 87077; 87186; 87205; 87811; 93005; 93880; 95938; 95941; 95955; 99152; 99285; A9537; C1729; C1769; J2916; P9016

== ENCOUNTER → 2024-01-20 08:20 | Outpatient (REF) | payer OTHER, BC, SELFPAY | LOC: DHVS 08:20 | PROVIDERS: ATTENDING PHYSICIAN Registered Nurse; FAMILY PHYSICIAN Family Medicine | DX: I65.22 Occlusion and stenosis of left carotid artery (principal) | CPT/HCPCS: 93880 ==

== ENCOUNTER 2024-01-21 06:21 | Day surgery (SDC) | payer OTHER, BC, SELFPAY ==
[2024-01-16 07:52] VITALS: BMI 26.9
[2024-01-16 08:49] LABS: Hematocrit 40.3 % (39.0-52.0); Hemoglobin 12.8 g/dL (13.0-18.0); Mean Corp Hgb Conc. 31.8 g/dL (33.0-37.0); Mean Corpuscular Hgb 26.8 pg (27.0-31.0); Mean Corpuscular Volume 84.3 fL (80.0-94.0); Mean Platelet Volume 10.1 fL (7.4-10.4); Platelet Count 276 10^3/uL (130-400); Red Blood Cell Count 4.78 10^6/uL (4.70-6.10); Red Cell Dist. Width 21.7 % (11.5-14.5); White Blood Cell Count 7.4 10^3/uL (4.8-10.8)
[2024-01-16 09:18] LABS: ALT (SGPT) 20 U/L (0-50); AST (SGOT) 27 U/L (17-59); Albumin 4.2 g/dl (3.5-5.0); Alkaline Phosphatase 91 U/L (38-126); Blood Urea Nitrogen 27 mg/dl (9-20); Carbon Dioxide 23 mmol/L (22-30); Chloride 106 mmol/L (98-107); Estimated Creatinine Clearance 44 ml/min; Glucose 152 mg/dl (70-99); Potassium 4.9 mmol/L (3.5-5.1); Sodium 141 mmol/L (135-145); Total Bilirubin 0.4 mg/dl (0.2-1.3); eGFR 47.82
--- NOTE | 2024-01-16 15:45 | PTCARENOTE ---
Abnormal EKG 01/16/24. Dr. Avelar aware. No intervention needed.
[2024-01-21] VITALS (15 sets, daily range): BP systolic 10–184; BP diastolic 77–99; BMI 26.9
[2024-01-21 13:05] LABS: Glucose - Point of Care 108 mg/dl (70-99)
[2024-01-21] MEDS: NORMOSOL-R/PLASMALYTE-A 1000 IV ×2 (13:15→17:58)
[2024-01-21] MEDS: TYLENOL 1000 MG PO (13:30)
[2024-01-21 16:41] LABS: Glucose - Point of Care 153 mg/dl (70-99)
--- NOTE | 2024-01-21 16:46 | W.IMMPOSTOP ---
Addendum entered and electronically signed by Franki Gooden MD 01/21/24 16:58:
[facility]# [id number]
Original Note:
Surgical Immed Post Op Note
-
Primary Surgeon: Giacomo
Assisting Surgeon: ABISAI Larkin
Pre-op Diagnosis: Chronic cholecystitis
Post-op Diagnosis: Chronic cholecystitis
Procedure Performed: Laparoscopic subtotal cholecystectomy
Anesthesia Type: General
Specimen / Cultures:
1. Gallbladder
Estimated Blood Loss: 11 cc
Complications: None
Operative Findings:
1. Severely inflamed GB encased in omentum, colon and duodenal adhesions
2. Subtotal cholecystectomy with small cuff remaining above cystic, all visible stones removed, no bile emanating from cystic duct orifice
3. 19 Fr Fausto drain into operative field
[2024-01-21] MEDS: DILAUDID 0.5 MG IV ×2 (17:53→18:20)
[2024-01-21] MEDS: APRESOLINE 10 MG IV (20:15)
[2024-01-21] MEDS: ZOSYN 50 IV (20:17)
[2024-01-21] MEDS: TOPROL XL 100 MG PO (21:07)
[2024-01-21] MEDS: CRESTOR 40 MG PO (21:07)
[2024-01-21] MEDS: TYLENOL 650 MG PO ×2 (21:07→23:39)
[2024-01-21 21:28] LABS: Glucose - Point of Care 184 mg/dl (70-99)
--- NOTE | 2024-01-21 21:57 | TRANSFER ---
Received report from PAPERBOARD MACHINE OPERATOR Yecenia. Pt arrived to 2S vis bed at 1910 dx of lap zeb. Pt is drowsy but arousable to verbal. x4 lap sites w glue/ BONDACTOR MACHINE OPERATOR. R YODIT drain with scant sanguineous o/p. call verduzco within reach, bed in lowest position.
[2024-01-21] MEDS: LOTRISONE CREAM 1 APPLIC TOPICAL (23:39)
[2024-01-22] MEDS: ZOSYN 50 IV ×3 (01:05→13:35)
[2024-01-22] MEDS: ROXICODONE 5 MG PO (01:10)
[2024-01-22 02:40] VITALS: BP 134/78
[2024-01-22] MEDS: NORMOSOL-R/PLASMALYTE-A 1000 IV ×2 (03:43→13:37)
[2024-01-22] MEDS: TYLENOL 650 MG PO ×2 (03:50→08:13)
[2024-01-22] MEDS: SYNTHROID 25 MCG PO (05:01)
[2024-01-22 05:12] VITALS: BMI 26.6
[2024-01-22 07:20] VITALS: BP 154/79
[2024-01-22] MEDS: NSS (PRESERVATIVE FREE) 10 ML IV (08:12)
[2024-01-22] MEDS: LOW STRENGTH ASPIRIN 81 MG PO (08:12)
[2024-01-22] MEDS: ZETIA 10 MG PO (08:12)
[2024-01-22] MEDS: PROTONIX IV 40 MG IV (08:12)
[2024-01-22] MEDS: COZAAR 100 MG PO (08:12)
[2024-01-22] MEDS: LOTRISONE CREAM 1 APPLIC TOPICAL (08:14)
--- NOTE | 2024-01-22 08:43 | W.PN.GS2 ---
Addendum entered and electronically signed by Franki Gooden MD 01/22/24 16:35:
Patient seen and examined. Tolerating low-fat diet. No reports of nausea or vomiting. Passing flatus. Afebrile. Voiding without issues. Dizziness has resolved. Blood pressure stable. Continues with minimal nonbilious output from YODIT drain.
Labs with normal bilirubin and LFTs.
Patient eager for discharge. Stable for D/C. YODIT drain to remain in place. Antibiotic treatment for 7 days. Will follow-up as an outpatient in 1 week.
Original Note:
Today's Communication / Plan
-
-- LFD
-- Pain control: Tylenol, Oxycodone, IV Dilaudid PRN
-- Continue IVF for now until UOP picks up and dizziness resolves
-- Abx: Zosyn, will plan for 7 days abx treatment post-op
-- Labs pending
-- DC today versus tomorrow pending labs and progression, will be DC'd with YODIT
Assessment / Plan
-
Patient is a 63 yo M POD#1 s/p laparoscopic subtotal cholecystectomy
AVSS, improved blood pressures
Labs pending
No acute postoperative complications at this time.
-- LFD
-- Pain control: Tylenol, Oxycodone, IV Dilaudid PRN
-- Continue IVF for now until UOP picks up and dizziness resolves
-- Abx: Zosyn, will plan for 7 days abx treatment post-op
-- Home mediations re-ordered
-- DVt: Lovenox
-- GI: PPI
-- Labs pending
-- DC today versus tomorrow pending labs and progression, will be DC'd with YODIT
Subjective Data
-
Date of Service: January 22, 2024
Reports abdominal soreness. Denies any nausea or vomiting. No fevers. No ambulation. Voiding small amounts of clear urine. Denies any chest pain or shortness of breath. Slight dizziness, no new neurologic symptoms.
Objective Data
-
Intake and Output
01/21/24 01/22/24 01/23/24
06:59 06:59 06:59
Intake Total 2029 / 2029
Output Total 580 / 580
Balance 1450 / 1450
Intake:
Oral fluids 480 / 480
IV fluids (Total) 1450 / 1450
Normosol 250 / 250
IV piggybacks 100 / 100
Output:
Drain Output (Total)
Right [place] A
Urine, Voided 550 / 550
Vital Signs
Temp Pulse Resp BP Pulse Ox
98.7 F 75 16 154/79 97
01/22/24 07:20 01/22/24 07:20 01/22/24 07:20 01/22/24 07:20 01/22/24 07:20
Calcium 10.0 mg/dl (8.4-10.2) 01/16/24 07:56
Total Bilirubin 0.4 mg/dl (0.2-1.3) 01/16/24 07:56
AST 27 U/L (17-59) 01/16/24 07:56
ALT 20 U/L (0-50) 01/16/24 07:56
Alkaline Phosphatase 91 U/L (38-126) 01/16/24 07:56
Total Protein 7.0 g/dl (6.3-8.2) 01/16/24 07:56
Albumin 4.2 g/dl (3.5-5.0) 01/16/24 07:56
Physical Exam
-
Gen: NAD
Abd: soft, mild tenderness, ND, non-peritoneal, incisions c/d/i - no erythema, ecchymosis or drainage, YODIT with minimal old serosang, old clot stripped, non-bilious
[2024-01-22 09:03] LABS: Hematocrit 33.9 % (39.0-52.0); Hemoglobin 11.1 g/dL (13.0-18.0); Mean Corp Hgb Conc. 32.7 g/dL (33.0-37.0); Mean Corpuscular Hgb 26.5 pg (27.0-31.0); Mean Corpuscular Volume 80.9 fL (80.0-94.0); Mean Platelet Volume 10.2 fL (7.4-10.4); Platelet Count 259 10^3/uL (130-400); Red Blood Cell Count 4.19 10^6/uL (4.70-6.10); Red Cell Dist. Width 20.9 % (11.5-14.5); White Blood Cell Count 16.9 10^3/uL (4.8-10.8)
[2024-01-22 09:52] LABS: ALT (SGPT) 13 U/L (0-50); AST (SGOT) 23 U/L (17-59); Albumin 3.7 g/dl (3.5-5.0); Alkaline Phosphatase 76 U/L (38-126); Blood Urea Nitrogen 22 mg/dl (9-20); Carbon Dioxide 21 mmol/L (22-30); Chloride 101 mmol/L (98-107); Estimated Creatinine Clearance 47 ml/min; Glucose 161 mg/dl (70-99); Potassium 4.5 mmol/L (3.5-5.1); Sodium 138 mmol/L (135-145); Total Bilirubin 0.5 mg/dl (0.2-1.3); Total Protein 6.3 g/dl (6.3-8.2); eGFR 51.67
[2024-01-22 11:11] VITALS: BP 143/77
[2024-01-22] MEDS: TYLENOL 325 MG PO (12:02)
--- NOTE | 2024-01-22 13:45 | VNURNOTE ---
Chart reviewed. Patient is current with [facility] - primary [facility] RN Joellen pearce. Will continue to follow hospital course.
--- NOTE | 2024-01-22 14:12 | CM ---
Met with pt and his at bedside
Pt lives with his in a 2 story home; 7 steps to enter, 13 steps to 2nd fl
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
DME - cindy hudson,
SNF - denies past hx
HH - current with [facility]
Has ride at discharge
PCP - DR Stoney Viramontes
Pharm - [facility]
Plan - anticipate home with [facility]
[2024-01-22 15:45] VITALS: BP 127/75
[2024-01-22] MEDS: TYLENOL PO (16:49)
== END 2024-01-22 17:26 | disposition home or self-care (01) ==
LOC: SDS 06:21
PROVIDERS: ATTENDING PHYSICIAN Surgery; FAMILY PHYSICIAN Family Medicine; OTHER PHYSICIAN Internal Medicine Cardiovascular Disease; OTHER PHYSICIAN Internal Medicine Hematology & Oncology
DX: K80.13 Calculus of gallbladder with acute and chronic cholecystitis with obstruction (principal)
CPT/HCPCS: 47562; 88304; 36415; 80053; 82962; 85027; 88341; 88342; 93005

== ENCOUNTER → 2024-05-21 12:35 | Outpatient (REF) | payer OTHER, BC, SELFPAY | LOC: DHVS 12:35 | PROVIDERS: ATTENDING PHYSICIAN Surgery Vascular Surgery; FAMILY PHYSICIAN Family Medicine | DX: I71.40 Abdominal aortic aneurysm, without rupture, unspecified (principal); I73.9 Peripheral vascular disease, unspecified | CPT/HCPCS: 93922; 93925; 93978 ==

== ENCOUNTER 2024-07-29 19:02 | Inpatient (IN) | payer OTHER, SELFPAY ==
[2024-07-29] VITALS (12 sets, daily range): BP systolic 94–136; BP diastolic 52–71; BMI 29.2; BMI 27.6
--- NOTE | 2024-07-29 13:35 | ED.GENMED ---
History of Present Illness
General
Chief Complaint: Abnormal Lab Value
Source: patient
Exam Limitations: none
Time Seen by Provider: 07/29/24 13:14
History of Present Illness
History of Present Illness:
63-year-old male with history of hypertension hyperlipidemia prior cholecystectomy presents complaining of 2 weeks worth of nausea vomiting decreased appetite weight loss no jaundice. He denies any significant abdominal pain. He had labs drawn as
an outpatient 2 days ago which demonstrated elevated liver functions. He was contacted by the family doctor today after labs came back and was told to seek further treatment. He also notes voice changes. No stool changes. No fever. No other
complaints. He was at [place] in [place] 2 weeks ago ice fishing. No other travel otherwise
Past History
Past History
ED Past Medical History: CAD, HTN, Hypercholesterolemia, NIDDM, Hypothyroidism, Other (AAA) and Other (Peripheral arterial disease)
ED Past Surgical History: Cardiac and Other (Multiple vascular surgeries)
Phy Exam
Physical Exam
Physical Exam:
General: Well-developed male no acute respiratory distress
HEENT: Normocephalic sclera icteric neck is supple
Heart: Regular rate and rhythm
Lungs: Clear no wheeze
Abdomen is soft nontender nondistended no guarding rebound normal bowel sounds
Skin jaundiced no rash
Extremities: No cyanosis
Course
Orders/Labs/Results
Orders:
Orders
07/29/24 13:32
0.9% Sodium Chloride 1000 ml [Nss] 1,000 ml IV BOLUS
07/29/24 13:33
CT Abd/pelvis Wo Iv Cont Urgent
Reason For Exam: nausea, jaundice
07/29/24 13:37
Complete Blood Count/With Diff Urgent
Comprehensive Metabolic Panel Urgent
Lipase Urgent
PTT Urgent
Prothrombin Time Urgent
07/29/24 17:31
LevoFLOXacin 500 mg IVPB NOW LevoFLOXacin 500 MG/100 ML [Levaquin] 500 mg in 100 ml IV NOW
MetroNIDAZOLE IVPB 500 mg IVPB NOW MetroNIDAZOLE 500 MG/100 ML [Flagyl 500 mg] 100 ml IV NOW
Abnormal Lab Results
07/29/24
13:37
WBC 14.5 H 10^3/uL
(4.8-10.8)
RBC 3.77 L 10^6/uL
(4.70-6.10)
Hgb 11.1 L g/dL
(13.0-18.0)
Hct 31.8 L %
(39.0-52.0)
RDW 15.6 H %
(11.5-14.5)
MPV 11.9 H fL
(7.4-10.4)
Abs Immat Gran (auto) 0.1 H 10^3/uL
(0-0.05)
Absolute Neuts (auto) 12.4 H 10^3/uL
(1.4-6.5)
Absolute Lymphs (auto) 0.7 L 10^3/uL
(1.2-3.4)
Absolute Monos (auto) 1.2 H 10^3/uL
(0.1-0.6)
Immature Gran % 0.9 H %
(0-0.5)
Neutrophils % 86.0 H %
(42.2-75.2)
Lymphocytes % 4.7 L %
(20.5-51.1)
APTT 38.8 H Sec
(23.4-35.0)
Sodium 128 L mmol/L
(135-145)
Carbon Dioxide 16 L mmol/L
(22-30)
BUN 45 H mg/dl
(9-20)
Creatinine 3.2 H mg/dL
(0.7-1.3)
Glucose 198 H mg/dl
(70-99)
Total Bilirubin 4.8 H mg/dl
(0.2-1.3)
AST 72 H U/L
(17-59)
ALT 72 H U/L
(0-50)
Alkaline Phosphatase 579 H U/L
(38-126)
Total Protein 6.2 L g/dl
(6.3-8.2)
Albumin 3.2 L g/dl
(3.5-5.0)
07/29/24 13:37
07/29/24 13:37
Vital Signs
Initial and Last Documented VS:
Initial Vital Signs
Temp Pulse Resp BP Pulse Ox
97.8 F 82 18 101/52 98
07/29/24 12:30 07/29/24 12:30 07/29/24 12:30 07/29/24 12:30 07/29/24 12:30
Last Documented Vital Signs
Temp Pulse Resp BP Pulse Ox
97.8 F 74 20 105/61 99
07/29/24 12:30 07/29/24 17:15 07/29/24 15:45 07/29/24 17:00 07/29/24 16:45
MDM/Problems Addressed
Differential Diagnosis Includes:
Painless jaundice. Question viral illness versus cholangitis versus cancerous process. Will check labs. CT pending. Blood pressure on room 90s over 50s. Fluids ordered
*Critical Care Note
Total Time (30-74mins, 75-104mins- exclusive of procedures): Not Applicable
Update Note
Update Note:
Reviewed labs. White blood cell count 14.5 he has acute kidney injury with a creatinine of 3.2 and a BUN of 45. Sodium is 128. Total bilirubin is 4.8 with AST and ALT both being 72. CT consistent with biliary obstruction secondary to
choledocholithiasis. Fluids ordered he is allergic to Rocephin. Levaquin Flagyl ordered. Admit to hospitalist with GI consult
ED Attending Note
-
Portions of this chart may have been created with voice recognition software.� Occasional wrong word or��sound alike� substitutions may have occurred due to the inherent limitations of voice recognition software.
Discharge Plan
Departure
Patient Disposition: Admit
Date of Disposition: 07/29/24
Time of Disposition: 17:34
Presentation/result/management discussed w/ accepting /DO: Hospitalist
Discharge Problem:
Choledocholithiasis, ENEIDA (acute kidney injury)
Prescriptions:
No Action
losartan 50 mg Tablet
100 mg PO DAILY
ezetimibe 10 mg Tablet
10 mg PO DAILY
rosuvastatin 40 mg Tablet
40 mg PO QPM
levothyroxine 25 mcg Tablet
25 mcg PO DAILY
pantoprazole 40 mg Tablet,Delayed Release (Dr/Ec)
40 mg PO BID
Patient Comments:
coQ10 (ubiquinol) [Qunol Shaw CoQ10] 100 mg Capsule
100 mg PO DAILY
taurine 500 mg Capsule
1,000 mg PO DAILY
metoprolol succinate [Toprol XL] 100 mg tablet extended release 24 hr
100 mg PO QPM
ferrous sulfate 325 mg (65 mg iron) tablet
325 mg PO Q48H
cyanocobalamin (vitamin B-12) 1,000 mcg Tablet
1,000 mcg PO DAILY Qty: 30 0RF
acetaminophen [Tylenol] 325 mg Tablet
650 mg PO Q6HPRN PRN (Reason: MILD PAIN) Qty: 0
ondansetron HCl [Zofran] 8 mg Tablet
8 mg PO [id number] PRN (Reason: NAUSEA)
aspirin 81 mg Tablet,Delayed Release (Dr/Ec)
81 mg PO DAILY
Referrals:
Luisa Viramontes DO [Family Provider] -
Interventions
Interventions:
*Risk Screen - Suicide Last Done: 07/29/24 12:30
*General Assessment Last Done: 07/29/24 12:30
*Neglect/Abuse Screening Last Done: 07/29/24 12:30
*ED- Fall Risk Assessment Last Done: 07/29/24 13:30
*ED COVID-19 Vaccine History Last Done: 07/29/24 13:30
Discharge Date and Time
Print Language: DUTCH
[2024-07-29] MEDS: NSS 1000 IV ×2 (13:44→20:07)
[2024-07-29 13:59] LABS: % Basophils 0.3 % (0-2); % Eosinophils 0.1 % (0-6); % Immature Granulocytes 0.9 % (0-0.5); % Lymphocytes 4.7 % (20.5-51.1); Absolute Immature Granulocytes 0.1 10^3/uL (0-0.05); Absolute Lymphocytes 0.7 10^3/uL (1.2-3.4); Absolute Monocytes 1.2 10^3/uL (0.1-0.6); Absolute Neutrophils 12.4 10^3/uL (1.4-6.5); Hematocrit 31.8 % (39.0-52.0); Hemoglobin 11.1 g/dL (13.0-18.0); Mean Corp Hgb Conc. 34.9 g/dL (33.0-37.0); Mean Corpuscular Hgb 29.4 pg (27.0-31.0); Mean Corpuscular Volume 84.4 fL (80.0-94.0); Mean Platelet Volume 11.9 fL (7.4-10.4); Nucleated Red Blood Cells % 0 % (-); Platelet Count 384 10^3/uL (130-400); Red Blood Cell Count 3.77 10^6/uL (4.70-6.10); Red Cell Dist. Width 15.6 % (11.5-14.5); White Blood Cell Count 14.5 10^3/uL (4.8-10.8)
[2024-07-29 14:08] LABS: APTT 38.8 Sec (23.4-35.0); INR 1.09; PT 14.6 Sec (11.4-14.6)
[2024-07-29 14:11] LABS: Potassium 4.5 mmol/L (3.5-5.1)
[2024-07-29 14:12] LABS: ALT (SGPT) 72 U/L (0-50); AST (SGOT) 72 U/L (17-59); Albumin 3.2 g/dl (3.5-5.0); Alkaline Phosphatase 579 U/L (38-126); Blood Urea Nitrogen 45 mg/dl (9-20); Calcium 8.9 mg/dl (8.4-10.2); Carbon Dioxide 16 mmol/L (22-30); Chloride 99 mmol/L (98-107); Estimated Creatinine Clearance 22 ml/min; Glucose 198 mg/dl (70-99); Lipase 219 U/L (23-300); Sodium 128 mmol/L (135-145); Total Bilirubin 4.8 mg/dl (0.2-1.3); Total Protein 6.2 g/dl (6.3-8.2); eGFR 20.81
--- NOTE | 2024-07-29 17:39 | HPS.HSE ---
Family Physician
-
Family Physician: Luisa Viramontes
Chief Complaint
-
abnormal lab values
History of Present Illness
Patient is a 63-year-old male with past medical history significant for essential hypertension, PAD, CAD, hyperlipidemia, NIDDM, hypothyroidism and AAA who presented to [facility] ED for evaluation of out patient elevated LFTs. Patient
reports two weeks of nausea, vomiting, decreased appetite and weight loss of 10 pounds. He denies noticing any jaundice or abdominal pain. He had labs drawn out patient as prescribed from primary care who notified him today he should seek evaluation
at ED for abnormal liver function test. Patient only recent travel to [place] in [place] 2 weeks ago. He denies any fever, cough, shortness of breath, chest pain, constipation, diarrhea or urinary symptoms.
Medical History
Past Medical History
Past Medical History: Reports Other
Additional Past Medical History:
essential hypertension
PAD
CAD
hyperlipidemia
NIDDM
hypothyroidism
AAA
Past Surgical History: Reports Other
Additional Past Surgical History:
R fem endar + R fem to pop bypass 06/2023
arterial bypass 09/03/23
L carotid endarterectomy 12/17/23
laparoscopic cholecystectomy with drain placement ([facility]) 01/21/2024
Social History
Tobacco: Smoker (15 pack year history, for past 5 months smokes approximately 2 cigarettes every other day )
Alcohol: Occasional (2 drinks per week, none recently with illness)
Drug: None
Personal:
Living: With Family
Employment: Retired
Family History
Family History: Other (Father: CVA; Mother: PAD)
Allergies / Home Medications
Allergies reflects when Allergies were last updated in [employer].
Home Medications with original date entered in [employer]
Allergy/Medication List:
Allergies
Allergy/AdvReac Type Severity Reaction Status Date / Time
ceftriaxone Allergy HIVES-with Verified 07/29/24 12:30
one dose
of
ceftriaxone
on 11/27/23
Home Medications
ezetimibe 10 mg tablet 10 mg PO DAILY High Cholesterol 04/25/23
levothyroxine 25 mcg tablet 25 mcg PO DAILY Thyroid 04/25/23
losartan 50 mg tablet 100 mg PO DAILY Blood Pressure 04/25/23
rosuvastatin 40 mg tablet 40 mg PO QPM High Cholesterol 04/25/23
pantoprazole 40 mg tablet,delayed release 40 mg PO BID Gastrointestinal Issue 05/07/23
coQ10 (ubiquinol) 100 mg capsule (Qunol Shaw CoQ10) 100 mg PO DAILY Supplement 06/19/23
ferrous sulfate 325 mg (65 mg iron) tablet 325 mg PO Q48H Supplement 11/26/23
metoprolol succinate 100 mg tablet,extended release 24 hr (Toprol XL) 100 mg PO QPM Blood Pressure 11/26/23
taurine 500 mg capsule 1,000 mg PO DAILY Supplement 11/26/23
cyanocobalamin (vitamin B-12) 1,000 mcg tablet 1,000 mcg PO DAILY #30 tabs 11/28/23
acetaminophen 325 mg tablet (Tylenol) 650 mg PO Q6HPRN PRN MILD PAIN ##0 01/21/24
aspirin 81 mg tablet,delayed release 81 mg PO DAILY 07/29/24
ondansetron HCl 8 mg tablet 8 mg PO [id number] PRN NAUSEA 07/29/24
Review of Systems
-
History Source: Patient
Constitutional: Reports Chills
EENT: Reports No Symptoms
Respiratory: Reports No Symptoms
Cardiac: Reports No Symptoms
Abdomen/GI: Reports Nausea, Vomiting and Anorexia
: Reports No Symptoms
Musculoskeletal: Reports No Symptoms
Skin: Reports No Symptoms
Neurological: Reports No Symptoms
Endocrine: Reports No Symptoms
Hematologic/Lymphatic: Reports No Symptoms
Psych: Reports No Symptoms
Physical Exam
Vital Signs
Vital Signs
Temp Pulse Resp BP Pulse Ox
97.8 F 74 20 105/61 99
07/29/24 12:30 07/29/24 17:15 07/29/24 15:45 07/29/24 17:00 07/29/24 16:45
Physical Exam
General: Well Developed, Well Nourished, No Apparent Distress, Comfortable, Conversant and Poor Appetite
HEENT: NormoCephalic, Moist mucous membranes, Atraumatic, [place] Conjunctivae, Nose Appears Normal and Ears Appear Normal
Respiratory: Clear and Non Labored Respirations
Cardiac: S1/S2 and Regular Rhythm; No Murmur, Rub or Gallop
GI: Soft, Non Tender and Normal Bowel Sounds; No Organomegaly
Rectal: Deferred by Provider
Genito-urinary: Deferred by me
Musculoskeletal: No Clubbing, No Cyanosis and No Edema
Skin: Jaundice and IV/Catheter Site; No Rash
Neuro: Awake, Alert, AO x 3 and Nonfocal/grossly intact
Psych: Calm and Intact Judgment/Insight
Laboratory Results
-
07/29/24 13:37
07/29/24 13:37
Laboratory Results
PT 14.6 Sec (11.4-14.6) 07/29/24 13:37
INR 1.09 07/29/24 13:37
APTT 38.8 Sec (23.4-35.0) H 07/29/24 13:37
Total Bilirubin 4.8 mg/dl (0.2-1.3) H 07/29/24 13:37
AST 72 U/L (17-59) H 07/29/24 13:37
ALT 72 U/L (0-50) H 07/29/24 13:37
Alkaline Phosphatase 579 U/L (38-126) H 07/29/24 13:37
Lipase 219 U/L (23-300) 07/29/24 13:37
Data Reviewed
-
CT Scan: Report Reviewed by me (Abd/Pel: 1. SEVERE BILIARY OBSTRUCTION with severe intrahepatic biliary dilatation secondary to a large 1.5 cm OBSTRUCTING STONE (CHOLEDOCHOLITHIASIS) in the common hepatic duct. 2. Collapsed gallbladder
containing a small amount of air. 3. Infrarenal abdominal aortic aneurysm (5.2 cm AP dimen)
Lab Data: Labs Reviewed by me (WBC 14.5, Na 128, BUN 45, Creat 3.2, Tot Bili 4.8, AST 72, ALT 72, Alk Phos 579)
Impression/Plan
-
IMPRESSION/PLAN:
#abnormal LFTs outpatient
#choledocholithiasis
Tot Bili 4.8, AST 72, ALT 72, Alk Phos 579, INR 1.09
Abd/Pel CT: 1. SEVERE BILIARY OBSTRUCTION with severe intrahepatic biliary dilatation secondary to a large 1.5 cm OBSTRUCTING STONE (CHOLEDOCHOLITHIASIS) in the common hepatic duct.
2. Collapsed gallbladder containing a small amount of air.
3. Infrarenal abdominal aortic aneurysm (5.2 cm AP dimension).
4. Left common iliac artery stent in place.
5. Bilateral femoral artery bypass grafts in place.
6. Moderate chronic bilateral renal disease.
7. Mild hepatosplenomegaly.
8. Small bilateral adrenal adenomas.
9. Mildly enlarged prostate gland.
10. Moderate diverticulosis in the sigmoid colon.
11. Severe chronic discogenic degenerative disease at L5/S1.
- Admit to med/surg
- Consult GI
- NPO
- MRCP
- IVF
- IV antibiotics
- supportive care
#acute kidney injury
BUN 45, Creat 3.2
- IVF
- monitor BMP
#essential hypertension
- hold losartan
- continue metoprolol
#PAD
#CAD
- continue aspirin
#hyperlipidemia
- continue ezetimibe
- hold rosuvastatin
#NIDDM
A1c (12/08/2023) 6.8
- manages with diet
#hypothyroidism
- continue levothyroxine
#AAA
Code status: DNR
DVT prophylaxis: SCDs
[2024-07-29] MEDS: FLAGYL 500 MG 100 IV (17:55)
--- NOTE | 2024-07-29 18:24 | W.PN.UPDATE ---
Addendum entered and electronically signed by Danya Meehan MD 07/29/24 19:55:
*Acute on chronic kidney injury; CKD III
-baseline creatinine~ 1.4-1.6
Original Note:
Update Note
Progress Note Update
This is an addendum to H&P to TERRITORY SALES EXECUTIVE Alessandra Bridges
I saw and examined the patient.
The TERRITORY SALES EXECUTIVE's note was reviewed and I agree with the note.
Comment:
Mr. Tutu Parks is a 63 yo man with hx CAD s/p PCI 10/08, carotid arterty stenosis s/p CEA, PAD s/p endarterectomy, former smoker, essential HTN, hypothyroidism presents to the ER with 2 weeks abdominal pain worse with eating. He had outpatient
labs and was sent to the ER. He reports 10lb weight loss.
Triage VS: T 97.8, P 82, RR 18, BP 101/52, SpO2 98%
On exam patient is awake, alert, in no acute distress. CV: S1, S2, RRR. Chest clear. Abdomen soft, no pain (has not eaten). no LE swelling
LABS: WBC 14.5, Hg 11.1, PLT 384, Na 128, K+ 4.5, CO2 16, BUN 45, Cr 3.2, Glucose 198, T. Bili 4.8, AST 72, ALT 72, Alk Phos 579
Abdomen/Pelvis CT
IMPRESSION:
1. SEVERE BILIARY OBSTRUCTION with severe intrahepatic biliary dilatation secondary to a large 1.5 cm OBSTRUCTING STONE (CHOLEDOCHOLITHIASIS) in the common hepatic duct.
2. Collapsed gallbladder containing a small amount of air.
3. Infrarenal abdominal aortic aneurysm (5.2 cm AP dimension).
4. Left common iliac artery stent in place.
5. Bilateral femoral artery bypass grafts in place.
6. Moderate chronic bilateral renal disease.
7. Mild hepatosplenomegaly.
8. Small bilateral adrenal adenomas.
9. Mildly enlarged prostate gland.
10. Moderate diverticulosis in the sigmoid colon.
11. Severe chronic discogenic degenerative disease at L5/S1.
Choledocholithiasis
-admit to telemetry
-NPO
-GI aware of admission, patient will need ERCP
-continue IV Zosyn (*patient states he has tolerated penicillin in past, has allergy to Ceftriaxone)
-IVF
-hold statin
ENEIDA 2/2 hypovolemia
-IVF as above
-hold SUPERVISOR SPEECH Losartan
Hyponatremia 2/2 hypovolemia
-IVF, monitor
CAD s/p PCI 10/08
-SUPERVISOR SPEECH asa, hold statin
Essential HTN
-hold SUPERVISOR SPEECH Losartan 2/2 ENEIDA
PAD s/p Endarterectomy - asa, hold statin
GERD - SUPERVISOR SPEECH Protonix
Remainder of plan per TERRITORY SALES EXECUTIVE note
76 minutes spent on patient care
[2024-07-29] MEDS: NSS 500 IV (19:26)
[2024-07-29] MEDS: ZOSYN 50 IV (19:27)
--- NOTE | 2024-07-29 19:43 | PTCARENOTE ---
Ptreceived from ED to 434-2. Pt oriented to room and call verduzco.
[2024-07-29 20:33] LABS: Magnesium 2.3 mg/dl (1.6-2.3); Phosphorus 4.2 mg/dl (2.5-4.5)
[2024-07-29] MEDS: PROTONIX 40 MG PO (20:47)
[2024-07-30] VITALS (9 sets, daily range): BP systolic 95–128; BP diastolic 56–79; BMI 27.6
[2024-07-30] MEDS: ZOSYN 50 IV ×3 (02:20→20:09)
[2024-07-30] MEDS: SYNTHROID 25 MCG PO (06:02)
[2024-07-30] MEDS: NSS 1000 IV ×2 (06:02→15:43)
--- NOTE | 2024-07-30 06:30 | CON.GI ---
Addendum entered and electronically signed by Kranthi Carvajal MD 07/30/24 15:05:
I saw and examined the patient.
The PA's note was reviewed and I agree with the note.
Comment:
63 year old male with h/o AAA, CAD, NIDDM, PAD s/p lower extremity vascular bypass grafts (R 06/19/23, L 09/03/23), HTN, hypercholesterolemia, symptomatic anemia, carotid stenosis with CEA 11/2023 who had complicated acute cholecystis on 11/2023 with
perc zeb tube followed by lap subtotal cholecystectomy on 01/2024 who p/w nausea/vomiting and weight loss. Noted with elevated LFT and CT abd which showed biliary obstruction with severe intrahepatic biliary dilatation secondary to large 1.5 cm
obstructing stone in common hepatic duct.
Impression / Rec:
1. Choledocholithiasis with elevated LFT and dilated biliary duct - CT images were viewed by me. Will proceed with ERCP for intervention.
Original Note:
Consultation
-
Date/Time Consultation Requested: 07/29/241929
Date/Time Consultation Performed: 07/30/24 0830
Requesting Provider: [facility]
Performing Provider: WALT Kohli, Kranthi Carvajal MD
Reason for Consultation: increased LFT's
Medical History
Chief Complaint / HPI
Chief Complaint: dizziness
History of Present Illness:
62 year old male with past medical history of AAA, CAD, NIDDM, PAD s/p lower extremity vascular bypass grafts (R 06/19/23, L 09/03/23), HTN, hypercholesterolemia, symptomatic anemia, hypertension, hyperlipidemia, carotid stenosis with CEA 11/2023,
prior GI bleed, acute cholecystis 11/2023 with zeb tube then lap subtotal zeb in January 2024. He now presents with 2 weeks of nausea, vomiting with decreased appetite, and wt loss. He was noted with increased LFT's. On admission noted with
abnormal CT with concern for severe biliary obstruction with severe intrahepatic biliary dilatation secondary to large 1.5 cm obstructing stone in common hepatic duct and collapsed gallbladder containing small amount of air. Labs notable for WBC
14,500, Na 128, BUN 45, creat 3.2 with baseline around 1.5, bili 4.8, AST 72, ALT 72, alk phos 579, lipase 219.
At this time patient admits to above symptoms with also increased GERD and jaundice with dark urine. Wt loss around 10 lbs. He denies abdominal pain, diarrhea, constiaption or rectal bleeding. On ASA but denies other anticoagulation prior
to admission.
Past Medical History
Past Medical History: Arrhythmias (NSVT), CAD (s/p LAD PCI; chronic RCA occlusion), HTN, Hypercholesterolemia, Hypothyroidism, NIDDM, Renal Failure and Other (PAD, AAA, HSM on imaging, small b/l adrenal adenomas , enlarged prostate, DDD,
diverticulosis )
Past Surgical History: Cardiac (PCI LAD), Cholecystectomy (zeb tube then lap subtotal zeb in January 2024) and Other (lower extremity vascular bypass grafts)
Social History
Tobacco: Smoker (2 cigarettes per day)
Alcohol: Occasional (2 drinks per week )
Drug: None
Personal:
Living: With Family
Employment: Retired
Family History
Family History: Other (denies family hx colon CA or polyps)
Allergies / Home Medications
Allergy/AdvReac Type Severity Reaction Status Date / Time
ceftriaxone Allergy HIVES-with Verified 07/29/24 12:30
one dose
of
ceftriaxone
on 11/27/23
�Medication �Instructions �Recorded
ezetimibe 10 mg tablet 10 mg PO DAILY High Cholesterol 04/25/23
levothyroxine 25 mcg tablet 25 mcg PO DAILY Thyroid 04/25/23
losartan 50 mg tablet 100 mg PO DAILY Blood Pressure 04/25/23
rosuvastatin 40 mg tablet 40 mg PO QPM High Cholesterol 04/25/23
pantoprazole 40 mg tablet,delayed 40 mg PO BID Gastrointestinal Issue 05/07/23
release
coQ10 (ubiquinol) 100 mg capsule 100 mg PO DAILY Supplement 06/19/23
(Qunol Shwa CoQ10)
ferrous sulfate 325 mg (65 mg 325 mg PO Q48H Supplement 11/26/23
iron) tablet
metoprolol succinate 100 mg 100 mg PO QPM Blood Pressure 11/26/23
tablet,extended release 24 hr
(Toprol XL)
taurine 500 mg capsule 500 mg PO DAILY Supplement 11/26/23
cyanocobalamin (vitamin B-12) 1,000 mcg PO DAILY #30 tabs 11/28/23
1,000 mcg tablet
acetaminophen 325 mg tablet 650 mg PO Q6HPRN PRN MILD PAIN ##0 01/21/24
(Tylenol)
aspirin 81 mg tablet,delayed 81 mg PO DAILY 07/29/24
release
ondansetron HCl 8 mg tablet 8 mg PO [id number] PRN NAUSEA 07/29/24
Review of Systems
-
History Source: Patient
Constitutional: Reports Weight Loss (10 lbs ) and Chills
EENT: Reports No Symptoms
Respiratory: Reports No Symptoms
Cardiac: Reports No Symptoms
Abdomen/GI: Reports Nausea, Vomiting and Anorexia
: Reports Dark Urine
Musculoskeletal: Reports No Symptoms
Skin: Reports No Symptoms
Neurological: Reports Weakness
Endocrine: Reports No Symptoms
Hematologic/Lymphatic: Reports No Symptoms
Vital Signs
Temp Pulse Resp BP Pulse Ox
98.8 F 72 18 107/79 96
07/30/24 03:30 07/30/24 03:30 07/30/24 03:30 07/30/24 03:30 07/30/24 03:30
Physical Exam
Exam
General: Well Developed and Well Nourished
HEENT: Other (jaundice )
Respiratory: Clear
Cardiac: Regular Rhythm
GI: Soft, Non Tender and Non Distended
Musculoskeletal: No Clubbing and No Cyanosis
Skin: Warm and Dry
Neuro: Awake, Alert and AO x 3
Psych: Calm
Results
WBC 14.5 10^3/uL (4.8-10.8) H 07/29/24 13:37
Hgb 11.1 g/dL (13.0-18.0) L 07/29/24 13:37
Hct 31.8 % (39.0-52.0) L 07/29/24 13:37
MCV 84.4 fL (80.0-94.0) 07/29/24 13:37
Plt Count 384 10^3/uL (130-400) 07/29/24 13:37
Absolute Neuts (auto) 12.4 10^3/uL (1.4-6.5) H 07/29/24 13:37
PT 14.6 Sec (11.4-14.6) 07/29/24 13:37
INR 1.09 07/29/24 13:37
APTT 38.8 Sec (23.4-35.0) H 07/29/24 13:37
Sodium 128 mmol/L (135-145) L 07/29/24 13:37
Potassium 4.5 mmol/L (3.5-5.1) 07/29/24 13:37
Chloride 99 mmol/L (98-107) 07/29/24 13:37
Carbon Dioxide 16 mmol/L (22-30) L 07/29/24 13:37
BUN 45 mg/dl (9-20) H 07/29/24 13:37
Creatinine 3.2 mg/dL (0.7-1.3) H 07/29/24 13:37
Calcium 8.9 mg/dl (8.4-10.2) 07/29/24 13:37
Total Bilirubin 4.8 mg/dl (0.2-1.3) H 07/29/24 13:37
AST 72 U/L (17-59) H 07/29/24 13:37
ALT 72 U/L (0-50) H 07/29/24 13:37
Alkaline Phosphatase 579 U/L (38-126) H 07/29/24 13:37
Lipase 219 U/L (23-300) 07/29/24 13:37
Diagnostic Image Results:
07/29/24 CT Abd/pelvis Wo Iv Cont
1. SEVERE BILIARY OBSTRUCTION with severe intrahepatic biliary dilatation secondary to a large 1.5 cm OBSTRUCTING STONE (CHOLEDOCHOLITHIASIS) in the common hepatic duct.
2. Collapsed gallbladder containing a small amount of air.
3. Infrarenal abdominal aortic aneurysm (5.2 cm AP dimension).
4. Left common iliac artery stent in place.
5. Bilateral femoral artery bypass grafts in place.
6. Moderate chronic bilateral renal disease.
7. Mild hepatosplenomegaly.
8. Small bilateral adrenal adenomas.
9. Mildly enlarged prostate gland.
10. Moderate diverticulosis in the sigmoid colon.
11. Severe chronic discogenic degenerative disease at L5/S1.
Prior GI Procedures:
EGD: 11/2023-ahmad
- Normal esophagus.
- Normal stomach.
- Erythematous duodenopathy (unchanged from previous
endoscopy). Biopsied.
Colonoscopy: 11/10/24 pablito
- The examined portion of the ileum was normal.
- Internal hemorrhoids.
- The examination was otherwise normal.
- No specimens collected.
Assessment / Plan
-
62 year old male with past medical history of AAA, CAD, NIDDM, PAD s/p lower extremity vascular bypass grafts (R 06/19/23, L 09/03/23), HTN, hypercholesterolemia, symptomatic anemia, hypertension, hyperlipidemia, carotid stenosis with CEA 11/2023,
prior GI bleed, acute cholecystis 11/2023 with zeb tube then lap subtotal zeb in January 2024. He now presents with 2 weeks of nausea, vomiting with decreased appetite, and wt loss. He was noted with increased LFT's. On admission noted with
abnormal CT with concern for severe biliary obstruction with severe intrahepatic biliary dilatation secondary to large 1.5 cm obstructing stone in common hepatic duct and collapsed gallbladder containing small amount of air. Labs notable for WBC
14,500, Na 128, BUN 45, creat 3.2 with baseline around 1.5, bili 4.8, AST 72, ALT 72, alk phos 579, lipase 219.
-large 1.5 cm obstructing stone in common hepatic duct per CT
-2 weeks of nausea/vomiting/wt loss 10 lbs
-elevated bili and alk phos
-hx prior zeb tube then subtotal zeb in Jan 2024
-leukocytosis
-ENEIDA on admission
-hyponatremia
other med problems:
-AAA 5.[address] on admission
-hx CEA 11/2023
-CAD
-NIDDM
-PAD with prior LE vascular bypass (R 06/19/23, L 09/03/23)
-HTN
-hypercholesterolemia
-anemia
-HTN
-HSM on imaging
-small b/l adrenal adenomas
-enlarged prostate
-DDD
-diverticulosis
PLAN:
etiology of nausea/wt loss with elevated LFT's related to large obstructing CHD stone vs other
reviewed CT with Dr. Carvajal will hold MRI and plan for EGD today
NPO
IVF
cont abx
cont PPI BID
trend Na and creat per medical team -- await AM labs
offered to call family - pt states he will call to review with them
-
-
Thank you for consultation and allowing me to participate in the patient's care. Please call the computer consultant GI physician during the after hours with any questions or concerns.
[2024-07-30 08:44] LABS: Hematocrit 29.9 % (39.0-52.0); Hemoglobin 10.2 g/dL (13.0-18.0); Mean Corp Hgb Conc. 34.1 g/dL (33.0-37.0); Mean Corpuscular Hgb 28.8 pg (27.0-31.0); Mean Corpuscular Volume 84.5 fL (80.0-94.0); Mean Platelet Volume 11.7 fL (7.4-10.4); Platelet Count 346 10^3/uL (130-400); Red Blood Cell Count 3.54 10^6/uL (4.70-6.10); Red Cell Dist. Width 15.4 % (11.5-14.5); White Blood Cell Count 8.7 10^3/uL (4.8-10.8)
[2024-07-30 09:40] LABS: ALT (SGPT) 58 U/L (0-50); AST (SGOT) 56 U/L (17-59); Albumin 2.6 g/dl (3.5-5.0); Alkaline Phosphatase 478 U/L (38-126); Blood Urea Nitrogen 44 mg/dl (9-20); Calcium 8.5 mg/dl (8.4-10.2); Carbon Dioxide 16 mmol/L (22-30); Chloride 106 mmol/L (98-107); Estimated Creatinine Clearance 22 ml/min; Glucose 103 mg/dl (70-99); Magnesium 2.3 mg/dl (1.6-2.3); Potassium 4.4 mmol/L (3.5-5.1); Sodium 134 mmol/L (135-145); Total Bilirubin 3.6 mg/dl (0.2-1.3); Total Protein 5.3 g/dl (6.3-8.2); eGFR 20.81
--- NOTE | 2024-07-30 11:15 | CON.CAR ---
Addendum entered and electronically signed by Dale Rosales MD 07/30/24 13:40:
I saw and examined the patient.
The TERMITE HELPER's note was reviewed and I agree with the note.
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
oral intake for a couple weeks. No complaints of chest pain or increased shortness of breath. Patient had cholecystitis 11/2023. He had a cholecystostomy tube and then eventually had cholecystectomy 01/2024 patient developed to have biliary
obstruction related to large obstructing stone. Patient with choledocholithiasis. He underwent ERCP. He underwent sphincterotomy, lithotripsy and common bile duct stenting. During the procedure there was a question of ECG changes patient has
downsloping ST segments and T wave inversions on telemetry that appeared mildly more prominent. Of note patient's prior ECGs are notable for anterolateral T wave inversions of varying degrees. Patient with no complaints of chest pain currently
comfortable and asymptomatic he has had no issues with chest pains at home ECG tracing today shows sinus rhythm with T wave inversions consistent with prior ECGs.
Overall findings on telemetry are nonspecific. Not surprising considering his baseline ECG
-Will monitor on telemetry and check troponins.
-Continue medical therapy for CAD
Original Note:
Consultation
Consultation Request
Date/Time Consultation Requested: 07/30/2024 11:00
Date/Time Consultation Performed: 07/30/2024 11:15
Requesting Provider: WALT Kohli
Performing Provider: WALT Arzola for Dr. Rosales
Reason for Consultation: ST changes during GI procedure
Medical History
-
Chief Complaint: Abnormal labs
History of Present Illness:
Tutu Parks is a 63 year old male (known to Dr. Vazquez, his primary senior bioinformatics scientist), with MVCAD, severe PAD (revascularization LLE 08/2023, left carotid 12/17/2023), former smoker, CKD, HTN, HLD, NSVT, abdominal aortic aneurysm, hypothyroidism, and
anemia who presented to the ER with a chief complaint of abnormal labs. He had elevated LFTs. These were drawn 2 days prior to arrival. He endorsed associated nausea, vomiting, poor oral intake, and weight loss. He did not realize he was
jaundiced. During procedure, reports of worsening ST depression. Cardiology was consulted for evaluation.
Past Medical History
Past Medical History: Arrhythmias (NSVT), CAD (MVCAD), HTN, Hypercholesterolemia, Hypothyroidism, Renal Failure (CKD3) and Other (PAD, anemia, AAA)
Past Surgical History: Cholecystectomy and Orthopedic
Social History
Tobacco: Smoker
Alcohol: Occasional
Drug: None
Personal:
Living: With Family
Family History
Family History: Reviewed & Not Pertinent
Allergies / Home Medications
Allergy/AdvReac Type Severity Reaction Status Date / Time
ceftriaxone Allergy HIVES-with Verified 07/29/24 12:30
one dose
of
ceftriaxone
on 11/27/23
�Medication �Instructions �Recorded �Confirmed �Type
ezetimibe 10 mg tablet 10 mg PO DAILY High Cholesterol 04/25/23 07/29/24 History
levothyroxine 25 mcg tablet 25 mcg PO DAILY Thyroid 04/25/23 07/29/24 History
losartan 50 mg tablet 100 mg PO DAILY Blood Pressure 04/25/23 07/29/24 History
rosuvastatin 40 mg tablet 40 mg PO QPM High Cholesterol 04/25/23 07/29/24 History
pantoprazole 40 mg tablet,delayed 40 mg PO BID Gastrointestinal Issue 05/07/23 07/29/24 History
release
coQ10 (ubiquinol) 100 mg capsule 100 mg PO DAILY Supplement 06/19/23 07/29/24 History
(Qunol Shaw CoQ10)
ferrous sulfate 325 mg (65 mg 325 mg PO Q48H Supplement 11/26/23 07/29/24 History
iron) tablet
metoprolol succinate 100 mg 100 mg PO QPM Blood Pressure 11/26/23 07/29/24 History
tablet,extended release 24 hr
(Toprol XL)
taurine 500 mg capsule 500 mg PO DAILY Supplement 11/26/23 07/29/24 History
cyanocobalamin (vitamin B-12) 1,000 mcg PO DAILY #30 tabs 11/28/23 07/29/24 Rx
1,000 mcg tablet
acetaminophen 325 mg tablet 650 mg PO Q6HPRN PRN MILD PAIN ##0 01/21/24 07/29/24 History
(Tylenol)
aspirin 81 mg tablet,delayed 81 mg PO DAILY Blood Clot 07/29/24 07/29/24 History
release Prevention/Tx
ondansetron HCl 8 mg tablet 8 mg PO [id number] PRN NAUSEA 07/29/24 07/29/24 History
Review of Systems
-
History Source: Patient
All other systems: Negative unless noted
Constitutional: Weight Loss and Fatigue
EENT: No Symptoms
Cardiac: No Symptoms
Abdomen/GI: Nausea
: No Symptoms
Musculoskeletal: No Symptoms
Skin: No Symptoms
Neurological: No Symptoms
Endocrine: No Symptoms
Hematologic/Lymphatic: No Symptoms
Physical Exam
Vital Signs
Temp Pulse Resp BP Pulse Ox
97.6 F 73 18 101/62 96
07/30/24 07:11 07/30/24 07:11 07/30/24 07:11 07/30/24 07:11 07/30/24 07:11
Lab Results
07/30/24 07:51
07/30/24 07:51
Physical Exam
General: Well Developed, Well Nourished, No Apparent Distress and Comfortable
HEENT: Normocephalic, Moist Mucous Membranes and Other (Yellow sclera)
Respiratory: Clear and Non Labored Respirations
Cardiac: S1/S2 and Regular Rhythm; Negative Peripheral Edema
Breast: Deferred by me
GI: Soft, Non Tender, Non Distended and Normal Bowel Sounds
Rectal: Deferred by Provider
Genito-urinary: No Costovertebral Tender
Musculoskeletal: No Clubbing, No Cyanosis and No Edema
Skin: Warm, Dry and Other (Jaundiced)
Neuro: AO x 3
Hematologic/Lymphatic: No Lymphadenopathy
Psych: Calm
Impression / Plan
-
I/P: 63M with MVCAD, severe PAD (revascularization LLE 08/2023, left carotid 12/17/2023), former smoker, CKD, HTN, HLD, NSVT, abdominal aortic aneurysm, hypothyroidism, and anemia who presented to the ER with a chief complaint of abnormal labs.
Primary senior bioinformatics scientist: Dr. Vazquez
Abnormal telemetry
-Chronic TWI, EKG similar in appearance to November
-Chest pain free
-Follow telemetry
-Troponin level
-Echocardiogram today
Biliary obstruction in the setting of intrahepatic biliary dilation due to large obstructing stone
-Status post ERCP today with Dr. Carvajal, stent placed in CBD
CAD
-[facility] 10/16/2022: NITESH to LAD x 3 & D1; mCirc & ostial-mid RCA 100% occluded
-Stable without chest pain
ENEIDA on CKD Stage III, trend
Hyponatremia, improving
NSVT, chronic
-MRI with large inferolateral transmural scar and partial subendocardial scar anteriorly, continue beta adele
PAD, severe, follows with Dr. Tapia
AAA, 5.[address] this admission
Anemia, chronic, follows with hematology as an outpatient
HLD, LDL well below goal on rosuvastatin & ezetimibe (31 on outpatient labs in November)
Smoker, he had full cessation but now smokes a cigarette or 2 a day
Data Reviewed
-
CT Scan: Report Reviewed by me (Abdomen/pelvis: Biliary obstruction as above)
Medical Tests (Nuc Med, Echo etc): Report Reviewed by me (Prior echocardiogram a cardiac catheterization)
Labs: Labs Reviewed by me
[2024-07-30] MEDS: VITAMIN B-12 1000 MCG PO (12:33)
[2024-07-30] MEDS: ZOSYN IV (12:33)
[2024-07-30] MEDS: PROTONIX 40 MG PO ×2 (12:33→20:09)
[2024-07-30] MEDS: ASPIR LOW (ENTERIC COATED) 81 MG PO (12:33)
--- NOTE | 2024-07-30 12:58 | W.PN.HOSP.TC ---
Today's Communication/Plan
-
apprec GI/cards
clears
cont IVF
follow labs
cont ABX
Assessment / Plan
Assessment / Plan
pt is a 63 year old male
elevated LFTs--with scleral icterus--due to choledocholithiasis--apprec GI--s/p ERCP with biliary sphincterotomy and balloon extraction stent in CBD--clear liquids today--cont ABX
ST segment inversion during procedure--apprec cards--ECHO pending--follow on telemetry
ENEIDA--creat in January 2024 was 1.5--now 3.2--cont IVF
hyponatremia--improved
essential HTN--losartan/metoprolol
HLD--cont zetia--hold statin
type 2 DM--diet controlled--SSI with accuchecks
hypothyroid--cont levothyroxine
DVT proph
code status -- DNR
Anticipated Discharge: 24 - 48 hours
Subjective/Interval History
-
Date of Service: July 30, 2024
pt without c/o
Objective Data
-
Labs:
Laboratory Results
07/30/24
07:51
WBC 8.7
Hgb 10.2 L
Hct 29.9 L
Plt Count 346
Sodium 134 L
Potassium 4.4
Chloride 106
Carbon Dioxide 16 L
BUN 44 H
Creatinine 3.2 H
Glucose 103 H
Calcium 8.5
Total Bilirubin 3.6 H
AST 56
ALT 58 H
Alkaline Phosphatase 478 H
Vital Signs:
max temp for 24 hours
07/29/24
23:13
Temp 100.1 F
Vital Signs
Temp Pulse Resp BP Pulse Ox
98.2 F 66 18 95/56 97
07/30/24 11:30 07/30/24 11:15 07/30/24 11:15 07/30/24 11:15 07/30/24 11:30
I&O
07/29/24 07/30/24 07/31/24
06:59 06:59 06:59
Intake Total 0 / 0
Balance 0 / 0
Review of Systems
-
All other systems: Reviewed and negative
Physical Exam
-
General: Well Developed, Well Nourished and No Apparent Distress
HEENT: Normocephalic and Atraumatic; Negative Anicteric
Respiratory: Clear to Auscultation; Negative Wheezes or Rhonchi
Cardiac: Regular Rhythm and S1/S2; Negative Murmur
GI: Soft, Nontender, Nondistended and Normal Bowel Sounds
Musculoskeletal: No Clubbing, No Cyanosis and No Edema
Neuro: Awake and Alert
Psych: Calm
[2024-07-30 14:32] LABS: Troponin I < 0.012 ng/ml
--- NOTE | 2024-07-30 16:57 | CM ---
Chart reviewed and patient lives with spouse in a 2 story home, 2 steps to enter, patient is independent with adl's and ambulation, no dme.
PCP: Luisa Viramontes
Pharmacy [facility] in [place]
Plan; Home no needs.
[2024-07-30 17:45] LABS: Glucose - Point of Care 157 mg/dl (70-99)
[2024-07-30] MEDS: TOPROL XL 100 MG PO (18:08)
[2024-07-30] MEDS: NOVOLOG FLEXPEN-LOW RESISTANCE 300 UNITS SC (18:26)
[2024-07-30 20:52] LABS: Troponin I < 0.012 ng/ml
[2024-07-30 21:22] LABS: Glucose - Point of Care 288 mg/dl (70-99)
[2024-07-31] MEDS: ZOSYN 50 IV ×3 (02:53→13:18)
[2024-07-31 02:57] VITALS: BP 106/58
[2024-07-31] MEDS: NSS 1000 IV (05:18)
[2024-07-31] MEDS: SYNTHROID 25 MCG PO (05:18)
[2024-07-31 07:42] LABS: Glucose - Point of Care 213 mg/dl (70-99)
[2024-07-31 07:45] VITALS: BP 111/60
[2024-07-31] MEDS: VITAMIN B-12 1000 MCG PO (09:05)
[2024-07-31] MEDS: PROTONIX 40 MG PO (09:05)
[2024-07-31] MEDS: ASPIR LOW (ENTERIC COATED) 81 MG PO (09:05)
[2024-07-31] MEDS: NOVOLOG FLEXPEN-LOW RESISTANCE 2 UNITS SC (09:05)
[2024-07-31 09:26] LABS: Glycohemoglobin (HgbA1c) 6.5 % (4.0-5.6)
--- NOTE | 2024-07-31 11:04 | W.PN.GI.CBS2 ---
Today's Communication / Plan
-
reg diet, GI s/o
Assessment / Plan
-
62 year old male with past medical history of AAA, CAD, NIDDM, PAD s/p lower extremity vascular bypass grafts (R 06/19/23, L 09/03/23), HTN, hypercholesterolemia, symptomatic anemia, hypertension, hyperlipidemia, carotid stenosis with CEA 11/2023,
prior GI bleed, acute cholecystis 11/2023 with zeb tube then lap subtotal zeb in January 2024. He now presents with 2 weeks of nausea, vomiting with decreased appetite, and wt loss. He was noted with increased LFT's. On admission noted with
abnormal CT with concern for severe biliary obstruction with severe intrahepatic biliary dilatation secondary to large 1.5 cm obstructing stone in common hepatic duct and collapsed gallbladder containing small amount of air. Labs notable for WBC
14,500, Na 128, BUN 45, creat 3.2 with baseline around 1.5, bili 4.8, AST 72, ALT 72, alk phos 579, lipase 219.
s/p ERCP with extraction of large stone via cholangioscopy and EHL. Tolerated procedure well. Denies abdo pain, tolerating CLD. Can advance to regular diet. Has biliary stent, will need f/u in my office in about 8 weeks and this as discussed
with the pt. GI s/o.
Total Time Spent with Patient (in minutes): 35
Subjective
Subjective
Date of Service: July 31, 2024
Feels ok, denies abdo pain, tolerating CLD
Objective
Data Reviewed
Laboratory Data:
Laboratory Results
07/30/24 07:51
07/30/24 07:51
Laboratory Results
PT 14.6 Sec (11.4-14.6) 07/29/24 13:37
INR 1.09 07/29/24 13:37
APTT 38.8 Sec (23.4-35.0) H 07/29/24 13:37
Phosphorus 4.2 mg/dl (2.5-4.5) 07/29/24 13:37
Magnesium 2.3 mg/dl (1.6-2.3) 07/30/24 07:51
Total Bilirubin 3.6 mg/dl (0.2-1.3) H 07/30/24 07:51
AST 56 U/L (17-59) 07/30/24 07:51
ALT 58 U/L (0-50) H 07/30/24 07:51
Alkaline Phosphatase 478 U/L (38-126) H 07/30/24 07:51
Lipase 219 U/L (23-300) 07/29/24 13:37
Vital Signs and I&O:
Vital Signs
Temp Pulse Resp BP Pulse Ox
97.2 F 54 16 111/60 97
07/31/24 07:45 07/31/24 07:45 07/31/24 07:45 07/31/24 07:45 07/31/24 07:45
I&O
07/30/24 07/31/24 08/01/24
06:59 06:59 06:59
Intake Total 0 / 0 240 / 240 1200 / 1200
Output Total 900 / 900
Balance 0 / 0 -660 / -660 1200 / 1200
[2024-07-31 11:12] VITALS: BP 107/55
[2024-07-31 11:44] LABS: Glucose - Point of Care 280 mg/dl (70-99)
[2024-07-31] MEDS: NOVOLOG FLEXPEN-LOW RESISTANCE 3 UNITS SC (12:29)
--- NOTE | 2024-07-31 13:39 | W.PN.HOSP.TC ---
Today's Communication/Plan
-
d/c
Assessment / Plan
Assessment / Plan
pt is a 63 year old male
elevated LFTs--with scleral icterus--due to choledocholithiasis--apprec GI--s/p ERCP with biliary sphincterotomy and balloon extraction stent in CBD--clear liquids today--cont ABX
ST segment inversion during procedure--apprec cards--ECHO pending--follow on telemetry
ENEIDA--creat in January 2024 was 1.5--now 3.2, 3.2--could be due to n/v--will d/c given granddaughter getting confirmed--lab slip given for Friday--told him to increase fluids
hyponatremia--improved
essential HTN--losartan/metoprolol
HLD--cont zetia--hold statin
type 2 DM--diet controlled--SSI with accuchecks
hypothyroid--cont levothyroxine
DVT proph
code status -- DNR
Anticipated Discharge: Today
Subjective/Interval History
-
Date of Service: July 31, 2024
pt ready for d/c
Objective Data
-
Vital Signs:
max temp for 24 hours
07/31/24
07:45
Temp 97.2 F
Vital Signs
Temp Pulse Resp BP Pulse Ox
96.7 F L 56 16 107/55 96
07/31/24 11:12 07/31/24 11:12 07/31/24 11:12 07/31/24 11:12 07/31/24 12:15
I&O
07/30/24 07/31/24 08/01/24
06:59 06:59 06:59
Intake Total 0 / 0 240 / 240 1200 / 1200
Output Total 900 / 900
Balance 0 / 0 -660 / -660 1200 / 1200
Review of Systems
-
All other systems: Reviewed and negative
Physical Exam
-
General: Well Developed, Well Nourished and No Apparent Distress
HEENT: Normocephalic and Atraumatic
Respiratory: Clear to Auscultation; Negative Wheezes or Rhonchi
Cardiac: Regular Rhythm and S1/S2; Negative Murmur
GI: Soft, Nontender, Nondistended and Normal Bowel Sounds
Musculoskeletal: No Clubbing, No Cyanosis and No Edema
Skin: Warm
Neuro: Awake
[2024-07-31 14:17] VITALS: BP 102/54
--- NOTE | 2024-07-31 15:47 | W.DCSUMMARY ---
Discharge Summary
Discharge Data
Date of Admission: 07/29/24
Date of Discharge: 07/31/24
-
Pending Results: No
Hospital Course
Primary care physician : Luisa Viramontes
Principal Discharge diagnosis : Elevated transaminases with scleral icterus due to choledocholithiasis, ST segment inversion during ERCP procedure, acute kidney injury
Chronic Discharge diagnosis : Hyponatremia, essential hypertension, hyperlipidemia, type 2 diabetes mellitus, hypothyroidism
Hospital Course : Patient was a 63-year-old male who presented with outpatient elevation of his liver function test. He reported 2 weeks of nausea, vomiting, and decreased appetite with weight loss of at least 10 pounds. He denied noticing
jaundice or abdominal pain. Patient had recent travel to [facility] 2 weeks prior to admission otherwise he denies any issues. Patient was admitted.
Problem #1: Elevated transaminases with scleral icterus due to choledocholithiasis. Patient was admitted and seen in consultation by GI. He underwent ERCP with biliary sphincterotomy, stone removal and stent placement based on severe biliary
obstruction with an obstructing stone in the common hepatic duct. Patient's bilirubin was 4.8 on admission and trending downward, AST 72 down to 56, ALT 72 down to 58, alk phos 579 down to 478. Patient is tolerating a diet and has been cleared for
discharge by GI. He should follow-up with them in 8 weeks given the stent placement. He will complete 1 week more of Augmentin for antibiotics.
Problem #2: ST segment inversion during ERCP procedure. While in ERCP, patient had ST segment changes. Cardiology was consulted. Echocardiogram was done and is as below. Patient has chronic elevation of troponin numbers as well as chronic EKG
findings. He had no chest pain. Overall findings on telemetry were nonspecific and not surprising considering his baseline cardiogram as per cardiology. Nothing further to do.
Problem #3: Acute kidney injury. Patient had nausea, vomiting, and decreased appetite. It appears his baseline creatinine was approximately 1.9/2.0. Here he was 3.2. He did receive IV fluids without any change in his creatinine. I did discuss
with them that usually I would keep people in the hospital for this but their granddaughter is getting confirmation today and I did encourage him to drink plenty of fluids throughout the weekend. I provided a prescription for him to obtain lab
values on 08/02/2024 with results to the patient's primary care physician. If his creatinine is still elevated he likely will need to come back for further evaluation. His losartan has been placed on hold for now.
Problem #4: All other medical issues. These include Hyponatremia, essential hypertension, hyperlipidemia, type 2 diabetes mellitus, hypothyroidism. These medical issues were stable during his hospitalization. Medications were continued as able.
Patient is stable for discharge home at this time. If there are any questions regarding this dictation or his hospital stay, please not hesitate to call. Our office number is [phone].
Important imaging findings :
CT SCAN ABDOMEN/PELVIS IMPRESSION:
1. SEVERE BILIARY OBSTRUCTION with severe intrahepatic biliary dilatation secondary to a large 1.5 cm OBSTRUCTING STONE (CHOLEDOCHOLITHIASIS) in the common hepatic duct.
2. Collapsed gallbladder containing a small amount of air.
3. Infrarenal abdominal aortic aneurysm (5.2 cm AP dimension).
4. Left common iliac artery stent in place.
5. Bilateral femoral artery bypass grafts in place.
6. Moderate chronic bilateral renal disease.
7. Mild hepatosplenomegaly.
8. Small bilateral adrenal adenomas.
9. Mildly enlarged prostate gland.
10. Moderate diverticulosis in the sigmoid colon.
11. Severe chronic discogenic degenerative disease at L5/S1.
Procedure findings :
ECHOCARDIOGRAM CONCLUSIONS:
Normal biventricular size and systolic function. LVEF 55-60%.
Hypokinesis of the inferior and inferolateral juarez.
Asymmetric septal hypertrophy without LVOT obstruction or SARAH.
Stage II diastolic dysfunction suggestive of abnormal relaxation and increased
filling pressures.
No significant valvular disease.
No significant change compared to prior echocardiogram on 09/04/2023.
ERCP Impression: - The major papilla was on the rim of a diverticulum.
- A filling defect consistent with a stone was seen on
the cholangiogram.
- The cystic duct was severely dilated.
- Choledocholithiasis was found. Complete removal was
accomplished by biliary sphincterotomy and balloon
extraction.
- A biliary sphincterotomy was performed.
- The lower third of the main bile duct and major
papilla were successfully dilated.
- Lithotripsy was successful.
- The biliary tree was swept.
- One plastic stent was placed into the common bile
duct.
Discharge Plan
-
Patient Disposition: Home (Routine Discharge)
Discharge Diagnosis/Procedures: Elevated LFTs due to choledocholithiasis status post ERCP with biliary sphincterotomy and balloon extraction, ST segment inversion during procedure, acute kidney injury, hyponatremia, essential hypertension,
hyperlipidemia, type 2 diabetes mellitus, hypothyroidism
Condition: Good
Diet: As tolerated and Regular
Activity: As tolerated
Driving Restrictions: As prior to admission
Bathing Restrictions: None
Blood Work: BMP Friday--results to PCP
Referrals:
Luisa Viramontes, [Family Provider] - in less than 1 week
Prescriptions:
New
amoxicillin-pot clavulanate 500-125 mg tablet
1 tab PO BID Qty: 14 0RF
Continued
ezetimibe 10 mg Tablet
10 mg PO DAILY
rosuvastatin 40 mg Tablet
40 mg PO QPM
levothyroxine 25 mcg Tablet
25 mcg PO DAILY
pantoprazole 40 mg Tablet,Delayed Release (Dr/Ec)
40 mg PO BID
Patient Comments:
coQ10 (ubiquinol) [Qunol Shaw CoQ10] 100 mg Capsule
100 mg PO DAILY
taurine 500 mg Capsule
500 mg PO DAILY
metoprolol succinate [Toprol XL] 100 mg tablet extended release 24 hr
100 mg PO QPM
ferrous sulfate 325 mg (65 mg iron) tablet
325 mg PO Q48H
cyanocobalamin (vitamin B-12) 1,000 mcg Tablet
1,000 mcg PO DAILY Qty: 30 0RF
ondansetron HCl 8 mg Tablet
8 mg PO [id number] PRN (Reason: NAUSEA)
aspirin 81 mg Tablet,Delayed Release (Dr/Ec)
81 mg PO DAILY
Held
losartan 50 mg Tablet
100 mg PO DAILY
Hold Instructions: discuss restarting with your primary doctor
Discontinued
acetaminophen [Tylenol] 325 mg Tablet
650 mg PO Q6HPRN PRN (Reason: MILD PAIN) Qty: 0
Discharge Orders:
Discharge Patient (As Directed); Ordered 07/31/24
Ordered By: Jaclyn Alvarez
Discharge Date and Time
Discharge Date/Time: 07/31/24 14:52
Print Language: KUWAITI
== END 2024-07-31 14:52 | disposition home or self-care (01) | DRG 445 ==
LOC: 4 WEST ACU 19:02
PROVIDERS: Nurse Practitioner Family; Nurse Practitioner Gerontology; Physician Assistant; ADMITTING PHYSICIAN Student in an Organized Health Care Education/Training Program; ATTENDING PHYSICIAN Internal Medicine; CONSULT PHYSICIAN Internal Medicine Cardiovascular Disease; CONSULT PHYSICIAN Internal Medicine Gastroenterology; EMERGENCY PHYSICIAN Emergency Medicine; FAMILY PHYSICIAN Family Medicine
PROC: 0FC78ZZ Extirpation of Matter from Common Hepatic Duct, Via Natural or Artificial Opening Endoscopic (ICD-10-PCS; 2024-07-29)
PROC: 0F798DZ Dilation of Common Bile Duct with Intraluminal Device, Via Natural or Artificial Opening Endoscopic (ICD-10-PCS; 2024-07-29)
DX: K80.51 Calculus of bile duct without cholangitis or cholecystitis with obstruction (principal); E87.1 Hypo-osmolality and hyponatremia; N17.9 Acute kidney failure, unspecified; I71.43 Infrarenal abdominal aortic aneurysm, without rupture; D35.01 Benign neoplasm of right adrenal gland; D35.02 Benign neoplasm of left adrenal gland; K57.30 Diverticulosis of large intestine without perforation or abscess without bleeding; E86.1 Hypovolemia; N18.30 Chronic kidney disease, stage 3 unspecified; I12.9 Hypertensive chronic kidney disease with stage 1 through stage 4 chronic kidney disease, or unspecified chronic kidney disease; K21.9 Gastro-esophageal reflux disease without esophagitis; I25.10 Atherosclerotic heart disease of native coronary artery without angina pectoris; Z98.61 Coronary angioplasty status; E11.22 Type 2 diabetes mellitus with diabetic chronic kidney disease; Z79.84 Long term (current) use of oral hypoglycemic drugs; E11.51 Type 2 diabetes mellitus with diabetic peripheral angiopathy without gangrene; E03.9 Hypothyroidism, unspecified; Z66 Do not resuscitate; F17.210 Nicotine dependence, cigarettes, uncomplicated; E78.00 Pure hypercholesterolemia, unspecified; D64.9 Anemia, unspecified; D72.829 Elevated white blood cell count, unspecified; K31.89 Other diseases of stomach and duodenum; K64.8 Other hemorrhoids; N40.0 Benign prostatic hyperplasia without lower urinary tract symptoms; Z79.82 Long term (current) use of aspirin; Z79.899 Other long term (current) drug therapy; Z86.79 Personal history of other diseases of the circulatory system; Z90.49 Acquired absence of other specified parts of digestive tract
CPT/HCPCS: 74176; 74330; 76000; 80053; 82962; 83036; 83690; 83735; 84100; 84484; 85025; 85027; 85610; 85730; 93005; 93306; 96361; 96365; 99285; 99406; C1726; C1769; C2625

== ENCOUNTER → 2024-08-17 07:50 | Outpatient (REF) | payer OTHER, SELFPAY | LOC: DHVS 07:50 | PROVIDERS: ATTENDING PHYSICIAN Surgery Vascular Surgery; FAMILY PHYSICIAN Family Medicine | DX: I65.22 Occlusion and stenosis of left carotid artery (principal); I73.9 Peripheral vascular disease, unspecified | CPT/HCPCS: 93880 ==

== ENCOUNTER 2024-10-27 06:08 | Day surgery (SDC) | payer OTHER, SELFPAY ==
[2024-10-27] VITALS (8 sets, daily range): BP systolic 130–176; BP diastolic 80–95; BMI 28.6
[2024-10-27 12:39] LABS: Glucose - Point of Care 120 mg/dl (70-99)
--- NOTE | 2024-10-27 14:52 | PTCARENOTE ---
Report given to Kinsey RN at 1450.
== END 2024-10-27 16:34 | disposition home or self-care (01) ==
LOC: SDS 06:08
PROVIDERS: ATTENDING PHYSICIAN Internal Medicine Gastroenterology
DX: K80.50 Calculus of bile duct without cholangitis or cholecystitis without obstruction (principal); Z46.59 Encounter for fitting and adjustment of other gastrointestinal appliance and device
CPT/HCPCS: 43264; 43275; 74330; 76000; 82962; C1769

== ENCOUNTER → 2024-11-16 08:08 | Outpatient (REF) | payer OTHER, SELFPAY | LOC: RAD 08:08 | PROVIDERS: ATTENDING PHYSICIAN Surgery Vascular Surgery; FAMILY PHYSICIAN Family Medicine | DX: I65.22 Occlusion and stenosis of left carotid artery (principal); I73.9 Peripheral vascular disease, unspecified; I71.40 Abdominal aortic aneurysm, without rupture, unspecified | CPT/HCPCS: 93880; 93922; 93925; 93978 ==

== ENCOUNTER 2024-12-27 12:16 | Emergency (ER) | payer MEDICARE, OTHER, SELFPAY ==
[2024-12-27] VITALS (8 sets, daily range): BP systolic 154–182; BP diastolic 79–92; BMI 28.3
[2024-12-27 12:52] LABS: ALT (SGPT) 14 U/L (0-50); AST (SGOT) 19 U/L (17-59); Albumin 4.5 g/dl (3.5-5.0); Alkaline Phosphatase 76 U/L (38-126); Blood Urea Nitrogen 24 mg/dl (9-20); Calcium 9.7 mg/dl (8.4-10.2); Carbon Dioxide 19 mmol/L (22-30); Chloride 109 mmol/L (98-107); Estimated Creatinine Clearance 44 ml/min; Glucose 164 mg/dl (70-99); Lipase 63 U/L (23-300); Potassium 4.4 mmol/L (3.5-5.1); Sodium 137 mmol/L (135-145); Total Protein 7.4 g/dl (6.3-8.2); eGFR 47.82
[2024-12-27 13:04] LABS: Troponin I 0.014 ng/ml
[2024-12-27 13:33] LABS: Hematocrit 41.5 % (39.0-52.0); Hemoglobin 13.6 g/dL (13.0-18.0); Mean Corp Hgb Conc. 32.8 g/dL (33.0-37.0); Mean Corpuscular Volume 84.2 fL (80.0-94.0); Nucleated Red Blood Cells % 0 % (-); Platelet Count 197 10^3/uL (130-400); Red Cell Dist. Width 14.5 % (11.5-14.5)
--- NOTE | 2024-12-27 13:37 | ED.GENMED ---
History of Present Illness
General
Chief Complaint: Abdominal Symptoms
Source: patient and spouse
Exam Limitations: none
Time Seen by Provider: 12/27/24 13:35
History of Present Illness
History of Present Illness:
63-year-old male complaining of about 20 hours of lower abdominal pain. Points diffusely across his lower abdomen. Some nausea and vomiting. No distention. Bowel movement that was normal this morning. No unusual back pain although has had some
chronic back pain. No fever chills no chest pain or shortness of breath. Patient had a biliary sphincterotomy choledocholithiasis removal done in July of this year. He had a follow-up ERCP done in October of this year.
Past History
Past History
ED Past Medical History: CAD, HTN, Hypercholesterolemia, NIDDM, Hypothyroidism, Other (AAA) and Other (Peripheral arterial disease)
ED Past Surgical History: Cardiac and Other (Multiple vascular surgeries)
Review of Systems
Review of Systems
All Other Systems: Not applicable
Constitutional: Denies fever or chills
Respiratory: Reports no symptoms
Cardiac: Reports no symptoms
ABD/GI: Denies diarrhea, bloody stools or black stools
Phy Exam
Physical Exam
Physical Exam:
GENERAL: Alert and oriented in no apparent distress
EYE: Orbits normal.
NECK: Supple
CARDIAC: Regular rate and rhythm without any obvious murmurs. Good perfusion to the lower extremities.
LUNGS: Clear breath sounds,normal
ABDOMEN: Soft, bowel sounds present. No distention. No rebound or guarding no mass or hernia. No obvious localizing tenderness although patient points to the lower abdomen as the location of his symptoms.
NEUROLOGICAL: Alert and oriented , grossly non-focal
SKIN: Warm and dry, no rash or lesion, no discoloration, skin intact.
MUSCULOSKELETAL: No edema,no deformity.Good color
PSYCH: Normal and appropriate interaction.
Course
Orders/Labs/Results
Orders:
Orders
12/27/24 12:20
Electrocardiogram (*1) Urgent
Reason for Study: Abdominal Pain
EKG- Treatment ONCE
12/27/24 12:30
Complete Blood Count/With Diff Urgent
Comprehensive Metabolic Panel Urgent
Lipase Urgent
Troponin I Urgent
12/27/24 13:50
CT Abd/pelvis Angio W/wo Iv Urgent
Comment:
Reason For Exam: Lower abdominal pain/known aneurysm
12/27/24 13:51
0.9% Sodium Chloride 1000 ml [Nss] 1,000 ml IV BOLUS
12/27/24 14:01
EKG- Treatment ONCE
12/27/24 14:07
Urinalysis Reflex To Culture Urgent
Date Specimen was Collected: 12/27/24
Time Specimen was Collected: 14:06
Urine Microscopic Reflex Cult Urgent
12/27/24 15:30
Electrocardiogram (*1) Stat
Reason for Study: Other
Other Reason for Exam: chest pain
12/27/24 15:37
Troponin I Urgent
12/27/24 18:12
Amoxicillin 875 mg/Clav 125 mg [Augmentin 875 mg/125 mg] 1 tablet PO NOW STA
Abnormal Lab Results
12/27/24 12/27/24
12:30 14:07
MCHC 32.8 L g/dL
(33.0-37.0)
MPV 12.2 H fL
(7.4-10.4)
Absolute Monos (auto) 0.7 H 10^3/uL
(0.1-0.6)
Lymphocytes % 16.4 L %
(20.5-51.1)
Chloride 109 H mmol/L
(98-107)
Carbon Dioxide 19 L mmol/L
(22-30)
BUN 24 H mg/dl
(9-20)
Creatinine 1.6 H mg/dL
(0.7-1.3)
Glucose 164 H mg/dl
(70-99)
Urine RBC 40-50 A /HPF
(0-2)
Urine Bacteria (Reflex) Few A
(Negative)
Urine Glucose 1+ A
(Negative)
Urine Albumin (Reflex) 2+ A
(Neg - Trace)
12/27/24 12:30
12/27/24 12:30
Vital Signs
Initial and Last Documented VS:
Initial Vital Signs
Temp Pulse Resp BP Pulse Ox
98.3 F 68 18 170/92 97
12/27/24 12:17 12/27/24 12:17 12/27/24 12:17 12/27/24 12:17 12/27/24 12:17
Last Documented Vital Signs
Temp Pulse Resp BP Pulse Ox
98.3 F 70 16 174/79 96
12/27/24 12:17 12/27/24 17:15 12/27/24 17:15 12/27/24 17:08 12/27/24 17:15
MDM/Problems Addressed
Differential Diagnosis Includes:
Patient complaining of lower abdominal pain. Nonsurgical abdomen clinically. Doubt a acute gallbladder or choledocholithiasis issue. LFTs are normal. He has no right upper quadrant tenderness. Lipase is normal. White count is normal. Lower
abdominal symptoms to consider would include a vascular issue. Known 5.2 cm AAA. Also to consider appendicitis and diverticulitis. Discussed risk-benefit of a CT angio and the dye with a creatinine of 1.6 and a GFR 47. Patient states he had
not talked to his vascular surgeon recently and they were planning on doing that this week anyway with his creatinine to 1.6. They are aware of the risk benefit. We will prehydrated him. Echo has an EF of 55-60. Will give him 1 L of fluid.
*Radiology
Radiology exam reviewed: radiology read reviewed (Acute diverticulitis of cecum. 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 Thrombus. Chronically occluded JEET. Patent stents left common iliac)
*Pulse Oximetry
SaO2: 96
Oxygen Mode of Delivery: Room air
Patient hypoxic: no
*EKG
Interpreted by ED Provider?: Yes
Interpretation: abnormal
Comparison EKG: changes noted
Heart Rate: 66
Rate: normal
Rhythm: sinus
[place]: normal axis
Interval: normal interval
QRS Pattern: normal QRS and left vent hypertrophy
Ischemia: T-wave inversion
*Critical Care Note
Total Time (30-74mins, 75-104mins- exclusive of procedures): Not Applicable
Update Note
Update Note:
Patient has remained stable and nontoxic. CT report given to patient for follow-up. Report also sent to vascular surgery for their opinion. In my opinion this does not appear to be a vascular issue acutely but does warrant vascular follow-up
which the patient already has arranged. They agreed. Will treat for diverticulitis. Patient has taken amoxicillin in the past. Will cover with Augmentin to follow-up. Patient and are comfortable with this approach. Repeat EKG is stable.
I do not feel this is acute cardiac issue.
ED Attending Note
-
Portions of this chart may have been created with voice recognition software.� Occasional wrong word or��sound alike� substitutions may have occurred due to the inherent limitations of voice recognition software.
Discharge Plan
Departure
Patient Disposition: Home (Routine Discharge)
Date of Disposition: 12/27/24
Time of Disposition: 18:15
Patient with high blood pressure during this ER visit?: Yes
Discharge Problem:
Cecal diverticulitis, Known AAA
Instructions: Abdominal aortic aneurysm, Diverticulitis - Discharge instructions, Abdominal Pain, BLOOD PRESSURE
Prescriptions:
New
amoxicillin-pot clavulanate 875-125 mg tablet
1 tab PO BID Qty: 20 0RF
No Action
ezetimibe 10 mg Tablet
10 mg PO DAILY
rosuvastatin 40 mg Tablet
40 mg PO QPM
levothyroxine 25 mcg Tablet
25 mcg PO DAILY
pantoprazole 40 mg Tablet,Delayed Release (Dr/Ec)
40 mg PO DAILY
Patient Comments:
coQ10 (ubiquinol) [Qunol Shaw CoQ10] 100 mg Capsule
100 mg PO DAILY
taurine 500 mg Capsule
1,000 mg PO DAILY
metoprolol succinate [Toprol XL] 100 mg tablet extended release 24 hr
100 mg PO QPM
ferrous sulfate 325 mg (65 mg iron) tablet
325 mg PO Q48H
aspirin 81 mg Tablet,Delayed Release (Dr/Ec)
81 mg PO DAILY
Ultra Prostate
1 tab PO BID
cyanocobalamin (vitamin B-12) 1,000 mcg tablet
2,000 mcg PO DAILY
Referrals:
Luisa Viramontes DO [Family Provider, Family Practice]
Activity Restrictions/Additional Instructions:
Follow-up closely your scan with Dr. Tapia
Get rechecked if symptoms or not improving in a few days
Light diet the next few days
Your prescription was sent to your pharmacy
Interventions
Interventions:
*Risk Screen - Suicide Last Done: 12/27/24 12:17
*General Assessment Last Done: 12/27/24 12:17
*Neglect/Abuse Screening Last Done: 12/27/24 12:17
QA-Bekadd-Tyfpduikji Assessment Last Done: 12/27/24 13:31
Discharge Date and Time
Print Language: CZECH
[2024-12-27] MEDS: NSS 1000 IV (14:03)
[2024-12-27 15:07] LABS: Urine Character Clear (Clear)
[2024-12-27 15:35] LABS: Urine Red Blood Cell 40-50 /HPF (0-2); Urine Squamous Cell 0-2 /LPF (Few); Urine White Cell 0-2 /HPF (0-5)
[2024-12-27 16:08] LABS: Troponin I 0.014 ng/ml
[2024-12-27] MEDS: AUGMENTIN 875 MG/125 MG 1 TABLET PO (18:35)
== END 2024-12-27 19:08 | disposition home or self-care (01) ==
LOC: EMR 12:16
PROVIDERS: Student in an Organized Health Care Education/Training Program; EMERGENCY PHYSICIAN Emergency Medicine; FAMILY PHYSICIAN Family Medicine
DX: K57.32 Diverticulitis of large intestine without perforation or abscess without bleeding (principal); I71.40 Abdominal aortic aneurysm, without rupture, unspecified; E03.9 Hypothyroidism, unspecified; E78.00 Pure hypercholesterolemia, unspecified; I10 Essential (primary) hypertension; E11.9 Type 2 diabetes mellitus without complications; I25.10 Atherosclerotic heart disease of native coronary artery without angina pectoris
CPT/HCPCS: 96360; 99284; 74174; 80053; 81003; 81015; 83690; 84484; 85025; 93005; Q9967

== ENCOUNTER → 2025-01-12 12:42 | Outpatient (REF) | payer MEDICARE, OTHER, SELFPAY | LOC: RAD 12:42 | PROVIDERS: ATTENDING PHYSICIAN Family Medicine; FAMILY PHYSICIAN Family Medicine | DX: R10.84 Generalized abdominal pain (principal) | CPT/HCPCS: 74177; Q9967 ==

== ENCOUNTER 2025-02-02 06:10 | Inpatient (IN) | payer MEDICARE, OTHER, SELFPAY ==
[2025-01-18 10:30] VITALS: BMI 28.8
[2025-01-18 10:58] LABS: Hematocrit 43.0 % (39.0-52.0); Hemoglobin 14.1 g/dL (13.0-18.0); Mean Corp Hgb Conc. 32.8 g/dL (33.0-37.0); Mean Corpuscular Volume 86.2 fL (80.0-94.0); Nucleated Red Blood Cells % 0 % (-); Platelet Count 214 10^3/uL (130-400); Red Cell Dist. Width 14.6 % (11.5-14.5)
[2025-01-18 11:05] LABS: INR 0.96; PT 13.1 Sec (11.4-14.6)
[2025-01-18 11:06] LABS: APTT 32.2 Sec (23.4-35.0)
[2025-01-18 11:28] LABS: Blood Urea Nitrogen 20 mg/dl (9-20); Calcium 9.5 mg/dl (8.4-10.2); Carbon Dioxide 25 mmol/L (22-30); Chloride 106 mmol/L (98-107); Estimated Creatinine Clearance 42 ml/min; Glucose 133 mg/dl (70-99); Potassium 4.8 mmol/L (3.5-5.1); Sodium 138 mmol/L (135-145); eGFR 47.52
[2025-02-02] VITALS (19 sets, daily range): BP systolic 104–164; BP diastolic 62–97; BMI 29.0
[2025-02-02] MEDS: PERIDEX 0.12% ORAL RINSE 15 ML PO (06:41)
[2025-02-02] MEDS: BACTROBAN NASAL 1 GRAM NASAL (06:41)
[2025-02-02] MEDS: VANCOCIN 530 MG IV (06:58)
[2025-02-02 07:11] LABS: Glucose - Point of Care 105 mg/dl (70-99)
--- NOTE | 2025-02-02 08:23 | CON.INTV ---
Addendum entered and electronically signed by Reta Saavedra MD 02/03/25 12:40:
02/03:
Patient scheduled for discharge home by vascular surgery
Floor Inspector service available as needed
Original Note:
Consultation
Consultation Request
Date/Time Consultation Requested: 02/02/2025
Date/Time Consultation Performed: 02/02/2025
Medical History
-
Chief Complaint: Enlarging AAA
History of Present Illness:
Patient is a 64-year-old gentleman with known history of smoking as well as carotid artery disease and peripheral vascular disease who was noted to have AAA. Patient has been following up with cardiology and vascular surgery service and noted to
have enlarging abdominal aortic aneurysm. He was admitted to the hospital for Endo vascular aneurysmal repair and postprocedure was admitted to intensive care unit for close monitoring. Floor Inspector consultation was requested for further input.
Past Medical History
Past Medical History: Reports Other
Additional Past Medical History:
essential hypertension
PAD
CAD
hyperlipidemia
NIDDM
hypothyroidism
AAA
Past Surgical History: Reports Other
Additional Past Surgical History:
R fem endar + R fem to pop bypass 06/2023
arterial bypass 09/03/23
L carotid endarterectomy 12/17/23
laparoscopic cholecystectomy with drain placement ([facility]) 01/21/2024
Social History
Tobacco: Smoker (15 pack year history, for past 5 months smokes approximately 2 cigarettes every other day )
Alcohol: Occasional (2 drinks per week, none recently with illness)
Drug: None
Personal:
Living: With Family
Employment: Retired
Family History
Family History: Other (Father: CVA; Mother: PAD)
Allergies / Home Medications
Allergies
Allergy/AdvReac Type Severity Reaction Status Date / Time
ceftriaxone Allergy HIVES-with Verified 02/02/25 06:37
one dose
of
ceftriaxone
on 11/27/23
Home Medications
�Medication �Instructions �Recorded �Confirmed �Last Taken �Type
ezetimibe 10 mg tablet 10 mg PO DAILY High Cholesterol 04/25/23 02/02/25 02/01/25 07:00 History
levothyroxine 25 mcg tablet 25 mcg PO DAILY Thyroid 04/25/23 02/02/25 02/01/25 19:00 History
rosuvastatin 40 mg tablet 40 mg PO QPM High Cholesterol 04/25/23 02/02/25 02/01/25 19:00 History
pantoprazole 40 mg tablet,delayed 40 mg PO DAILY Gastrointestinal 05/07/23 02/02/25 02/01/25 07:00 History
release Issue
coQ10 (ubiquinol) 100 mg capsule 100 mg PO DAILY Supplement 06/19/23 02/02/25 02/01/25 07:00 History
(Qunol Shaw CoQ10)
metoprolol succinate 100 mg 100 mg PO QPM Blood Pressure 11/26/23 02/02/25 02/01/25 19:00 History
tablet,extended release 24 hr
(Toprol XL)
taurine 500 mg capsule 1,000 mg PO DAILY Supplement 11/26/23 02/02/25 02/01/25 07:00 History
aspirin 81 mg tablet,delayed 81 mg PO DAILY Blood Clot 07/29/24 02/02/25 02/02/25 04:00 History
release Prevention/Tx
Ultra Prostate 1 tab PO BID 10/27/24 02/02/25 02/01/25 19:00 History
cyanocobalamin (vitamin B-12) 2,000 mcg PO NOON 10/27/24 02/02/25 02/01/25 19:00 History
1,000 mcg tablet
Review of Systems
-
Hematologic/Lymphatic: Other (All 14 systems reviewed and negative except as stated above in the history of present illness.)
Vitals / Labs / Diagnostic Testing
Vital Signs
Temp Pulse Resp BP Pulse Ox
97.8 F 58 16 146/97 97
02/02/25 06:25 02/02/25 07:00 02/02/25 07:00 02/02/25 06:47 02/02/25 06:47
Diagnostic Testing:
Physical Exam
-
HEENT: Normocephalic
Cardiovascular: S1/S2
Respiratory: Clear
GI: Soft and Non Distended
Neurology: Awake and Alert
Skin: Warm
General: Comfortable
Assessment
-
Patient is a 64-year-old gentleman with known history of enlarging abdominal aortic aneurysm, s/p EVAR by vascular surgery service, POD #0
Continue observation following procedure
Follow neurovascular checks per protocol
ASA, metoprolol, Crestor and Zetia on board
Follow BP monitoring and parameters as set by primary team
Cardiac history reviewed
Monitor on telemetry
Pain control per protocol
RASS goal 0
No prior history of pulmonary disease, however 50 pack year smoking history
No prior PFTs for review
Encouraged IS
Diet advancement per protocol
Aspiration precautions
GI prophylaxis: Protonix
Cr at baseline, follow UO
Critical I/Os
Void trials
Replete electrolytes as needed
No signs/symptoms suspicious for infectious etiology at this time
Will observe off antibiotics for now
Follow temperatures/CBC
Hb and platelets postoperatively stable
DVT prophylaxis: Subcu heparin
Other medical diagnoses:
- NSVT. On Beta blockers chronically
- HTN
- Hyperlipidemia
- CAD, s/p PCI of LAD in 09/2022 with residual LCX and RCA disease
- DM
- Hypothyroidism
- PAD, s/p LE bypass grafts
- Carotid Artery stenosis, s/p CEA 11/2023
- h/o choledocholithiasis status post ERCP and stent placement 07/2024
- H/o Smoking. Almost 50 pack years. Needs PFTs and 6 min walk test as out patient. Also qualifies for LDCT for lung cancer screening. Out patient follow up with Pulmonary team recommended, information added to the chart. PRN Albuterol for now.
- CKD, Cr stable
Critical Care time 62 mins -- The patient is admitted for acute critical illness for the treatment of vital organ failure and/or prevention of further life-threatening conditions. Total care includes time spent in review of history, physical exam,
medications, hemodynamic/ventilator parameters, laboratory data, imaging and discussion with house staff, pharmacy, respiratory therapy, punch hand, and nursing
Data:
CXR 01/2025: Clear lungs
CT A/P 12/2024: 1. No acute findings within the abdomen or pelvis.
2. Again seen is a diverticulum within the cecum with slightly decreased in contour change compared to the prior CT. No extraluminal gas or fluid collection is appreciated. No wall thickening.
3. Unchanged appearance of fusiform infrarenal abdominal aortic aneurysm measuring up to 5.4 cm in diameter. Chronic occlusion of the JEET. No periaortic stranding.
4. Pneumobilia compatible with prior sphincterotomy.
ECHO 07/2024: Normal biventricular size and systolic function. LVEF 55-60%.
Hypokinesis of the inferior and inferolateral juarez.
Asymmetric septal hypertrophy without LVOT obstruction or SARAH.
Stage II diastolic dysfunction suggestive of abnormal relaxation and increased filling pressures.
No significant valvular disease.
No significant change compared to prior echocardiogram on 09/04/2023.
--- NOTE | 2025-02-02 09:25 | W.SUR.POST ---
Surgical Immediate Post Op
Note
Pre Op Diagnosis: AAA
Post Op Diagnosis: AAA
Procedure Performed: EVAR
Primary Surgeon: Kostas Tapia M.D.
Secondary Surgeons: N/A
Anesthesia: GETA
Estimated Blood Loss: 20 mL
Fluids: See anesthesia flowsheet
Drains/Shunts: N/A
Specimens/Cultures: N/A
Doppler/Duplex/Angio (Y/N): Yes
Complications: None
Operative Findings: Successful endovascular repair of AAA
[2025-02-02 09:59] LABS: Hematocrit 34.8 % (39.0-52.0); Hemoglobin 11.5 g/dL (13.0-18.0); Mean Corp Hgb Conc. 33.0 g/dL (33.0-37.0); Mean Corpuscular Volume 85.5 fL (80.0-94.0); Platelet Count 140 10^3/uL (130-400); Red Cell Dist. Width 14.8 % (11.5-14.5)
[2025-02-02 10:29] LABS: Blood Urea Nitrogen 23 mg/dl (9-20); Calcium 8.3 mg/dl (8.4-10.2); Carbon Dioxide 21 mmol/L (22-30); Chloride 113 mmol/L (98-107); Estimated Creatinine Clearance 42 ml/min; Glucose 129 mg/dl (70-99); Potassium 4.8 mmol/L (3.5-5.1); Sodium 137 mmol/L (135-145); eGFR 47.52
[2025-02-02 11:03] LABS: Glucose - Point of Care 139 mg/dl (70-99)
[2025-02-02] MEDS: NSS 1000 IV ×2 (11:22→23:30)
[2025-02-02 12:00] LABS: INR 1.09; PT 14.7 Sec (11.4-14.6)
[2025-02-02 12:01] LABS: APTT 35.5 Sec (23.4-35.0)
--- NOTE | 2025-02-02 12:25 | PTCARENOTE ---
Patient arrived into room 3369 from PACU approximately 1050. Drowsy but arousable to verbal stimuli. 6L simple face mask in place, Sp02 99-100%. Lungs sound clear. Bilateral groin incisions intact with exofin; no drainage, no signs of hematoma.
Bilateral LE warm, pink with good sensation and movement. All palpable except right posterior tibial present with doppler. CHG/ erazo care done. Sinus bradycardia HR 50s on telemetry. Right radial arterial line zeroed, transducer leveled, calibrated
and monitored, all ports patent and secured, dressing CDI. Reports 2/10 pain to groin incisions, pain is tolerable. Educated on bedrest and HOB restrictions, and plan of care. Foam to sacrum for protection. Heels floated. at bedside. Patient
was instructed to notify RN for numbness or tingling to LE or severe pain. Verbalized understanding. Call verduzco left within reach. Safe environment maintained.
[2025-02-02 12:30] LABS: Magnesium 2.0 mg/dl (1.6-2.3)
--- NOTE | 2025-02-02 12:39 | OR.RPT ---
Addendum entered and electronically signed by Kostas Tapia MD 02/02/25 14:19:
Fluoroscopy:
Time:12.7min
Dose: 130
DAP: 42.05
Original Note:
Operative Report
Operative Report
PROCEDURE DATE: 02/02/2025
Preoperative diagnosis: Enlarging infrarenal abdominal aortic aneurysm. Exceed size threshold for repair.
Postoperative diagnosis: Same
Procedure:
1. Endovascular repair of abdominal aortic aneurysm with bifurcated modular endoprosthesis using Endologix Romeo endograft with bilateral iliac limb extension (Main body [id number], Left contralateral Ovation iX [id number], Right ipsilateral Ovation iX
[id number]).
2. Percutaneous bilateral common femoral artery closure.
3. Supervision and interpretation.
Surgeon: Willie
[place]: None
Complications: None
Anesthesia: General
Indications for procedure:
Enlarging abdominal aortic aneurysm during surveillance., Exceeded size threshold for repair. Complex anatomy secondary to pre-existing bilateral iliac stents, bilateral lower extremity bypasses emanating from the groin arteries bilaterally,
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 High risk patient. Risk/benefits/alternatives of Endologix alto endograft placement were all fully discussed. Patient understood and wished to proceed.
Description of procedure:
Patient was identified brought to the operating room placed on the table in supine position. After the adequate administration of anesthesia and perioperative antibiotics he was prepped and draped in the standard surgical fashion. A standard
preoperative timeout was undertaken and everybody was in agreement the plan. Bilateral common femoral artery access was obtained under direct duplex ultrasound guidance. 6 Pakistani sheaths were placed over 0.035 inch wires. Note that both sides
were scarred groins, the right side was more challenging. Advancing the micropuncture sheath initially was challenging. I had to advance the dilator first over a 0.018 inch wire, and then was able to advance the entire micropuncture sheath. A 6
[place] sheath was then advanced over an Amplatz wire on the right side. Note also that I was careful to access the common femoral arteries just proximal to the origin of the bypass graft bilaterally. This was done using careful duplex assisted
guidance. Once bilateral 6 [place] sheath access was obtained, small 1 cm incisions were made around the sheath entry sites bilaterally. Blunt dissection was undertaken with hemostats to facilitate percutaneous suture delivery. Next, using the
ProGlide suture system, percutaneous sutures were deployed at the 10:00 and 2 o'clock position bilaterally in the standard fashion. Suture strands were tagged outside the skin. We exchanged for 11 [place] sheaths bilaterally. Wires were guided
into the supraceliac aorta. On the right side I exchanged using K2 catheter for a Lunderquist wire. Left side I exchanged for a pigtail catheter that was positioned in the juxtarenal aorta. The patient was given an appropriate dose of IV heparin.
Next I exchanged my right-sided 11 Pakistani sheath for the 29 mm ALTO aortic body delivery system over the guidewire. This was advanced directly under fluoroscopy to the juxtarenal aorta. We had specifically oriented it such that the iliac limbs
would cross based on the wire lay.
Power injection aortography was obtained under magnification to identify and william the renal arteries on the screen. The gantry and table were locked. The delivery system outer sheath was then unsheathed until the sheath retraction knob met the
handle. Note, the graft had been positioned such that the markers were positioned just above the left/lower renal artery. Now the first segment of the proximal bare-metal stents were released in the standard fashion turning the first yellow knob
and pulling from the handle. Once this was done the white Was removed from the balloon injection port, and 10 mL of saline/contrast were injected to inflate the balloon to open the mid crown. The balloon was deflated then. Now we could see the
proximal graft markers much better (proximal white) and were able to make sure that we were orthogonal to the white in terms of her imaging and that we were nicely lined up with the renal arteries. Once satisfied with positioning (we had pulled
down the graft a little bit so that the white were just at the inferior edge or just below the inferior edge of the left renal artery), we then deployed the remainder of the proximal stent by rotating the second yellow release knob and pulling from
the handle. Next the polymer was mixed (on the back table with the preloaded syringes). Next the green fill From the polymer injection port on the handle was removed and the syringe attached to it. The autoinjector of the polymer was then
applied. The timer was started for polymer injection. While this was injecting, contralateral iliac limb access was obtained. Note, I had withdrawn the pigtail catheter into the aortic aneurysm sac prior to completing the proximal crown
deployment. Now I exchanged over a Glidewire for a K2 catheter/angled catheter. I was able to cannulate the contralateral gate in the standard fashion. [place] wire was advanced into the supraceliac aorta and then pigtail catheter advanced over the
glide catheter. I then spun the pigtail catheter in the graft main body and above the graft to confirm that I was truly in the true lumen of the contralateral limb. Once satisfied, an Amplatz wire was inserted through the pigtail catheter up the
left-sided sheath access. We chose a 10 mm x 160 mm limb. 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 The contralateral limb was then advanced with sufficient overlap into the iliac limb
and advanced up to the flow divider. This was then deployed in the standard fashion (by withdrawing sheath). Next the delivery system was walked out over the wire once satisfied with positioning.
Once the polymer hardening time was completed, the proximal seal ring was then ballooned. The final release knob was then released from the handle and pulled. This completed deployment and then we walked out the delivery system. The sheath was
then withdrawn and exchanged for a short 11F sheath. Retrograde pelvic angiogram demonstrated the positioning of the right iliac bifurcation which was marked on the screen. Next we used a 12 mm x 140 mm ipsilateral iliac limb extension with
sufficient overlap in the iliac limb and landing just short of the iliac bifurcation. This was deployed in the standard fashion. The delivery mechanism was then removed from the sheath. Next kissing 12 mm balloons were placed up into the proximal
iliac limb of the main body/overlaps of the iliac limbs. These were then inflated and deflated, repeating while walking back through the entire length of the iliac limbs. Now a pigtail catheter was advanced up and completion power injection
aortography was performed. This demonstrated excellent positioning of the stent graft. Polymer seal was excellent. There was no evidence of an endoleak. Both renal arteries filled very well. Good filling into the right iliac bifurcation. Good
filling into the left common and external iliac artery.
Next I exchanged my pigtail catheter back for a Storq wire. Next, I sequentially removed the sheath while cinching down the percutaneous sutures. This was initially done on the right side and then on the left. Once hemostasis was noted the wire
was then withdrawn, the knot was tightened with a knot pusher. Hemostasis was confirmed. The knot was then locked and the suture strands trimmed. This was done as noted on the right initially and then on the left. Hemostasis was fully achieved
bilateral groins with good femoral pulses bilaterally. The small skin incisions were then closed with 4-0 Monocryl subcuticular stitch and Dermabond was applied. Patient tolerated procedure well. He had palpable DP pulses bilaterally upon
completion. (Note I had confirmed angiographically patency of the bypass grafts as well). He was transported to recovery room in stable condition.
[2025-02-02] MEDS: TYLENOL 650 MG PO (13:30)
[2025-02-02] MEDS: TOPROL XL 100 MG PO (17:37)
[2025-02-02] MEDS: CRESTOR 40 MG PO (17:37)
--- NOTE | 2025-02-02 17:52 | PTCARENOTE ---
Patient found standing at the bedside. Pt stated he 'needed to stand to empty his bladder because it felt full'. Call verduzco was within reach at that time. Pt has erazo catheter in place, patency checked, and stat lock repositioned. Patient was
educated again on the importance of bedrest order and bleeding precautions, recent vascular surgery with risk of complications. Bilateral groin incisions intact, no change from previous assessment. Neurovascular checks unchanged. Bed alarm set for
safety. RN stressed the importance of using the call verduzco for staff. Call verduzco and tray table within reach. Dr. Zaid christianson texted about the above info.
[2025-02-02] MEDS: HEPARIN 5000 UNITS SC (20:05)
[2025-02-03] MEDS: ROXICODONE 5 MG PO ×2 (00:59→05:25)
--- NOTE | 2025-02-03 01:02 | PTCARENOTE ---
Pt received at 19:00, initial assessment as documented. B/L DP and PT pulses palpable. B/L groin sites w/ surgical glue--intact, minimal bruising, soft to palpation. Pt c/o 5/10 pain to B/L groin, given PRN oxycodone as ordered. Safe environment
maintained, call verduzco within reach.
[2025-02-03 04:21] LABS: Hematocrit 33.6 % (39.0-52.0); Hemoglobin 11.1 g/dL (13.0-18.0); Mean Corp Hgb Conc. 33.0 g/dL (33.0-37.0); Mean Corpuscular Volume 86.2 fL (80.0-94.0); Platelet Count 143 10^3/uL (130-400); Red Cell Dist. Width 14.6 % (11.5-14.5)
[2025-02-03 04:26] LABS: INR 1.07; PT 14.4 Sec (11.4-14.6)
[2025-02-03 04:27] LABS: APTT 32.4 Sec (23.4-35.0)
[2025-02-03 04:38] LABS: Blood Urea Nitrogen 26 mg/dl (9-20); Calcium 8.4 mg/dl (8.4-10.2); Carbon Dioxide 20 mmol/L (22-30); Chloride 112 mmol/L (98-107); Estimated Creatinine Clearance 44 ml/min; Glucose 170 mg/dl (70-99); Potassium 4.3 mmol/L (3.5-5.1); Sodium 137 mmol/L (135-145); eGFR 51.35
[2025-02-03] MEDS: SYNTHROID 25 MCG PO (05:25)
[2025-02-03 05:53] VITALS: BMI 29.6
--- NOTE | 2025-02-03 07:50 | W.PN.VS ---
Today's Communication / Plan
-
Seen and assessed with Dr. Tapia
Assessment/Plan
-
Postop day 1 Endovascular repair of abdominal aortic aneurysm with bifurcated modular endoprosthesis using Endologix [place] endograft with bilateral iliac limb extension (Main body [id number], Left contralateral Ovation iX [id number], Right ipsilateral
Ovation iX [id number]).
Percutaneous bilateral common femoral artery closure.
Plan:
DC A-line
DC Jackson
DC IV fluids
Out of bed/ambulate
P.o. meds
Regular diet
Likely DC later today
Subjective Data
-
Date of Service: February 03, 2025
Patient seen at bedside this a.m. with Dr. Tapia. Patient offers no complaints at this time. No events overnight. Groin site stable.
Objective Data
-
Vital Signs
Temp Pulse Resp BP Pulse Ox
98.6 F 53 14 136/74 98
02/02/25 19:51 02/03/25 03:00 02/03/25 03:00 02/02/25 20:00 02/03/25 06:25
Intake and Output
02/02/25 02/03/25 02/04/25
06:59 06:59 06:59
Intake Total 2301 / 2381 80 / 80
Output Total 1766 250 / 250
Balance 534 / 364 -170 / -170
Intake:
Oral fluids 576 / 576
IV fluids (Total) 1725 / 1805 80 / 80
Nss 1,000 ml @ 80 mls/hr IV . 1600 / 1680 80 / 80
[id number] [id number] Rx#:[id number]
norm saline 125 / 125
Output:
Urine, Jacskon 1766 250 / 250
Lab Results
02/03/25 03:59
02/03/25 03:59
Calcium 8.4 mg/dl (8.4-10.2) 02/03/25 03:59
Phosphorus 3.9 mg/dl (2.5-4.5) 02/02/25 09:52
Magnesium 2.0 mg/dl (1.6-2.3) 02/02/25 09:52
Physical Exam
-
AAO x 3
No tachypnea on 2 L nasal cannula
No tachycardia
Abdomen soft and nontender
Groin sites clean, dry, intact, soft, flat
Bilateral feet warm
Palpable pulses bilaterally
[2025-02-03 08:02] VITALS: BP 143/67
[2025-02-03] MEDS: ZETIA 10 MG PO (08:13)
[2025-02-03] MEDS: TYLENOL 650 MG PO (08:13)
[2025-02-03] MEDS: PROTONIX 40 MG PO (08:13)
[2025-02-03] MEDS: ASPIR LOW (ENTERIC COATED) 81 MG PO (08:14)
[2025-02-03] MEDS: HEPARIN 5000 UNITS SC (08:14)
--- NOTE | 2025-02-03 08:30 | PTCARENOTE ---
Patient offers no complaints. NSR on telemetry. Incisions intact, no drainage. Pedal pulses intact. Swallowed pills w/o issues. Ate breakfast, good appetite. Jackson and Arterial line removed per provider orders. OOB to chair. Call verduzco within reach.
Pt thankful for care.
[2025-02-03 08:47] VITALS: BP 117/67
[2025-02-03 10:00] VITALS: BP 126/71
--- NOTE | 2025-02-03 10:45 | PTCARENOTE ---
Pt voided s/p erazo removal bladder scanned for 10ml residual. Pt without complaint. Ambulated around unit 1 time without assistance required. Left in room, packing belongings for hopeful discharge later
--- NOTE | 2025-02-03 11:56 | W.DS.TRANS ---
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
-
Discharge Instructions:
Sleep Apnea Risk Intermediate
Discharge Diagnosis/Procedures EVAR
Diet As tolerated
Activity No strenuous activity
Driving Restrictions No driving for 1 week
Bathing Restrictions OK to Shower
Instructions:
Stand-Alone Forms: Vascular Surg Discharge Instr
Changes to Home Medications: No
Discharge Medications:
DC Medications w/original date entered in [facility]
ezetimibe 10 mg tablet 10 mg PO DAILY High Cholesterol 04/25/23
levothyroxine 25 mcg tablet 25 mcg PO DAILY Thyroid 04/25/23
rosuvastatin 40 mg tablet 40 mg PO QPM High Cholesterol 04/25/23
pantoprazole 40 mg tablet,delayed release 40 mg PO DAILY Gastrointestinal Issue 05/07/23
coQ10 (ubiquinol) 100 mg capsule (Qunol Shaw CoQ10) 100 mg PO DAILY Supplement 06/19/23
metoprolol succinate 100 mg tablet,extended release 24 hr (Toprol XL) 100 mg PO QPM Blood Pressure 11/26/23
taurine 500 mg capsule 1,000 mg PO DAILY Supplement 11/26/23
aspirin 81 mg tablet,delayed release 81 mg PO DAILY Blood Clot Prevention/Tx 07/29/24
Ultra Prostate 1 tab PO BID Supplement 10/27/24
cyanocobalamin (vitamin B-12) 1,000 mcg tablet 2,000 mcg PO NOON Supplement 10/27/24
Home Medication Changes
Pending Results: No
[2025-02-03 13:02] VITALS: BP 168/78
--- NOTE | 2025-02-03 13:27 | PTCARENOTE ---
Pt discharged as ordered. Instructions reviewed with pt and at bedside. IV sites removed per protocol. Pt given info on stents prior to discharge. Pt escorted out to car by wheelchair with driving.
--- NOTE | 2025-02-03 13:35 | CM ---
Patient lives with his in a 2 story home with B/B on 2nd, 1/2 bath on 1st. 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 No DME or in-home services. Discharge POC: Home with no needs.
--- NOTE | 2025-02-03 13:39 | CM ---
Patient has been medically cleared for discharge to home with no additional skilled services. Patient arranged for transport home. Admission IMM within 48 hr time frame of discharge.
== END 2025-02-03 13:10 | disposition home or self-care (01) | DRG 269 ==
LOC: ICU 06:10
PROVIDERS: Nurse Practitioner; ADMITTING PHYSICIAN Surgery Vascular Surgery; CONSULT PHYSICIAN Internal Medicine; PRIMARYCARE PHYSICIAN Family Medicine
PROC: 04V03DZ Restriction of Abdominal Aorta with Intraluminal Device, Percutaneous Approach (ICD-10-PCS; 2025-02-02)
DX: I71.43 Infrarenal abdominal aortic aneurysm, without rupture (principal); I47.29 Other ventricular tachycardia; E11.51 Type 2 diabetes mellitus with diabetic peripheral angiopathy without gangrene; I10 Essential (primary) hypertension; I25.10 Atherosclerotic heart disease of native coronary artery without angina pectoris; E78.00 Pure hypercholesterolemia, unspecified; E03.9 Hypothyroidism, unspecified; F17.200 Nicotine dependence, unspecified, uncomplicated; Z82.3 Family history of stroke; Z82.49 Family history of ischemic heart disease and other diseases of the circulatory system; Z88.1 Allergy status to other antibiotic agents; Z79.890 Hormone replacement therapy; Z79.82 Long term (current) use of aspirin; Z95.5 Presence of coronary angioplasty implant and graft
CPT/HCPCS: 34705; 36415; 71045; 71046; 80048; 82962; 83735; 84100; 85025; 85027; 85610; 85730; 86850; 86900; 86901; 93005; C1725; C1760; C1769; C1773; C1892; C1894; Q9967

== ENCOUNTER → 2025-03-14 06:33 | Outpatient (REF) | payer MEDICARE, OTHER, SELFPAY | LOC: RAD 06:33 | PROVIDERS: ATTENDING PHYSICIAN Physician Assistant; FAMILY PHYSICIAN Family Medicine | DX: I71.40 Abdominal aortic aneurysm, without rupture, unspecified (principal); I71.43 Infrarenal abdominal aortic aneurysm, without rupture | CPT/HCPCS: 74176 ==

== ENCOUNTER → 2025-03-25 06:46 | Outpatient (REF) | payer MEDICARE, OTHER, SELFPAY | LOC: RAD 06:46 | PROVIDERS: ATTENDING PHYSICIAN Physician Assistant; FAMILY PHYSICIAN Family Medicine | DX: I71.43 Infrarenal abdominal aortic aneurysm, without rupture (principal) | CPT/HCPCS: 76770 ==